=== PATIENT | male | born 1945 | race Caucasian/White ===

== ENCOUNTER → 2017-07-26 | Outpatient (CLI) | payer MEDICARE, BC ==
[2017-07-26 12:26] LABS: CH 32.4; CHCM 34.5; HDW 2.77; HGB 15.6 gm/dL (13.0-17.5); MCH 31.3 pg (25.0-35.0); MCHC 33.2 g/dL (31.0-37.0); MCV 94.3 fL (80.0-100.0); Mean Platelet Volume 7.5; RBC 4.98 m/uL (4.30-5.90); RDW 13.4 % (11.5-15.5); WBC 6.7 k/uL (3.8-10.6)
[2017-07-26 12:36] LABS: Anion Gap 15 mmol/L; Blood Urea Nitrogen 25 mg/dL (9-20); Carbon Dioxide 21 mmol/L (22-30); Chloride 104 mmol/L (98-107); Non-African American GFR(MDRD) >60 (>60 ml/min/1.73 sqM); Potassium 5.1 mmol/L (3.5-5.1); Sodium 140 mmol/L (137-145)
== END | disposition home or self-care (01) ==
LOC: LABPAT 11:37
PROVIDERS: ATTEND Internal Medicine Interventional Cardiology
DX: Z01.812 Encounter for preprocedural laboratory examination (principal); I25.10 Atherosclerotic heart disease of native coronary artery without angina pectoris
CPT/HCPCS: 80051; 82565; 84520; 85027

== ENCOUNTER → 2017-08-12 | Day surgery (SDC) | payer MEDICARE, BC ==
[2017-08-09 09:18] VITALS: BMI 26.2
[~2017-08-12] MED LIST: ALPRAZolam 0.25 MG TAB PO PRN; ALPRAZolam 0.5 MG TAB PO PRN; ASPIRIN 325 MG TAB PO STA; ATORVASTATIN 80 MG TAB PO STA; HEPARIN SODIUM 1,000 UN/ML (10ML VL) IV ONE; IODIXANOL 320 MG/ML 100 ML INTRAARTER ONE; IOHEXOL 350 MG/ML 125ML BOTTLE INJ ONE; LIDOCAINE 2% INJ 20 MG/ML SQ ONE; NITROGLYCERIN SL TABS 0.4 MG TAB SUBLINGUAL PRN; RX INFO: IV CONTRAST WAS GIVEN 1 EACH MISC MISCELLANE PRN; SODIUM CHLORIDE 0.9% 1,000 ML IV SCH; SODIUM CHLORIDE 0.9% 1,000 ML in EMPTY BAG 1 BAG IV ONE
[2017-08-12 06:56] VITALS: TEMP 97.8
[2017-08-12] MEDS: MIDAZOLAM 2 MG/2 ML VIAL IVP ONE ×2 (07:40→07:51)
[2017-08-12] MEDS: VERAPAMIL SYRINGE (5 MG/10 ML) INTRAARTER ONE ×2 (07:55→08:20)
--- NOTE | 2017-08-12 09:12 | CC ---
CARDIAC CATHETERIZATION REPORT DATE OF SERVICE: 08/12/2017 PERFORMING PHYSICIAN: Johan Machado MD, strategic partnership manager. PROCEDURE PERFORMED: Selective right and left coronary angiogram. INDICATION: This is a pleasant 72-year-old gentleman who is known to have coronary artery disease and prior stenting of the right coronary artery was experiencing chest discomfort concerning for angina. APPROACH: Right radial artery. COMPLICATION: None. LEVEL OF SEDATION: Moderate with sedation length of 15 minutes. PROCEDURE DESCRIPTION: After obtaining an informed consent, the patient was brought to the cardiac clinical laboratory manager. The right radial artery was cannulated using micropuncture needle, the micropuncture wire was passed easily. Then I placed a 6-Turkmen sheath in the right radial artery. Subsequently I did selective right and left coronary angiogram using JR4 and JL3.5 catheters. The procedure was completed without any complication. SELECTIVE CORONARY ANGIOGRAM: 1. The right coronary artery is a large caliber vessel and it is a dominant vessel. The proximal RCA has A 99% lesion. The mid RCA is stented with severe in-stent restenosis. It seems that there is more than one layer of stent there. The RCA distally appeared to be angiographically normal and bifurcates into PDA and PLV branches. Both are angiographically normal. 2. The left main has disease, appeared to be in the range of 30%. It bifurcates into left circumflex and left anterior descending artery. 3. The left circumflex is a moderate caliber vessel and it is a nondominant vessel. The proximal left circumflex appeared to have mild disease only and gives rise into a large OM branch which appeared to be angiographically normal. The mid left circumflex appeared to have mild disease only and gives rise into a second large OM branch which appears to be angiographically normal and the circumflex continued after that as small to medium caliber vessel in the AV groove. 4. The left anterior descending artery; the proximal LAD appeared to have a critical lesion seems to be in the range of 80% to 90%. The LAD in the mid and distal portion appeared to have mild disease only. POSTPROCEDURE MANAGEMENT: 1. At this point, maximize medical treatment. 2. I will discuss with the patient the option between bypass versus percutaneous coronary intervention. 3. The patient is going to be discharged home later on today. MMODL / IJN: [id number] /
--- NOTE | 2017-08-12 09:32 | AN ---
ANGIOGRAPHY REPORT DATE OF SERVICE: 08/12/2017 PERFORMING PHYSICIAN: Johan Machado MD, primer waterproofing machine operator. PROCEDURE PERFORMED: 1. An abdominal aortogram. 2. Bilateral lower extremities runoff. INDICATION: This is a pleasant 72-year-old gentleman who is known to have peripheral arterial disease and prior stenting of the right SFA and right iliac was experiencing severe left leg discomfort. He was experiencing also right leg discomfort but not as bad as the left leg. He was brought today to undergo a peripheral angiogram. APPROACH: Right radial artery. COMPLICATION: None. LEVEL OF SEDATION: Moderate with sedation length of 15 minutes. PROCEDURE DESCRIPTION: Please refer to the right radial access description in my previous heart catheterization at the same day. SELECTIVE PERIPHERAL ANGIOGRAM: 1. The abdominal aorta is calcified with mild disease only. 2. Common iliac arteries: The right and left common iliac arteries appear to have mild disease only. 3. The internal iliac arteries: The right and left internal iliac arteries are patent. 4. The external iliac arteries: The right external iliac artery is stented with in- stent restenosis appeared to be in the range of 70%. The left external iliac artery appeared to be angiographically normal. 5. The common femoral artery: The right common femoral artery is severely and diffusely diseased and the left common femoral artery appeared to have a plaque in the range of 70% to 80%. 6. SFA: The right SFA is stented on multiple segments and the stent is patent and the left SFA is diffusely diseased up to about 80% to 90% in multiple areas in the proximal mid and distal portion. 7. Popliteal: The right popliteal appeared to have mild to moderate diffuse disease and the left popliteal was not well visualized because of prosthesis behind the knee. 8. Below the knee: The arteries below the knee are poorly visualized because of selective injections. CONCLUSION: 1. Severe aortoiliac disease with severe disease involving the right external iliac artery. 2. Severe femoral-popliteal disease with severe disease involving bilateral common femoral arteries and left SFA. POSTPROCEDURE MANAGEMENT: Proceeding with a CABLE SPLICER ASSISTANT of the right external iliac artery as well as bilateral common femoral arteries as well as left SFA. Beside that, we need to take a selective picture to better visualize the left popliteal and below the knee bilaterally. MMODL / IJN: [id number] /
[2017-08-12 11:54] VITALS: RESP 18
--- NOTE | 2017-08-12 12:38 | IR ---
Fluoroscopy HISTORY: Peripheral vascular disease 8.7 minutes fluoroscopy time supplied to the referring clinician. 475 intraoperative C-arm images do cument the procedure. See dictated report from cardiology.
[2017-08-12 13:13] VITALS: BP 145/72; PULSE 69
== END ==
LOC: CATHCVL 06:29
PROVIDERS: ATTEND Internal Medicine Interventional Cardiology
DX: I25.110 Atherosclerotic heart disease of native coronary artery with unstable angina pectoris (principal); T82.855A Stenosis of coronary artery stent, initial encounter; I10 Essential (primary) hypertension; Z87.891 Personal history of nicotine dependence; I70.213 Atherosclerosis of native arteries of extremities with intermittent claudication, bilateral legs; T82.856A Stenosis of peripheral vascular stent, initial encounter; I70.0 Atherosclerosis of aorta; E78.5 Hyperlipidemia, unspecified; Z82.49 Family history of ischemic heart disease and other diseases of the circulatory system; Z79.02 Long term (current) use of antithrombotics/antiplatelets; Z79.82 Long term (current) use of aspirin; Z79.899 Other long term (current) drug therapy
CPT/HCPCS: 99152; 99153 ×2; 93454; 75625; 75716; C1769 ×2; J2001; J2250; Q9967 ×2; J1644

== ENCOUNTER 2017-08-16 06:24 | Day surgery (SDC) | payer MEDICARE, BC ==
[~2017-08-16 06:24] MED LIST changes: -ATORVASTATIN 80 MG TAB PO STA; -HEPARIN SODIUM 1,000 UN/ML (10ML VL) IV ONE; -IODIXANOL 320 MG/ML 100 ML INTRAARTER ONE; -IOHEXOL 350 MG/ML 125ML BOTTLE INJ ONE; -LIDOCAINE 2% INJ 20 MG/ML SQ ONE; -RX INFO: IV CONTRAST WAS GIVEN 1 EACH MISC MISCELLANE PRN; -SODIUM CHLORIDE 0.9% 1,000 ML IV SCH
[2017-08-16] MEDS ORDERED: SODIUM CHLORIDE 0.9% 1,000 ML IV ONE (06:45)
[2017-08-16] MEDS ORDERED: LIDOCAINE 2% INJ 20 MG/ML (20 ML MDV) ONE (07:22)
[2017-08-16] MEDS ORDERED: MIDAZOLAM 2 MG/2 ML VIAL ONE (07:28)
[2017-08-16] MEDS ORDERED: HEPARIN SODIUM 1,000 UN/ML (10ML VL) ONE (07:37)
[2017-08-16] MEDS ORDERED: VERAPAMIL 2.5 MG/ML 2 ML AMP ONE (07:37)
[2017-08-16] MEDS ORDERED: MIDAZOLAM 2 MG/2 ML VIAL IV ONE (07:50)
[2017-08-16] MEDS ORDERED: BIVALIRUDIN BOLUS 250 MG/50 ML IV ONE (08:02)
[2017-08-16] MEDS ORDERED: LIDOCAINE 2% INJ 20 MG/ML SQ ONE (08:03)
[2017-08-16] MEDS ORDERED: BIVALIRUDIN 250 MG in SODIUM CHLORIDE 0.9% 50 ML IV ONE (08:04)
[2017-08-16] MEDS ORDERED: NITROGLYCERIN 1000MCG/10ML SYRINGE INTRACORON ONE (08:15)
[2017-08-16] MEDS ORDERED: CLOPIDOGREL 75 MG TAB ONE (08:17)
[2017-08-16] MEDS ORDERED: CLOPIDOGREL 75 MG TAB PO ONE (08:19)
[2017-08-16] MEDS ORDERED: IOHEXOL 350 MG/ML 125ML BOTTLE INJ ONE (08:22)
[2017-08-16] MEDS ORDERED: RX INFO: IV CONTRAST WAS GIVEN 1 EACH MISC MISCELLANE PRN (08:25)
[2017-08-16] MEDS ORDERED: ZOLPIDEM 5 MG TAB PO PRN (08:25)
[2017-08-16] MEDS ORDERED: NITROGLYCERIN SL TABS 0.4 MG TAB SUBLINGUAL PRN (08:25)
[2017-08-16] MEDS ORDERED: ATROPINE SULFATE 0.1 MG/ML 10ML SYRINGE IV PRN (08:25)
[2017-08-16] MEDS ORDERED: ASSURED PO PRN (08:27)
[2017-08-16] MEDS ORDERED: LORazepam 1 MG TAB PO PRN (08:27)
[2017-08-16] MEDS ORDERED: ACETAMINOPHEN TAB 325 MG TAB PO PRN (08:27)
[2017-08-16] MEDS ORDERED: SODIUM CHLORIDE 0.9% 1,000 ML IV SCH (08:30)
[2017-08-16] MEDS ORDERED: HYDROmorphone 1 MG/ML 1 ML SYRINGE IVP PRN (08:40)
[2017-08-16] MEDS ORDERED: MAG HYDROX/AL HYDROX/SIMETH 30 ML CUP ONE (08:44)
[2017-08-16] MEDS: MAG HYDROX/AL HYDROX/SIMETH 30 ML CUP PO PRN ×2 (08:51→22:09)
--- NOTE | 2017-08-16 08:59 | CC ---
CARDIAC CATHETERIZATION REPORT DATE OF SERVICE: 08/16/2017. PERFORMING PHYSICIAN: Johan Machado MD, Etl Analyst. PROCEDURE PERFORMED: Successful stenting of the proximal LAD using a 3.0 x 20 mm Promus Premier drug-eluting stent with good angiographic results. INDICATION: This is a pleasant 72-year-old gentleman who was experiencing chest discomfort concerning for angina and underwent a heart catheterization a few days ago and that showed critical disease involving the LAD and chronic total occlusion of the RCA in short segment. He was brought today to undergo an intervention on the LAD. APPROACH: Left common femoral artery. COMPLICATION: None. LEVEL OF SEDATION: Moderate with sedation length of 27 minutes. PROCEDURE DESCRIPTION: After obtaining informed consent, the patient was brought to the Cardiac Hospital Plan Administrator. The left groin was prepped and draped in the usual sterile fashion. The local analgesia was achieved by injecting 2% xylocaine subcutaneously into the left groin. The left common femoral artery was cannulated using micropuncture technique, the micropuncture wire passed easily then I placed a 6-Portuguese sheath in the left common femoral artery. Subsequently, I started anticoagulation using Angiomax. After that, I took an XB3.5 LAD guide and the left main was engaged. A whisper wire was used to wire the LAD. I pre-dilated the lesion in the proximal LAD using 2.5 x 15 mm semi-compliant balloon which was inflated under 12 atmospheres for 20 seconds. Subsequently, I deployed 3.0 x 20 mm Promus Premier drug-eluting stent where the stent was positioned under fluoroscopy guidance and deployed under 12 atmospheres for 30 seconds. The following angiogram showed good angiographic results without complication and with KARRI-3 flow. The procedure was completed without any complication. POSTPROCEDURE MANAGEMENT: 1. Dual anti-platelet therapy. 2. Risk factors modifications and follow up with the patient. MMODL / IJN: [id number] /
[2017-08-16] MEDS ORDERED: NON-FORMULARY DRUG (Fish Oil/Dha/Epa [Fish Oil 1,200 Mg Fish Oil] 1,200 MG) PO SCH (09:00)
--- NOTE | 2017-08-16 09:20 | LTR ---
DATE OF SERVICE: 08/16/2017 RE: Ran Maldonado Dear Dr. Roman: Mr. Ran Maldonado was experiencing chest discomfort concerning for angina and he underwent heart catheterization a few days ago and that showed critical disease involving the proximal left anterior descending artery. He was brought today and underwent successful stenting of the proximal LAD with good angiographic results and without any complication. I want to thank you for allowing me to participate in his care and please do not hesitate to call if you have any questions or concerns. Sincerely, MD VIKRAM Mcgovern / EVELYN: [id number] /
[2017-08-16] MEDS ORDERED: MULTIVITAMINS, THERA 1 EACH TAB PO SCH (13:00)
[2017-08-16] MEDS: CILOSTAZOL 100 MG TAB PO SCH ×2 (13:51→20:06)
[2017-08-16 14:31] VITALS: BMI 26.2
[2017-08-16 16:13] VITALS: RESP 18
[2017-08-16] MEDS: CARVEDILOL 3.125 MG TAB PO SCH ×2 (16:22→17:07)
[2017-08-16] MEDS: ASPIRIN 325 MG TAB PO SCH (16:22)
[2017-08-16] MEDS ORDERED: CLOPIDOGREL 75 MG TAB PO SCH (21:00)
[2017-08-16] MEDS ORDERED: FENOFIBRATE 160 MG TAB PO SCH (21:00)
[2017-08-16] MEDS ORDERED: traZODone HCL 100 MG TAB PO SCH (21:00)
[2017-08-17] MEDS: CARVEDILOL 3.125 MG TAB PO SCH (06:25)
[2017-08-17 06:44] LABS: Basophils # (A) 0.1 k/uL (0-0.2); Basophils % (A) 1 %; CH 31.3; CHCM 33.9; Eosinophils # (A) 0.2 k/uL (0-0.7); Eosinophils % (A) 3 %; HCT 47.7 % (39.0-53.0); HDW 2.79; HGB 15.6 gm/dL (13.0-17.5); Luc # (Auto) 0.22; Luc % (Auto) 2; Lymphocytes # (A) 3.5 k/uL (1.0-4.8); Lymphocytes % (A) 38 %; MCH 30.4 pg (25.0-35.0); MCHC 32.7 g/dL (31.0-37.0); MCV 92.7 fL (80.0-100.0); Mean Platelet Volume 6.9; Monocytes # (A) 0.5 k/uL (0-1.0); Monocytes % (A) 6 %; Neutrophils # (A) 4.6 k/uL (1.3-7.7); Neutrophils % (A) 50 %; RBC 5.15 m/uL (4.30-5.90); RDW 12.3 % (11.5-15.5); WBC 9.2 k/uL (3.8-10.6); WBC (Perox) 8.83
[2017-08-17 07:12] LABS: Anion Gap 13 mmol/L; Blood Urea Nitrogen 22 mg/dL (9-20); Calcium 10.1 mg/dL (8.4-10.2); Carbon Dioxide 24 mmol/L (22-30); Chloride 103 mmol/L (98-107); Glucose 138 mg/dL (74-99); Non-African American GFR(MDRD) >60 (>60 ml/min/1.73 sqM); Potassium 4.7 mmol/L (3.5-5.1); Sodium 140 mmol/L (137-145)
[2017-08-17] MEDS ORDERED: PANTOPRAZOLE 40 MG TABLET PO SCH (07:30)
[2017-08-17] MEDS: ASPIRIN 325 MG TAB PO SCH (09:39)
[2017-08-17] MEDS: CILOSTAZOL 100 MG TAB PO SCH (09:40)
--- NOTE | 2017-08-17 09:54 | DS ---
DISCHARGE SUMMARY ADMISSION DATE: 08/16/2017 DISCHARGE DATE: 08/17/2017 BRIEF HISTORY: This is a pleasant 72-year-old gentleman who was admitted to the hospital and underwent successful stenting of the proximal LAD with good angiographic results and without any complication. The patient is going to be discharged home on dual anti-platelet therapy. I will follow up with the patient next week in the office. VIKRAM / EVELYN: [id number] /
[2017-08-17 11:28] VITALS: BP 142/73; PULSE 75; TEMP 97.7
== END 2017-08-17 11:08 | disposition home or self-care (01) ==
LOC: CATHCVL 06:24 → 6SEL 12:05 → CATHCVL 08-17 11:01
PROVIDERS: ATTEND Internal Medicine Interventional Cardiology
DX: I25.10 Atherosclerotic heart disease of native coronary artery without angina pectoris (principal); I25.82 Chronic total occlusion of coronary artery; T82.855A Stenosis of coronary artery stent, initial encounter; R94.31 Abnormal electrocardiogram [ECG] [EKG]; E78.5 Hyperlipidemia, unspecified; I10 Essential (primary) hypertension; I70.213 Atherosclerosis of native arteries of extremities with intermittent claudication, bilateral legs; Z82.49 Family history of ischemic heart disease and other diseases of the circulatory system; Z87.891 Personal history of nicotine dependence; Z79.02 Long term (current) use of antithrombotics/antiplatelets; Z79.82 Long term (current) use of aspirin; Z79.899 Other long term (current) drug therapy
CPT/HCPCS: 80048; 85025; 99152; 99153; C9600; C1769 ×3; C1725; C1887; C1894 ×2; C1874; J2001; J2250; J1170; J0583; Q9967

== ENCOUNTER 2017-09-15 13:05 | Day surgery (SDC) | payer MEDICARE, BC ==
[~2017-09-15 13:05] MED LIST changes: -ALPRAZolam 0.5 MG TAB PO PRN; -NITROGLYCERIN SL TABS 0.4 MG TAB SUBLINGUAL PRN
[2017-09-15] MEDS ORDERED: SODIUM CHLORIDE 0.9% 1,000 ML IV ONE (13:40)
[2017-09-15 14:36] VITALS: RESP 16
[2017-09-15] MEDS ORDERED: fentaNYL (PF) 50 MCG/ML 2 ML AMP IV ONE (15:27)
[2017-09-15] MEDS ORDERED: CLOPIDOGREL 75 MG TAB PO ONE (15:38)
[2017-09-15] MEDS ORDERED: MIDAZOLAM 2 MG/2 ML VIAL IV ONE (16:07)
[2017-09-15] MEDS ORDERED: LIDOCAINE 2% INJ 20 MG/ML SQ ONE (16:19)
[2017-09-15] MEDS ORDERED: HYDROmorphone 2 MG/ML 1 ML SYRINGE IV ONE (16:56)
[2017-09-15] MEDS ORDERED: diphenhydrAMINE ELIXIR 25 MG/10 ML CUP PO PRN (17:35)
[2017-09-15] MEDS ORDERED: SODIUM CHLORIDE 0.9% 1,000 ML IV SCH (17:45)
[2017-09-15 18:28] VITALS: BMI 25.8
[2017-09-15] MEDS ORDERED: ATROPINE SULFATE 0.1 MG/ML 10ML SYRINGE ONE (19:33)
--- NOTE | 2017-09-15 20:33 | AN ---
ANGIOGRAPHY REPORT DATE OF SERVICE: September 15, 2017 PERFORMING PHYSICIAN: Johan Machado MD, plasma center technician. PROCEDURE PERFORMED: 1. Selective right common femoral artery angiogram. 2. Selective right external iliac artery angiogram. 3. Intravascular ultrasound IVUS of the right common femoral artery. 4. Intravascular ultrasound IVUS of the right external iliac artery. 5. Gradient measurement across the right common femoral artery and right external iliac artery. 6. Successful balloon angioplasty of the right external iliac artery. INDICATIONS: This is a pleasant 72-year-old gentleman who was experiencing bilateral lower extremities intermittent claudication and who underwent a peripheral angiogram a few weeks ago and that revealed severe disease involving the right external iliac artery and left SFA. He was brought today to undergo an intervention on the right leg. APPROACH: Left common femoral artery. COMPLICATION: None. LEVEL OF SEDATION: Moderate with sedation length of 65 minutes. PROCEDURE DESCRIPTION: After obtaining informed consent, the patient was brought to cardiac kiln labourer. The left common femoral artery was cannulated using micropuncture technique, the micropuncture wire passed easily. Then I placed a 6-Jamaican sheath in the left common femoral artery. Subsequently I did select the right SFA using a 5-Jamaican rim catheter with 035 advantage wire and then I did exchange my 11 cm sheath into 55 cm 7-Jamaican sheath using the Advantage wire. The tip of the sheath was positioned in the right external iliac artery. After that I did selective right common femoral artery and selective right external iliac artery angiogram. After that, I did offer intravascular ultrasound of the right common femoral artery and right external iliac artery. The intravascular ultrasound IVUS revealed heavily calcified right common femoral artery with intermediate to severe disease. The gradient measurement across it came into be nonsignificant. The intravascular ultrasound of the right external iliac artery showed what it seems to be also severe disease with in-stent restenosis. I did after that balloon angioplasty of the right external iliac artery using initially 6 mm AngioSculpt balloon and an 8 mm regular balloon. After that, I did a gradient measurement across both the right common femoral and right external iliac arteries and the gradient came into be none significant. The procedure at that point was completed without any complication. Subsequently, I did exchange my 70 cm 7-Jamaican sheath into 11 cm 7-Jamaican sheath using the Advantage wire and the procedure was completed without any complication. POSTPROCEDURE MANAGEMENT.: 1. Dual anti-platelet therapy. 2. Risk factor modifications. 3. Follow up with the patient. ANSHUODL / IJN: [id number] /
[2017-09-15 20:35] LABS: Glucose,Whole Blood 186 mg/dL (75-99)
[2017-09-15] MEDS: CILOSTAZOL 100 MG TAB PO SCH (20:45)
[2017-09-15] MEDS ORDERED: CLOPIDOGREL 75 MG TAB PO SCH (21:00)
[2017-09-15] MEDS ORDERED: traZODone HCL 100 MG TAB PO SCH (21:00)
[2017-09-15] MEDS ORDERED: FENOFIBRATE 160 MG TAB PO SCH (21:00)
[2017-09-15] MEDS: ACETAMINOPHEN TAB 325 MG TAB PO PRN (23:14)
[2017-09-16] MEDS: ACETAMINOPHEN TAB 325 MG TAB PO PRN (02:42)
[2017-09-16 06:10] LABS: Basophils % (A) 1 %; CH 29.9; CHCM 33.1; Eosinophils # (A) 0.2 k/uL (0-0.7); Eosinophils % (A) 3 %; HCT 37.9 % (39.0-53.0); HDW 2.56; HGB 12.7 gm/dL (13.0-17.5); Luc % (Auto) 2; Lymphocytes # (A) 2.4 k/uL (1.0-4.8); Lymphocytes % (A) 42 %; MCH 30.3 pg (25.0-35.0); MCHC 33.4 g/dL (31.0-37.0); MCV 90.7 fL (80.0-100.0); Mean Platelet Volume 7.5; Monocytes # (A) 0.4 k/uL (0-1.0); Monocytes % (A) 7 %; Neutrophils # (A) 2.5 k/uL (1.3-7.7); Neutrophils % (A) 45 %; RBC 4.18 m/uL (4.30-5.90); RDW 13.3 % (11.5-15.5); WBC 5.7 k/uL (3.8-10.6)
[2017-09-16 06:38] LABS: Anion Gap 11 mmol/L; Blood Urea Nitrogen 24 mg/dL (9-20); Calcium 9.1 mg/dL (8.4-10.2); Carbon Dioxide 19 mmol/L (22-30); Chloride 107 mmol/L (98-107); Glucose 138 mg/dL (74-99); Non-African American GFR(MDRD) 60 (>60 ml/min/1.73 sqM); Potassium 4.1 mmol/L (3.5-5.1); Sodium 137 mmol/L (137-145)
[2017-09-16] MEDS ORDERED: PANTOPRAZOLE 40 MG TABLET PO SCH (07:30)
[2017-09-16] MEDS ORDERED: CARVEDILOL 3.125 MG TAB PO SCH (07:30)
[2017-09-16] MEDS: CILOSTAZOL 100 MG TAB PO SCH (08:46)
[2017-09-16 08:51] VITALS: BP 175/78; PULSE 81; TEMP 97.1
[2017-09-16] MEDS ORDERED: LORazepam 1 MG TAB PO SCH (09:00)
[2017-09-16] MEDS ORDERED: ASPIRIN 325 MG TAB PO SCH (09:00)
--- NOTE | 2017-09-16 09:22 | IR ---
Fluoroscopy HISTORY: Peripheral vascular occlusive disease 19 minutes fluoroscopy time supplied to the referring clinician. 91 intraoperative C-arm images docu ment the procedure. See dictated report from cardiology.
[2017-09-16] MEDS ORDERED: MULTIVITAMINS, THERA 1 EACH TAB PO SCH (12:00)
--- NOTE | 2017-09-19 22:03 | DS ---
DISCHARGE SUMMARY DATE OF ADMISSION: September 15, 2017. DISCHARGE DATE: September 16, 2017 INTERVAL HISTORY: This is a pleasant 72-year-old gentleman who was admitted to the hospital and underwent on September 15, 2017 successful balloon angioplasty of the right external iliac artery with good angiographic results and without any complication. The procedure was performed from the left groin which is soft nontender and without any bruises. The patient is going to be discharged home and will be scheduled as an outpatient to undergo balloon angioplasty of the left SFA. The patient is going to be discharged home on dual anti-platelet therapy and statin and I will follow up with the patient as an outpatient in the office. MMODL / IJN: [id number] /
== END 2017-09-16 09:18 | disposition home or self-care (01) ==
LOC: CATHCVL 13:05 → 6SEL 17:40 → CATHCVL 09-16 09:18
PROVIDERS: ATTEND Internal Medicine Interventional Cardiology
DX: I70.213 Atherosclerosis of native arteries of extremities with intermittent claudication, bilateral legs (principal); I77.9 Disorder of arteries and arterioles, unspecified; R94.31 Abnormal electrocardiogram [ECG] [EKG]; I25.10 Atherosclerotic heart disease of native coronary artery without angina pectoris; E78.5 Hyperlipidemia, unspecified; I10 Essential (primary) hypertension; Z95.5 Presence of coronary angioplasty implant and graft; Z79.02 Long term (current) use of antithrombotics/antiplatelets; Z79.82 Long term (current) use of aspirin; Z79.899 Other long term (current) drug therapy; Z87.891 Personal history of nicotine dependence
CPT/HCPCS: 37221; 85347; 37252; 80048; 85025; C1894 ×3; C1725 ×2; C1769 ×4; C1753; J2001; J2250; J1170; J3010; J1644

== ENCOUNTER → 2017-09-28 | Outpatient (CLI) | payer MEDICARE, BC ==
[2017-09-28 12:26] LABS: CH 30.5; CHCM 33.2; HCT 44.5 % (39.0-53.0); HDW 2.55; HGB 14.4 gm/dL (13.0-17.5); MCH 29.7 pg (25.0-35.0); MCHC 32.2 g/dL (31.0-37.0); MCV 92.1 fL (80.0-100.0); Mean Platelet Volume 7.5; RBC 4.83 m/uL (4.30-5.90); RDW 13.8 % (11.5-15.5); WBC 7.3 k/uL (3.8-10.6)
[2017-09-28 12:47] LABS: Anion Gap 12 mmol/L; Blood Urea Nitrogen 29 mg/dL (9-20); Carbon Dioxide 22 mmol/L (22-30); Chloride 106 mmol/L (98-107); Non-African American GFR(MDRD) 50 (>60 ml/min/1.73 sqM); Potassium 4.9 mmol/L (3.5-5.1); Sodium 140 mmol/L (137-145)
== END | disposition home or self-care (01) ==
LOC: LABPAT 11:49
PROVIDERS: ATTEND Internal Medicine Interventional Cardiology
DX: Z01.812 Encounter for preprocedural laboratory examination (principal); I73.9 Peripheral vascular disease, unspecified
CPT/HCPCS: 36415; 80051; 82565; 84520; 85027

== ENCOUNTER → 2018-04-14 | Outpatient (CLI) | payer MEDICARE, BC ==
[2018-04-14 10:29] LABS: ALT 26 U/L (21-72); AST 27 U/L (17-59); Cholesterol 203 mg/dL (<200); HDL Cholesterol 42 mg/dL (40-60); LDL Cholesterol,Calculated 98 mg/dL (0-99); Triglycerides 315 mg/dL (<150)
== END | disposition home or self-care (01) ==
LOC: LABWHC1 09:12
PROVIDERS: ATTEND Nurse Practitioner Adult Health
DX: E78.5 Hyperlipidemia, unspecified (principal)
CPT/HCPCS: 36415; 80061; 84450; 84460

== ENCOUNTER → 2018-09-26 | Outpatient (CLI) | payer MEDICARE, BC ==
[2018-09-26 10:27] LABS: Potassium 4.5 mmol/L (3.5-5.1)
[2018-09-26 10:31] LABS: HCT 45.9 % (39.0-53.0); HGB 15.6 gm/dL (13.0-17.5); MCH 30.7 pg (25.0-35.0); MCHC 33.9 g/dL (31.0-37.0); MCV 90.6 fL (80.0-100.0); Mean Platelet Volume 6.6; Platelet Count 259 k/uL (150-450); RBC 5.06 m/uL (4.30-5.90); RDW 12.6 % (11.5-15.5); WBC 7.5 k/uL (3.8-10.6)
== END | disposition home or self-care (01) ==
LOC: LABPAT 09:35
PROVIDERS: ATTEND Internal Medicine Interventional Cardiology
DX: Z01.812 Encounter for preprocedural laboratory examination (principal); I70.213 Atherosclerosis of native arteries of extremities with intermittent claudication, bilateral legs; I25.10 Atherosclerotic heart disease of native coronary artery without angina pectoris; E78.5 Hyperlipidemia, unspecified; I10 Essential (primary) hypertension
CPT/HCPCS: 80051; 82565; 84520; 85027

== ENCOUNTER 2018-10-04 06:21 | Day surgery (SDC) | payer MEDICARE, BC ==
[2018-09-29 12:49] VITALS: BMI 26.6
[2018-10-04 06:59] VITALS: TEMP 97.5
[2018-10-04] MEDS ORDERED: SODIUM CHLORIDE 0.9% 1,000 ML IV ONE (07:00)
[2018-10-04] MEDS ORDERED: MIDAZOLAM 2 MG/2 ML VIAL IV ONE ×2 (08:02)
[2018-10-04] MEDS ORDERED: LIDOCAINE 1% INJ 10MG/ML (20 ML MDV) SQ ONE (08:05)
[2018-10-04] MEDS ORDERED: IOPAMIDOL-250 100ML BTL INTRAARTER ONE ×2 (08:21)
[2018-10-04] MEDS ORDERED: IOPAMIDOL-250 50ML BTL INTRAARTER ONE ×2 (08:22)
[2018-10-04] MEDS ORDERED: SODIUM CHLORIDE 0.9% 1,000 ML IV SCH (08:45)
--- NOTE | 2018-10-04 09:03 | AN ---
ANGIOGRAPHY REPORT DATE OF SERVICE: 10/04/2018 PERFORMING PHYSICIAN: Johan Machado MD, Adjunct Instructor In Economics. PROCEDURE PERFORMED: 1. Abdominal aortogram. 2. Bilateral lower extremities runoff. 3. The procedure is a peripheral angiogram. INDICATION: This is a pleasant 73-year-old gentleman with known history of coronary artery disease and peripheral arterial disease who was experiencing bilateral lower extremities intermittent claudication, severe enough and interfering with his daily activities. Because of that, a peripheral angiogram was scheduled. APPROACH: Left common femoral artery. COMPLICATION: None. LEVEL OF SEDATION: Moderate with a sedation length of 21 minutes. PROCEDURE DESCRIPTION: After obtaining an informed consent, the patient was brought to the cardiac process laboratory specialist. The right common femoral artery was cannulated using micropuncture technique, the micropuncture wire passed easily. Then I placed a 4-Greek sheath in the left common femoral artery. After that, I did an abdominal aortogram and bilateral lower extremities runoff using 4-Greek pigtail catheter which was initially placed at the level of the renal arteries, then it was pulled back into above the bifurcation of the aorta into right and left common iliac arteries. After that., I did selective left common femoral artery angiogram with injection through the sheath to assess the left popliteal and left [id number] arteries. The procedure was completed without any complication. SELECTIVE PERIPHERAL ANGIOGRAM: 1. The aorta is mildly aneurysmal with mild occlusive disease only. 2. COMMON ILIAC ARTERIES: The right and left common iliac arteries appear to have mild disease only. 3. EXTERNAL ILIAC ARTERIES: The right external iliac artery is stented and the stent is patent and the left external iliac artery appeared to have mild disease only. 4. INTERNAL ILIAC ARTERIES: The right and left internal iliac arteries are patent. 5. COMMON FEMORAL ARTERIES: The right common femoral artery appeared to have severe eccentric lesion in the range of 80%-90%. and the lesion is heavily calcified. The left common femoral artery appeared to have mild to moderate disease only. 6. SFA: The right SFA is stented and the stent is patent. The left SFA is diffusely diseased up to about 90% in multiple areas. 7. POPLITEAL: The right popliteal appeared to have a critical lesion in the range of 90% and the left popliteal is occluded. 8. BELOW THE KNEE: There are 2 vessels runoff below the knee on the right side with AT and peroneal and 3 vessels runoff on the left side with AT, PT and peroneal. CONCLUSION: 1. Patent stent in the in the right external iliac artery. 2. Severe disease involving the right common femoral artery. 3. Severe disease involving the left SFA. 4. Critical right popliteal and occluded left popliteal. POSTPROCEDURE MANAGEMENT: 1. Maximize medical treatment at this point of time. 2. I do feel that the patient will benefit from either THREAD PULLING MACHINE ATTENDANT of the right common femoral artery or indirect atherectomy of the right common femoral artery at this point. 3. After that, he needs to have a THREAD PULLING MACHINE ATTENDANT of bilateral SFA. MMODL / IJN: [id number] /
--- NOTE | 2018-10-04 09:22 | IR ---
Fluoroscopy HISTORY: Pain in bilateral legs 2.3 minutes fluoroscopy time supplied to the referring clinician. 319 intraoperative C-arm images do cument the procedure. See dictated report from cardiology.
[2018-10-04 10:04] VITALS: RESP 16
[2018-10-04 13:14] VITALS: BP 133/77; PULSE 79
== END 2018-10-04 13:30 | disposition home or self-care (01) ==
LOC: CATHCVL 06:21
PROVIDERS: ATTEND Internal Medicine Interventional Cardiology
DX: I70.213 Atherosclerosis of native arteries of extremities with intermittent claudication, bilateral legs (principal); I71.9 Aortic aneurysm of unspecified site, without rupture; I25.10 Atherosclerotic heart disease of native coronary artery without angina pectoris; E78.5 Hyperlipidemia, unspecified; I10 Essential (primary) hypertension; Z95.820 Peripheral vascular angioplasty status with implants and grafts; Z95.5 Presence of coronary angioplasty implant and graft; Z82.49 Family history of ischemic heart disease and other diseases of the circulatory system; Z79.02 Long term (current) use of antithrombotics/antiplatelets; Z79.82 Long term (current) use of aspirin; Z79.899 Other long term (current) drug therapy; Z72.0 Tobacco use
CPT/HCPCS: 36200; 75625; 75716; C1769 ×3; C1894; J2250; J2001; Q9966 ×2

== ENCOUNTER → 2019-04-21 | Outpatient (CLI) | payer MEDICARE, BC ==
[2019-04-21 10:30] LABS: Basophils % (A) 1 %; Eosinophils # (A) 0.2 k/uL (0-0.7); Eosinophils % (A) 4 %; HCT 42.5 % (39.0-53.0); HGB 14.8 gm/dL (13.0-17.5); Lymphocytes # (A) 2.6 k/uL (1.0-4.8); Lymphocytes % (A) 43 %; MCH 31.2 pg (25.0-35.0); MCHC 34.9 g/dL (31.0-37.0); MCV 89.6 fL (80.0-100.0); Mean Platelet Volume 6.7; Monocytes # (A) 0.4 k/uL (0-1.0); Monocytes % (A) 6 %; Neutrophils # (A) 2.6 k/uL (1.3-7.7); Neutrophils % (A) 44 %; Platelet Count 273 k/uL (150-450); RBC 4.75 m/uL (4.30-5.90); RDW 12.8 % (11.5-15.5); WBC 5.9 k/uL (3.8-10.6)
[2019-04-21 10:53] LABS: African American GFR (CKD) >90 (>60 ml/min/1.73 sqM); Anion Gap 11 mmol/L; Blood Urea Nitrogen 19 mg/dL (9-20); Carbon Dioxide 21 mmol/L (22-30); Chloride 108 mmol/L (98-107); Potassium 4.7 mmol/L (3.5-5.1); Sodium 140 mmol/L (137-145)
[2019-04-21 11:01] LABS: Partial Thromboplastin Time 23.4 sec (22.0-30.0); Prothrombin Time 10.3 sec (9.0-12.0)
[2019-04-21 11:25] LABS: Appearance,Urine Clear (Clear); Bilirubin,Urine Negative (Negative); Blood,Urine Negative (Negative); Color,Urine Yellow; Glucose,Urine (UA) Negative (Negative); Ketones,Urine Negative (Negative); Leukocyte Esterase,Urine Negative (Negative); Nitrite,Urine Negative (Negative); Protein,Urine Negative (Negative); Specific Gravity,Urine 1.018 (1.001-1.035); Urobilinogen,Urine <2.0 mg/dL (<2.0)
== END | disposition home or self-care (01) ==
LOC: LABPAT 09:35
PROVIDERS: ATTEND Surgery
DX: Z01.812 Encounter for preprocedural laboratory examination (principal); I70.92 Chronic total occlusion of artery of the extremities
CPT/HCPCS: 80051; 81003; 82565; 84520; 85025; 85610; 85730

== ENCOUNTER 2019-05-03 06:58 | Inpatient (IN) | payer MEDICARE, BC ==
[~2019-05-03 06:58] MED LIST changes: -ALPRAZolam 0.25 MG TAB PO PRN; -ASPIRIN 325 MG TAB PO STA; +DEXAMETHASONE SOD PHOSPHATE 10 MG/ML 1 ML VIAL IV ONE; +HYDROmorphone 0.5 MG/0.5 ML SYRINGE IVP PRN; +LIDOCAINE 1% 20 ML VIAL (10MG/ML) FOR IV START INTRADERMA PRN; +MIDAZOLAM 2 MG/2 ML VIAL IV PRN; +ONDANSETRON 4 MG/2 ML VIAL IVP ONE; +SCOPOLAMINE 1.5MG/72HR PATCH TRANSDERM ONE; -SODIUM CHLORIDE 0.9% 1,000 ML in EMPTY BAG 1 BAG IV ONE; +ceFAZolin IN SWFI 2 GM/20 ML SYRINGE IVP ONE
[2019-05-03] MEDS: LACTATED RINGERS 1,000 ML IV SCH (07:35)
[2019-05-03] MEDS ORDERED: ePHEDrine SULFATE/0.9% NACL/PF 50 MG/5 ML SYRINGE IV ONE (08:15)
[2019-05-03] MEDS ORDERED: PROPOFOL 10 MG/ML 20 ML VIAL IV ONE (08:15)
[2019-05-03] MEDS ORDERED: PHENYLEPHRINE-0.9% NACL SYG 1 MG/10 ML SYRINGE ONE (08:15)
[2019-05-03] MEDS ORDERED: HEPARIN SODIUM,PORCINE 10,000 UNIT/ML 1 ML VIAL ONE (08:15)
[2019-05-03] MEDS ORDERED: LIDOCAINE 1% INJ 10MG/ML (20 ML MDV) ONE (08:15)
[2019-05-03] MEDS ORDERED: fentaNYL (PF) 50 MCG/ML 2 ML AMP ONE (08:15)
[2019-05-03] MEDS ORDERED: MIDAZOLAM 2 MG/2 ML VIAL ONE (08:15)
[2019-05-03 08:55] LABS: Glucose,Whole Blood 161 mg/dL (75-99)
[2019-05-03] MEDS ORDERED: LACTATED RINGERS 1,000 ML IV ONE ×2 (09:49)
[2019-05-03] MEDS ORDERED: GELATIN SPONGE,ABSORB (LARGE) 1 EACH SPONGE TOPICAL ONE (11:15)
[2019-05-03] MEDS ORDERED: THROMBIN (BOVINE) 5,000 UNIT VIAL TOPICAL ONE ×2 (11:16)
[2019-05-03] MEDS ORDERED: HYDROcodone/APAP 5-325MG 1 EACH TAB PO PRN (13:16)
[2019-05-03 14:02] VITALS: BMI 25.1
[2019-05-03] MEDS: CARVEDILOL 3.125 MG TAB PO SCH (18:30)
[2019-05-03] MEDS: MORPHINE SULFATE 2 MG/ML SYRINGE IVP PRN ×2 (18:30→21:28)
[2019-05-03] MEDS ORDERED: traZODone HCL 100 MG TAB PO SCH (21:00)
[2019-05-03] MEDS ORDERED: CLOPIDOGREL 75 MG TAB PO SCH (21:00)
[2019-05-03] MEDS: CILOSTAZOL 100 MG TAB PO SCH (21:24)
[2019-05-04] MEDS: MORPHINE SULFATE 2 MG/ML SYRINGE IVP PRN (03:23)
[2019-05-04 03:52] VITALS: RESP 18
[2019-05-04] MEDS: LACTATED RINGERS 1,000 ML IV SCH (06:44)
[2019-05-04] MEDS: CARVEDILOL 3.125 MG TAB PO SCH (06:46)
--- NOTE | 2019-05-04 07:19 | P.OP ---
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 States only can walk 50 feet without severe pain in the thighs and calfs. He presents today for femoral endarterectomy. Operative Findings: Dense, calcified plaque extending from the external iliac above the inguinal ligament to the SFA Description of Procedure: After written and informed consent was obtained from the patient and all risks, benefits, complications were discussed the patient was brought to the operative suite and laid in a supine position. The area of the groin was prepped and draped in the usual sterile fashion. Time-out was performed in normal fashion with all parties in agreement. The patient was given antibiotics prior to incision. An oblique incision was then created with a 10 blade scalpel at the right groin and dissection with electrocautery was performed to the common femoral artery. The common femoral, superficial femoral, and profundus femoris vessels were then dissected in a circumferential manner and controlled with vessel loops. Upon dissection there were several collateral vessels encountered which were also controlled with vessel loops. The patient was then given heparin and followed with serial ACT's and redosed as needed. Proximal and distal control was then obtained with vascular clamps and arteriotomy was created with an 11 blade scalpel and extended with Hill Sargent scissors. Endarterectomy was then performed with freer and the plaque was feathered at the distal SFA. All free debris was removed and backbleeding was assessed which was brisk from the profundus, and SFA. While removing plaque in the SFA the previous stent was encountered and to prevent damage to the stent a 5 marshallese marium was used to occlude the vessel instead of a clamp. An 8x1 cm bovine pericardial patch was then used and patch angioplasty with 6-0 prolene suture was performed. Prior to last sutures placed the patch was irrigated and flushed to remove any debris. Control was then released from the profunda followed by common femoral and superficial femoral artery. The flow was assessed and good distal pulse and multiphasic signal was noted in the SFA and profunda. Hemostasis was then assured with Surgicel. A 10 marshallese LOLA drain was then placed and secured with a 2-0 nylon suture. The incision was then closed in a multi- layer fashion, skin was cleansed and Prevena incisional vac was placed. The patient tolerated the procedure well and had multiphasic signal in the DP and PT. He was then sent to PACU for recovery.
[2019-05-04] MEDS ORDERED: PANTOPRAZOLE 40 MG TABLET PO SCH (07:30)
[2019-05-04] MEDS ORDERED: EZETIMIBE 10 MG TAB PO SCH (09:00)
[2019-05-04] MEDS ORDERED: NON-FORMULARY DRUG (Ubidecarenone [Co Q-10] 50 MG) PO SCH (09:00)
[2019-05-04] MEDS ORDERED: LORazepam 1 MG TAB PO SCH (09:00)
[2019-05-04] MEDS ORDERED: NON-FORMULARY DRUG (Omega-3 Fatty Acids/Fish Oil [Fish Oil 1,000 Mg Softgel] 1 EACH) PO SCH (09:00)
[2019-05-04] MEDS ORDERED: ASPIRIN 325 MG TAB PO SCH (09:00)
[2019-05-04] MEDS ORDERED: ATORVASTATIN 10 MG TAB PO SCH (09:00)
[2019-05-04] MEDS: CILOSTAZOL 100 MG TAB PO SCH (09:02)
--- NOTE | 2019-05-04 10:42 | P.DS ---
Providers Date of admission: 05/03/19 06:58 Attending physician: Iron Venegas DO Consults: 05/03/19 13:19 Consult Physician Routine Consulting Provider: Arya Roman Reason/Comments: medical management Do you want consulting provider notified?: Yes Primary care physician: Arya Roman [facility] Course: Patient was seen and examined. He is postoperative day #1 from a right femoral endarterectomy with patch angioplasty. Overall he states he is doing well. He denies any chest pains or shortness of breath. His pain is relatively well controlled. He is up in a chair Vital signs are stable. Afebrile No acute distress, sitting in chair comfortably No respiratory distress Heart regular LOLA drain with minimal serosang output, Provena dressing intact. Right lower examined warm and dry. Adequate capillary refill No new labs 1. Postoperative day #1 right ileofemoral endarterectomy with patch angioplasty 2. [place] 3 disabling claudication of the right lower extremity 3. Hypertension Patient is doing well overall. LOLA drain is removed. He is in satisfactory condition for discharge home. Instructions are given. His medication list is reviewed for discharge. He is to be on aspirin, Plavix and statin medication which is on previous to admission. He will follow up with Dr. Venegas in the office in 1-2 weeks. Procedures: Right iliofemoral endarterectomy with patch angioplasty Patient Condition at Discharge: Good Plan - Discharge Summary Discharge Rx Participant: No New Discharge Prescriptions: No Action LORazepam [Ativan] 1 mg PO DAILY Clopidogrel [Plavix] 75 mg PO HS Cilostazol [Pletal] 100 mg PO BID Aspirin EC [Ecotrin] 325 mg PO DAILY Omeprazole [PriLOSEC] 20 mg PO AC-BRKFST Carvedilol [Coreg] 3.125 mg PO BID traZODone HCL 100 mg PO HS Ubidecarenone [Co Q-10] 100 mg PO DAILY [place]-3 Fatty Acids/Fish Oil [Fish Oil 1,000 mg Softgel] 1 cap PO DAILY Rosuvastatin Calcium [Crestor] 5 mg PO DAILY Ezetimibe [Zetia] 10 mg PO DAILY Discharge Medication List Aspirin EC [Ecotrin] 325 mg PO DAILY 07/18/14 [History] Carvedilol [Coreg] 3.125 mg PO BID 07/18/14 [History] Cilostazol [Pletal] 100 mg PO BID 07/18/14 [History] Clopidogrel [Plavix] 75 mg PO HS 07/18/14 [History] LORazepam [Ativan] 1 mg PO DAILY 07/18/14 [History] Omeprazole [PriLOSEC] 20 mg PO AC-BRKFST 07/18/14 [History] traZODone HCL 100 mg PO HS 08/09/17 [History] Ezetimibe [Zetia] 10 mg PO DAILY 04/26/19 [History] [place]-3 Fatty Acids/Fish Oil [Fish Oil 1,000 mg Softgel] 1 cap PO DAILY 04/26/19 [History] Rosuvastatin Calcium [Crestor] 5 mg PO DAILY 04/26/19 [History] Ubidecarenone [Co Q-10] 100 mg PO DAILY 04/26/19 [History] Follow up Appointment(s)/Referral(s): Iron Venegas DO [STAFF PHYSICIAN] - 1 Week Activity/Diet/Wound Care/Special Instructions: Leave Provena vac in place for 1 week. May remove and discard. May shower following removal of vac. May cover as needed following. Do not soak. No activity restrictions. No heavy lifting. No driving x 4-5 days Discharge Disposition: HOME SELF-CARE
[2019-05-04] MEDS ORDERED: ACETAMINOPHEN TAB 325 MG TAB PO PRN (11:33)
[2019-05-04 12:04] VITALS: BP 153/73; TEMP 98
[2019-05-04 14:57] VITALS: PULSE 73
== END 2019-05-04 15:38 | disposition home or self-care (01) | DRG 254 ==
LOC: 2ORMAIN 06:58 → 3SCARD 12:32
PROVIDERS: ADMIT Surgery; ATTEND Surgery
PROC: 04UK0KZ Supplement Right Femoral Artery with Nonautologous Tissue Substitute, Open Approach (ICD-10-PCS; 2019-05-03)
PROC: 04CK0ZZ Extirpation of Matter from Right Femoral Artery, Open Approach (ICD-10-PCS; principal; 2019-05-03 08:30)
DX: I70.211 Atherosclerosis of native arteries of extremities with intermittent claudication, right leg (principal); Z87.891 Personal history of nicotine dependence; I10 Essential (primary) hypertension; E78.5 Hyperlipidemia, unspecified
CPT/HCPCS: 36415; 86850; 86900; 86901; 88304; 88311; 94760

== ENCOUNTER → 2019-07-10 | Outpatient (CLI) | payer MEDICARE, BC ==
[2019-07-10 11:17] LABS: HCT 47.3 % (39.0-53.0); HGB 16.2 gm/dL (13.0-17.5); MCHC 34.2 g/dL (31.0-37.0); MCV 90.6 fL (80.0-100.0); Mean Platelet Volume 6.3; Platelet Count 310 k/uL (150-450); RBC 5.22 m/uL (4.30-5.90); RDW 13.1 % (11.5-15.5); WBC 7.9 k/uL (3.8-10.6)
== END | disposition home or self-care (01) ==
LOC: LABPAT 09:30
PROVIDERS: ATTEND Internal Medicine Interventional Cardiology
DX: Z01.812 Encounter for preprocedural laboratory examination (principal); I73.9 Peripheral vascular disease, unspecified
CPT/HCPCS: 36415; 80051; 82565; 84520; 85027

== ENCOUNTER 2019-07-19 07:59 | Day surgery (SDC) | payer MEDICARE, BC ==
[~2019-07-19 07:59] MED LIST changes: +ALPRAZolam 0.5 MG TAB PO PRN; +ASPIRIN 325 MG TAB PO STA; -DEXAMETHASONE SOD PHOSPHATE 10 MG/ML 1 ML VIAL IV ONE; -HYDROmorphone 0.5 MG/0.5 ML SYRINGE IVP PRN; -LIDOCAINE 1% 20 ML VIAL (10MG/ML) FOR IV START INTRADERMA PRN; -MIDAZOLAM 2 MG/2 ML VIAL IV PRN; -ONDANSETRON 4 MG/2 ML VIAL IVP ONE; -SCOPOLAMINE 1.5MG/72HR PATCH TRANSDERM ONE; +SODIUM CHLORIDE 0.9% 1,000 ML in EMPTY BAG 1 BAG IV ONE; -ceFAZolin IN SWFI 2 GM/20 ML SYRINGE IVP ONE
[2019-07-19] MEDS ORDERED: SODIUM CHLORIDE 0.9% 1,000 ML IV ONE (08:39)
[2019-07-19] MEDS ORDERED: MIDAZOLAM (PF) 2 MG/2 ML VIAL IVP ONE (09:40)
[2019-07-19] MEDS ORDERED: LIDOCAINE 1% INJ 10MG/ML (20 ML MDV) SQ ONE (09:42)
[2019-07-19] MEDS: HEPARIN SODIUM 1,000 UN/ML (10ML VL) IV ONE ×2 (09:48→10:30)
[2019-07-19] MEDS: niCARdipine Syringe (1,000 mcg/10 mL) INTRAARTER ONE ×3 (10:36→11:36)
[2019-07-19] MEDS ORDERED: LIDOCAINE 1% INJ 10MG/ML (20 ML MDV) ONE ×2 (10:37)
[2019-07-19] MEDS ORDERED: HYDROmorphone 1 MG/ML 1 ML SYRINGE IVP ONE (11:28)
[2019-07-19] MEDS: NITROGLYCERIN 1000MCG/10ML SYRINGE INTRAARTER ONE ×2 (11:35→11:36)
[2019-07-19] MEDS ORDERED: CLOPIDOGREL 75 MG TAB PO ONE (11:35)
[2019-07-19] MEDS ORDERED: IOPAMIDOL-300 100ML BTL INJ ONE (11:59)
[2019-07-19] MEDS ORDERED: SODIUM CHLORIDE 0.9% 1,000 ML IV SCH (12:00)
--- NOTE | 2019-07-19 13:19 | AN ---
ANGIOGRAPHY REPORT PERCUTANEOUS PERIPHERAL INTERVENTION: DATE OF SERVICE: July 19, 2019 PERFORMING PHYSICIAN: Johan Machado MD, hogshead wrecker. PROCEDURE PERFORMED: 1. Selective left lower extremity angiogram. 2. 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 3. Intravascular ultrasound, IVUS, of the left common femoral artery and left SFA. 4. Successful balloon angioplasty of the left common femoral artery. 5. Successful balloon angioplasty and stenting of the left SFA. 6. Selective right common femoral artery angiogram. INDICATION: This is a 74-year-old gentleman with history of coronary artery disease as well as peripheral arterial disease, who continues to have bilateral lower extremities intermittent claudication. He underwent a peripheral angiogram several months several months ago and that revealed a critical right common femoral artery as well as occluded bilateral SFA. He underwent right common femoral artery endarterectomy about 6 months ago and that went well and he was brought today to undergo a RESIDENT CARE ASSOCIATE of the left SFA. APPROACH: Right common femoral artery. COMPLICATION: None. LEVEL OF SEDATION: Moderate with sedation length of 128 minutes. PROCEDURE DESCRIPTION: After obtaining an informed consent, the patient was brought to the cardiac roving tester laboratory. The right common femoral artery was cannulated using micropuncture technique, the micropuncture wire passed easily then I placed a 6-Qatari sheath 11 cm in the right common femoral artery. At that point, anticoagulation was initiated using heparin and the patient was given 5000 units of heparin at the beginning of the procedure with continuous ACT monitoring throughout the procedure and in the middle of the procedure, he was given additional 2000 units of heparin. After that, I did select the left SFA using 0.035 [place] Advantage wire with a 5-Qatari Rim catheter. Subsequently I did exchange my 11 cm 6-Qatari sheath into 70 cm 6-Qatari Raabe sheath using 0.035 Vaughn Advantage wire. The tip of the sheath was positioned in the left external iliac artery. After that I did selective left lower extremity angiogram which revealed chronic total occlusion of the left popliteal, chronic total occlusion of the left SFA, and subtotally occluded left common femoral artery. I did wire the left SFA and advanced the wire all the way to the left popliteal using 0.[address] wire with the backup support of CXI catheter. After that I did exchange my 0.[address] wire into 0.014 ViperWire preparing for rotational atherectomy. I did atherectomy of the left SFA as well as left common femoral artery using 2.0 mm mady. After that I did intravascular ultrasound which revealed the diameter of 6 mm of the left SFA. I did after that balloon angioplasty of the left SFA and left common femoral artery using 6 x 150 mm Chocolate balloon which was inflated under its nominal pressure. Each inflation was for 1 minute. The inflation was performed in the distal, mid, and proximal SFA as well as the left common femoral artery. 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 Because of that, I decided to cover that with a stent. In the distal and mid left SFA, I deployed 7 x 140 mm Zilver PTX drug-coated stent where the stent was positioned under fluoroscopy guidance and deployed under fluoroscopy guidance. I post-dilated the stent using 6 mm balloon with the following angiogram showing good results. In the proximal left SFA and left common femoral artery, I did drug coated balloon which was 6 x 200. It was inflated under 5 atmospheres, which was a nominal pressure for 3 minutes. The following angiogram showed good angiographic results and the procedure at that point was completed. Before I completed the procedure, I did exchange my long sheath into short sheath using 0.035 wire and then I did selective right common femoral artery angiogram. The procedure was completed without any complication. POSTPROCEDURE MANAGEMENT: 1. Dual antiplatelet therapy. 2. Risk factors modifications. 3. Follow up with the patient. MMODL / IJN: [id number] /
[2019-07-19 15:08] VITALS: BMI 25.0
[2019-07-19] MEDS: CARVEDILOL 3.125 MG TAB PO SCH (17:34)
[2019-07-19] MEDS: CILOSTAZOL 100 MG TAB PO SCH (20:59)
[2019-07-19] MEDS ORDERED: traZODone HCL 100 MG TAB PO SCH (21:00)
[2019-07-19] MEDS ORDERED: CLOPIDOGREL 75 MG TAB PO SCH (21:00)
[2019-07-20] MEDS: CARVEDILOL 3.125 MG TAB PO SCH (06:17)
[2019-07-20 06:29] LABS: Basophils # (A) 0.1 k/uL (0-0.2); Basophils % (A) 1 %; Eosinophils # (A) 0.2 k/uL (0-0.7); Eosinophils % (A) 2 %; HCT 41.3 % (39.0-53.0); HGB 14.6 gm/dL (13.0-17.5); Lymphocytes # (A) 2.5 k/uL (1.0-4.8); Lymphocytes % (A) 25 %; MCH 32.1 pg (25.0-35.0); MCHC 35.4 g/dL (31.0-37.0); MCV 90.5 fL (80.0-100.0); Mean Platelet Volume 6.6; Monocytes # (A) 0.8 k/uL (0-1.0); Monocytes % (A) 8 %; Neutrophils # (A) 6.6 k/uL (1.3-7.7); Neutrophils % (A) 64 %; Platelet Count 230 k/uL (150-450); RBC 4.56 m/uL (4.30-5.90); RDW 12.9 % (11.5-15.5); WBC 10.3 k/uL (3.8-10.6)
[2019-07-20 06:49] LABS: African American GFR (CKD) >90 (>60 ml/min/1.73 sqM); Anion Gap 12 mmol/L; Blood Urea Nitrogen 15 mg/dL (9-20); Calcium 9.3 mg/dL (8.4-10.2); Carbon Dioxide 23 mmol/L (22-30); Chloride 103 mmol/L (98-107); Glucose 161 mg/dL (74-99); Magnesium 1.6 mg/dL (1.6-2.3); Potassium 4.2 mmol/L (3.5-5.1); Sodium 138 mmol/L (137-145)
[2019-07-20] MEDS ORDERED: PANTOPRAZOLE 40 MG TABLET PO SCH (07:30)
[2019-07-20] MEDS ORDERED: EZETIMIBE 10 MG TAB PO SCH (09:00)
[2019-07-20] MEDS ORDERED: NON FORMULARY DRUG (Omega-3 Fatty Acids/Fish Oil [Fish Oil 1,000 Mg Softgel] 1 CAP) PO SCH (09:00)
[2019-07-20] MEDS ORDERED: LORazepam 1 MG TAB PO SCH (09:00)
[2019-07-20] MEDS ORDERED: ATORVASTATIN 10 MG TAB PO SCH (09:00)
[2019-07-20] MEDS ORDERED: ASPIRIN 325 MG TAB PO SCH (09:00)
[2019-07-20] MEDS: CILOSTAZOL 100 MG TAB PO SCH (09:08)
[2019-07-20 09:11] VITALS: BP 126/71; PULSE 83; RESP 16; TEMP 98.3
--- NOTE | 2019-07-20 09:23 | DS ---
DISCHARGE SUMMARY DATE OF ADMISSION: July 19, 2019 DATE OF DISCHARGE: July 20, 2019 BRIEF HISTORY: This is a very pleasant 74-year-old gentleman who was admitted to the hospital yesterday and underwent successful crossing chronic total occlusion of the left SFA and left femoral artery along with successful balloon angioplasty. The procedure was performed without any complication from right groin approach. On followup with him today, he is doing good. He is asymptomatic. Hemodynamically, he is stable. The blood work was reviewed and came in to be unremarkable. The patient is going to be discharged on dual antiplatelet therapy along with statin. He will follow up in the office with me. VIKRAM / CLEOPATRAN: [id number] /
[2019-07-20] MEDS ORDERED: ACETAMINOPHEN TAB 325 MG TAB PO STA (09:47)
--- NOTE | 2019-07-20 15:55 | IR ---
Fluoroscopy HISTORY: Peripheral vascular occlusive disease 43.2 minutes fluoroscopy time supplied to the referring clinician. 1061 intraoperative C-arm images document the procedure. See dictated report from cardiology.
== END 2019-07-20 10:02 | disposition home or self-care (01) ==
LOC: CATHCVL 07:59 → 3SCARD 13:54 → CATHCVL 07-20 10:02
PROVIDERS: ATTEND Internal Medicine Interventional Cardiology
DX: I70.211 Atherosclerosis of native arteries of extremities with intermittent claudication, right leg (principal); I70.92 Chronic total occlusion of artery of the extremities; I25.10 Atherosclerotic heart disease of native coronary artery without angina pectoris; Z95.5 Presence of coronary angioplasty implant and graft; I10 Essential (primary) hypertension; E78.5 Hyperlipidemia, unspecified; Z82.49 Family history of ischemic heart disease and other diseases of the circulatory system; Z72.0 Tobacco use; Z79.02 Long term (current) use of antithrombotics/antiplatelets; Z79.82 Long term (current) use of aspirin; Z79.899 Other long term (current) drug therapy
CPT/HCPCS: 37227; 85347; 37252; 37253; 80048; 83735; 85025; C1894 ×2; C1769 ×7; C1714; C1887; C1725 ×2; C1753; C1874; C2623; J2001; J1644; J1170; Q9967; J2250; 37220; 37226

== ENCOUNTER → 2019-08-09 | Outpatient (CLI) | payer MEDICARE, BC ==
[2019-08-09 08:52] LABS: HCT 43.4 % (39.0-53.0); HGB 14.7 gm/dL (13.0-17.5); MCH 31.1 pg (25.0-35.0); MCV 91.6 fL (80.0-100.0); Mean Platelet Volume 5.7; Platelet Count 254 k/uL (150-450); RBC 4.73 m/uL (4.30-5.90); RDW 12.8 % (11.5-15.5); WBC 7.1 k/uL (3.8-10.6)
[2019-08-09 16:43] LABS: African American GFR (CKD) 69.1 (60.0-200.0); Anion Gap 14.3 mmol/L (4.00-12.00); Carbon Dioxide 24.7 mmol/L (21.6-31.8); Potassium 4.7 mmol/L (3.5-5.5)
== END | disposition home or self-care (01) ==
LOC: LABWHC1 08:00
PROVIDERS: ATTEND Internal Medicine Interventional Cardiology
DX: Z01.812 Encounter for preprocedural laboratory examination (principal); I73.9 Peripheral vascular disease, unspecified
CPT/HCPCS: 36415; 80051; 82565; 84520; 85027

== ENCOUNTER 2019-08-16 07:31 | Day surgery (SDC) | payer MEDICARE, BC ==
[2019-08-11 15:57] VITALS: BMI 25.1
[2019-08-16] MEDS ORDERED: ASPIRIN 325 MG TAB PO STA (07:40)
[2019-08-16] MEDS ORDERED: SODIUM CHLORIDE 0.9% 1,000 ML in EMPTY BAG 1 BAG IV ONE (07:40)
[2019-08-16] MEDS ORDERED: ALPRAZolam 0.25 MG TAB PO PRN (07:40)
[2019-08-16] MEDS ORDERED: MIDAZOLAM 2 MG/2 ML VIAL IV ONE (08:44)
[2019-08-16] MEDS ORDERED: LIDOCAINE 1% INJ 10MG/ML (20 ML MDV) SQ ONE (08:55)
[2019-08-16] MEDS ORDERED: SODIUM CHLORIDE 0.9% 500 ML 500 ML with niCARdipine 6.25 MG, NITROGLYCERIN-D5W PMX 0.05... IV ONE ×4 (09:00)
[2019-08-16] MEDS ORDERED: NITROGLYCERIN 1000MCG/10ML SYRINGE INTRAARTER ONE (09:52)
[2019-08-16] MEDS ORDERED: niCARdipine Syringe (1,000 mcg/10 mL) INTRAARTER ONE (09:52)
[2019-08-16] MEDS ORDERED: IOPAMIDOL-250 100ML BTL INTRAARTER ONE (09:54)
[2019-08-16] MEDS ORDERED: CLOPIDOGREL 75 MG TAB PO ONE (10:11)
[2019-08-16] MEDS ORDERED: SODIUM CHLORIDE 0.9% 1,000 ML IV SCH (10:45)
--- NOTE | 2019-08-16 10:57 | LTR ---
August 16, 2019 Re: Ran Joel Dear Dr. Roman: Mr. Ran Maldonado underwent today successful angioplasty of the right popliteal and right femoral artery with good angiographic results. I want to thank you for allowing me to participate in his care and please do not hesitate to call if you have any questions or concerns. Sincerely, MD VIKRAM Mcgovern / EVELYN: [id number] /
[2019-08-16] MEDS ORDERED: HYDROmorphone 1 MG/ML 1 ML SYRINGE ONE (11:01)
--- NOTE | 2019-08-16 11:11 | AN ---
ANGIOGRAPHY REPORT DATE OF SERVICE: August 16, 2019 PERFORMING PHYSICIAN: Johan Machado MD. PROCEDURE PERFORMED: 1. Bilateral lower extremity angiogram. 2. Intravascular, IVUS, of the right popliteal and right SFA. 3. Successful balloon angioplasty of the right popliteal and right SFA. INDICATION: This is a 74-year-old gentleman with history of peripheral arterial disease and prior peripheral intervention who was experiencing severe bilateral lower extremities intermittent claudication and underwent a peripheral angiogram in October of 2018 showing critical right SFA and occluded right popliteal and critical left SFA and occluded left popliteal. He underwent an intervention on the left leg several weeks ago but he continues having pain in the left leg. He was brought today to undergo an intervention on the right leg and check the left leg as well. APPROACH: Left common femoral artery. COMPLICATION: None. LEVEL OF SEDATION: Moderate with sedation length of 71 minutes. PROCEDURE DESCRIPTION: After obtaining an informed consent, the patient was brought to the cardiac lab nurse. The left common femoral artery was cannulated using micropuncture technique, the micropuncture wire passed easily then I placed a 6-Togolese 11 cm in the left common femoral artery. At that point, anticoagulation was initiated using heparin and the patient was given at the beginning of the procedure 6000 units of heparin IV with continuous ACT monitoring throughout the procedure. Subsequently, I did select the right SFA using a 0.035 [place] Advantage wire with the backup support of 5-Togolese Rim catheter. After that I did exchange my 11 cm sheath into 70 cm 6-Togolese Raabe sheath using the 0.035 [place] Advantage wire. The tip of the long sheath was positioned in the right common femoral artery. After that I did right lower extremity angiogram. It did reveal 3-vessel runoff below the knee on the right side. The selective right lower extremity angiogram revealed patent stent in the right SFA in the proximal and midportion with severe disease involving the SFA in the distal portion as well as critical right popliteal and then occluded right popliteal. At that point, I did cross the lesion in the right popliteal using an 0.[address] wire. I did intravascular ultrasound which revealed an artery diameter of about 5.5 cm. I did after that balloon angioplasty of the right popliteal and right SFA using initially 5 mm balloon and 5 mm x 120 mm IN.PACT drug coated balloon where the balloon was inflated under 12 atmospheres for 3 minutes with the following angiogram showing good angiographic results. At that point, I decided to stop. After that I did exchange my long sheath into short sheath using 0.035 [place] Advantage wire. By the end, I did selective left lower extremity angiogram which revealed also occluded left popliteal with patent left SFA distally and intermediate to severe disease involving the SFA in the proximal portion. The procedure was completed without any complication. POSTPROCEDURE MANAGEMENT: 1. Dual antiplatelet therapy. 2. Risk factor modifications. 3. If the patient continues to be symptomatic, I would consider proceeding with opening the chronically occluded popliteal on the right as well as left side from a pedal approach. MMODL / IJN: [id number] /
[2019-08-16] MEDS ORDERED: HYDROmorphone 0.5 MG/0.5 ML SYRINGE IVP ONE (11:30)
[2019-08-16] MEDS ORDERED: ATROPINE SULFATE 0.1 MG/ML 10ML SYRINGE ONE (12:20)
[2019-08-16] MEDS ORDERED: ONDANSETRON 4 MG/2 ML VIAL ONE (12:21)
[2019-08-16] MEDS ORDERED: ONDANSETRON 4 MG/2 ML VIAL IVP STA (12:30)
[2019-08-16] MEDS: HYDROmorphone 0.5 MG/0.5 ML SYRINGE IVP PRN ×2 (15:19→20:17)
[2019-08-16] MEDS: CARVEDILOL 3.125 MG TAB PO SCH (17:06)
[2019-08-16] MEDS ORDERED: CLOPIDOGREL 75 MG TAB PO SCH (21:00)
[2019-08-16] MEDS ORDERED: LORazepam 1 MG TAB PO SCH (21:00)
[2019-08-16] MEDS ORDERED: traZODone HCL 100 MG TAB PO SCH (21:00)
[2019-08-16] MEDS ORDERED: CILOSTAZOL 100 MG TAB PO SCH (21:00)
[2019-08-17 04:06] VITALS: BP 141/81; PULSE 65; RESP 18; TEMP 98
[2019-08-17 06:32] LABS: Basophils # (A) 0.1 k/uL (0-0.2); Basophils % (A) 1 %; Eosinophils # (A) 0.2 k/uL (0-0.7); Eosinophils % (A) 2 %; HCT 40.4 % (39.0-53.0); HGB 13.4 gm/dL (13.0-17.5); Lymphocytes # (A) 2.5 k/uL (1.0-4.8); Lymphocytes % (A) 33 %; MCH 30.6 pg (25.0-35.0); MCHC 33.2 g/dL (31.0-37.0); MCV 92.3 fL (80.0-100.0); Mean Platelet Volume 6.6; Monocytes # (A) 0.4 k/uL (0-1.0); Monocytes % (A) 6 %; Neutrophils # (A) 4.3 k/uL (1.3-7.7); Neutrophils % (A) 57 %; Platelet Count 227 k/uL (150-450); RBC 4.38 m/uL (4.30-5.90); WBC 7.6 k/uL (3.8-10.6)
[2019-08-17] MEDS: CARVEDILOL 3.125 MG TAB PO SCH (06:35)
[2019-08-17 06:43] LABS: African American GFR (CKD) >90 (>60 ml/min/1.73 sqM); Anion Gap 9 mmol/L; Blood Urea Nitrogen 16 mg/dL (9-20); Calcium 8.9 mg/dL (8.4-10.2); Carbon Dioxide 25 mmol/L (22-30); Chloride 103 mmol/L (98-107); Glucose 219 mg/dL (74-99); Non-African American GFR(CKD) 90 (>60 ml/min/1.73 sqM); Potassium 4.1 mmol/L (3.5-5.1); Sodium 137 mmol/L (137-145)
[2019-08-17] MEDS ORDERED: PANTOPRAZOLE 40 MG TABLET PO SCH (07:30)
[2019-08-17] MEDS ORDERED: ATORVASTATIN 10 MG TAB PO SCH (09:00)
[2019-08-17] MEDS ORDERED: NON FORMULARY DRUG (Omega-3 Fatty Acids/Fish Oil [Fish Oil 1,000 Mg Softgel] 1 CAP) PO SCH (09:00)
[2019-08-17] MEDS ORDERED: ASPIRIN 325 MG TAB PO SCH (09:00)
[2019-08-17] MEDS ORDERED: EZETIMIBE 10 MG TAB PO SCH (09:00)
--- NOTE | 2019-08-17 09:19 | IR ---
EXAMINATION TYPE: IR door captain femoral popliteal DATE OF EXAM: 08/16/2019 COMPARISON: NONE HISTORY: Fluoroscopy time. Fluoroscopy was provided to the referring clinician.
--- NOTE | 2019-08-17 13:52 | DS ---
DISCHARGE SUMMARY ADMISSION DATE: 07/17/2019 DISCHARGE DATE: 07/18/2019. HISTORY OF PRESENT ILLNESS: This is a pleasant 74-year-old gentleman who was admitted to the hospital yesterday and underwent an atherectomy and balloon angioplasty of the right popliteal and right SFA with an excellent angiographic results and without any complication. The procedure was performed from the left groin which is soft and nontender and without any bruises. The patient is going to be discharged home on dual anti-platelet therapy and I will follow up with the patient in the office in about a week or so. MMKERRY / EVELYN: [id number] /
== END 2019-08-17 09:35 | disposition home or self-care (01) ==
LOC: CATHCVL 07:31 → 3SCARD 10:10 → CATHCVL 08-17 09:35
PROVIDERS: ATTEND Internal Medicine Interventional Cardiology
DX: I70.213 Atherosclerosis of native arteries of extremities with intermittent claudication, bilateral legs (principal); I25.10 Atherosclerotic heart disease of native coronary artery without angina pectoris; I10 Essential (primary) hypertension; E78.5 Hyperlipidemia, unspecified; F17.210 Nicotine dependence, cigarettes, uncomplicated; Z79.02 Long term (current) use of antithrombotics/antiplatelets; Z79.82 Long term (current) use of aspirin; Z79.899 Other long term (current) drug therapy; Z82.49 Family history of ischemic heart disease and other diseases of the circulatory system
CPT/HCPCS: 37224; 85347 ×2; 37252; 80048; 85025; C1894 ×2; C1769 ×4; C1714; C1753; C2623; C1725; J2250; J2405; J2001; J1644; J1170; Q9966

== ENCOUNTER → 2020-05-20 | Outpatient (CLI) | payer MEDICARE, BC ==
[2020-05-20 08:11] LABS: HCT 43.6 % (39.0-53.0); HGB 14.4 gm/dL (13.0-17.5); MCH 30.8 pg (25.0-35.0); MCHC 33.1 g/dL (31.0-37.0); MCV 93.3 fL (80.0-100.0); Mean Platelet Volume 6.9; Platelet Count 277 k/uL (150-450); RBC 4.67 m/uL (4.30-5.90); RDW 12.8 % (11.5-15.5); WBC 7.8 k/uL (3.8-10.6)
[2020-05-20 09:06] LABS: African American GFR (CKD) >90 (>60 ml/min/1.73 sqM); Anion Gap 8 mmol/L; Blood Urea Nitrogen 21 mg/dL (9-20); Carbon Dioxide 22 mmol/L (22-30); Chloride 111 mmol/L (98-107); Glucose 104 mg/dL (74-99); Non-African American GFR(CKD) 78 (>60 ml/min/1.73 sqM); Potassium 4.3 mmol/L (3.5-5.1); Sodium 141 mmol/L (137-145)
== END | disposition home or self-care (01) ==
LOC: LABPAT 07:53
PROVIDERS: ATTEND Internal Medicine Interventional Cardiology
DX: Z01.818 Encounter for other preprocedural examination (principal); I70.213 Atherosclerosis of native arteries of extremities with intermittent claudication, bilateral legs
CPT/HCPCS: 36415; 80051; 82565; 82947; 84520; 85027

== ENCOUNTER 2020-05-30 06:41 | Day surgery (SDC) | payer MEDICARE, BC ==
[2020-05-27 13:37] VITALS: BMI 25.2
[~2020-05-30 06:41] MED LIST changes: +ALPRAZolam 0.25 MG TAB PO PRN; -ALPRAZolam 0.5 MG TAB PO PRN
[2020-05-30 07:11] LABS: Glucose,Whole Blood 149 mg/dL (75-99)
[2020-05-30] MEDS ORDERED: SODIUM CHLORIDE 0.9% 1,000 ML IV ONE (07:23)
[2020-05-30 07:25] VITALS: RESP 16; TEMP 97.9
[2020-05-30] MEDS ORDERED: MIDAZOLAM 2 MG/2 ML VIAL IV ONE (07:46)
[2020-05-30] MEDS ORDERED: LIDOCAINE 1% INJ 10MG/ML (20 ML MDV) SQ ONE (07:47)
[2020-05-30] MEDS ORDERED: IOPAMIDOL-250 100ML BTL INTRAARTER ONE ×2 (08:01)
[2020-05-30] MEDS ORDERED: SODIUM CHLORIDE 0.9% 1,000 ML in EMPTY BAG 1 BAG IV SCH (08:15)
--- NOTE | 2020-05-30 09:01 | IR ---
Fluoroscopy HISTORY: Pain in left leg 1.4fluoroscopy time supplied to the referring clinician. 175 intraoperative C-arm images document th e procedure. See dictated report from cardiology.
[2020-05-30 10:08] VITALS: PULSE 68
--- NOTE | 2020-05-30 10:17 | AN ---
ANGIOGRAPHY REPORT DATE OF SERVICE: 05/30/2020 PERFORMING PHYSICIAN: Johan Machado MD. PROCEDURE PERFORMED: 1. An abdominal aortogram. 2. Bilateral lower extremities runoff. INDICATION: This is a very pleasant 75-year-old gentleman with peripheral arterial disease and prior angioplasty who was experiencing severe left leg intermittent claudication. Because of that, he was scheduled to go to undergo an aortogram with runoff. APPROACH: Right common femoral artery. COMPLICATION: None. LEVEL OF SEDATION: Moderate with sedation length of 18 minutes. PROCEDURE DESCRIPTION: After obtaining an informed consent, the patient was brought to the cardiac warehouse laborer. The right common femoral artery was cannulated using micropuncture technique and a micropuncture wire passed easily. Then I placed a 5-Romansh sheath at the right common femoral artery. An abdominal aortogram and bilateral lower extremities runoff were performed using 5- Romansh pigtail catheter which was initially placed at the level of the renal arteries, then it was pulled into above the bifurcation of the aorta to right and left common iliac arteries. The procedure was completed without any complication. SELECTIVE PERIPHERAL ANGIOGRAM: 1. The aorta is extremely calcified. It does have mild occlusive disease only. 2. Renal arteries: The right renal artery appeared to have intermediate disease only and the left renal artery appeared to have intermediate disease only as well. 3. Common iliac arteries: The right and left common iliac arteries appeared to have mild occlusive disease. 4. Internal iliac arteries: Both are patent. 5. External iliac arteries: The right external iliac artery appeared to be angiographically normal and the left external iliac artery appeared to have intermediate disease only. 6. Common femoral artery: The right common femoral artery has a patch angioplasty in the past and seems to be angiographically normal. The left common femoral artery appeared to be extremely calcified with what seems to be severe lesion there. 7. Profunda: Both profunda are patent. 8. SFA: The right SFA is stented and the stent is patent. Outside the stent distally and proximally, the patient has only mild occlusive disease. 9. Left SFA: The left SFA is extremely calcified and seems to be occluded right at the Chi canal. 10.Popliteal: The right popliteal appeared to be occluded just below the knee and the left popliteal also is occluded below the knee as well. 11.Below the knee: There are 3 vessels with anterior tibial, posterior tibial and peroneal. CONCLUSION: 1. Patent stent in the right external iliac artery and intermediate disease involving the left external iliac artery. 2. Patent right common femoral artery and extremely calcified and severe disease involving the left common femoral artery. 3. Occluded bilateral popliteal arteries. 4. Three vessel runoff below the knee bilaterally. Giving the above anatomy, I recommended the patient to undergo left common femoral artery and atherectomy with patch angioplasty. The patient is going to be discharged home today. I will discuss that with him as an outpatient and schedule him to see a surgeon for that. MMODL / IJN: [id number] /
[2020-05-30 12:30] VITALS: BP 138/81
== END 2020-05-30 14:44 | disposition home or self-care (01) ==
LOC: CATHCVL 06:41
PROVIDERS: ATTEND Internal Medicine Interventional Cardiology
DX: I70.0 Atherosclerosis of aorta (principal); E11.51 Type 2 diabetes mellitus with diabetic peripheral angiopathy without gangrene; I70.212 Atherosclerosis of native arteries of extremities with intermittent claudication, left leg; Z95.820 Peripheral vascular angioplasty status with implants and grafts; Z95.5 Presence of coronary angioplasty implant and graft; I10 Essential (primary) hypertension; E78.5 Hyperlipidemia, unspecified; Z82.49 Family history of ischemic heart disease and other diseases of the circulatory system; Z72.0 Tobacco use; I25.10 Atherosclerotic heart disease of native coronary artery without angina pectoris; Z79.02 Long term (current) use of antithrombotics/antiplatelets; Z79.82 Long term (current) use of aspirin; Z79.899 Other long term (current) drug therapy; Z79.84 Long term (current) use of oral hypoglycemic drugs
CPT/HCPCS: 36200; 75625; 75716; C1769 ×4; C1894; J2250; J2001; Q9966

== ENCOUNTER → 2020-07-03 | Outpatient (CLI) | payer MEDICARE, BC ==
[2020-07-03 13:03] LABS: Basophils # (A) 0.1 k/uL (0-0.2); Basophils % (A) 1 %; Eosinophils # (A) 0.2 k/uL (0-0.7); Eosinophils % (A) 3 %; HGB 14.8 gm/dL (13.0-17.5); Lymphocytes % (A) 44 %; MCHC 33.7 g/dL (31.0-37.0); MCV 91.9 fL (80.0-100.0); Mean Platelet Volume 6.7; Monocytes # (A) 0.4 k/uL (0-1.0); Monocytes % (A) 5 %; Neutrophils # (A) 3.1 k/uL (1.3-7.7); Neutrophils % (A) 45 %; Platelet Count 262 k/uL (150-450); RBC 4.78 m/uL (4.30-5.90); RDW 12.9 % (11.5-15.5); WBC 6.8 k/uL (3.8-10.6)
[2020-07-03 13:29] LABS: African American GFR (CKD) >90 (>60 ml/min/1.73 sqM); Anion Gap 9 mmol/L; Blood Urea Nitrogen 22 mg/dL (9-20); Carbon Dioxide 24 mmol/L (22-30); Chloride 107 mmol/L (98-107); Non-African American GFR(CKD) 86 (>60 ml/min/1.73 sqM); Potassium 4.2 mmol/L (3.5-5.1); Sodium 140 mmol/L (137-145)
== END | disposition home or self-care (01) ==
LOC: LABPAT 11:31
PROVIDERS: ATTEND Surgery
DX: Z01.818 Encounter for other preprocedural examination (principal)
CPT/HCPCS: 36415; 80051; 82565; 84520; 85025; 93005

== ENCOUNTER 2020-07-09 05:48 | Inpatient (IN) | payer MEDICARE, BC ==
[2020-07-03 09:38] VITALS: BMI 25.8
[2020-07-09] MEDS ORDERED: fentaNYL (PF) 50 MCG/ML 2 ML AMP IVP PRN (06:03)
[2020-07-09] MEDS ORDERED: ONDANSETRON 4 MG/2 ML VIAL IVP ONE (06:03)
[2020-07-09] MEDS ORDERED: DEXAMETHASONE SOD PHOSPHATE 10 MG/ML 1 ML VIAL IV ONE (06:03)
[2020-07-09] MEDS ORDERED: HYDROmorphone 0.5 MG/0.5 ML SYRINGE IVP PRN (06:03)
[2020-07-09] MEDS ORDERED: MIDAZOLAM 2 MG/2 ML VIAL IV PRN (06:03)
[2020-07-09] MEDS ORDERED: LIDOCAINE 1% (10MG/ML) FOR IV START INTRADERMA PRN (06:03)
[2020-07-09] MEDS: LACTATED RINGERS 1,000 ML IV SCH (06:30)
[2020-07-09 06:39] LABS: Glucose,Whole Blood 99 mg/dL (75-99)
[2020-07-09] MEDS ORDERED: LIDOCAINE 1% INJ 10MG/ML (20 ML MDV) ONE (07:25)
[2020-07-09] MEDS ORDERED: ePHEDrine SULFATE/0.9% NACL/PF 50 MG/5 ML SYRINGE IV ONE (07:25)
[2020-07-09] MEDS ORDERED: PHENYLEPHRINE-0.9% NACL SYG 1 MG/10 ML SYRINGE ONE (07:25)
[2020-07-09] MEDS ORDERED: HEPARIN SODIUM,PORCINE 10,000 UNIT/ML 1 ML VIAL ONE (07:25)
[2020-07-09] MEDS ORDERED: PROPOFOL 10 MG/ML 20 ML VIAL IV ONE (07:25)
[2020-07-09] MEDS ORDERED: HYDROmorphone (PF) 1 MG/ML ONE (07:25)
[2020-07-09] MEDS ORDERED: MIDAZOLAM 2 MG/2 ML VIAL ONE (07:25)
[2020-07-09] MEDS ORDERED: fentaNYL (PF) 50 MCG/ML 2 ML AMP ONE (07:25)
[2020-07-09] MEDS ORDERED: ROCURONIUM BROMIDE 10 MG/ML 5 ML VIAL IV ONE (07:25)
[2020-07-09] MEDS ORDERED: SODIUM CHLORIDE 0.9% 50 ML with ceFAZolin 2,000 MG IV ONE ×2 (07:40)
[2020-07-09] MEDS ORDERED: ceFAZolin 2 GM in SODIUM CHLORIDE 0.9% 500 ML 500 ML IRRIGATION ONE (08:16)
[2020-07-09] MEDS ORDERED: HEPARIN SODIUM,PORCINE 10,000 UNIT in SODIUM CHLORIDE 0.9% 1,000 ML IRRIGATION ONE (08:17)
[2020-07-09] MEDS ORDERED: IOPAMIDOL-370 50ML BTL MISCELLANE ONE ×2 (08:31→10:15)
[2020-07-09] MEDS ORDERED: LACTATED RINGERS 1,000 ML IV ONE (09:16)
[2020-07-09] MEDS ORDERED: GELATIN SPONGE,ABSORB (LARGE) 1 EACH SPONGE TOPICAL ONE (10:01)
[2020-07-09] MEDS ORDERED: THROMBIN (BOVINE) 5,000 UNIT VIAL TOPICAL ONE (10:01)
[2020-07-09] MEDS ORDERED: MORPHINE SULFATE 2 MG/ML SYRINGE IVP PRN (10:48)
--- NOTE | 2020-07-09 11:05 | P.OP ---
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 Left common femoral and external iliac artery endarterectomy and patch angioplasty 2. Left lower extremity selective angiogram 3. Incisional VAC placement Anesthesia: BRENDA Surgeon: Iron Venegas Estimated Blood Loss (ml): 50 Pathology: other (left common femoral plaque) Condition: stable Disposition: PACU Indications for Procedure: 75-year-old gentleman who presented originally to the office secondary to pain with ambulation usually only 50 feet prior to significant pain in his thigh and calf on the left. He does have a history of severe peripheral arterial disease with multiple stenting in the past. He did have an angiogram which demonstrated occlusive disease of his left common femoral artery and need for femoral artery endarterectomy and patch angioplasty. He presents today for such procedure. Operative Findings: Dense calcified plaque extending from the external iliac artery to the superficial femoral artery. Description of Procedure: After written and informed consent was obtained the patient all risks benefits and competitions were described the patient was brought to the operative suite and laid in the supine position. The area of the left groin and leg was prepped and draped in usual sterile fashion after appropriate anesthetic was performed per the anesthesiologist. A timeout was performed in normal fashion and antibiotics were administered prior to incision. An oblique incision was then created overlying the common femoral artery on the left with a 10 blade scalpel and dissection was carried down with electrocautery through the fascia to the common femoral artery. The femoral artery was then dissected free in a meticulous manner to the inguinal ligament as well as down to the superficial femoral and profundus femoris arteries. Both of these arteries were then dissected circumferentially and controlled with vessel loops. There was dense calcified plaque noted throughout the entirety of the femoral artery and extended just beneath the inguinal ligament into the external iliac artery. The external iliac artery was dissected free and controlled with vessel loops just above the area of hard plaque. Once control was obtained patient was administered heparin and followed with serial ACTs and redosed if needed. Once ACT was greater than 200 the vessels were clamped and arteriotomy was created with 11 blade scalpel and extended with Pott Sargent scissors. Approximately 8 cm endarterectomy was performed from the external iliac artery down to the superficial femoral artery. Utilizing an endarterectomy knife the plaque was freed and eversion technique for the profundus femoris artery was performed and plaque was removed. The distal plaque at the superficial femoral artery was dense and this was cut and tacked with 7-0 Prolene suture. The area was irrigated and all free debris was removed and patch angioplasty was then performed with a bovine pericardial patch 0.8 x 8 cm. Prior to last sutures being placed control was released from the profundus revealing good brisk backbleeding. There was good backbleeding noted from the SFA as well. All control was released revealing good pulsatile blood flow within the patch and into the profundus femoris as well as the superficial femoral artery. At that time a butterfly needle was utilized and the patch was accessed and left lower extremity angiogram was obtained demonstrating good blood flow through the patch, profundus femoris and superficial femoral artery down to Chi's canal where there was a sharp occlusion noted with a large collateral and multiple collateralization around the knee filling distally and one-vessel runoff to the foot which was the dorsalis pedis vessel. The needle was then removed and the access site was closed with 7-0 Prolene suture. Hemostasis was assured with Gelfoam and thrombin once hemostatic the incision was then closed in a multilayer fashion. The skin was cleansed and a Prevena incisional VAC was placed. Patient tolerated procedure well had Doppler signal at the DP at the conclusion of the procedure and was sent to PACU for recovery.
--- NOTE | 2020-07-09 11:08 | FL ---
EXAMINATION TYPE: FL guidance operating room DATE OF EXAM: 07/09/2020 CLINICAL HISTORY: Peripheral vascular disease. TECHNIQUE: Fluoroscopy. COMPARISON: None. FINDINGS: Fluoroscopic guidance was provided during procedure performed by Dr. Venegas. A total of 88 seconds of fluoroscopic time was utilized during the procedure and 3 spot images was acquired. Deborah ges show angiogram of the superficial femoral artery into the popliteal artery in the lower extremity . IMPRESSION: As Above.
[2020-07-09 11:58] LABS: Glucose,Whole Blood 171 mg/dL (75-99)
[2020-07-09] MEDS: SODIUM CHLORIDE 0.9% 1,000 ML IV SCH ×2 (13:00→20:23)
[2020-07-09] MEDS: carvediloL 3.125 MG TAB PO SCH (17:19)
[2020-07-09] MEDS: HYDROcodone/APAP 5-325MG 1 EACH TAB PO PRN ×2 (17:23→22:53)
[2020-07-09] MEDS: cilostazoL 100 MG TAB PO SCH (20:20)
[2020-07-09] MEDS: LORazepam 1 MG TAB PO SCH (20:20)
[2020-07-09] MEDS ORDERED: traZODone HCL 100 MG TAB PO SCH (21:00)
[2020-07-09] MEDS ORDERED: EZETIMIBE 10 MG TAB PO SCH (21:00)
--- NOTE | 2020-07-09 22:16 | P.CONS ---
History of Present Illness - Reason for Consult Consult date: 07/09/20 Medical management Requesting physician: Iron Venegas - Chief Complaint Post left femoral artery and external iliac and arthritis and angioplasty, - History of Present Illness 75-year-old male one of Dr. Roman patient with multiple medical problem including COPD, CAD post [place], history of active fibrillation in the past, history of severe peripheral arterial disease who had multiple stent placement of the heart and multiple surgical intervention for the left leg for severe PAD done by Dr. Morse and in [place] and out of town and done with vascular at [facility] for the third time. Patient had severe symptom of PAD with severe claudication affected the left leg and foot area was seen vascular and schedule aortic runoff testing with angioplasty and endarterectomy of the iliac and femoral artery. Surgery was done today successfully and patient brought to the ICU afterward his blood pressure and pulse rate were slightly bit low with patient was hemodynamic ally stable. Addition patient has problem with BPH symptoms become a lot worse while he is laying in bed he could not have a good urine output and has been having retention. Patient had wound VAC placement on the left groin area on the top of the surgical site. Review of Systems CONSTITUTIONAL: Well-developed no acute respiratory distress. EYES: No icterus sclerae, no conjunctivitis. EARS, NOSE, MOUTH, THROAT, and FACE: No sore throat, lymphadenopathy, carotid bruits or deformity. RESPIRATORY: Mild short of breath no cough or wheezes. CARDIOVASCULAR: Positive shortness of breath positive PND orthopnea no angina. GASTROINTESTINAL: No Abd pain, Nausea or vomiting, no Diarrhea or constipation, No GI Bleed, no distention or masses. GENITOURINARY: Negative for Hematuria or UTI, no kidney stones. INTEGUMENT/BREAST: Mild pain and discomfort in the left leg area. HEMATOLOGIC/LYMPHATIC: Negative for bleed or purpura. MUSCULOSKELTAL: Negative for Myalgia or arthralgia. Severe PAD of the left leg post angioplasty NEURLOGICAL: No LOC, Sz or syncope, blurred vision dizziness or abnormality.. BEHAVIORAL/PSYCH: Negative. ENDOCRINE: Negative. 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, "borderline diabetic", skin cancer Last Myocardial Infarction Date:: 1986 History of Any Multi-Drug Resistant Organisms: None Reported Past Surgical History: Cardiac Ablation, Heart Catheterization With Stent, Joint Replacement, Orthopedic Surgery Additional Past Surgical History / Comment(s): femoral stent, pt states he has several stents, multiple cardiac cath's., shoulder right surgery, left knee replacement, Rt knee arthroscopy, rt femoral endarterectomy, rt acataract Past Anesthesia/Blood Transfusion Reactions: No Reported Reaction Additional Past Anesthesia/Blood Transfusion Reaction / Comm: vertigo, Date of Last Stent Placement:: 08/17/17 Smoking Status: Former smoker - Past Family History Father Family Medical History: Cancer Additional Family Medical History / Comment(s): lung Sister(s) Family Medical History: Cancer Additional Family Medical History / Comment(s): lung, breast Brother(s) Family Medical History: Cancer Additional Family Medical History / Comment(s): lung Medications and Allergies Home Medications Medication Instructions Recorded Confirmed Type Aspirin EC [Ecotrin] 325 mg PO DAILY 07/18/14 07/09/20 History Clopidogrel [Plavix] 75 mg PO DAILY 07/18/14 07/09/20 History LORazepam [Ativan] 1 mg PO BID 07/18/14 07/09/20 History Omeprazole [PriLOSEC] 20 mg PO AC-BRKFST 07/18/14 07/09/20 History traZODone HCL 100 mg PO HS 08/09/17 07/09/20 History Ezetimibe [Zetia] 10 mg PO HS 04/26/19 07/09/20 History Rosuvastatin Calcium [Crestor] 5 mg PO DAILY 04/26/19 07/09/20 History Multivitamins, Thera [Multivitamin 1 tab PO DAILY 05/27/20 07/09/20 History (formulary)] cilostazoL [Pletal] 50 mg PO BID 05/27/20 07/09/20 History glipiZIDE [Glucotrol] 5 mg PO DAILY 05/27/20 07/09/20 History Carvedilol [Coreg] 3.125 mg PO BID 07/03/20 07/09/20 History Allergies Allergy/AdvReac Type Severity Reaction Status Date / Time No Known Allergies Allergy Verified 07/03/20 09:24 Physical Exam Vitals: Vital Signs Temp Pulse Pulse Resp BP BP Pulse Ox 07/09/20 18:00 81 8 L 125/76 97 07/09/20 17:00 76 12 125/76 96 07/09/20 16:00 77 15 95 07/09/20 15:00 70 14 94 L 07/09/20 14:00 66 24 95 07/09/20 13:45 70 12 97 07/09/20 13:30 65 21 92 L 07/09/20 13:15 68 19 95 07/09/20 13:00 58 L 17 96 07/09/20 12:45 58 L 21 94 L 07/09/20 12:30 67 14 93 L 07/09/20 12:15 59 L 17 141/80 96 07/09/20 12:00 64 14 07/09/20 11:59 67 6 L 07/09/20 11:38 57 L 16 140/67 94 L 07/09/20 11:23 62 16 140/42 95 07/09/20 11:07 61 16 129/69 98 07/09/20 10:52 97.4 F L 60 18 18/55 95 07/09/20 06:17 97.4 F L 62 16 151/78 96 Intake and Output 07/09/20 07/09/20 07/09/20 06:59 14:59 22:59 Intake Total 300 1722 920 Output Total 550 Balance 300 1172 920 Intake: IV 300 1202 Intake, IV Titration 160 320 Amount Sodium Chloride 0.9% 1, 160 320 000 ml @ 80 mls/hr IV . [id number] [facility] Rx#:[id number] Oral 360 600 Output: Urine 500 Estimated Blood Loss 50 Other: Voiding Method Urinal Weight 76 kg ABP, PAP, CO, CI - Last 8 Hours Arterial Blood Pressure 140/59 Arterial Blood Pressure 139/58 Arterial Blood Pressure 140/57 Arterial Blood Pressure 126/55 Arterial Blood Pressure 123/55 Arterial Blood Pressure 153/66 Arterial Blood Pressure 133/58 Arterial Blood Pressure 147/63 Arterial Blood Pressure 129/55 Arterial Blood Pressure 130/54 Arterial Blood Pressure 137/58 Arterial Blood Pressure 144/64 General Appearance: Alert, cooperative, no distress, appears stated age. Neck HEENT: Supple, no lymphadenopathy, no thyroid enlargement, no carotid bruits. Lungs: Decreased breath some bilaterally fine rhonchi no crackles or wheezes. Chest Wall: Decrease expansion with deep inspiration no tenderness and no deformity was found on exam, no costochondral pain or discomfort. Heart: Regular rate and rhythm, S1, S2 normal, no murmur, rub or gallop. Positive S3, positive systolic murmur. Back: Symmetric, no curvature, ROM normal, no CVA tenderness. Abdomen: Soft, non-tender, bowel sounds active all four quadrants, no masses, no organomegaly. Extremities: Extremities normal, atraumatic, incision in the left groin area looks fine with a wound VAC no bleeding. Decrease with positive pulse in the dorsalis pedis in the left side. Skin: Skin color, texture, tugor normal, no rashes or lesions. Neurologic: Alert oriented x3 cranial nerves II through XII intact, no motor deficit, no abnormal balance or gait. Results Labs: Abnormal Lab Results - Last 24 Hours (Table) 07/09/20 Range/Units 11:57 POC Glucose (mg/dL) 171 H (75-99) mg/dL Assessment and Plan Assessment: 1 severe symptomatic PAD of the left lower extremity post left femoral artery and external iliac endarterectomy and patch of angioplasty. Continue secondary prevention with antiplatelet agents statin and lower blood pressure we will titrate physical therapy patient to have wound VAC continue on the side for now. 2 severe atherosclerotic heart disease post multiple angioplasty and stent placement has been doing well continue medication remain on Plavix, Coreg, Crestor and Zetia. 3 type 2 diabetes: Continue glipizide continue Accu-Chek with sliding scales coverage for now. 4 hyperlipidemia: Remain on the Crestor and Zetia. 5 severe history of PAD with multiple surgery remain on Pletal 50 mg twice a day. 6 severe GERD/GI prophylaxis: Remain on omeprazole 20 mg a day. 7 severe insomnia: Remain on trazodone 100 mg daily at bedtime. 8 BPH: Will add Flomax 0.4 mg daily avoid catheter for now continue to watch urine output. 9 DVT prophylaxis: Remain on Plavix and aspirin for now beside early mobilization and knee-high LYDIA hose. CODE STATUS: Full code. Dr. Venegas thank you very much for the consult more than happy to see this gentleman along with you in the hospital psych can be any further help to please let me know.
[2020-07-09] MEDS ORDERED: TAMSULOSIN 0.4 MG CAP.ER.24H PO SCH (22:30)
[2020-07-10] MEDS: HYDROcodone/APAP 5-325MG 1 EACH TAB PO PRN (05:09)
[2020-07-10 05:14] LABS: Basophils % (A) 0 %; Eosinophils % (A) 0 %; HCT 36.6 % (39.0-53.0); HGB 12.3 gm/dL (13.0-17.5); Lymphocytes # (A) 2.8 k/uL (1.0-4.8); Lymphocytes % (A) 21 %; MCH 31.4 pg (25.0-35.0); MCHC 33.6 g/dL (31.0-37.0); MCV 93.2 fL (80.0-100.0); Mean Platelet Volume 7.5; Monocytes # (A) 0.8 k/uL (0-1.0); Monocytes % (A) 6 %; Neutrophils # (A) 9.2 k/uL (1.3-7.7); Neutrophils % (A) 71 %; Platelet Count 221 k/uL (150-450); RBC 3.93 m/uL (4.30-5.90); RDW 13.1 % (11.5-15.5); WBC 12.9 k/uL (3.8-10.6)
[2020-07-10 05:27] LABS: African American GFR (CKD) >90 (>60 ml/min/1.73 sqM); Anion Gap 7 mmol/L; Blood Urea Nitrogen 20 mg/dL (9-20); Calcium 8.2 mg/dL (8.4-10.2); Carbon Dioxide 22 mmol/L (22-30); Chloride 108 mmol/L (98-107); Glucose 126 mg/dL (74-99); Non-African American GFR(CKD) 88 (>60 ml/min/1.73 sqM); Potassium 4.2 mmol/L (3.5-5.1); Sodium 137 mmol/L (137-145)
[2020-07-10 06:09] VITALS: TEMP 97.6
[2020-07-10] MEDS: LACTATED RINGERS 1,000 ML IV SCH (06:45)
[2020-07-10] MEDS ORDERED: glipiZIDE 5 MG TAB PO SCH (07:30)
[2020-07-10] MEDS ORDERED: PANTOPRAZOLE 40 MG TABLET PO SCH (07:30)
[2020-07-10 08:12] VITALS: BP 102/55
[2020-07-10] MEDS: cilostazoL 100 MG TAB PO SCH (08:31)
[2020-07-10] MEDS: carvediloL 3.125 MG TAB PO SCH (08:32)
[2020-07-10] MEDS: LORazepam 1 MG TAB PO SCH (08:32)
[2020-07-10] MEDS ORDERED: ASPIRIN 325 MG TAB PO SCH (09:00)
[2020-07-10] MEDS ORDERED: CLOPIDOGREL 75 MG TAB PO SCH (09:00)
[2020-07-10] MEDS ORDERED: ATORVASTATIN 10 MG TAB PO SCH (09:00)
[2020-07-10] MEDS ORDERED: MULTIVITAMINS, THERA 1 EACH TAB PO SCH (09:00)
[2020-07-10 10:09] VITALS: PULSE 65; RESP 24
--- NOTE | 2020-07-10 10:55 | P.DS ---
Providers Date of admission: 07/09/20 05:48 Expected date of discharge: 07/10/20 Attending physician: Iron Venegas DO Consults: 07/09/20 10:48 Consult Physician Routine Consulting Provider: Arya Roman Reason/Comments: medical management Do you want consulting provider notified?: Yes 07/09/20 12:27 Consult Physician Routine Consulting Provider: Dimitri Costello Reason/Comments: medical management Do you want consulting provider notified?: Yes [facility]: This is [id number] male patient with multiple medical problem including COPD, CAD post [place], history of active fibrillation in the past, history of severe peripheral arterial disease who had multiple stent placement of the heart and multiple surgical intervention for the left leg for severe PAD. Patient had severe symptom of PAD with severe claudication affected the left leg and foot area who was seen by Dr. Venegas and had outpatient aortic runoff testing with angioplasty and endarterectomy of the iliac and femoral artery. He is status postop day #1 for left common femoral and external iliac artery endarterectomy and patch angioplasty with an incisional VAC placement to the left groin. He was stable through the night. His Perdomo catheter was discontinued, he has been up and ambulated, and tolerating a regular diet. Assessment: General appearance: The patient is alert, oriented, in no acute distress. HET: Head is normocephalic and atraumatic. Neck: Supple without lymphadenopathy. Trachea midline. Heart: S1 S2. Regular rate and rhythm. Lungs: No crackles or wheezes are heard. Abdomen: Soft, nontender, nondistended with bowel sounds. Extremities: Normal skin color and turgor. No cyanosis, rash, ulceration, clubbing, or edema. Left groin with Prevena surgical vac in place with good suction. Neurological: No focal deficits. Strength and sensation are grossly intact. Assessment: 1. postop day #1 left common femoral and external iliac artery endarterectomy and patch angioplasty with Provine surgical VAC placement 2. Left common femoral artery occlusive disease with claudication [place] classification 3 The above dictated assessment and findings were discussed with Leanne. The impression and plan of care have been directed as dictated. Procedures: left common femoral and external iliac artery endarterectomy and patch angioplasty with Prevena surgical VAC placement Patient Condition at Discharge: Good Plan - Discharge Summary Discharge Rx Participant: Yes New Discharge Prescriptions: New Tamsulosin [Flomax] 0.4 mg PO DAILY #30 cap Continue LORazepam [Ativan] 1 mg PO BID Clopidogrel [Plavix] 75 mg PO DAILY Aspirin EC [Ecotrin] 325 mg PO DAILY Omeprazole [PriLOSEC] 20 mg PO [facility] traZODone HCL 100 mg PO HS Rosuvastatin Calcium [Crestor] 5 mg PO DAILY Ezetimibe [Zetia] 10 mg PO HS Multivitamins, Thera [Multivitamin (formulary)] 1 tab PO DAILY glipiZIDE [Glucotrol] 5 mg PO DAILY cilostazoL [Pletal] 50 mg PO BID Carvedilol [Coreg] 3.125 mg PO BID Discharge Medication List Aspirin EC [Ecotrin] 325 mg PO DAILY 07/18/14 [History] Clopidogrel [Plavix] 75 mg PO DAILY 07/18/14 [History] LORazepam [Ativan] 1 mg PO BID 07/18/14 [History] Omeprazole [PriLOSEC] 20 mg PO AC-BRKFST 07/18/14 [History] traZODone HCL 100 mg PO HS 08/09/17 [History] Ezetimibe [Zetia] 10 mg PO HS 04/26/19 [History] Rosuvastatin Calcium [Crestor] 5 mg PO DAILY 04/26/19 [History] Multivitamins, Thera [Multivitamin (formulary)] 1 tab PO DAILY 05/27/20 [History] cilostazoL [Pletal] 50 mg PO BID 05/27/20 [History] glipiZIDE [Glucotrol] 5 mg PO DAILY 05/27/20 [History] Carvedilol [Coreg] 3.125 mg PO BID 07/03/20 [History] Tamsulosin [Flomax] 0.4 mg PO DAILY #30 cap 07/10/20 [Rx] Follow up Appointment(s)/Referral(s): Arya Roman DO [Primary Care Provider] - 1 Week Iron Venegas DO [STAFF PHYSICIAN] - 10 Days (10-14 days) Activity/Diet/Wound Care/Special Instructions: No heavy lifting greater than 5 pounds, no tub bathing. May shower, but keep left groin dry. Remove surgical vac after 7 days and dispose of. Discharge Disposition: HOME SELF-CARE
--- NOTE | 2020-07-10 12:02 | P.PN ---
Subjective Progress Note Date: 07/10/20 - History of Present Illness 75-year-old male one of Dr. Roman patient with multiple medical problem including COPD, CAD post [place], history of active fibrillation in the past, history of severe peripheral arterial disease who had multiple stent placement of the heart and multiple surgical intervention for the left leg for severe PAD done by Dr. Morse and in [place] and out of town and done with vascular at [facility] for the third time. Patient had severe symptom of PAD with severe claudication affected the left leg and foot area was seen vascular and schedule aortic runoff testing with angioplasty and endarterectomy of the iliac and femoral artery. Surgery was done today successfully and patient brought to the ICU afterward his blood pressure and pulse rate were slightly bit low with patient was hemodynamically stable. Addition patient has problem with BPH symptoms become a lot worse while he is laying in bed he could not have a good urine output and has been having retention. Patient had wound VAC placement on the left groin area on the top of the surgical site. 07/10: Patient was started on Flomax yesterday and was able to void twice during the night. We will plan to send a prescription home with the patient to continue for at least 2 weeks and up to one month. Patient denies any new complaints. Wound VAC is in place. He has been afebrile, heart rate 66, blood pressure 102/55. Blood work reveals WBC 12.9, hemoglobin 12.3. Creatinine 0.81. Blood sugar 126. Patient is off oxygen. He is resting in recliner. Anticipate discharge home today. Review of Systems CONSTITUTIONAL: Well-developed no acute respiratory distress. No fever, no chills. EYES: No icterus sclerae, no conjunctivitis. EARS, NOSE, MOUTH, THROAT, and FACE: No sore throat, lymphadenopathy, carotid bruits or deformity. RESPIRATORY: Mild short of breath no cough or wheezes. CARDIOVASCULAR: Positive shortness of breath positive PND orthopnea no angina. GASTROINTESTINAL: No Abd pain, Nausea or vomiting, no Diarrhea or constipation, No GI Bleed, no distention or masses. GENITOURINARY: Negative for Hematuria or UTI, no kidney stones. INTEGUMENT/BREAST: Mild pain and discomfort in the left leg area. HEMATOLOGIC/LYMPHATIC: Negative for bleed or purpura. MUSCULOSKELTAL: Negative for Myalgia or arthralgia. Severe PAD of the left leg post angioplasty NEURLOGICAL: No LOC, Sz or syncope, blurred vision dizziness or abnormality.. BEHAVIORAL/PSYCH: Negative. ENDOCRINE: Negative. Physical examination General Appearance: Alert, cooperative, no distress, appears stated age. Patient resting in recliner. Neck HEENT: Supple, no lymphadenopathy, no thyroid enlargement, no carotid bruits. Lungs: Decreased breath some bilaterally fine rhonchi no crackles or wheezes. Chest Wall: Decrease expansion with deep inspiration no tenderness and no deformity was found on exam, no costochondral pain or discomfort. Heart: Regular rate and rhythm, S1, S2 normal, no murmur, rub or gallop. Positive S3, positive systolic murmur. Back: Symmetric, no curvature, ROM normal, no CVA tenderness. Abdomen: Soft, non-tender, bowel sounds active all four quadrants, no masses, no organomegaly. Extremities: Extremities normal, atraumatic, incision in the left groin area looks fine with a wound VAC no bleeding. Decrease with positive pulse in the dorsalis pedis in the left side. Skin: Skin color, texture, tugor normal, no rashes or lesions. Neurologic: Alert oriented x3 cranial nerves II through XII intact, no motor deficit, no abnormal balance or gait. Assessment and plan 1 severe symptomatic PAD of the left lower extremity post left femoral artery and external iliac endarterectomy and patch of angioplasty, postop day #1. Continue secondary prevention with antiplatelet agents statin and lower blood pressure we will titrate physical therapy patient to have wound VAC continue on the side for now. 2 severe atherosclerotic heart disease post multiple angioplasty and stent placement has been doing well continue medication remain on Plavix, Coreg, Crestor and Zetia. 3 type 2 diabetes: Continue glipizide continue Accu-Chek with sliding scales coverage for now. 4 hyperlipidemia: Remain on the Crestor and Zetia. 5 severe history of PAD with multiple surgery remain on Pletal 50 mg twice a day. 6 severe GERD/GI prophylaxis: Remain on omeprazole 20 mg a day. 7 severe insomnia: Remain on trazodone 100 mg daily at bedtime. 8 BPH: Will add Flomax 0.4 mg daily avoid catheter for now continue to watch urine output. Prescription for Flomax sent to patient's pharmacy. 9 DVT prophylaxis: Remain on Plavix and aspirin for now beside early mobilization and knee-high LYDIA hose. CODE STATUS: Full code. Dr. Venegas thank you very much for the consult more than happy to see this gentleman along with you in the hospital psych can be any further help to please let me know. Discharge plan: Home Impression and plan of care have been directed as dictated by the signing physician. Reema Tai nurse practitioner acting as scribe for signing physician. Objective - Vital Signs Vital signs: Vital Signs Temp 97.6 F 07/10/20 04:00 Pulse 61 07/10/20 08:00 Resp 12 07/10/20 08:00 BP 102/55 07/10/20 08:00 Pulse Ox 96 07/10/20 07:00 Intake & Output 07/09/20 07/10/20 07/10/20 18:59 06:59 18:59 Intake Total 2642 960 520 Output Total 550 700 Balance 2092 260 520 Weight 75 kg Intake: IV 1202 Intake, IV Titration 480 960 160 Amount Sodium Chloride 0.9% 1, 480 960 160 000 ml @ 80 mls/hr IV . [id number] [facility] Rx#:[id number] Oral 960 360 Output: Urine 500 700 Estimated Blood Loss 50 Other: Voiding Method Urinal Urinal Urinal ABP, PAP, CO, CI - Last Documented Arterial Blood Pressure 109/43 - Labs CBC & Chem 7: 07/10/20 04:55 07/10/20 04:55 Labs: Abnormal Lab Results - Last 24 Hours (Table) 07/09/20 07/10/20 07/10/20 Range/Units 11:57 04:55 04:55 WBC 12.9 H (3.8-10.6) k/uL RBC 3.93 L (4.30-5.90) m/uL Hgb 12.3 L (13.0-17.5) gm/dL Hct 36.6 L (39.0-53.0) % Neutrophils # 9.2 H (1.3-7.7) k/uL Chloride 108 H (98-107) mmol/L Glucose 126 H (74-99) mg/dL POC Glucose (mg/dL) 171 H (75-99) mg/dL Calcium 8.2 L (8.4-10.2) mg/dL
[2020-07-10 18:53] LABS: Hemoglobin A1C 5.6 % (4.0-6.0)
== END 2020-07-10 12:50 | disposition home or self-care (01) | DRG 272 ==
LOC: 2ORMAIN 05:48 → 2SICU 11:10
PROVIDERS: ADMIT Surgery; ATTEND Surgery
PROC: 04UL0KZ Supplement Left Femoral Artery with Nonautologous Tissue Substitute, Open Approach (ICD-10-PCS; principal; 2020-07-09 07:30)
PROC: 04CJ0ZZ Extirpation of Matter from Left External Iliac Artery, Open Approach (ICD-10-PCS; principal; 2020-07-09 07:30)
PROC: B41G1ZZ Fluoroscopy of Left Lower Extremity Arteries using Low Osmolar Contrast (ICD-10-PCS; principal; 2020-07-09 07:30)
PROC: 04CL0ZZ Extirpation of Matter from Left Femoral Artery, Open Approach (ICD-10-PCS; principal; 2020-07-09 07:30)
DX: E11.51 Type 2 diabetes mellitus with diabetic peripheral angiopathy without gangrene (principal); J44.9 Chronic obstructive pulmonary disease, unspecified; I70.212 Atherosclerosis of native arteries of extremities with intermittent claudication, left leg; M19.90 Unspecified osteoarthritis, unspecified site; I25.10 Atherosclerotic heart disease of native coronary artery without angina pectoris; N40.1 Benign prostatic hyperplasia with lower urinary tract symptoms; R33.8 Other retention of urine; I10 Essential (primary) hypertension; E78.5 Hyperlipidemia, unspecified; K21.9 Gastro-esophageal reflux disease without esophagitis; G47.00 Insomnia, unspecified; I25.2 Old myocardial infarction; Z79.02 Long term (current) use of antithrombotics/antiplatelets; Z79.82 Long term (current) use of aspirin; Z79.899 Other long term (current) drug therapy; Z79.84 Long term (current) use of oral hypoglycemic drugs; Z97.0 Presence of artificial eye; Z95.5 Presence of coronary angioplasty implant and graft; Z86.79 Personal history of other diseases of the circulatory system; Z85.828 Personal history of other malignant neoplasm of skin; Z96.652 Presence of left artificial knee joint; Z98.890 Other specified postprocedural states; Z98.41 Cataract extraction status, right eye; Z87.891 Personal history of nicotine dependence; Z95.820 Peripheral vascular angioplasty status with implants and grafts; Z82.49 Family history of ischemic heart disease and other diseases of the circulatory system; Z80.3 Family history of malignant neoplasm of breast; Z80.1 Family history of malignant neoplasm of trachea, bronchus and lung
CPT/HCPCS: 80048; 83036; 85025; 86850; 86900; 86901; 88304; 88311

== ENCOUNTER 2020-11-03 11:22 | Inpatient (IN) | payer MEDICARE, BC ==
[2020-11-03] MEDS ORDERED: KETOROLAC 15 MG/ML 1 ML VIAL IVP STA (11:31)
[2020-11-03] MEDS ORDERED: dexAMETHasone 2 MG TAB PO STA (11:31)
[2020-11-03] MEDS ORDERED: ACETAMINOPHEN TAB 500 MG TAB PO STA (11:31)
[2020-11-03] MEDS ORDERED: SODIUM CHLORIDE 0.9% 500 ML 500 ML IV ONE (11:32)
--- NOTE | 2020-11-03 11:35 | ED ---
General Adult HPI - General Chief complaint: Shortness of Breath Stated complaint: OFE Time Seen by Provider: 11/03/20 11:22 Source: patient, RN notes reviewed, old records reviewed Mode of arrival: EMS Limitations: no limitations - History of Present Illness Initial comments: This is a 75-year-old male who presents emergency department with past medical history significant for coronary artery disease and multiple stents. Patient presents today with shortness of breath. Patient states she was diagnosed with COVID on Wednesday. Patient states he felt more short of breath particularly when he lays down. Patient states she's also been having intermittent chest pain that does not seem similar to his cardiac pain. Patient states it lasts about 2 minutes and goes away. Patient has not had any Tylenol or Motrin since 6 AM this morning. Patient states she does not believe he has a fever. Patient states he has not had much appetite but he did have diarrhea but his last bout of diarrhea was 2 days ago. Patient denies any nausea or vomiting. Patient states she's had no loss of taste or smell. - Related Data Home Medications Medication Instructions Recorded Confirmed Aspirin EC [Ecotrin] 325 mg PO DAILY 07/18/14 11/03/20 Clopidogrel [Plavix] 75 mg PO DAILY 07/18/14 11/03/20 LORazepam [Ativan] 1 mg PO BID 07/18/14 11/03/20 Omeprazole [PriLOSEC] 20 mg PO AC-BRKFST 07/18/14 11/03/20 traZODone HCL 100 mg PO HS 08/09/17 11/03/20 Ezetimibe [Zetia] 10 mg PO HS 04/26/19 11/03/20 Rosuvastatin Calcium [Crestor] 5 mg PO DAILY 04/26/19 11/03/20 Multivitamins, Thera [Multivitamin 1 tab PO DAILY 05/27/20 11/03/20 (formulary)] cilostazoL [Pletal] 50 mg PO BID 05/27/20 11/03/20 glipiZIDE [Glucotrol] 5 mg PO DAILY 05/27/20 11/03/20 Ibuprofen [Motrin] 800 mg PO Q8H PRN 11/03/20 11/03/20 carvediloL [Coreg] 6.25 mg PO BID 11/03/20 11/03/20 Allergies Allergy/AdvReac Type Severity Reaction Status Date / Time No Known Allergies Allergy Verified 11/03/20 13:38 Review of Systems ROS Statement: Those systems with pertinent positive or pertinent negative responses have been documented in the HPI. ROS Other: All systems not noted in ROS Statement are negative. 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 in eye socket, "borderline diabetic", skin cancer Last Myocardial Infarction Date:: 1986 History of Any Multi-Drug Resistant Organisms: None Reported Past Surgical History: Cardiac Ablation, Heart Catheterization With Stent, Joint Replacement, Orthopedic Surgery Additional Past Surgical History / Comment(s): femoral stent, pt states he has several stents, multiple cardiac cath's., shoulder right surgery, left knee replacement, Rt knee arthroscopy, rt femoral endarterectomy, rt acataract Past Anesthesia/Blood Transfusion Reactions: No Reported Reaction Additional Past Anesthesia/Blood Transfusion Reaction / Comment(s): vertigo, Date of Last Stent Placement:: 08/17/17 Past Psychological History: Anxiety Smoking Status: Former smoker Past Alcohol Use History: Occasional Past Drug Use History: None Reported - Past Family History Father Family Medical History: Cancer Additional Family Medical History / Comment(s): lung Sister(s) Family Medical History: Cancer Additional Family Medical History / Comment(s): lung, breast Brother(s) Family Medical History: Cancer Additional Family Medical History / Comment(s): lung General Exam - General Exam Comments Initial Comments: GENERAL: Patient is well-developed and well-nourished. Patient is nontoxic and well- hydrated and is in mild distress. ENT: Neck is soft and supple. No significant lymphadenopathy is noted. Oropharynx is clear. Moist mucous membranes. Neck has full range of motion without eliciting any pain. EYES: The sclera were anicteric and conjunctiva were pink and moist. Extraocular movements were intact and pupils were equal round and reactive to light. Eyelids were unremarkable. PULMONARY: Unlabored respirations. Good breath sounds bilaterally. Patient has some crackles in the left base. CARDIOVASCULAR: There is a regular rate and rhythm without any murmurs gallops or rubs. ABDOMEN: Soft and nontender with normal bowel sounds. SKIN: Skin is clear with no lesions or rashes and otherwise unremarkable. NEUROLOGIC: Patient is alert and oriented x3. Cranial nerves II through XII are grossly intact. Motor and sensory are also intact. Normal speech, volume and content. Symmetrical smile. MUSCULOSKELETAL: Normal extremities with adequate strength and full range of motion. LYMPHATICS: No significant lymphadenopathy is noted PSYCHIATRIC: Normal psychiatric evaluation. Limitations: no limitations Course Vital Signs 11/03/20 11/03/20 11/03/20 11:28 12:30 13:00 Temperature 98.5 F Pulse Rate 85 75 74 Respiratory 22 18 20 Rate Blood Pressure 148/86 140/81 140/81 O2 Sat by Pulse 95 95 94 L Oximetry Medical Decision Making - Medical Decision Making EKG shows normal sinus rhythm at 82 bpm ME interval 234 QRSs 104 QT interval 354 QTC is 413. Patient's EKG shows no ST segment elevation or depression. Chest x-ray is consistent with over pneumonia. I started patient on steroids. I spoke with Dr. Novak I consult pulmonary. Patient's pulse ox was 93% on 2 L while lying in bed. I admitted the patient wrote admitting orders - Lab Data Result diagrams: 11/03/20 11:35 11/03/20 11:35 Lab Results 11/03/20 11/03/20 11/03/20 Range/Units 11:35 11:35 11:35 WBC 6.2 (3.8-10.6) k/uL RBC 4.95 (4.30-5.90) m/uL Hgb 15.5 (13.0-17.5) gm/dL Hct 44.9 (39.0-53.0) % MCV 90.9 (80.0-100.0) fL MCH 31.4 (25.0-35.0) pg MCHC 34.6 (31.0-37.0) g/dL RDW 12.5 (11.5-15.5) % Plt Count 217 (150-450) k/uL MPV 7.1 Neutrophils % 62 % Lymphocytes % 30 % Monocytes % 5 % Eosinophils % 0 % Basophils % 2 % Neutrophils # 3.9 (1.3-7.7) k/uL Lymphocytes # 1.8 (1.0-4.8) k/uL Monocytes # 0.3 (0-1.0) k/uL Eosinophils # 0.0 (0-0.7) k/uL Basophils # 0.1 (0-0.2) k/uL PT 9.6 (9.0-12.0) sec INR 0.9 (<1.2) APTT 26.8 (22.0-30.0) sec D-Dimer 1.08 H (<0.60) mg/L FEU Sodium 135 L (137-145) mmol/L Potassium 3.8 (3.5-5.1) mmol/L Chloride 105 (98-107) mmol/L Carbon Dioxide 20 L (22-30) mmol/L Anion Gap 10 mmol/L BUN 33 H (9-20) mg/dL Creatinine 1.07 (0.66-1.25) mg/dL Est GFR (CKD-EPI)AfAm 79 (>60 ml/min/1.73 sqM) Est GFR (CKD-EPI)NonAf 69 (>60 ml/min/1.73 sqM) Glucose 171 H (74-99) mg/dL Plasma Lactic Acid Jerome (0.7-2.0) mmol/L Calcium 9.5 (8.4-10.2) mg/dL Magnesium 1.6 (1.6-2.3) mg/dL Total Bilirubin 0.4 (0.2-1.3) mg/dL AST 34 (17-59) U/L ALT 26 (4-49) U/L Alkaline Phosphatase 111 (38-126) U/L Lactate Dehydrogenase 482 (313-618) U/L C-Reactive Protein 52.5 H (<10.0) mg/L Total Protein 7.1 (6.3-8.2) g/dL Albumin 3.9 (3.5-5.0) g/dL Influenza Type A (PCR) (Not Detectd) Influenza Type B (PCR) (Not Detectd) RSV (PCR) (Not Detectd) SARS-CoV-2 (PCR) (Not Detectd) 11/03/20 11/03/20 Range/Units 11:35 11:59 WBC (3.8-10.6) k/uL RBC (4.30-5.90) m/uL Hgb (13.0-17.5) gm/dL Hct (39.0-53.0) % MCV (80.0-100.0) fL MCH (25.0-35.0) pg MCHC (31.0-37.0) g/dL RDW (11.5-15.5) % Plt Count (150-450) k/uL MPV Neutrophils % % Lymphocytes % % Monocytes % % Eosinophils % % Basophils % % Neutrophils # (1.3-7.7) k/uL Lymphocytes # (1.0-4.8) k/uL Monocytes # (0-1.0) k/uL Eosinophils # (0-0.7) k/uL Basophils # (0-0.2) k/uL PT (9.0-12.0) sec INR (<1.2) APTT (22.0-30.0) sec D-Dimer (<0.60) mg/L FEU Sodium (137-145) mmol/L Potassium (3.5-5.1) mmol/L Chloride (98-107) mmol/L Carbon Dioxide (22-30) mmol/L Anion Gap mmol/L BUN (9-20) mg/dL Creatinine (0.66-1.25) mg/dL Est GFR (CKD-EPI)AfAm (>60 ml/min/1.73 sqM) Est GFR (CKD-EPI)NonAf (>60 ml/min/1.73 sqM) Glucose (74-99) mg/dL Plasma Lactic Acid Jerome 1.4 (0.7-2.0) mmol/L Calcium (8.4-10.2) mg/dL Magnesium (1.6-2.3) mg/dL Total Bilirubin (0.2-1.3) mg/dL AST (17-59) U/L ALT (4-49) U/L Alkaline Phosphatase (38-126) U/L Lactate Dehydrogenase (313-618) U/L C-Reactive Protein (<10.0) mg/L Total Protein (6.3-8.2) g/dL Albumin (3.5-5.0) g/dL Influenza Type A (PCR) Not Detected (Not Detectd) Influenza Type B (PCR) Not Detected (Not Detectd) RSV (PCR) Not Detected (Not Detectd) SARS-CoV-2 (PCR) Detected A (Not Detectd) Critical Care Time Critical Care Time: Yes Total Critical Care Time: 35 Disposition Clinical Impression: Pneumonia due to COVID-19 virus Disposition: ADMITTED IP TO THIS HOSP Referrals: Arya Roman DO [Primary Care Provider] - 1-2 days Time of Disposition: 14:01
[2020-11-03] MEDS ORDERED: METOPROLOL TARTRATE 50 MG TAB PO STA (11:46)
[2020-11-03 11:55] LABS: Basophils # (A) 0.1 k/uL (0-0.2); Basophils % (A) 2 %; Eosinophils % (A) 0 %; HCT 44.9 % (39.0-53.0); HGB 15.5 gm/dL (13.0-17.5); Lymphocytes # (A) 1.8 k/uL (1.0-4.8); Lymphocytes % (A) 30 %; MCH 31.4 pg (25.0-35.0); MCHC 34.6 g/dL (31.0-37.0); MCV 90.9 fL (80.0-100.0); Mean Platelet Volume 7.1; Monocytes # (A) 0.3 k/uL (0-1.0); Monocytes % (A) 5 %; Neutrophils # (A) 3.9 k/uL (1.3-7.7); Neutrophils % (A) 62 %; Platelet Count 217 k/uL (150-450); RBC 4.95 m/uL (4.30-5.90); RDW 12.5 % (11.5-15.5); WBC 6.2 k/uL (3.8-10.6)
[2020-11-03] MEDS ORDERED: ONDANSETRON 4 MG/2 ML VIAL IVP STA (12:02)
[2020-11-03 12:08] LABS: Albumin 3.9 g/dL (3.5-5.0); C Reactive Protein 52.5 mg/L (<10.0); Calcium 9.5 mg/dL (8.4-10.2); INR 0.9 (<1.2); Magnesium 1.6 mg/dL (1.6-2.3); Partial Thromboplastin Time 26.8 sec (22.0-30.0); Potassium 3.8 mmol/L (3.5-5.1); Prothrombin Time 9.6 sec (9.0-12.0); Total Bilirubin 0.4 mg/dL (0.2-1.3); Total Protein 7.1 g/dL (6.3-8.2)
[2020-11-03 12:23] LABS: D-Dimer 1.08 mg/L FEU (<0.60)
--- NOTE | 2020-11-03 12:36 | XR ---
EXAMINATION TYPE: XR chest 1V portable DATE OF EXAM: 11/03/2020 COMPARISON: NONE HISTORY: Shortness of breath, suspected cold 19 pneumonia. TECHNIQUE: Single AP portable frontal upright view of the chest is obtained. FINDINGS: There are bibasilar increased opacities. No pleural effusion or pneumothorax seen bilater ally. The cardiac silhouette size is within normal limits. The osseous structures are intact. IMPRESSION: Bibasilar acute infiltrates.
[2020-11-03] MEDS: carvediloL 6.25 MG TAB PO SCH (19:51)
[2020-11-03] MEDS ORDERED: ONDANSETRON 4 MG/2 ML VIAL IVP PRN (20:43)
[2020-11-03] MEDS: EZETIMIBE 10 MG TAB PO SCH (21:04)
[2020-11-03] MEDS: traZODone HCL 100 MG TAB PO SCH (21:04)
[2020-11-03] MEDS: LORazepam 1 MG TAB PO SCH (21:05)
[2020-11-03] MEDS: cilostazoL 100 MG TAB PO SCH (21:05)
[2020-11-03] MEDS: IBUPROFEN 800 MG TAB PO PRN (21:06)
[2020-11-03 23:09] LABS: Ferritin 284.9 ng/mL (22.0-322.0)
[2020-11-04 06:38] LABS: Basophils % (A) 1 %; Eosinophils % (A) 0 %; HCT 41.8 % (39.0-53.0); HGB 14.5 gm/dL (13.0-17.5); Lymphocytes # (A) 1.3 k/uL (1.0-4.8); Lymphocytes % (A) 31 %; MCH 31.9 pg (25.0-35.0); MCHC 34.7 g/dL (31.0-37.0); MCV 91.8 fL (80.0-100.0); Mean Platelet Volume 7.5; Monocytes # (A) 0.4 k/uL (0-1.0); Monocytes % (A) 9 %; Neutrophils # (A) 2.5 k/uL (1.3-7.7); Neutrophils % (A) 60 %; Platelet Count 212 k/uL (150-450); RBC 4.56 m/uL (4.30-5.90); RDW 12.5 % (11.5-15.5); WBC 4.1 k/uL (3.8-10.6)
[2020-11-04 07:14] LABS: Glucose,Whole Blood 132 mg/dL (75-99)
[2020-11-04] MEDS: cilostazoL 100 MG TAB PO SCH ×2 (07:59→20:41)
[2020-11-04] MEDS: CLOPIDOGREL 75 MG TAB PO SCH (08:00)
[2020-11-04] MEDS: dexAMETHasone 2 MG TAB PO SCH (08:00)
[2020-11-04] MEDS: MULTIVITAMINS, THERA 1 EACH TAB PO SCH (08:00)
[2020-11-04] MEDS: glipiZIDE 5 MG TAB PO SCH (08:00)
[2020-11-04] MEDS: LORazepam 1 MG TAB PO SCH ×2 (08:00→20:41)
[2020-11-04] MEDS: carvediloL 6.25 MG TAB PO SCH ×2 (08:00→17:45)
[2020-11-04] MEDS: ASPIRIN 325 MG TAB PO SCH (08:00)
[2020-11-04] MEDS: PANTOPRAZOLE 40 MG TABLET PO SCH (08:00)
[2020-11-04] MEDS: ATORVASTATIN 10 MG TAB PO SCH (08:00)
[2020-11-04 09:42] LABS: Albumin 4.2 g/dL (3.80-4.90); Albumin/Globulin Ratio 1.91 (1.60-3.17); Anion Gap 10.8 mmol/L (4.00-12.00); Calcium 8.8 mg/dL (8.7-10.3); Carbon Dioxide 20.2 mmol/L (21.6-31.8); Globulin 2.2 g/dL (1.6-3.3); Potassium 4.5 mmol/L (3.5-5.5); Total Bilirubin 0.3 mg/dL (0.3-1.2); Total Protein 6.4 g/dL (6.2-8.2)
[2020-11-04] MEDS: ZINC SULFATE 220 MG CAP PO SCH (10:52)
[2020-11-04] MEDS: AZITHROMYCIN 500 MG TAB PO SCH (10:52)
[2020-11-04] MEDS: ASCORBIC ACID 500 MG TAB PO SCH (10:52)
[2020-11-04] MEDS: CHOLECALCIFEROL 1,000 UNIT TAB PO SCH (10:52)
[2020-11-04] MEDS: ENOXAPARIN 40 MG/0.4 ML SYRINGE SQ SCH (10:52)
[2020-11-04 11:13] LABS: Glucose,Whole Blood 209 mg/dL (75-99)
--- NOTE | 2020-11-04 12:27 | P.HPIM ---
History of Present Illness H&P Date: 11/04/20 Chief Complaint: Shortness of breath, chest pain HISTORY OF PRESENT ILLNESS This is a 75-year-old male patient of Dr. Roman with past medical history of coronary artery disease status post stent, hypertension, hyperlipidemia, diabetes mellitus type 2, skin cancer, peripheral vascular disease with right femoral endarterectomy and multiple stenting in the past, remote history of tobacco use and dependence. Patient states that he and his had [place] with their daughter who works at a [employer] in [place]. When she returned to work she had to undergo required Covid 19 testing which came back positive. Patient's tested positive on Wednesday at a local pharmacy and patient tested positive on Wednesday at a local pharmacy. He states he has had increased shortness of breath, mild fever, decreased appetite, mild cough. Cough is nonproductive. He does not have home oxygen. No nausea, vomiting, diarrhea, abdominal pain. He did have diarrhea 2 days ago which resolved. Patient came into [facility] emergency center for evaluation. He was afebrile, heart rate 85, blood pressure 148/86, pulse ox 95% on room air. CBC was unremarkable. D-dimer 1.08. Sodium 135, CO2 20, BUN 33 and creatinine 1.07. Blood sugar 171. Lactic acid 1.4. Covid 19 detected. Influenza testing negative, RSV negative. LDH 482, C-reactive protein 52.5. Liver function tests normal. EKG normal sinus rhythm. Patient admitted to the [facility] floor and consult with pulmonary medicine. REVIEW OF SYSTEMS Constitutional: Reports mild fever, . No weight change. Reports mild generalized weakness and fatigue. EENT: No headache. No blurred vision or double vision, no loss of vision. No loss of Hearing, no ringing in the ears, no dizziness. No nasal drainage or congestion. No epistaxis. No sore throat. Lungs: Reports mild shortness of breath, reports cough, no sputum production. No wheezing. Cardiovascular: No chest pain, no lower extremity edema. No palpitations. No paroxysmal nocturnal dyspnea. No orthopnea. No lightheadedness or dizziness. No syncopal episodes. Abdominal: No abdominal pain. No nausea, vomiting. No diarrhea. No constipation. No bloody or tarry stools.. No loss of appetite. Genitourinary: No dysuria, increased frequency, urgency. No urinary retention. Musculoskeletal: No myalgias. No muscle weakness, no gait dysfunction, no frequent falls. No back pain. No neck pain. Integumentary: No wounds, no lesions. No rash or pruritus. Neurologic: No aphasia. No facial droop. No change in mentation. No head injury. No headache. No paralysis. No paresthesia. Psychiatric: No depression. No anxiety. Endocrine: No abnormal blood sugars. SOCIAL HISTORY Patient was a smoker of 3 packs per day for 15 years and quit approximately 30 years ago. He drinks alcohol occasionally. No marijuana or illicit drug use. He lives at home with his . He does not have home oxygen, nebulizer, CPAP. FAMILY HISTORY Mother at age 83 from old age. Father in his 50s from lung cancer. Tre martínez has total of 7 siblings 4 have from lung cancer, breast cancer, one from end-stage renal disease, one from COPD. One sister is alive with no major medical problems. Patient is for children with no major medical problems.. PHYSICAL EXAMINATION Gen: This is a 75-year-old male. He is resting in bed and appears to be comfortable and in no acute distress. HEENT: Head is atraumatic, normocephalic. Pupils equal, round. Sclerae is anicteric. NECK: Supple. No JVD. No lymphadenopathy. No thyromegaly. LUNGS: Diminished bilaterally. No wheezing.. No intercostal retractions. HEART: Regular rate and rhythm. No murmur. ABDOMEN: Soft. Bowel sounds are present. No masses. No tenderness. EXTREMITIES: No pedal edema. No calf tenderness. NEUROLOGICAL: Patient is awake, alert and oriented x3. Cranial nerves 2 through 12 are grossly intact. ASSESSMENT AND PLAN 1. Covid 19 pneumonia. Start supplementation with zinc, vitamin D, vitamin C. Start azithromycin and ceftriaxone. Start dexamethasone 6 mg daily, Lovenox 40 mg subcu daily. Consult with pulmonary medicine. 2. Hypertension. Continue Coreg 6.25 mg twice daily. 3. Hyperlipidemia. Continue Lipitor 10 mg daily, Zetia 10 mg at bedtime. 4. Diabetes mellitus type 2. Continue glipizide 5 mg before breakfast, NovoLog scale before meals and at bedtime. 5. Peripheral vascular disease with right femoral endarterectomy and multiple stenting in the past, stable. Continue Pletal, Plavix 75 mg daily, Lipitor, aspirin. 6. Remote history of tobacco use and dependence. 7. Generalized anxiety disorder. Continue Ativan 1 mg twice daily and trazodone 100 mg at bedtime. 8. DVT prophylaxis. Lovenox. 9. GI prophylaxis. Protonix. CODE STATUS: Full code Patient will be admitted to the hospital for a minimum of 2 night stay. DISCHARGE PLAN Most likely return home. Impression and plan of care have been directed as dictated by the signing physician. Reema Tai nurse practitioner acting as scribe for signing physician. 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, "borderline diabetic", skin cancer Last Myocardial Infarction Date:: 1986 History of Any Multi-Drug Resistant Organisms: None Reported Past Surgical History: Cardiac Ablation, Heart Catheterization With Stent, Joint Replacement, Orthopedic Surgery Additional Past Surgical History / Comment(s): femoral stent, pt states he has several stents, multiple cardiac cath's., shoulder right surgery, left knee replacement, Rt knee arthroscopy, rt femoral endarterectomy, rt acataract Past Anesthesia/Blood Transfusion Reactions: No Reported Reaction Additional Past Anesthesia/Blood Transfusion Reaction / Comment(s): vertigo, Date of Last Stent Placement:: 08/17/17 Past Psychological History: Anxiety Smoking Status: Former smoker Past Alcohol Use History: Occasional Additional Past Alcohol Use History / Comment(s): quit smoking 30 yrs. ago, up to 3ppd for years Past Drug Use History: None Reported - Past Family History Father Family Medical History: Cancer Additional Family Medical History / Comment(s): lung Sister(s) Family Medical History: Cancer Additional Family Medical History / Comment(s): lung, breast Brother(s) Family Medical History: Cancer Additional Family Medical History / Comment(s): lung Medications and Allergies Home Medications Medication Instructions Recorded Confirmed Type Aspirin EC [Ecotrin] 325 mg PO DAILY 07/18/14 11/03/20 History Clopidogrel [Plavix] 75 mg PO DAILY 07/18/14 11/03/20 History LORazepam [Ativan] 1 mg PO BID 07/18/14 11/03/20 History Omeprazole [PriLOSEC] 20 mg PO AC-BRKFST 07/18/14 11/03/20 History traZODone HCL 100 mg PO HS 08/09/17 11/03/20 History Ezetimibe [Zetia] 10 mg PO HS 04/26/19 11/03/20 History Rosuvastatin Calcium [Crestor] 5 mg PO DAILY 04/26/19 11/03/20 History Multivitamins, Thera [Multivitamin 1 tab PO DAILY 05/27/20 11/03/20 History (formulary)] cilostazoL [Pletal] 50 mg PO BID 05/27/20 11/03/20 History glipiZIDE [Glucotrol] 5 mg PO DAILY 05/27/20 11/03/20 History Ibuprofen [Motrin] 800 mg PO Q8H PRN 11/03/20 11/03/20 History carvediloL [Coreg] 6.25 mg PO BID 11/03/20 11/03/20 History Allergies Allergy/AdvReac Type Severity Reaction Status Date / Time No Known Allergies Allergy Verified 11/03/20 13:38 Physical Exam Vitals: Vital Signs Temp Pulse Pulse Resp BP BP Pulse Ox 11/04/20 06:14 97.3 F L 63 16 118/72 93 L 11/04/20 02:19 97.7 F 66 20 147/64 97 11/03/20 22:18 98.8 F 69 18 129/83 94 L 11/03/20 17:56 98.4 F 71 18 120/68 94 L 11/03/20 15:09 97.9 F 97 18 123/74 95 11/03/20 14:00 97.8 F 70 13 112/67 95 11/03/20 13:00 74 20 140/81 94 L 11/03/20 12:30 75 18 140/81 95 11/03/20 11:28 98.5 F 85 22 148/86 95 Intake and Output 11/03/20 11/04/20 11/04/20 22:59 06:59 14:59 Other: Voiding Method Toilet # Voids 2 2 Results CBC & Chem 7: 11/04/20 05:21 11/04/20 05:21 Labs: Abnormal Lab Results - Last 24 Hours (Table) 11/03/20 11/03/20 11/03/20 Range/Units 11:35 11:35 11:35 D-Dimer 1.08 H (<0.60) mg/L FEU Sodium 135 L (137-145) mmol/L Carbon Dioxide 20 L (22-30) mmol/L BUN 33 H (9-20) mg/dL Glucose 171 H (74-99) mg/dL POC Glucose (mg/dL) (75-99) mg/dL C-Reactive Protein 52.5 H (<10.0) mg/L Procalcitonin 0.21 H (0.02-0.09) ng/mL SARS-CoV-2 (PCR) (Not Detectd) 11/03/20 11/04/20 Range/Units 11:59 07:10 D-Dimer (<0.60) mg/L FEU Sodium (137-145) mmol/L Carbon Dioxide (22-30) mmol/L BUN (9-20) mg/dL Glucose (74-99) mg/dL POC Glucose (mg/dL) 132 H (75-99) mg/dL C-Reactive Protein (<10.0) mg/L Procalcitonin (0.02-0.09) ng/mL SARS-CoV-2 (PCR) Detected A (Not Detectd) Thrombosis Risk Factor Assmnt - Choose All That Apply Any of the Below Risk Factors Present?: Yes Each Factor Represents 1 point: Obesity (BMI >25) Other Risk Factors: Yes Each Risk Factor Represents 2 Points: Age 61-74 years Thrombosis Risk Factor Assessment Total Risk Factor Score: 3 Thrombosis Risk Factor Assessment Level: Moderate Risk
[2020-11-04] MEDS: INSULIN ASPART (NovoLOG) 100 UNIT/ML VIAL SQ SCH ×3 (12:40→20:41)
--- NOTE | 2020-11-04 15:07 | P.CNPUL ---
History of Present Illness Consult date: 11/04/20 Reason for consult: cough, abnormal CXR/CT Chief complaint: COVID 19 pneumonia History of present illness: 75-year-old white male patient with history of CAD with stenting, hypertension, hyperlipidemia, diabetes mellitus type 2, peripheral vascular disease with previous intervention, previous history of tobacco use which had the recent exposure to his COVID 19 positive daughter who works at a [employer] in [place]. Patient's also tested positive last Wednesday on 10/28/2020. Patient reports symptoms of increased shortness of breath, mild fever, decreased appetite and mild cough. He denied any nausea vomiting diarrhea, no abdominal pain he did have diarrhea 2 days ago which had since improved. He came into the emergency department for evaluation of his symptoms. His chest x-ray showed bibasilar acute infiltrates. His PCR test for COVID 19 was positive, influenza screen was negative, RSV was negative. Laboratory data showed white blood cell count 6.2, hemoglobin of 15.5, d-dimer was 1.08, sodium was 135, CO2 was 20, electrodes were unremarkable, B1 is 33 creatinine is 1.07, pro willie citonin is 0.21, his LDH was not significantly elevated and still within normal range at 482, and CRP is 52.5. She is currently on room air with a pulse ox of 95%, he's been afebrile, he's been started on azithromycin and Rocephin by the attending service, and oral Decadron in addition to prophylactic dose of Lovenox Review of Systems All systems: negative Constitutional: Denies chills, Denies fever Eyes: denies blurred vision, denies pain Ears, nose, mouth and throat: Denies headache, Denies sore throat Cardiovascular: Denies chest pain, Denies shortness of breath Respiratory: Reports cough, Reports dyspnea Gastrointestinal: Denies abdominal pain, Denies diarrhea, Denies nausea, Denies vomiting Musculoskeletal: Denies myalgias Integumentary: Denies pruritus, Denies rash Neurological: Denies numbness, Denies weakness Psychiatric: Denies anxiety, Denies depression Endocrine: Denies fatigue, Denies weight change Past Medical History Past Medical History: Coronary Artery Disease (CAD), Cancer, GERD/Reflux, Hyperlipidemia, Hypertension, Myocardial Infarction (OH), Osteoarthritis (OA), Vascular Disorder Additional Past Medical History / Comment(s): 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/t steel ball in eye socket, "borderline diabetic", skin cancer Last Myocardial Infarction Date:: 1986 History of Any Multi-Drug Resistant Organisms: None Reported Past Surgical History: Cardiac Ablation, Heart Catheterization With Stent, Joint Replacement, Orthopedic Surgery Additional Past Surgical History / Comment(s): femoral stent, pt states he has several stents, multiple cardiac cath's., shoulder right surgery, left knee replacement, Rt knee arthroscopy, rt femoral endarterectomy, rt acataract Past Anesthesia/Blood Transfusion Reactions: No Reported Reaction Additional Past Anesthesia/Blood Transfusion Reaction / Comment(s): vertigo, Date of Last Stent Placement:: 08/17/17 Past Psychological History: Anxiety Smoking Status: Former smoker Past Alcohol Use History: Occasional Additional Past Alcohol Use History / Comment(s): quit smoking 30 yrs. ago, up to 3ppd for years Past Drug Use History: None Reported - Past Family History Father Family Medical History: Cancer Additional Family Medical History / Comment(s): lung Sister(s) Family Medical History: Cancer Additional Family Medical History / Comment(s): lung, breast Brother(s) Family Medical History: Cancer Additional Family Medical History / Comment(s): lung Medications and Allergies Home Medications Medication Instructions Recorded Confirmed Type Aspirin EC [Ecotrin] 325 mg PO DAILY 07/18/14 11/03/20 History Clopidogrel [Plavix] 75 mg PO DAILY 07/18/14 11/03/20 History LORazepam [Ativan] 1 mg PO BID 07/18/14 11/03/20 History Omeprazole [PriLOSEC] 20 mg PO AC-BRKFST 07/18/14 11/03/20 History traZODone HCL 100 mg PO HS 08/09/17 11/03/20 History Ezetimibe [Zetia] 10 mg PO HS 04/26/19 11/03/20 History Rosuvastatin Calcium [Crestor] 5 mg PO DAILY 04/26/19 11/03/20 History Multivitamins, Thera [Multivitamin 1 tab PO DAILY 05/27/20 11/03/20 History (formulary)] cilostazoL [Pletal] 50 mg PO BID 05/27/20 11/03/20 History glipiZIDE [Glucotrol] 5 mg PO DAILY 05/27/20 11/03/20 History Ibuprofen [Motrin] 800 mg PO Q8H PRN 11/03/20 11/03/20 History carvediloL [Coreg] 6.25 mg PO BID 11/03/20 11/03/20 History Allergies Allergy/AdvReac Type Severity Reaction Status Date / Time No Known Allergies Allergy Verified 11/03/20 13:38 Physical Exam Vitals: Vital Signs Temp Pulse Resp BP Pulse Ox 11/04/20 13:43 97.4 F L 69 20 128/65 95 11/04/20 10:00 97.3 F L 67 20 139/79 95 11/04/20 06:14 97.3 F L 63 16 118/72 93 L 11/04/20 02:19 97.7 F 66 20 147/64 97 11/03/20 22:18 98.8 F 69 18 129/83 94 L 11/03/20 17:56 98.4 F 71 18 120/68 94 L 11/03/20 15:09 97.9 F 97 18 123/74 95 Intake and Output 11/03/20 11/04/20 11/04/20 22:59 06:59 14:59 Other: Voiding Method Toilet Toilet # Voids 2 2 GENERAL EXAM: Alert, very pleasant, 75-year-old white male, on room air with a pulse ox of 95% comfortable in no apparent distress. HEAD: Normocephalic/atraumatic. EYES: Normal reaction of pupils, equal size. Conjunctiva pink, sclera white. NOSE: Clear with pink turbinates. THROAT: No erythema or exudates. NECK: No masses, no JVD, no thyroid enlargement, no adenopathy. CHEST: No chest wall deformity. Symmetrical expansion. LUNGS: Equal air entry with no crackles, wheeze, rhonchi or dullness. CVS: Regular rate and rhythm, normal S1 and S2, no gallops, no murmurs, no rubs ABDOMEN: Soft, nontender. No hepatosplenomegaly, normal bowel sounds, no guarding or rigidity. EXTREMITIES: No clubbing, no edema, no cyanosis, 2+ pulses and upper and lower extremities. MUSCULOSKELETAL: Muscle strength and tone normal. SPINE: No scoliosis or deformity SKIN: No rashes CENTRAL NERVOUS SYSTEM: Alert and oriented -3. No focal deficits, tone is normal in all 4 extremities. PSYCHIATRIC: Alert and oriented -3. Appropriate affect. Intact judgment and insight. Results - Laboratory Findings CBC and BMP: 11/04/20 05:21 11/04/20 05:21 PT/INR, D-dimer PT 9.6 sec (9.0-12.0) 11/03/20 11:35 INR 0.9 (<1.2) 11/03/20 11:35 D-Dimer 1.08 mg/L FEU (<0.60) H 11/03/20 11:35 Abnormal lab findings: Abnormal Labs 11/03/20 11/03/20 11/03/20 11:35 11:35 11:35 D-Dimer 1.08 H Sodium 135 L Carbon Dioxide 20 L BUN 33 H BUN/Creatinine Ratio Glucose 171 H POC Glucose (mg/dL) Alkaline Phosphatase C-Reactive Protein 52.5 H Procalcitonin 0.21 H SARS-CoV-2 (PCR) 11/03/20 11/04/20 11/04/20 11:59 05:21 07:10 D-Dimer Sodium Carbon Dioxide 20.2 L BUN 28.0 H BUN/Creatinine Ratio 35.00 H Glucose 132 H POC Glucose (mg/dL) 132 H Alkaline Phosphatase 127 H C-Reactive Protein Procalcitonin SARS-CoV-2 (PCR) Detected A 11/04/20 11:11 D-Dimer Sodium Carbon Dioxide BUN BUN/Creatinine Ratio Glucose POC Glucose (mg/dL) 209 H Alkaline Phosphatase C-Reactive Protein Procalcitonin SARS-CoV-2 (PCR) - Diagnostic Findings Chest x-ray: report reviewed, image reviewed Additional studies: EKG reviewed Assessment and Plan Plan: Assessment: #1. Acute COVID 19 related pneumonitis, with the mild hypoxic respiratory failure initially requiring just 2 L of oxygen, currently on room air, improving. Onset of symptoms was 10/28/2020. Being treated conservatively with oral Decadron, prophylactic anticoagulation, and supplements #2. Cough and dyspnea, improved #3. Diarrhea related to quit 19 infection, improved #4. CAD with previous stenting #5. Hypertension #6. Hyperlipidemia #7. Diabetes mellitus type 2 #8. History of peripheral vascular disease with previous intervention #9. Former smoker, currently in remission Plan: We'll continue treating patient conservatively, continue oral steroids, continue vitamin C, zinc, vitamin D, and prophylactic dose of Lovenox. Vital signs are stable, no worsening dyspnea, diarrhea has improved, patient is afebrile, his p ro-calcitonin level was low, the patient continues on empiric antibiotics for now. We'll continue to follow I performed a history & physical examination of the patient and discussed their management with my nurse practitioner, Tammy Stephen. I reviewed the nurse practitioner's note and agree with the documented findings and plan of care. Lung sounds are positive for diminished breath sounds at the bases. The findings and the impression was discussed with the patient. I attest to the documentation by the nurse practitioner. Time with Patient: Greater than 30
[2020-11-04 16:45] LABS: Glucose,Whole Blood 151 mg/dL (75-99)
[2020-11-04 20:24] LABS: Glucose,Whole Blood 168 mg/dL (75-99)
[2020-11-04] MEDS: traZODone HCL 100 MG TAB PO SCH (20:41)
[2020-11-04] MEDS: EZETIMIBE 10 MG TAB PO SCH (20:41)
[2020-11-05] MEDS: IBUPROFEN 800 MG TAB PO PRN (05:23)
[2020-11-05 05:29] VITALS: BP 160/76; PULSE 73; RESP 16; TEMP 98.6
[2020-11-05 07:04] LABS: Glucose,Whole Blood 96 mg/dL (75-99)
[2020-11-05] MEDS: INSULIN ASPART (NovoLOG) 100 UNIT/ML VIAL SQ SCH ×2 (07:29→12:30)
[2020-11-05] MEDS: ENOXAPARIN 40 MG/0.4 ML SYRINGE SQ SCH (08:27)
[2020-11-05] MEDS: dexAMETHasone 2 MG TAB PO SCH (08:28)
[2020-11-05] MEDS: ATORVASTATIN 10 MG TAB PO SCH (08:28)
[2020-11-05] MEDS: ASCORBIC ACID 500 MG TAB PO SCH (08:28)
[2020-11-05] MEDS: CHOLECALCIFEROL 1,000 UNIT TAB PO SCH (08:28)
[2020-11-05] MEDS: CLOPIDOGREL 75 MG TAB PO SCH (08:28)
[2020-11-05] MEDS: ZINC SULFATE 220 MG CAP PO SCH (08:28)
[2020-11-05] MEDS: LORazepam 1 MG TAB PO SCH (08:28)
[2020-11-05] MEDS: PANTOPRAZOLE 40 MG TABLET PO SCH (08:28)
[2020-11-05] MEDS: MULTIVITAMINS, THERA 1 EACH TAB PO SCH (08:28)
[2020-11-05] MEDS: carvediloL 6.25 MG TAB PO SCH (08:28)
[2020-11-05] MEDS: ASPIRIN 325 MG TAB PO SCH (08:28)
[2020-11-05] MEDS: AZITHROMYCIN 500 MG TAB PO SCH (08:28)
[2020-11-05] MEDS: glipiZIDE 5 MG TAB PO SCH (08:28)
[2020-11-05] MEDS: cilostazoL 100 MG TAB PO SCH (08:29)
[2020-11-05] MEDS ORDERED: ACETAMINOPHEN TAB 325 MG TAB PO PRN (08:36)
--- NOTE | 2020-11-05 10:07 | P.PN ---
Subjective Progress Note Date: 11/05/20 HISTORY OF PRESENT ILLNESS This is a 75-year-old male patient of Dr. Roman with past medical history of coronary artery disease status post stent, hypertension, hyper lipidemia, diabetes mellitus type 2, skin cancer, peripheral vascular disease with right femoral endarterectomy and multiple stenting in the past, remote history of tobacco use and dependence. Patient states that he and his had [place] with their daughter who works at a [employer] in [place]. When she returned to work she had to undergo required Covid 19 testing which came back positive. Patient's tested positive on Wednesday at a local pharmacy and patient tested positive on Wednesday at a local pharmacy. He states he has had increased shortness of breath, mild fever, decreased appetite, mild cough. Cough is nonproductive. He does not have home oxygen. No nausea, vomiting, diarrhea, abdominal pain. He did have diarrhea 2 days ago which resolved. Patient came into [facility] emergency center for evaluation. He was afebrile, heart rate 85, blood pressure 148/86, pulse ox 95% on room air. CBC was unremarkable. D-dimer 1.08. Sodium 135, CO2 20, BUN 33 and creatinine 1.07. Blood sugar 171. Lactic acid 1.4. Covid 19 detected. Influenza testing negative, RSV negative. LDH 482, C-reactive protein 52.5. Liver function tests normal. EKG normal sinus rhythm. Patient admitted to the MedSur floor and consult with pulmonary medicine. 11/05: Patient has been seen by pulmonary medicine with plan to continue current medications. Patient has been afebrile, heart rate 73, blood pressure 160/76, pulse ox 93% on 2 L nasal cannula. Blood sugar running between 96 and 168. Blood culture no growth after 24 hours 2. Patient states he is feeling well and would like to go home today. Is asking for Tylenol for back pain which will be ordered. He states he cannot sleep well in the hospital. We will wait for evaluation by pulmonary medicine, if patient is cleared for discharge from pulmonary medicine, we will discharge home today. REVIEW OF SYSTEMS Constitutional: Denies fever. No weight change. Reports mild generalized weakness and fatigue. EENT: No headache. No blurred vision or double vision, no loss of vision. No loss of Hearing, no ringing in the ears, no dizziness. No nasal drainage or congestion. No epistaxis. No sore throat. Lungs: Reports mild shortness of breath, reports cough, no sputum production. No wheezing. Cardiovascular: No chest pain, no lower extremity edema. No palpitations. No paroxysmal nocturnal dyspnea. No orthopnea. No lightheadedness or dizziness. No syncopal episodes. Abdominal: No abdominal pain. No nausea, vomiting. No diarrhea. No constipation. No bloody or tarry stools.. No loss of appetite. Genitourinary: No dysuria, increased frequency, urgency. No urinary retention. Musculoskeletal: No myalgias. No muscle weakness, no gait dysfunction, no freq uent falls. No back pain. No neck pain. Integumentary: No wounds, no lesions. No rash or pruritus. Neurologic: No aphasia. No facial droop. No change in mentation. No head injury. No headache. No paralysis. No paresthesia. Psychiatric: No depression. No anxiety. Endocrine: No abnormal blood sugars. PHYSICAL EXAMINATION Gen: This is a 75-year-old male. He is resting in bed and appears to be comfortable. HEENT: Head is atraumatic, normocephalic. Pupils equal, round. Sclerae is anicteric. NECK: Supple. No JVD. No lymphadenopathy. No thyromegaly. LUNGS: Diminished bilaterally. No wheezing.. No intercostal retractions. HEART: Regular rate and rhythm. No murmur. ABDOMEN: Soft. Bowel sounds are present. No masses. No tenderness. EXTREMITIES: No pedal edema. No calf tenderness. NEUROLOGICAL: Patient is awake, alert and oriented x3. Cranial nerves 2 through 12 are grossly intact. ASSESSMENT AND PLAN 1. Acute Covid 19 pneumonia. Continue supplementation with zinc, vitamin D, vitamin C. continue azithromycin and ceftriaxone, dexamethasone 6 mg daily, Lovenox 40 mg subcu daily. Consult with pulmonary medicine appreciated. 2. Hypertension. Continue Coreg 6.25 mg twice daily. 3. Hyperlipidemia. Continue Lipitor 10 mg daily, Zetia 10 mg at bedtime. 4. Diabetes mellitus type 2. Continue glipizide 5 mg before breakfast, NovoLog scale before meals and at bedtime. 5. Peripheral vascular disease with right femoral endarterectomy and multiple stenting in the past, stable. Continue Pletal, Plavix 75 mg daily, Lipitor, aspirin. 6. Remote history of tobacco use and dependence. 7. Generalized anxiety disorder. Continue Ativan 1 mg twice daily and trazodone 100 mg at bedtime. 8. DVT prophylaxis. Lovenox. 9. GI prophylaxis. Protonix. CODE STATUS: Full code DISCHARGE PLAN Most likely return home. Impression and plan of care have been directed as dictated by the signing physician. Reema Tai nurse practitioner acting as scribe for signing physician. Objective - Vital Signs Vital signs: Vital Signs Temp 98.6 F 11/05/20 05:18 Pulse 73 11/05/20 05:18 Resp 16 11/05/20 05:18 BP 160/76 11/05/20 05:18 Pulse Ox 93 L 11/05/20 05:18 Intake & Output 11/04/20 11/05/20 11/05/20 18:59 06:59 18:59 Intake Total 50 340 Balance 50 340 Intake: Intake, IV Titration 50 Amount cefTRIAXone 1 gm In 50 Sodium Chloride 0.9% 50 ml @ 100 mls/hr IVPB Q24HR [facility] Rx#:[id number] Oral 340 Other: Voiding Method Toilet # Voids 2 - Labs CBC & Chem 7: 11/04/20 05:21 11/04/20 05:21 Labs: Abnormal Lab Results - Last 24 Hours (Table) 11/04/20 11/04/20 11/04/20 Range/Units 05:21 11:11 16:42 Carbon Dioxide 20.2 L (21.6-31.8) mmol/L BUN 28.0 H (9.0-27.0) mg/dL BUN/Creatinine Ratio 35.00 H (12.00-20.00) Ratio Glucose 132 H (70-110) mg/dL POC Glucose (mg/dL) 209 H 151 H (75-99) mg/dL Alkaline Phosphatase 127 H (41-126) U/L 11/04/20 Range/Units 20:18 Carbon Dioxide (21.6-31.8) mmol/L BUN (9.0-27.0) mg/dL BUN/Creatinine Ratio (12.00-20.00) Ratio Glucose (70-110) mg/dL POC Glucose (mg/dL) 168 H (75-99) mg/dL Alkaline Phosphatase (41-126) U/L Microbiology - Last 24 Hours (Table) 11/03/20 12:33 Blood Culture - Preliminary Blood No Growth after 24 hours 11/03/20 11:28 Blood Culture - Preliminary Blood No Growth after 24 hours
--- NOTE | 2020-11-05 11:16 | P.DS ---
Providers Date of admission: 11/03/20 14:03 Expected date of discharge: 11/05/20 Attending physician: Donte Novak MD Consults: 11/03/20 14:02 Consult Physician Urgent Consulting Provider: Ronnie Orozco Consult Reason/Comments: COVID pneumonia Do you want consulting provider notified?: Yes [facility]: HISTORY OF PRESENT ILLNESS This is a 75-year-old male patient of Dr. Roman with past medical history of coronary artery disease status post stent, hypertension, hyperlipidemia, diabetes mellitus type 2, skin cancer, peripheral vascular disease with right femoral endarterectomy and multiple stenting in the past, remote history of tobacco use and dependence. Patient states that he and his had [place] with their daughter who works at a [employer] in [place]. When she returned to work she had to undergo required Covid 19 testing which came back positive. Patient's tested positive on Wednesday at a local pharmacy and patient tested positive on Wednesday at a local pharmacy. He states he has had increased shortness of breath, mild fever, decreased appetite, mild cough. Cough is nonproductive. He does not have home oxygen. No nausea, vomiting, diarrhea, abdominal pain. He did have diarrhea 2 days ago which resolved. Patient came into [facility] emergency center for evaluation. He was afebrile, heart rate 85, blood pressure 148/86, pulse ox 95% on room air. CBC was unremarkable. D-dimer 1.08. Sodium 135, CO2 20, BUN 33 and creatinine 1.07. Blood sugar 171. Lactic acid 1.4. Covid 19 detected. Influenza testing negative, RSV negative. LDH 482, C-reactive protein 52.5. Liver function tests normal. EKG normal sinus rhythm. Patient admitted to the MedSurg floor and consult with pulmonary medicine. 11/05: Patient has been seen by pulmonary medicine with plan to continue current medications. Patient has been afebrile, heart rate 73, blood pressure 160/76, pulse ox 93% on 2 L nasal cannula. Blood sugar running between 96 and 168. Blood culture no growth after 24 hours 2. Patient states he is feeling well and would like to go home today. Is asking for Tylenol for back pain which will be ordered. He states he cannot sleep well in the hospital. We will wait for evaluation by pulmonary medicine, if patient is cleared for discharge from pulmonary medicine, we will discharge home today. Pulmonary medicine cleared patient for discharge. Patient will be discharged home today in stable condition. ASSESSMENT AND PLAN 1. Acute Covid 19 pneumonia. 2. Hypertension. 3. Hyperlipidemia. 4. Diabetes mellitus type 2. 5. Peripheral vascular disease with right femoral endarterectomy and multiple stenting in the past, stable. 6. Remote history of tobacco use and dependence. 7. Generalized anxiety disorder. DISCHARGE PLAN Most likely return home. Impression and plan of care have been directed as dictated by the signing physician. Reema Tai nurse practitioner acting as scribe for signing physician. Patient Condition at Discharge: Good Plan - Discharge Summary New Discharge Prescriptions: New dexAMETHasone [Hexadrol] 6 mg PO DAILY #8 tablet Zinc Sulfate [Orazinc] 220 mg PO DAILY cap Ascorbic Acid [Vitamin C] 1,000 mg PO DAILY tab Cholecalciferol [Vitamin D3 (25 Mcg = 1000 Iu)] 2,000 unit PO DAILY tab Azithromycin [Zithromax] 500 mg PO DAILY #5 tab Continue LORazepam [Ativan] 1 mg PO BID Clopidogrel [Plavix] 75 mg PO DAILY Aspirin EC [Ecotrin] 325 mg PO DAILY Omeprazole [PriLOSEC] 20 mg PO AC-BRKFST traZODone HCL 100 mg PO HS Rosuvastatin Calcium [Crestor] 5 mg PO DAILY Ezetimibe [Zetia] 10 mg PO HS Multivitamins, Thera [Multivitamin (formulary)] 1 tab PO DAILY glipiZIDE [Glucotrol] 5 mg PO DAILY cilostazoL [Pletal] 50 mg PO BID carvediloL [Coreg] 6.25 mg PO BID Ibuprofen [Motrin] 800 mg PO Q8H PRN PRN Reason: Pain Discharge Medication List Aspirin EC [Ecotrin] 325 mg PO DAILY 07/18/14 [History] Clopidogrel [Plavix] 75 mg PO DAILY 07/18/14 [History] LORazepam [Ativan] 1 mg PO BID 07/18/14 [History] Omeprazole [PriLOSEC] 20 mg PO AC-BRKFST 07/18/14 [History] traZODone HCL 100 mg PO HS 08/09/17 [History] Ezetimibe [Zetia] 10 mg PO HS 04/26/19 [History] Rosuvastatin Calcium [Crestor] 5 mg PO DAILY 04/26/19 [History] Multivitamins, Thera [Multivitamin (formulary)] 1 tab PO DAILY 05/27/20 [History] cilostazoL [Pletal] 50 mg PO BID 05/27/20 [History] glipiZIDE [Glucotrol] 5 mg PO DAILY 05/27/20 [History] Ibuprofen [Motrin] 800 mg PO Q8H PRN 11/03/20 [History] carvediloL [Coreg] 6.25 mg PO BID 11/03/20 [History] Ascorbic Acid [Vitamin C] 1,000 mg PO DAILY tab 11/05/20 [Rx] Azithromycin [Zithromax] 500 mg PO DAILY #5 tab 11/05/20 [Rx] Cholecalciferol [Vitamin D3 (25 Mcg = 1000 Iu)] 2,000 unit PO DAILY tab 11/05/20 [Rx] Zinc Sulfate [Orazinc] 220 mg PO DAILY cap 11/05/20 [Rx] dexAMETHasone [Hexadrol] 6 mg PO DAILY #8 tablet 11/05/20 [Rx] Follow up Appointment(s)/Referral(s): Melissa Woodward MD [STAFF PHYSICIAN] - 3 Weeks Arya Roman DO [Primary Care Provider] - 1 Week
[2020-11-05 11:52] LABS: Glucose,Whole Blood 218 mg/dL (75-99)
--- NOTE | 2020-11-05 14:48 | P.PN ---
Subjective Progress Note Date: 11/05/20 Principal diagnosis: COVID 19 pneumonitis 75-year-old white male patient with history of CAD with stenting, hypertension, hyperlipidemia, diabetes mellitus type 2, peripheral vascular disease with previous intervention, previous history of tobacco use which had the recent exposure to his COVID 19 positive daughter who works at a [employer] in [place]. Patient's also tested positive last Wednesday on 10/28/2020. Patient reports symptoms of increased shortness of breath, mild fever, decreased appetite and mild cough. He denied any nausea vomiting diarrhea, no abdominal pain he did have diarrhea 2 days ago which had since improved. He came into the emergency department for evaluation of his symptoms. His chest x-ray showed bibasilar acute infiltrates. His PCR test for COVID 19 was positive, influenza screen was negative, RSV was negative. Laboratory data showed white blood cell count 6.2, hemoglobin of 15.5, d-dimer was 1.08, sodium was 135, CO2 was 20, electrodes were unremarkable, B1 is 33 creatinine is 1.07, pro calcitonin is 0.21, his LDH was not significantly elevated and still within normal range at 482, and CRP is 52.5. She is currently on room air with a pulse ox of 95%, he's been afebrile, he's been started on azithromycin and Rocephin by the attending service, and oral Decadron in addition to prophylactic dose of Lovenox On 11/05/2020 patient seen in follow-up on medical floor, he is calm and comfortable, he reports feeling much better, didn't notice any shortness of breath, no cough, no fever or chills, still has a mild back pain, but overall seems to be quite comfortable, room air pulse ox is 92%. No new chest x-ray today. His had no acute events overnight. No new labs, no worsening symptoms, his been treated with the empiric antibiotics, and oral steroids, and prophylactic anticoagulation the form of Lovenox, no worsening of symptoms since admission, patient is clinically improving, being considered for discharge home today. Objective - Vital Signs Vital signs: Vital Signs Temp 98.6 F 11/05/20 05:18 Pulse 73 11/05/20 05:18 Resp 16 11/05/20 05:18 BP 160/76 11/05/20 05:18 Pulse Ox 94 L 11/05/20 07:39 Intake & Output 11/04/20 11/05/20 11/05/20 18:59 06:59 18:59 Intake Total 50 340 Balance 50 340 Intake: Intake, IV Titration 50 Amount cefTRIAXone 1 gm In 50 Sodium Chloride 0.9% 50 ml @ 100 mls/hr IVPB Q24HR [facility] Rx#:[id number] Oral 340 Other: Voiding Method Toilet # Voids 2 - Exam GENERAL EXAM: Alert, very pleasant, 75-year-old white male, on room air with a pulse ox of 95% comfortable in no apparent distress. HEAD: Normocephalic/atraumatic. EYES: Normal reaction of pupils, equal size. Conjunctiva pink, sclera white. NOSE: Clear with pink turbinates. THROAT: No erythema or exudates. NECK: No masses, no JVD, no thyroid enlargement, no adenopathy. CHEST: No chest wall deformity. Symmetrical expansion. LUNGS: Equal air entry with no crackles, wheeze, rhonchi or dullness. CVS: Regular rate and rhythm, normal S1 and S2, no gallops, no murmurs, no rubs ABDOMEN: Soft, nontender. No hepatosplenomegaly, normal bowel sounds, no guarding or rigidity. EXTREMITIES: No clubbing, no edema, no cyanosis, 2+ pulses and upper and lower extremities. MUSCULOSKELETAL: Muscle strength and tone normal. SPINE: No scoliosis or deformity SKIN: No rashes CENTRAL NERVOUS SYSTEM: Alert and oriented -3. No focal deficits, tone is normal in all 4 extremities. PSYCHIATRIC: Alert and oriented -3. Appropriate affect. Intact judgment and insight. - Labs CBC & Chem 7: 11/04/20 05:21 11/04/20 05:21 Labs: Abnormal Lab Results - Last 24 Hours (Table) 11/04/20 11/04/20 11/05/20 Range/Units 16:42 20:18 11:47 POC Glucose (mg/dL) 151 H 168 H 218 H (75-99) mg/dL Microbiology - Last 24 Hours (Table) 11/03/20 11:28 Blood Culture - Preliminary Blood No Growth after 48 hours 11/03/20 12:33 Blood Culture - Preliminary Blood No Growth after 24 hours Assessment and Plan Plan: Assessment: #1. Acute COVID 19 related pneumonitis, with the mild hypoxic respiratory failure initially requiring just 2 L of oxygen, currently on room air, improving. Onset of symptoms was 10/28/2020. Being treated conservatively with oral Decadron, prophylactic anticoagulation, and supplements #2. Cough and dyspnea, improved #3. Diarrhea related to quit 19 infection, improved #4. CAD with previous stenting #5. Hypertension #6. Hyperlipidemia #7. Diabetes mellitus type 2 #8. History of peripheral vascular disease with previous intervention #9. Former smoker, currently in remission Plan: Patient has been stable, no worsening symptoms, no worsening dyspnea, he is on room air, from pulmonary perspective he can be considered for discharge home, he was instructed to come back for worsening symptoms worsening dyspnea, he can finish outpatient course of oral steroids, no need for antibiotics, follow-up with Dr. Woodward any office in 3-4 weeks. I performed a history & physical examination of the patient and discussed their management with my nurse practitioner, Tammy Stephen. I reviewed the nurse practitioner's note and agree with the documented findings and plan of care. Lung sounds are positive for diminished breath sounds at the bases. The findings and the impression was discussed with the patient. I attest to the documentation by the nurse practitioner. Time with Patient: Less than 30
== END 2020-11-05 12:53 | disposition home or self-care (01) | DRG 177 ==
LOC: EC 11:22 → 4SSUR 14:03
PROVIDERS: ADMIT Internal Medicine; ATTEND Internal Medicine
DX: U07.1 COVID-19 (principal); J96.91 Respiratory failure, unspecified with hypoxia; J12.82 Pneumonia due to coronavirus disease 2019; Z96.652 Presence of left artificial knee joint; I10 Essential (primary) hypertension; E78.5 Hyperlipidemia, unspecified; K21.9 Gastro-esophageal reflux disease without esophagitis; M19.90 Unspecified osteoarthritis, unspecified site; I25.10 Atherosclerotic heart disease of native coronary artery without angina pectoris; F41.1 Generalized anxiety disorder; E11.51 Type 2 diabetes mellitus with diabetic peripheral angiopathy without gangrene; Z95.5 Presence of coronary angioplasty implant and graft; Z87.891 Personal history of nicotine dependence; Z85.828 Personal history of other malignant neoplasm of skin; Z82.5 Family history of asthma and other chronic lower respiratory diseases; Z80.3 Family history of malignant neoplasm of breast; Z80.1 Family history of malignant neoplasm of trachea, bronchus and lung; Z79.899 Other long term (current) drug therapy; Z79.84 Long term (current) use of oral hypoglycemic drugs; Z79.82 Long term (current) use of aspirin; Z79.02 Long term (current) use of antithrombotics/antiplatelets; I25.2 Old myocardial infarction; Z98.41 Cataract extraction status, right eye
CPT/HCPCS: 36415; 71045; 80053; 82728; 83605; 83615; 83735; 84145; 85025; 85379; 85610; 85730; 86140; 87040; 87636; 93005; 94760; 96361; 96374; 96375; 99291

== ENCOUNTER 2020-11-08 20:08 | Inpatient (IN) | payer MEDICARE, BC ==
[2020-11-08] MEDS ORDERED: methylPREDNISolone SOD SUCCI 125 MG/2 ML VIAL IV STA (20:34)
[2020-11-08] MEDS ORDERED: IPRATROPIUM-ALBUTEROL 3 ML NEB INHALATION STA (20:34)
--- NOTE | 2020-11-08 20:45 | ED ---
SOB HPI - General Chief Complaint: Shortness of Breath Stated Complaint: Oxygen level is low Time Seen by Provider: 11/08/20 20:24 Source: patient Mode of arrival: wheelchair Limitations: no limitations - History of Present Illness Initial Comments: 75-year-old male with history of CAD , hypertension, hyperlipidemia presenting to the emergency department with chief complaint of shortness of breath. Patient states she was diagnosed with Covid on October 30 and was admitted to the hospital for pneumonia. Patient states he was discharged on November 05 with oral prednisone. Patient reports he has been taking the medication as prescribed and did improve for one day but afterwards his symptoms drastically decreased. He reports increased shortness of breath with a nonproductive cough. Does report chills but no fevers at home. Family members reveal the patient had pulse oximetry of 77% at home. Patient is a former smoker. Does report some diarrhea but no nausea or vomiting. - Related Data Home Medications Medication Instructions Recorded Confirmed Aspirin EC [Ecotrin] 325 mg PO DAILY 07/18/14 11/08/20 Clopidogrel [Plavix] 75 mg PO DAILY 07/18/14 11/08/20 LORazepam [Ativan] 1 mg PO BID 07/18/14 11/08/20 Omeprazole [PriLOSEC] 20 mg PO AC-BRKFST 07/18/14 11/08/20 traZODone HCL 100 mg PO HS 08/09/17 11/08/20 Ezetimibe [Zetia] 10 mg PO HS 04/26/19 11/08/20 Rosuvastatin Calcium [Crestor] 5 mg PO DAILY 04/26/19 11/08/20 Multivitamins, Thera [Multivitamin 1 tab PO DAILY 05/27/20 11/08/20 (formulary)] cilostazoL [Pletal] 50 mg PO BID 05/27/20 11/08/20 glipiZIDE [Glucotrol] 5 mg PO DAILY 05/27/20 11/08/20 Ibuprofen [Motrin] 800 mg PO Q8H PRN 11/03/20 11/08/20 carvediloL [Coreg] 6.25 mg PO BID 11/03/20 11/08/20 Dexamethasone 6 mg PO DAILY 11/08/20 11/08/20 Previous Rx's Medication Instructions Recorded Ascorbic Acid [Vitamin C] 1,000 mg PO DAILY tab 11/05/20 Azithromycin [Zithromax] 500 mg PO DAILY #5 tab 11/05/20 Cholecalciferol [Vitamin D3 (25 2,000 unit PO DAILY tab 11/05/20 Mcg = 1000 Iu)] Zinc Sulfate [Orazinc] 220 mg PO DAILY cap 11/05/20 Allergies Allergy/AdvReac Type Severity Reaction Status Date / Time No Known Allergies Allergy Verified 11/08/20 21:01 Review of Systems ROS Statement: Those systems with pertinent positive or pertinent negative responses have been documented in the HPI. ROS Other: All systems not noted in ROS Statement are negative. 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, "borderline diabetic", skin cancer Last Myocardial Infarction Date:: 1986 History of Any Multi-Drug Resistant Organisms: None Reported Past Surgical History: Cardiac Ablation, Heart Catheterization With Stent, Joint Replacement, Orthopedic Surgery Additional Past Surgical History / Comment(s): femoral stent, pt states he has several stents, multiple cardiac cath's., shoulder right surgery, left knee replacement, Rt knee arthroscopy, rt femoral endarterectomy, rt acataract Past Anesthesia/Blood Transfusion Reactions: No Reported Reaction Additional Past Anesthesia/Blood Transfusion Reaction / Comment(s): vertigo, Date of Last Stent Placement:: 08/17/17 Past Psychological History: Anxiety Smoking Status: Former smoker Past Alcohol Use History: Occasional Past Drug Use History: None Reported - Past Family History Father Family Medical History: Cancer Additional Family Medical History / Comment(s): lung Sister(s) Family Medical History: Cancer Additional Family Medical History / Comment(s): lung, breast Brother(s) Family Medical History: Cancer Additional Family Medical History / Comment(s): lung General Exam Limitations: no limitations General appearance: alert, in no apparent distress Head exam: Present: atraumatic, normocephalic, normal inspection Eye exam: Present: normal appearance, PERRL, EOMI Pupils: Present: normal accommodation ENT exam: Present: normal exam, normal oropharynx, mucous membranes moist, TM's normal bilaterally, normal external ear exam Neck exam: Present: normal inspection, full ROM Respiratory exam: Present: respiratory distress, rhonchi (Bilateral ) Cardiovascular Exam: Present: regular rate, normal rhythm, normal heart sounds. Absent: systolic murmur, diastolic murmur GI/Abdominal exam: Present: soft. Absent: distended, tenderness, guarding, rebound Extremities exam: Present: normal inspection, full ROM, normal capillary refill. Absent: tenderness, pedal edema, joint swelling Back exam: Present: normal inspection, full ROM. Absent: tenderness, CVA tenderness (R), CVA tenderness (L), muscle spasm, paraspinal tenderness, verteb ral tenderness Neurological exam: Present: alert, oriented X3 Psychiatric exam: Present: normal affect, normal mood Skin exam: Present: warm, dry, intact, normal color Course Vital Signs 11/08/20 11/08/20 11/08/20 20:10 20:20 21:15 Temperature 98.0 F Pulse Rate 83 95 Respiratory 22 25 H 20 Rate Blood Pressure 135/74 O2 Sat by Pulse 89 L 97 Oximetry 11/08/20 21:52 Temperature Pulse Rate 75 Respiratory 23 Rate Blood Pressure 143/88 O2 Sat by Pulse 94 L Oximetry - Reevaluation(s) Reevaluation #1: 11/08/20 21:20 Medical records reviewed Medical Decision Making - Medical Decision Making 75-year-old male presenting to emergency Department with chief complaint of low oxygen levels. On physical examination, patient does have bilateral rhonchi. Patient was in the mid to low 80s on 15 L of nasal cannula.. No significant improvement with a nonrebreather. Patient was started on BiPAP. Patient given 125 mg of Solu-Medrol. He was also given a DuoNeb breathing treatment. Patient did have an elevated d-dimer of 3.12. CT angiogram reveals no signs of pulmonary embolism but there is increased infiltrates bilaterally. Elevated LDH and CRP. Lactic acid 2.3. Patient will be started on cefepime, vancomycin and azithromycin. 6 mg of Decadron daily. Case was discussed with Admitting is Dr Brennan Consult Dr Woodward Consult Dr Aguirre - Lab Data Result diagrams: 11/08/20 20:39 11/08/20 20:39 Lab Results 11/08/20 11/08/20 11/08/20 Range/Units 20:39 20:39 20:39 WBC 10.0 (3.8-10.6) k/uL RBC 5.06 (4.30-5.90) m/uL Hgb 15.0 (13.0-17.5) gm/dL Hct 46.3 (39.0-53.0) % MCV 91.6 (80.0-100.0) fL MCH 29.7 (25.0-35.0) pg MCHC 32.4 (31.0-37.0) g/dL RDW 12.9 (11.5-15.5) % Plt Count 360 (150-450) k/uL MPV 7.7 Lymphocytes % 12 % Monocytes % 6 % Eosinophils % 0 % Basophils % 1 % Neutrophils # 7.9 H (1.3-7.7) k/uL Lymphocytes # 1.2 (1.0-4.8) k/uL Monocytes # 0.6 (0-1.0) k/uL Eosinophils # 0.0 (0-0.7) k/uL Basophils # 0.1 (0-0.2) k/uL PT 9.6 (9.0-12.0) sec INR 0.9 (<1.2) APTT 18.7 L (22.0-30.0) sec D-Dimer 3.19 H (<0.60) mg/L FEU Sodium 141 (137-145) mmol/L Potassium 4.6 (3.5-5.1) mmol/L Chloride 110 H (98-107) mmol/L Carbon Dioxide 19 L (22-30) mmol/L Anion Gap 12 mmol/L BUN 32 H (9-20) mg/dL Creatinine 0.76 (0.66-1.25) mg/dL Est GFR (CKD-EPI)AfAm >90 (>60 ml/min/1.73 sqM) Est GFR (CKD-EPI)NonAf >90 (>60 ml/min/1.73 sqM) Glucose 180 H (74-99) mg/dL Plasma Lactic Acid Jerome (0.7-2.0) mmol/L Calcium 9.5 (8.4-10.2) mg/dL Magnesium 1.7 (1.6-2.3) mg/dL Total Bilirubin 0.7 (0.2-1.3) mg/dL AST 48 (17-59) U/L ALT 29 (4-49) U/L Alkaline Phosphatase 118 (38-126) U/L Lactate Dehydrogenase 1523 H (313-618) U/L C-Reactive Protein 87.0 H (<10.0) mg/L Total Protein 7.4 (6.3-8.2) g/dL Albumin 3.7 (3.5-5.0) g/dL 11/08/20 Range/Units 20:39 WBC (3.8-10.6) k/uL RBC (4.30-5.90) m/uL Hgb (13.0-17.5) gm/dL Hct (39.0-53.0) % MCV (80.0-100.0) fL MCH (25.0-35.0) pg MCHC (31.0-37.0) g/dL RDW (11.5-15.5) % Plt Count (150-450) k/uL MPV Lymphocytes % % Monocytes % % Eosinophils % % Basophils % % Neutrophils # (1.3-7.7) k/uL Lymphocytes # (1.0-4.8) k/uL Monocytes # (0-1.0) k/uL Eosinophils # (0-0.7) k/uL Basophils # (0-0.2) k/uL PT (9.0-12.0) sec INR (<1.2) APTT (22.0-30.0) sec D-Dimer (<0.60) mg/L FEU Sodium (137-145) mmol/L Potassium (3.5-5.1) mmol/L Chloride (98-107) mmol/L Carbon Dioxide (22-30) mmol/L Anion Gap mmol/L BUN (9-20) mg/dL Creatinine (0.66-1.25) mg/dL Est GFR (CKD-EPI)AfAm (>60 ml/min/1.73 sqM) Est GFR (CKD-EPI)NonAf (>60 ml/min/1.73 sqM) Glucose (74-99) mg/dL Plasma Lactic Acid Jerome 2.3 H* (0.7-2.0) mmol/L Calcium (8.4-10.2) mg/dL Magnesium (1.6-2.3) mg/dL Total Bilirubin (0.2-1.3) mg/dL AST (17-59) U/L ALT (4-49) U/L Alkaline Phosphatase (38-126) U/L Lactate Dehydrogenase (313-618) U/L C-Reactive Protein (<10.0) mg/L Total Protein (6.3-8.2) g/dL Albumin (3.5-5.0) g/dL Disposition Clinical Impression: Pneumonia due to COVID-19 virus Disposition: HOME SELF-CARE Condition: Stable Is patient prescribed a controlled substance at d/c from ED?: No Referrals: Arya Roman DO [Primary Care Provider] - 1-2 days Time of Disposition: 23:29
[2020-11-08] MEDS ORDERED: ALBUTEROL HFA INHALER INHALATION STA (20:53)
[2020-11-08 21:08] LABS: ALT 29 U/L (4-49); AST 48 U/L (17-59); African American GFR (CKD) >90 (>60 ml/min/1.73 sqM); Albumin 3.7 g/dL (3.5-5.0); Alkaline Phosphatase 118 U/L (38-126); Anion Gap 12 mmol/L; Blood Urea Nitrogen 32 mg/dL (9-20); Calcium 9.5 mg/dL (8.4-10.2); Carbon Dioxide 19 mmol/L (22-30); Chloride 110 mmol/L (98-107); Glucose 180 mg/dL (74-99); LDH 1523 U/L (313-618); Magnesium 1.7 mg/dL (1.6-2.3); Non-African American GFR(CKD) >90 (>60 ml/min/1.73 sqM); Potassium 4.6 mmol/L (3.5-5.1); Sodium 141 mmol/L (137-145); Total Bilirubin 0.7 mg/dL (0.2-1.3); Total Protein 7.4 g/dL (6.3-8.2)
--- NOTE | 2020-11-08 21:29 | XR ---
EXAMINATION TYPE: XR chest 1V portable DATE OF EXAM: 11/08/2020 COMPARISON: 11/03/2020 HISTORY: Pneumonia. Chest pain TECHNIQUE: FINDINGS: There is coarse pulmonary interstitial density increased compared to recent exam. Heart siz e is normal. There is no heart failure. There is no pleural effusion. IMPRESSION: Increased pulmonary interstitial density compared to recent exam.
[2020-11-08 21:31] LABS: INR 0.9 (<1.2)
[2020-11-08 21:32] LABS: Prothrombin Time 9.6 sec (9.0-12.0)
[2020-11-08 21:45] LABS: Partial Thromboplastin Time 18.7 sec (22.0-30.0)
[2020-11-08 21:47] LABS: Basophils # (A) 0.1 k/uL (0-0.2); Basophils % (A) 1 %; D-Dimer 3.19 mg/L FEU (<0.60); Eosinophils % (A) 0 %; HCT 46.3 % (39.0-53.0); Lymphocytes # (A) 1.2 k/uL (1.0-4.8); Lymphocytes % (A) 12 %; MCH 29.7 pg (25.0-35.0); MCHC 32.4 g/dL (31.0-37.0); MCV 91.6 fL (80.0-100.0); Mean Platelet Volume 7.7; Monocytes # (A) 0.6 k/uL (0-1.0); Monocytes % (A) 6 %; Neutrophils # (A) 7.9 k/uL (1.3-7.7); Platelet Count 360 k/uL (150-450); RBC 5.06 m/uL (4.30-5.90); RDW 12.9 % (11.5-15.5)
--- NOTE | 2020-11-08 23:15 | CT ---
EXAMINATION TYPE: CT chest angio for PE DATE OF EXAM: 11/08/2020 COMPARISON: None HISTORY: SOB, covid +, elevated d-dimer CT DLP: 385.9 mGycm Automated exposure control for dose reduction was used. CONTRAST: Performed with IV Contrast, patient injected with 80 mL of Isovue 370. There are 3-D post processed images. There is extensive interstitial groundglass infiltrate throughout the lungs. There is groundglass int erstitial density that is worse in the lower lobes. There is no suspicious pulmonary mass. Heart size is normal. There is no pericardial effusion. There are no hilar masses. There is no mediastinal maddie opathy. Thoracic aorta is intact. There is no aneurysm or dissection. Ascending aorta measures 3.4 cm . There is normal contrast opacification of the pulmonary arteries. There are no filling defects. Thoracic vertebra have normal alignment. There is spurring in the lower thoracic spine. There is no c ompression fracture. Sternum is intact. Upper abdominal soft tissues are intact. IMPRESSION: No evidence of pulmonary embolism. Extensive pulmonary interstitial infiltrates. No suspicious pulmonary mass.
[2020-11-08] MEDS ORDERED: ONDANSETRON 4 MG/2 ML VIAL IVP PRN (23:23)
[2020-11-08] MEDS ORDERED: NALOXONE 0.4 MG/ML 1 ML VIAL IV PRN (23:23)
[2020-11-08] MEDS ORDERED: VANCOMYCIN IV PER PHARMACY 1 EACH MISC MISCELLANE PRN (23:30)
[2020-11-08] MEDS ORDERED: AZITHROMYCIN 500 MG in SODIUM CHLORIDE 0.9% 250 ML IVPB STA (23:30)
[2020-11-08] MEDS: SODIUM CHLORIDE 0.9% 1,000 ML IV SCH (23:34)
[2020-11-09] MEDS ORDERED: CEFEPIME 2 GM in SODIUM CHLORIDE 0.9% 100 ML IVPB ONE ×2
[2020-11-09] MEDS: SODIUM CHLORIDE 0.9% 1,000 ML IV SCH (00:51)
[2020-11-09] MEDS ORDERED: VANCOMYCIN 1,500 MG in SODIUM CHLORIDE 0.9% 250 ML IVPB ONE (01:00)
[2020-11-09] MEDS: HYDROmorphone 0.5 MG/0.5 ML SYRINGE IVP PRN (01:25)
[2020-11-09 02:59] LABS: Ferritin 820.1 ng/mL (22.0-322.0)
[2020-11-09 07:42] LABS: Glucose,Whole Blood 181 mg/dL (75-99)
[2020-11-09] MEDS ORDERED: DEXAMETHASONE SOD PHOSPHATE 10 MG/ML 1 ML VIAL IV SCH (09:00)
[2020-11-09] MEDS ORDERED: CEFEPIME 2 GM in SODIUM CHLORIDE 0.9% 100 ML IVPB SCH (09:30)
[2020-11-09] MEDS: ASCORBIC ACID 500 MG TAB PO SCH (10:12)
[2020-11-09] MEDS: glipiZIDE 5 MG TAB PO SCH (10:13)
[2020-11-09] MEDS: carvediloL 6.25 MG TAB PO SCH ×2 (10:13→16:51)
[2020-11-09] MEDS: LORazepam 1 MG TAB PO SCH ×2 (10:13→20:39)
[2020-11-09] MEDS: CLOPIDOGREL 75 MG TAB PO SCH (10:13)
[2020-11-09 11:19] LABS: Glucose,Whole Blood 255 mg/dL (75-99)
[2020-11-09] MEDS: FUROSEMIDE 10 MG/ML 4 ML VIAL IV SCH (12:28)
--- NOTE | 2020-11-09 12:33 | P.HPIM ---
History of Present Illness H&P Date: 11/09/20 HISTORY OF PRESENT ILLNESS This is a 75-year-old male patient of Dr. Roman with past medical history of coronary artery disease status post stent, hypertension, hyperlipidemia, diabetes mellitus type 2, skin cancer, peripheral vascular disease with right femoral endarterectomy and multiple stenting in the past, remote history of tobacco use and dependence. Patient states that he and his had [place] with their daughter who works at a [employer] in [place]. When she returned to work she had to undergo required Covid 19 testing which came back positive. Patient was recently hospitalized 11/03-11/05 for COVID- 19 pneumonia. His breathing status and pulseox were stable and patient was discharged home in stable condition. Patient complains of fever, cough and sputum production. No diarrhea, abdominal pain. No choking episodes. Patient came into [facility] emergency center for evaluation. He was afebrile, heart rate 83, blood pressure 135/74, pulse ox 89% on room air. Patient was placed on Bipap. Patient did not tolerate nasal cannula and dropped down to 74% on 6 L. CBC was unremarkable. D-dimer 3.19. Sodium 141, potassium 4.6, chloride 110, CO2 19, BUN 32 and creatinine 0.76. Blood sugar 180. Lactic acid 2.3 and repeat 1.5. Ferritin 820. Lactic acid 1523. C- reactive protein 87. Pro-calcitonin 0.1. CT angiogram of the chest showed no evidence of pulmonary embolism. Extensive pulmonary interstitial infiltrates. No suspicious pulmonary mass. Chest x-ray reveals increased pulmonary interstitial density. Patient admitted to the [facility] floor and consult with pulmonary medicine and infectious disease. REVIEW OF SYSTEMS Constitutional: Reports reports chills fever, . No weight change. Reports generalized weakness and fatigue. EENT: No headache. No blurred vision or double vision, no loss of vision. No loss of Hearing, no ringing in the ears, no dizziness. No nasal drainage or congestion. No epistaxis. No sore throat. Lungs: Reports shortness of breath, reports cough, reports sputum production. No wheezing. Cardiovascular: No chest pain, no lower extremity edema. No palpitations. No paroxysmal nocturnal dyspnea. No orthopnea. No lightheadedness or dizziness. No syncopal episodes. Abdominal: No abdominal pain. No nausea, vomiting. No diarrhea. No constipation. No bloody or tarry stools. Reports loss of appetite. Genitourinary: No dysuria, increased frequency, urgency. No urinary retention. Musculoskeletal: No myalgias. No muscle weakness, no gait dysfunction, no frequent falls. No back pain. No neck pain. Integumentary: No wounds, no lesions. No rash or pruritus. Neurologic: No aphasia. No facial droop. No change in mentation. No head injury. No headache. No paralysis. No paresthesia. Psychiatric: No depression. No anxiety. Endocrine: No abnormal blood sugars. SOCIAL HISTORY Patient was a smoker of 3 packs per day for 15 years and quit approximately 30 years ago. He drinks alcohol occasionally. No marijuana or illicit drug use. He lives at home with his . He does not have home oxygen, nebulizer, CPAP. FAMILY HISTORY Mother at age 83 from old age. Father in his 50s from lung cancer. Patient has total of 7 siblings 4 have from lung cancer, breast cancer, one from end-stage renal disease, one from COPD. One sister is alive with no major medical problems. Patient is for children with no major medical problems.. PHYSICAL EXAMINATION Gen: This is a 75-year-old male. He is resting in bed and appears to be without acute respiratory distress. HEENT: Head is atraumatic, normocephalic. Pupils equal, round. Sclerae is anicteric. NECK: Supple. No JVD. No lymphadenopathy. No thyromegaly. LUNGS: Diminished bilaterally. No wheezing. No intercostal retractions. HEART: Regular rate and rhythm. No murmur. ABDOMEN: Soft. Bowel sounds are present. No masses. No tenderness. EXTREMITIES: No pedal edema. No calf tenderness. NEUROLOGICAL: Patient is awake, alert and oriented x3. Cranial nerves 2 through 12 are grossly intact. ASSESSMENT AND PLAN 1. Acute hypoxic respiratory failure secondary to Covid 19 pneumonia. Continue oxygen therapy. Continue supplementation with zinc, vitamin D, vitamin C, cefepime 2 g IV piggyback every 8 hours, dexamethasone 6 mg IV twice daily, Lovenox 40 mg subcu twice daily, vancomycin pharmacy dosing. Consult with pulmonary medicine and infectious disease. 2. Hypertension. Continue Coreg 6.25 mg twice daily. 3. Hyperlipidemia. Continue Lipitor 10 mg daily, Zetia 10 mg at bedtime. 4. Diabetes mellitus type 2. Continue glipizide 5 mg before breakfast, NovoLog scale before meals and at bedtime. 5. Peripheral vascular disease with right femoral endarterectomy and multiple stenting in the past, stable. Continue Pletal, Plavix 75 mg daily, Lipitor, aspirin. 6. Remote history of tobacco use and dependence. 7. Generalized anxiety disorder. Continue Ativan 1 mg twice daily and trazodone 100 mg at bedtime. 8. DVT prophylaxis. Lovenox. 9. GI prophylaxis. Protonix. CODE STATUS: Full code Patient will be admitted to the hospital for a minimum of 2 night stay. DISCHARGE PLAN Most likely return home. Impression and plan of care have been directed as dictated by the signing physic ian. Reema Tai nurse practitioner acting as scribe for signing physician. 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, "borderline diabetic", skin cancer Last Myocardial Infarction Date:: 1986 History of Any Multi-Drug Resistant Organisms: None Reported Past Surgical History: Cardiac Ablation, Heart Catheterization With Stent, Joint Replacement, Orthopedic Surgery Additional Past Surgical History / Comment(s): femoral stent, pt states he has several stents, multiple cardiac cath's., shoulder right surgery, left knee replacement, Rt knee arthroscopy, rt femoral endarterectomy, rt acataract Past Anesthesia/Blood Transfusion Reactions: No Reported Reaction Additional Past Anesthesia/Blood Transfusion Reaction / Comment(s): vertigo, Date of Last Stent Placement:: 08/17/17 Past Psychological History: Anxiety Smoking Status: Former smoker Past Alcohol Use History: Occasional Additional Past Alcohol Use History / Comment(s): quit smoking 30 yrs. ago, up to 3ppd for years Past Drug Use History: None Reported - Past Family History Father Family Medical History: Cancer Additional Family Medical History / Comment(s): lung Sister(s) Family Medical History: Cancer Additional Family Medical History / Comment(s): lung, breast Brother(s) Family Medical History: Cancer Additional Family Medical History / Comment(s): lung Medications and Allergies Home Medications Medication Instructions Recorded Confirmed Type Aspirin EC [Ecotrin] 325 mg PO DAILY 07/18/14 11/08/20 History Clopidogrel [Plavix] 75 mg PO DAILY 07/18/14 11/08/20 History LORazepam [Ativan] 1 mg PO BID 07/18/14 11/08/20 History Omeprazole [PriLOSEC] 20 mg PO AC-BRKFST 07/18/14 11/08/20 History traZODone HCL 100 mg PO HS 08/09/17 11/08/20 History Ezetimibe [Zetia] 10 mg PO HS 04/26/19 11/08/20 History Rosuvastatin Calcium [Crestor] 5 mg PO DAILY 04/26/19 11/08/20 History Multivitamins, Thera [Multivitamin 1 tab PO DAILY 05/27/20 11/08/20 History (formulary)] cilostazoL [Pletal] 50 mg PO BID 05/27/20 11/08/20 History glipiZIDE [Glucotrol] 5 mg PO DAILY 05/27/20 11/08/20 History Ibuprofen [Motrin] 800 mg PO Q8H PRN 11/03/20 11/08/20 History carvediloL [Coreg] 6.25 mg PO BID 11/03/20 11/08/20 History Ascorbic Acid [Vitamin C] 1,000 mg PO DAILY tab 11/05/20 11/08/20 Rx Azithromycin [Zithromax] 500 mg PO DAILY #5 tab 11/05/20 11/08/20 Rx Cholecalciferol [Vitamin D3 (25 2,000 unit PO DAILY tab 11/05/20 11/08/20 Rx Mcg = 1000 Iu)] Zinc Sulfate [Orazinc] 220 mg PO DAILY cap 11/05/20 11/08/20 Rx Dexamethasone 6 mg PO DAILY 11/08/20 11/08/20 History Allergies Allergy/AdvReac Type Severity Reaction Status Date / Time No Known Allergies Allergy Verified 11/08/20 21:01 Physical Exam Vitals: Vital Signs Temp Pulse Pulse Resp BP BP Pulse Ox 11/09/20 05:26 97.6 F 70 29 H 158/81 90 L 11/09/20 03:00 70 22 11/09/20 00:54 97.8 F 79 18 160/80 94 L 11/09/20 00:00 72 26 H 155/93 92 L 11/08/20 21:52 75 23 143/88 94 L 11/08/20 21:15 95 20 97 11/08/20 20:20 25 H 11/08/20 20:10 98.0 F 83 22 135/74 89 L Intake and Output 11/08/20 11/09/20 11/09/20 22:59 06:59 14:59 Output Total 300 Balance -300 Output: Urine 300 Other: Weight 74.843 kg 74.843 kg Results CBC & Chem 7: 11/08/20 20:39 11/08/20 20:39 Labs: Abnormal Lab Results - Last 24 Hours (Table) 11/08/20 11/08/20 11/08/20 Range/Units 20:39 20:39 20:39 Neutrophils # 7.9 H (1.3-7.7) k/uL APTT 18.7 L (22.0-30.0) sec D-Dimer 3.19 H (<0.60) mg/L FEU Chloride 110 H (98-107) mmol/L Carbon Dioxide 19 L (22-30) mmol/L BUN 32 H (9-20) mg/dL Glucose 180 H (74-99) mg/dL POC Glucose (mg/dL) (75-99) mg/dL Plasma Lactic Acid Jerome (0.7-2.0) mmol/L Ferritin 820.1 H (22.0-322.0) ng/mL Lactate Dehydrogenase 1523 H (313-618) U/L C-Reactive Protein 87.0 H (<10.0) mg/L Procalcitonin (0.02-0.09) ng/mL 11/08/20 11/08/20 11/09/20 Range/Units 20:39 20:39 07:41 Neutrophils # (1.3-7.7) k/uL APTT (22.0-30.0) sec D-Dimer (<0.60) mg/L FEU Chloride (98-107) mmol/L Carbon Dioxide (22-30) mmol/L BUN (9-20) mg/dL Glucose (74-99) mg/dL POC Glucose (mg/dL) 181 H (75-99) mg/dL Plasma Lactic Acid Jerome 2.3 H* (0.7-2.0) mmol/L Ferritin (22.0-322.0) ng/mL Lactate Dehydrogenase (313-618) U/L C-Reactive Protein (<10.0) mg/L Procalcitonin 0.10 H (0.02-0.09) ng/mL
--- NOTE | 2020-11-09 12:54 | P.CNPUL ---
History of Present Illness Consult date: 11/09/20 Requesting physician: Emily Brennan Reason for consult: dyspnea, abnormal CXR/CT (CoVID 19 pneumonia) Chief complaint: Shortness of breath, cough or congestion History of present illness: This is a very pleasant 75-year-old gentleman with a history of coronary artery disease with previous stent placement, hypertension, hyperlipidemia, diabetes mellitus type 2, peripheral vascular disease with previous intervention, prior history of tobacco use. In the end of October 2020 the patient was exposed to CoVID 19 by a daughter who works at a [employer] system in [place]. His had also tested positive. The patient was admitted here on November 03 and did quite well and discharged home on November 05. He had been outside the window for Remdesivir based on his symptoms that admission. He was still on dexamethasone to complete 10 days and vitamin supplements. He represented here to the emergency room yesterday 11/08/2020 with increasing shortness of breath cough congestion. His pulse ox reading at home was 77% according to family members. He is seen today in consultation on the regular medical floor. He is currently on BiPAP 12/5 and 60% FiO2 with O2 saturation at 89%. He was trialed on 6 L high flow nasal cannula with O2 saturation of 74%. He is awake and alert. He is dyspneic with minimal exertion. He has remained afebrile. Hemodynamically stable. CT angiogram ruled out pulmonary embolism. There is extensive pulmonary interstitial infiltrates noted. White count 10.0. Hemoglobin 15.0. Lymphocytes 1.2. D-dimer 3.19. Sodium 141. Potassium 4.6. Creatinine 0.76. Initial lactic 2.3 currently 1.5. Ferritin level DCCCXX. LDH 1523. C-reactive protein 87.0. Pro calcitonin 0.10. He is currently on vancomycin and cefepime. He's been initiated on Lovenox, dexamethasone, vitamin supplements. Review of Systems REVIEW OF SYSTEMS: CONSTITUTIONAL: Denies any recent significant weight loss or weight gain. EYES: Denies change in vision. EARS, NOSE, MOUTH, THROAT: Denies headaches, denies sore throat. CARDIOVASCULAR: Denies chest pain, palpitations or syncopal episodes. RESPIRATORY: Positive for shortness of breath, cough, congestion no hemoptysis. GASTROINTESTINAL: Denies change in appetite, denies abdominal pain GENITOURINARY: Denies hematuria, denies infections. MUSKULOSKELETAL: Denies pain, denies swelling. INTEGUMENTARY: Denies rash, denies eczema. NEUROLOGICAL: Denies recent memory loss, no recent seizure activity. PSYCHIATRIC: Denies anxiety, denies depression. HEMATOLOGIC/LYMPHATIC: Denies anemia, denies enlarged lymph nodes. 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, "borderline diabetic", skin cancer Last Myocardial Infarction Date:: 1986 History of Any Multi-Drug Resistant Organisms: None Reported Past Surgical History: Cardiac Ablation, Heart Catheterization With Stent, Joint Replacement, Orthopedic Surgery Additional Past Surgical History / Comment(s): femoral stent, pt states he has several stents, multiple cardiac cath's., shoulder right surgery, left knee re placement, Rt knee arthroscopy, rt femoral endarterectomy, rt acataract Past Anesthesia/Blood Transfusion Reactions: No Reported Reaction Additional Past Anesthesia/Blood Transfusion Reaction / Comment(s): vertigo, Date of Last Stent Placement:: 08/17/17 Past Psychological History: Anxiety Smoking Status: Former smoker Past Alcohol Use History: Occasional Additional Past Alcohol Use History / Comment(s): quit smoking 30 yrs. ago, up to 3ppd for years Past Drug Use History: None Reported - Past Family History Father Family Medical History: Cancer Additional Family Medical History / Comment(s): lung Sister(s) Family Medical History: Cancer Additional Family Medical History / Comment(s): lung, breast Brother(s) Family Medical History: Cancer Additional Family Medical History / Comment(s): lung Medications and Allergies Home Medications Medication Instructions Recorded Confirmed Type Aspirin EC [Ecotrin] 325 mg PO DAILY 07/18/14 11/08/20 History Clopidogrel [Plavix] 75 mg PO DAILY 07/18/14 11/08/20 History LORazepam [Ativan] 1 mg PO BID 07/18/14 11/08/20 History Omeprazole [PriLOSEC] 20 mg PO AC-BRKFST 07/18/14 11/08/20 History traZODone HCL 100 mg PO HS 08/09/17 11/08/20 History Ezetimibe [Zetia] 10 mg PO HS 04/26/19 11/08/20 History Rosuvastatin Calcium [Crestor] 5 mg PO DAILY 04/26/19 11/08/20 History Multivitamins, Thera [Multivitamin 1 tab PO DAILY 05/27/20 11/08/20 History (formulary)] cilostazoL [Pletal] 50 mg PO BID 05/27/20 11/08/20 History glipiZIDE [Glucotrol] 5 mg PO DAILY 05/27/20 11/08/20 History Ibuprofen [Motrin] 800 mg PO Q8H PRN 11/03/20 11/08/20 History carvediloL [Coreg] 6.25 mg PO BID 11/03/20 11/08/20 History Ascorbic Acid [Vitamin C] 1,000 mg PO DAILY tab 11/05/20 11/08/20 Rx Azithromycin [Zithromax] 500 mg PO DAILY #5 tab 11/05/20 11/08/20 Rx Cholecalciferol [Vitamin D3 (25 2,000 unit PO DAILY tab 11/05/20 11/08/20 Rx Mcg = 1000 Iu)] Zinc Sulfate [Orazinc] 220 mg PO DAILY cap 11/05/20 11/08/20 Rx Dexamethasone 6 mg PO DAILY 11/08/20 11/08/20 History Allergies Allergy/AdvReac Type Severity Reaction Status Date / Time No Known Allergies Allergy Verified 11/08/20 21:01 Physical Exam Vitals: Vital Signs Temp Pulse Pulse Resp BP BP Pulse Ox 11/09/20 12:35 94 L 11/09/20 11:19 98.5 F 74 20 152/83 89 L 11/09/20 09:20 87 L 11/09/20 09:15 74 L 11/09/20 05:26 97.6 F 70 29 H 158/81 90 L 11/09/20 03:00 70 22 11/09/20 00:54 97.8 F 79 18 160/80 94 L 11/09/20 00:00 72 26 H 155/93 92 L 11/08/20 21:52 75 23 143/88 94 L 11/08/20 21:15 95 20 97 11/08/20 20:20 25 H 11/08/20 20:10 98.0 F 83 22 135/74 89 L Intake and Output 11/08/20 11/09/20 11/09/20 22:59 06:59 14:59 Output Total 300 Balance -300 Output: Urine 300 Other: Weight 74.843 kg 74.843 kg GENERAL EXAM: Alert, pleasant 75-year-old gentleman, on BiPAP 12/5 and 60% FiO2, and moderate respiratory distress. HEAD: Normocephalic. EYES: Normal reaction of pupils, equal size. NOSE: Clear with pink turbinates. THROAT: No erythema or exudates. NECK: No masses, no JVD. CHEST: No chest wall deformity. LUNGS: Equal air entry with coarse crackles in the bilateral posterior bases. CVS: S1 and S2 normal with no audible murmur, regular rhythm. ABDOMEN: No hepatosplenomegaly, normal bowel sounds, no guarding or rigidity. SPINE: No scoliosis or deformity SKIN: No rashes CENTRAL NERVOUS SYSTEM: No focal deficits, tone is normal in all 4 extremities. EXTREMITIES: There is no peripheral edema. No clubbing, no cyanosis. Peripheral pulses are intact. Results - Laboratory Findings CBC and BMP: 11/08/20 20:39 11/08/20 20:39 PT/INR, D-dimer PT 9.6 sec (9.0-12.0) 11/08/20 20:39 INR 0.9 (<1.2) 11/08/20 20:39 D-Dimer 3.19 mg/L FEU (<0.60) H 11/08/20 20:39 Abnormal lab findings: Abnormal Labs 11/08/20 11/08/20 11/08/20 20:39 20:39 20:39 Neutrophils # 7.9 H APTT 18.7 L D-Dimer 3.19 H Chloride 110 H Carbon Dioxide 19 L BUN 32 H Glucose 180 H POC Glucose (mg/dL) Plasma Lactic Acid Jerome Ferritin 820.1 H Lactate Dehydrogenase 1523 H C-Reactive Protein 87.0 H Procalcitonin 11/08/20 11/08/20 11/09/20 20:39 20:39 07:41 Neutrophils # APTT D-Dimer Chloride Carbon Dioxide BUN Glucose POC Glucose (mg/dL) 181 H Plasma Lactic Acid Jerome 2.3 H* Ferritin Lactate Dehydrogenase C-Reactive Protein Procalcitonin 0.10 H 11/09/20 11:18 Neutrophils # APTT D-Dimer Chloride Carbon Dioxide BUN Glucose POC Glucose (mg/dL) 255 H Plasma Lactic Acid Jerome Ferritin Lactate Dehydrogenase C-Reactive Protein Procalcitonin - Diagnostic Findings Chest x-ray: image reviewed CT scan - chest: image reviewed Assessment and Plan Assessment: 1 Acute hypoxemic respiratory failure secondary to CoVID 19 infection, outside the window for Remdesivir, currently requiring BiPAP. 2 Recent admission for COVID 19 infection, November 03 to 11/05/2020, outside the window for Remdesivir, on room air. Discharged in stable condition 3 Coronary artery disease with previous stent placement 4 Hypertension 5 Hyperlipidemia 6 Diabetes mellitus, type II 7 Peripheral vascular disease with previous intervention 8 Former smoker Plan: The patient was seen and evaluated by Dr. Woodward Chest x-ray, CAT scan of labs reviewed Add Lasix 40 mg IVP now and daily Continue BiPAP 12/5, increased FiO2 to 70% Transfer to the intensive care unit for closer monitoring Continue dexamethasone, Lovenox, vitamin supplements Repeat inflammatory markers, d-dimer in a.m. Repeat chest x-ray in a.m. Discontinue cefepime and vancomycin Start Rocephin tomorrow We will continue to follow and make further recommendations based on his cli nical status I, the cosigning physician, performed a history & physical examination of the patient. Lungs sounds with bibasilar coarse crackles. Maintaining good O2 saturations in the 90s on 70% FiO2 via the BiPAP 12/5. I discussed the assessment and plan of care with my nurse practitioner, Malathi Erazo. I attest to the above consultation as dictated by her. Time with Patient: Greater than 30
[2020-11-09] MEDS ORDERED: VANCOMYCIN 1,500 MG in SODIUM CHLORIDE 0.9% 250 ML IVPB SCH (14:00)
[2020-11-09 16:57] LABS: Glucose,Whole Blood 117 mg/dL (75-99)
[2020-11-09] MEDS: INSULIN ASPART (NovoLOG) 100 UNIT/ML VIAL SQ SCH ×2 (17:34→20:30)
[2020-11-09 19:06] LABS: Appearance,Urine Clear (Clear); Bilirubin,Urine Negative (Negative); Blood,Urine Moderate (Negative); Color,Urine Yellow; Glucose,Urine (UA) Negative (Negative); Ketones,Urine Negative (Negative); Leukocyte Esterase,Urine Negative (Negative); Mucus,Urine Rare /hpf; Nitrite,Urine Negative (Negative); Protein,Urine 1+ (Negative); RBC,Urine 100 /hpf (0-5); Squamous Epithelial Cell,Urine <1 /hpf (0-4); Urobilinogen,Urine <2.0 mg/dL (<2.0); WBC,Urine 5 /hpf (0-5)
[2020-11-09 19:54] LABS: Glucose,Whole Blood 171 mg/dL (75-99)
[2020-11-09] MEDS: traZODone HCL 100 MG TAB PO SCH (20:36)
[2020-11-09] MEDS: EZETIMIBE 10 MG TAB PO SCH (20:36)
[2020-11-09] MEDS: cilostazoL 100 MG TAB PO SCH (20:36)
[2020-11-09] MEDS: ENOXAPARIN 40 MG/0.4 ML SYRINGE SQ SCH (20:38)
[2020-11-09] MEDS: DEXAMETHASONE SOD PHOSPHATE 10 MG/ML 1 ML VIAL IV SCH (20:38)
[2020-11-09] MEDS: ACETAMINOPHEN TAB 325 MG TAB PO PRN (20:39)
--- NOTE | 2020-11-09 20:43 | CONS ---
CONSULTATION DATE OF SERVICE: 11/09/2020 REASON FOR CONSULTATION: COVID-19 pneumonia. HISTORY OF PRESENT ILLNESS: The patient is a 75-year-old male with multiple comorbidities, including diabetes, hypertension, hyperlipidemia. Patient apparently has been exposed to his daughter, who works in the [place] [employer] system, with COVID-19, and apparently was having symptoms starting around [place]. The patient's symptoms have been increasing shortness of breath and minimal cough. No chest pain, though. The patient was admitted at this facility from November 03 until November 05 with COVID-19 pneumonia. Patient was considered to be out of the therapeutic window for remdesivir with his symptoms started around [place], and the patient was treated with dexamethasone and subsequently discharged home. The patient is now presenting back to the hospital with increasing shortness of breath on minimal exertion and even at rest. The patient also has a cough which is moderate in intensity, not bringing up any sputum. Denies any nausea, vomiting, abdominal pain or diarrhea. On presentation to the hospital the patient has been afebrile. Patient was hypoxic with oxygen saturations of 89% and he is currently on a BiPAP at 70%. The patient did have a normal white count. No lymphopenia. D-dimer was 3.19. Procalcitonin 0.10. LDH has been elevated. Lactic acid was elevated. The patient did have a chest x-ray showing increased pulmonary interstitial density compared to recent exam. He also had a CT angiogram of the chest that was negative for PE, but did show extensive pulmonary interstitial infiltrate. No pulmonary mass. The patient has been admitted to the ICU and is currently being treated with dexamethasone, Lovenox, zinc. Infectious Disease was consulted for further management and need for antibiotic therapy. REVIEW OF SYSTEMS: Positive points have been mentioned in HPI. Rest of the systems are negative. PAST MEDICAL HISTORY: Coronary artery disease, gastroesophageal reflux disease, hypertension, hyperlipidemia, SC, osteoarthritis. PAST SURGICAL HISTORY: PTCA with stent, cardiac ablation, joint replacement. SOCIAL HISTORY: Remote history of smoking. Rarely drinks. No drug use. FAMILY HISTORY: Father with history of lung cancer. Sister with history of lung and breast cancer. ALLERGIES: NO KNOWN DRUG ALLERGIES. MEDICATIONS: The patient is currently on [place], aspirin, Lipitor, Coreg, Rocephin 1 gram daily. He is on Plavix, dexamethasone, Lovenox, Lasix, Glucotrol, Dilaudid, Ativan, Narcan, Zofran, Protonix, Restoril and zinc. PHYSICAL EXAMINATION: Blood pressure 152/87, pulse of 57, temperature 98. He is 92% on 70% FiO2. General description is an elderly male lying in bed in no distress. HEENT: Examination shows slight pallor. No scleral icterus. Oral mucosal membrane is dry. NECK: Trachea is central. No thyromegaly. LUNGS: Unlabored breathing. Decreased intensity of breath sounds. No wheeze. HEART: S1, S2. Regular rate and rhythm. ABDOMEN: Soft. No tenderness. No guarding or rigidity. EXTREMITIES: No edema of the feet. SKIN EXAMINATION: No rash or mass palpable. Neurologically patient is awake, alert, oriented x3. Mood and affect normal. LABS: Hemoglobin is 15, white count 10.0. D-dimer was 3.19. BUN of 32, creatinine 0.72. Electrolytes have been normal. Lactic acid 2.3. DIAGNOSTIC IMPRESSION AND PLAN: Patient admitted to hospital with increasing shortness of breath in this patient with a recent diagnosis of COVID-19 infection with progressive worsening in clinical condition as well as CT angiogram; more likely patient is going toward acute respiratory distress syndrome/cytokine storm and other as symptoms have been more than 2 weeks now. PLAN: 1. Patient to continue with steroids, Lovenox, zinc. Will discuss with the pharmacy. The patient may qualify for Actemra. 2. respiratory support. 3. Will follow his clinical condition and further adjust medication if needed. Thank you for this consultation. Will follow this patient along with you. MMODL / IJN: [id number] /
[2020-11-10 04:33] LABS: Basophils # (A) 0.1 k/uL (0-0.2); Basophils % (A) 1 %; Eosinophils % (A) 0 %; HCT 36.4 % (39.0-53.0); HGB 12.6 gm/dL (13.0-17.5); Lymphocytes # (A) 0.9 k/uL (1.0-4.8); Lymphocytes % (A) 12 %; MCH 31.6 pg (25.0-35.0); MCHC 34.8 g/dL (31.0-37.0); MCV 90.9 fL (80.0-100.0); Mean Platelet Volume 7.6; Monocytes # (A) 0.5 k/uL (0-1.0); Monocytes % (A) 7 %; Neutrophils % (A) 79 %; Platelet Count 334 k/uL (150-450); RDW 12.4 % (11.5-15.5); WBC 7.5 k/uL (3.8-10.6)
[2020-11-10 04:48] LABS: African American GFR (CKD) >90 (>60 ml/min/1.73 sqM); Anion Gap 7 mmol/L; Blood Urea Nitrogen 37 mg/dL (9-20); C Reactive Protein 50.3 mg/L (<10.0); Calcium 8.7 mg/dL (8.4-10.2); Carbon Dioxide 23 mmol/L (22-30); Chloride 108 mmol/L (98-107); Glucose 229 mg/dL (74-99); LDH 961 U/L (313-618); Magnesium 1.6 mg/dL (1.6-2.3); Non-African American GFR(CKD) >90 (>60 ml/min/1.73 sqM); Potassium 4.3 mmol/L (3.5-5.1); Sodium 138 mmol/L (137-145)
[2020-11-10] MEDS: SODIUM CHLORIDE 0.9% 1,000 ML IV SCH ×2 (04:55→16:31)
[2020-11-10] MEDS: MAGNESIUM SULFATE-D5W PMX 1 GM in DEXTROSE/WATER 1 100ML.BAG IVPB SCH ×2 (06:18→08:57)
[2020-11-10 06:27] LABS: Glucose,Whole Blood 182 mg/dL (75-99)
[2020-11-10] MEDS: INSULIN ASPART (NovoLOG) 100 UNIT/ML VIAL SQ SCH ×4 (06:51→20:18)
[2020-11-10] MEDS: PANTOPRAZOLE 40 MG TABLET PO SCH (06:51)
[2020-11-10] MEDS: carvediloL 6.25 MG TAB PO SCH ×2 (06:51→16:32)
--- NOTE | 2020-11-10 07:21 | XR ---
EXAMINATION TYPE: XR chest 1V portable DATE OF EXAM: 11/10/2020 COMPARISON: 11/08/2020 HISTORY: Shortness of breath TECHNIQUE: Single frontal view of the chest is obtained. FINDINGS: Bilateral interstitial patchy areas of infiltrate are stable. Hypertrophic and degenerativ e changes spine with no pneumothorax or sizable pleural effusion. Heart size normal. IMPRESSION: Bilateral interstitial infiltrates suggestive of interstitial pneumonia is stable.
[2020-11-10] MEDS ORDERED: NON FORMULARY DRUG (Omeprazole [Prilosec] 20 MG Capsule.Dr) PO SCH (07:30)
[2020-11-10] MEDS: ASPIRIN 325 MG TAB PO SCH (08:55)
[2020-11-10] MEDS: glipiZIDE 5 MG TAB PO SCH (08:55)
[2020-11-10] MEDS: ATORVASTATIN 10 MG TAB PO SCH (08:55)
[2020-11-10] MEDS: MULTIVITAMINS, THERA 1 EACH TAB PO SCH (08:55)
[2020-11-10] MEDS: ASCORBIC ACID 500 MG TAB PO SCH (08:56)
[2020-11-10] MEDS: FUROSEMIDE 10 MG/ML 4 ML VIAL IV SCH (08:56)
[2020-11-10] MEDS: DEXAMETHASONE SOD PHOSPHATE 10 MG/ML 1 ML VIAL IV SCH ×2 (08:56→20:39)
[2020-11-10] MEDS: ENOXAPARIN 40 MG/0.4 ML SYRINGE SQ SCH (08:56)
[2020-11-10] MEDS: CLOPIDOGREL 75 MG TAB PO SCH (08:56)
[2020-11-10] MEDS: CHOLECALCIFEROL 1,000 UNIT TAB PO SCH (08:56)
[2020-11-10] MEDS: ZINC SULFATE 220 MG CAP PO SCH (08:56)
[2020-11-10] MEDS: LORazepam 1 MG TAB PO SCH ×2 (08:56→20:18)
[2020-11-10] MEDS: cilostazoL 100 MG TAB PO SCH ×2 (08:58→20:18)
[2020-11-10] MEDS ORDERED: ENOXAPARIN 40 MG/0.4 ML SYRINGE SQ SCH (09:00)
--- NOTE | 2020-11-10 11:49 | P.PN ---
Subjective Progress Note Date: 11/10/20 HISTORY OF PRESENT ILLNESS This is a 75-year-old male patient of Dr. Roman with past medical history of coronary artery disease status post stent, hypertension, hyper lipidemia, diabetes mellitus type 2, skin cancer, peripheral vascular disease with right femoral endarterectomy and multiple stenting in the past, remote history of tobacco use and dependence. Patient states that he and his had Zofia with their daughter who works at a [employer] in [place]. When she returned to work she had to undergo required Covid 19 testing which came back positive. Patient was recently hospitalized 11/03-11/05 for COVID-19 pneumonia. His breathing status and pulseox were stable and patient was discharged home in stable condition. Patient complains of fever, cough and sputum production. No diarrhea, abdominal pain. No choking episodes. Patient came into [facility] emergency center for evaluation. He was afebrile, heart rate 83, blood pressure 135/74, pulse ox 89% on room air. Patient was placed on Bipap. Patient did not tolerate nasal cannula and dropped down to 74% on 6 L. CBC was unremarkable. D-dimer 3.19. Sodium 141, potassium 4.6, chloride 110, CO2 19, BUN 32 and creatinine 0.76. Blood sugar 180. Lactic acid 2.3 and repeat 1.5. Ferritin 820. Lactic acid 1523. C- reactive protein 87. Pro-calcitonin 0.1. CT angiogram of the chest showed no evidence of pulmonary embolism. Extensive pulmonary interstitial infiltrates. No suspicious pulmonary mass. Chest x-ray reveals increased pulmonary interstitial density. Patient admitted to the [facility] floor and consult with pulmonary medicine and infectious disease. 11/10: Patient became hypoxic while on nasal cannula at 74% on 6 L was placed on BiPAP and pulse ox increased only to 87, patient was transferred into the intensive care unit yesterday early afternoon. Pulse ox is running between 89 and 93% on AirVo FiO2 of 80%. He has been afebrile, heart rate 58, respiratory rate 27, blood pressure 135/78. W BC is 7.5, hemoglobin 12.6, lymphocytes 0.9. D-dimer 12.5, BUN 37 creatinine 0.61. LDH 961, C-reactive protein 50.3. Urinalysis showed moderate blood, RBCs 100. Cultures no growth. Repeat chest x-ray reveals bilateral interstitial infiltrates suggestive of interstitial pneumonia stable. Patient has been seen by infectious disease and plan for [facility]. Patient has been seen and followed by pulmonary medicine and added Lasix 40 mg IV push, Rocephin started. REVIEW OF SYSTEMS Constitutional: Reports reports chills fever, . No weight change. Reports generalized weakness and fatigue. EENT: No headache. No blurred vision or double vision, no loss of vision. No loss of Hearing, no ringing in the ears, no dizziness. No nasal drainage or congestion. No epistaxis. No sore throat. Lungs: Reports shortness of breath, reports cough, reports sputum production. Reports wheezing. Cardiovascular: No chest pain, no lower extremity edema. No palpitations. No paroxysmal nocturnal dyspnea. No orthopnea. No lightheadedness or dizziness. No syncopal episodes. Abdominal: No abdominal pain. No nausea, vomiting. No diarrhea. No constipation. No bloody or tarry stools. Reports loss of appetite. Genitourinary: No dysuria, increased frequency, urgency. No urinary retention. Musculoskeletal: No myalgias. No muscle weakness, no gait dysfunction, no frequent falls. No back pain. No neck pain. Integumentary: No wounds, no lesions. No rash or pruritus. Neurologic: No aphasia. No facial droop. No change in mentation. No head injury. No headache. No paralysis. No paresthesia. Psychiatric: No depression. No anxiety. Endocrine: No abnormal blood sugars. PHYSICAL EXAMINATION Gen: This is a 75-year-old male. He is resting in bed and appears to be with minimal acute respiratory distress. HEENT: Head is atraumatic, normocephalic. Pupils equal, round. Sclerae is anicteric. NECK: Supple. No JVD. No lymphadenopathy. No thyromegaly. LUNGS: Diminished bilaterally. No wheezing. + intercostal retractions. HEART: Regular rate and rhythm. No murmur. ABDOMEN: Soft. Bowel sounds are present. No masses. No tenderness. EXTREMITIES: No pedal edema. No calf tenderness. NEUROLOGICAL: Patient is awake, alert and oriented x3. Cranial nerves 2 through 12 are grossly intact. ASSESSMENT AND PLAN 1. Acute hypoxic respiratory failure secondary to Covid 19 pneumonia. Continue oxygen therapy. Continue supplementation with zinc, vitamin D, vitamin C, ceftriaxone, dexamethasone 6 mg IV twice daily, Lovenox 40 mg subcu twice daily. Consult with pulmonary medicine and infectious disease appreciated. 2. Hypertension. Continue Coreg 6.25 mg twice daily. 3. Hyperlipidemia. Continue Lipitor 10 mg daily, Zetia 10 mg at bedtime. 4. Diabetes mellitus type 2. Continue glipizide 5 mg before breakfast, NovoLog scale before meals and at bedtime. 5. Peripheral vascular disease with right femoral endarterectomy and multiple stenting in the past, stable. Continue Pletal, Plavix 75 mg daily, Lipitor, aspirin. 6. Remote history of tobacco use and dependence. 7. Generalized anxiety disorder. Continue Ativan 1 mg twice daily and trazodone 100 mg at bedtime. 8. DVT prophylaxis. Lovenox. 9. GI prophylaxis. Protonix. CODE STATUS: Full code DISCHARGE PLAN Most likely return home. Impression and plan of care have been directed as dictated by the signing physician. Reema Tai nurse practitioner acting as scribe for signing physician. Objective - Vital Signs Vital signs: Vital Signs Temp 73.4 F L 11/10/20 04:00 Pulse 58 L 11/10/20 09:00 Resp 26 H 11/10/20 09:00 BP 140/84 11/10/20 09:00 Pulse Ox 91 L 11/10/20 09:00 Intake & Output 11/09/20 11/10/20 11/10/20 18:59 06:59 18:59 Intake Total 550 825 150 Output Total 1710 565 150 Balance -1160 260 0 Weight 73.4 kg Intake: IV 450 825 150 Sodium Chloride 0.9% 1, 450 825 150 000 ml @ 75 mls/hr IV . [id number] KLEBER Rx#:[id number] Intake, IV Titration 100 Amount Cefepime 2 gm In Sodium 100 Chloride 0.9% 100 ml @ 25 mls/hr IVPB Q8HR KLEBER Rx# :[id number] Output: Urine 1710 565 150 Other: Voiding Method Indwelling Catheter Indwelling Catheter - Labs CBC & Chem 7: 11/10/20 03:30 11/10/20 03:30 Labs: Abnormal Lab Results - Last 24 Hours (Table) 11/09/20 11/09/20 11/09/20 Range/Units 11:18 16:55 18:10 RBC (4.30-5.90) m/uL Hgb (13.0-17.5) gm/dL Hct (39.0-53.0) % Lymphocytes # (1.0-4.8) k/uL D-Dimer (<0.60) mg/L FEU Chloride (98-107) mmol/L BUN (9-20) mg/dL Creatinine (0.66-1.25) mg/dL Glucose (74-99) mg/dL POC Glucose (mg/dL) 255 H 117 H (75-99) mg/dL Lactate Dehydrogenase (313-618) U/L C-Reactive Protein (<10.0) mg/L Urine Protein 1+ H (Negative) Urine Blood Moderate H (Negative) Urine RBC 100 H (0-5) /hpf Urine Mucus Rare H (None) /hpf 11/09/20 11/10/20 11/10/20 Range/Units 19:53 03:30 03:30 RBC (4.30-5.90) m/uL Hgb (13.0-17.5) gm/dL Hct (39.0-53.0) % Lymphocytes # (1.0-4.8) k/uL D-Dimer 12.53 H (<0.60) mg/L FEU Chloride 108 H (98-107) mmol/L BUN 37 H (9-20) mg/dL Creatinine 0.61 L (0.66-1.25) mg/dL Glucose 229 H (74-99) mg/dL POC Glucose (mg/dL) 171 H (75-99) mg/dL Lactate Dehydrogenase 961 H (313-618) U/L C-Reactive Protein 50.3 H (<10.0) mg/L Urine Protein (Negative) Urine Blood (Negative) Urine RBC (0-5) /hpf Urine Mucus (None) /hpf 11/10/20 11/10/20 Range/Units 03:30 06:25 RBC 4.00 L (4.30-5.90) m/uL Hgb 12.6 L (13.0-17.5) gm/dL Hct 36.4 L (39.0-53.0) % Lymphocytes # 0.9 L (1.0-4.8) k/uL D-Dimer (<0.60) mg/L FEU Chloride (98-107) mmol/L BUN (9-20) mg/dL Creatinine (0.66-1.25) mg/dL Glucose (74-99) mg/dL POC Glucose (mg/dL) 182 H (75-99) mg/dL Lactate Dehydrogenase (313-618) U/L C-Reactive Protein (<10.0) mg/L Urine Protein (Negative) Urine Blood (Negative) Urine RBC (0-5) /hpf Urine Mucus (None) /hpf Microbiology - Last 24 Hours (Table) 11/08/20 21:09 Blood Culture - Preliminary Blood No Growth after 24 hours 11/08/20 20:39 Blood Culture - Preliminary Blood No Growth after 24 hours
[2020-11-10 11:53] LABS: Glucose,Whole Blood 191 mg/dL (75-99)
--- NOTE | 2020-11-10 13:43 | P.PN ---
Subjective Progress Note Date: 11/10/20 Principal diagnosis: Acute hypoxic respiratory failure secondary to Covid 19 pneumonia This is a very pleasant 75-year-old gentleman with a history of coronary artery disease with previous stent placement, hypertension, hyperlipidemia, diabetes mellitus type 2, peripheral vascular disease with previous intervention, prior history of tobacco use. In the end of October 2020 the patient was exposed to CoVID 19 by a daughter who works at a [employer] system in [place]. His had also tested positive. The patient was admitted here on November 03 and did quite well and discharged home on November 05. He had been outside the window for Remdesivir based on his symptoms that admission. He was still on dexamethasone to complete 10 days and vitamin supplements. He represented here to the emergency room yesterday 11/08/2020 with increasing shortness of breath cough congestion. His pulse ox reading at home was 77% according to family members. He is seen today in consultation on the regular medical floor. He is currently on BiPAP 12/5 and 60% FiO2 with O2 saturation at 89%. He was trialed on 6 L high flow nasal cannula with O2 saturation of 74%. He is awake and alert. He is dyspneic with minimal exertion. He has remained afebrile. Hemodynamically stable. CT angiogram ruled out pulmonary embolism. There is extensive pulmonary interstitial infiltrates noted. White count 10.0. Hemoglobin 15.0. Lymphocytes 1.2. D-dimer 3.19. Sodium 141. Potassium 4.6. Creatinine 0.76. Initial lactic 2.3 currently 1.5. Ferritin level DCCCXX. LDH 1523. C-reactive protein 87.0. Pro calcitonin 0.10. He is currently on vancomycin and cefepime. He's been initiated on Lovenox, dexamethasone, vitamin supplements. Patient was reevaluated today on 11/10/2020, patient was transferred to the ICU yesterday, remains quite ill, patient is on high flow airvo FiO2 85% and 60 L flow. O2 saturation is marginal, patient is only 91%. He is on IV fluid at 75 mL per hour. He is empirically on Rocephin. He is also on Lasix, Lovenox 40 mg subcu twice a day, and on Plavix. WBC count is 7.5 hemoglobin is 12.6, electrolytes are normal renal profile is normal d-dimer is up to 12.53, will increase the dose of Lovenox. And would make at 60 mg subcu twice a day. Blood cultures remain negative so far. His LDH is 961, C-reactive protein is 50. Chest x-ray continues to show bilateral interstitial infiltrates consistent with Covid 19 pneumonia. Lasix was also added, ration received Lasix 40 mg IV push. Interleukin-6 level is pending. Objective - Vital Signs Vital signs: Vital Signs Temp 73.4 F L 11/10/20 04:00 Pulse 69 11/10/20 13:00 Resp 19 11/10/20 13:00 BP 143/76 11/10/20 13:00 Pulse Ox 90 L 11/10/20 13:00 Intake & Output 11/09/20 11/10/20 11/10/20 18:59 06:59 18:59 Intake Total 091 611 7958 Output Total 7310 427 8345 Balance -1160 260 -525 Weight 73.4 kg Intake: IV 450 825 375 Sodium Chloride 0.9% 1, 450 825 375 000 ml @ 75 mls/hr IV . [id number] KLEBER Rx#:[id number] Intake, IV Titration 100 150 Amount Cefepime 2 gm In Sodium 100 Chloride 0.9% 100 ml @ 25 mls/hr IVPB Q8HR KLEBER Rx# :[id number] Magnesium Sulfate-D5w Pmx 100 1 gm In Dextrose/Water 1 100ml.bag @ 100 mls/hr IVPB Q1H KLEBER Rx#: [id number] cefTRIAXone 1 gm In 50 Sodium Chloride 0.9% 50 ml @ 100 mls/hr IVPB Q12HR KLEBER Rx#:[id number] Oral 500 Output: Urine 0420 903 4643 Other: Voiding Method Indwelling Catheter Indwelling Catheter Indwelling Catheter - Exam GENERAL EXAM: 75-year-old white male in mild distress, on high flow FiO2 and 60 L flow via airvo, O2 saturation is 90-93% at best HEAD: Normocephalic. Atraumatic ENT: PERRLA, EOMI, anicteric sclerae. Dry mucous membranes. CHEST: No chest wall deformity. LUNGS: Equal air entry with coarse crackles in the bilateral posterior bases. CVS: S1 and S2 normal with no audible murmur, regular rhythm. ABDOMEN: No hepatosplenomegaly, normal bowel sounds, no guarding or rigidity. SKIN: No rashes CENTRAL NERVOUS SYSTEM: Alert and oriented 3 mg focal deficits. EXTREMITIES: There is no peripheral edema. No clubbing, no cyanosis. Peripheral pulses are intact. Psychiatric: Normal mood, affect and normal mental status examination. - Labs CBC & Chem 7: 11/10/20 03:30 11/10/20 03:30 Labs: Abnormal Lab Results - Last 24 Hours (Table) 11/09/20 11/09/20 11/09/20 Range/Units 16:55 18:10 19:53 RBC (4.30-5.90) m/uL Hgb (13.0-17.5) gm/dL Hct (39.0-53.0) % Lymphocytes # (1.0-4.8) k/uL D-Dimer (<0.60) mg/L FEU Chloride (98-107) mmol/L BUN (9-20) mg/dL Creatinine (0.66-1.25) mg/dL Glucose (74-99) mg/dL POC Glucose (mg/dL) 117 H 171 H (75-99) mg/dL Lactate Dehydrogenase (313-618) U/L C-Reactive Protein (<10.0) mg/L Urine Protein 1+ H (Negative) Urine Blood Moderate H (Negative) Urine RBC 100 H (0-5) /hpf Urine Mucus Rare H (None) /hpf 11/10/20 11/10/20 11/10/20 Range/Units 03:30 03:30 03:30 RBC 4.00 L (4.30-5.90) m/uL Hgb 12.6 L (13.0-17.5) gm/dL Hct 36.4 L (39.0-53.0) % Lymphocytes # 0.9 L (1.0-4.8) k/uL D-Dimer 12.53 H (<0.60) mg/L FEU Chloride 108 H (98-107) mmol/L BUN 37 H (9-20) mg/dL Creatinine 0.61 L (0.66-1.25) mg/dL Glucose 229 H (74-99) mg/dL POC Glucose (mg/dL) (75-99) mg/dL Lactate Dehydrogenase 961 H (313-618) U/L C-Reactive Protein 50.3 H (<10.0) mg/L Urine Protein (Negative) Urine Blood (Negative) Urine RBC (0-5) /hpf Urine Mucus (None) /hpf 11/10/20 11/10/20 Range/Units 06:25 11:51 RBC (4.30-5.90) m/uL Hgb (13.0-17.5) gm/dL Hct (39.0-53.0) % Lymphocytes # (1.0-4.8) k/uL D-Dimer (<0.60) mg/L FEU Chloride (98-107) mmol/L BUN (9-20) mg/dL Creatinine (0.66-1.25) mg/dL Glucose (74-99) mg/dL POC Glucose (mg/dL) 182 H 191 H (75-99) mg/dL Lactate Dehydrogenase (313-618) U/L C-Reactive Protein (<10.0) mg/L Urine Protein (Negative) Urine Blood (Negative) Urine RBC (0-5) /hpf Urine Mucus (None) /hpf Microbiology - Last 24 Hours (Table) 11/08/20 21:09 Blood Culture - Preliminary Blood No Growth after 24 hours 11/08/20 20:39 Blood Culture - Preliminary Blood No Growth after 24 hours Assessment and Plan Assessment: Impression: Acute hypoxic respiratory failure secondary to covid 19 pneumonia. Patient was outside the window for remdesivir Recent admission for Covid 19 infection, November 03 until November 05, discharged on room air. History of coronary artery disease and previous stent placement. Type 2 diabetes. Benign essential hypertension. Former smoker. Dyslipidemia. Recommendation: Continue to monitor the patient in the ICU. Continue to titrate FiO2 and oxygen flow accordingly. Maintain O2 saturation above 90% if possible. Continue the Covid 19 cocktail. Continue Lovenox, dose will be increased based on his elevated d-dimer. Continue Rocephin empirically. Monitor inflammatory markers. Repeat chest x-ray in a.m. Considering interleukin-6 level and see if the patient qualifies for actemra Prognosis remains extremely poor and guarded, Critical care time is over 30 minutes Time with Patient: Greater than 30
[2020-11-10 16:33] LABS: Glucose,Whole Blood 158 mg/dL (75-99)
[2020-11-10 19:57] LABS: Glucose,Whole Blood 160 mg/dL (75-99)
[2020-11-10] MEDS: EZETIMIBE 10 MG TAB PO SCH (20:15)
[2020-11-10] MEDS: ACETAMINOPHEN TAB 325 MG TAB PO PRN (20:15)
[2020-11-10] MEDS: ENOXAPARIN 60 MG/0.6 ML SYRINGE SQ SCH (20:15)
[2020-11-10] MEDS: traZODone HCL 100 MG TAB PO SCH (20:18)
--- NOTE | 2020-11-10 20:22 | PN ---
PROGRESS NOTE DATE OF SERVICE: 11/10/2020 REASON FOR FOLLOWUP: COVID-19 pneumonia. INTERVAL HISTORY: The patient is currently afebrile. The patient is hemodynamically stable, not on any pressor support; however, he is requiring high-flow nasal cannula oxygen and BiPAP. The patient denies having any chest pain; cough but not bringing up any sputum. No vomiting. No abdominal pain or diarrhea. PHYSICAL EXAMINATION: Blood pressure 132/70 with a pulse of 72, temperature 97.3. He is 96% on 80% FiO2. General description is an elderly male lying in bed in no distress. RESPIRATORY SYSTEM: Unlabored breathing. Clear to auscultation anteriorly. HEART: S1, S2. Regular rate and rhythm. ABDOMEN: Soft. No tenderness. LABS: Hemoglobin is 12, white count 7.5. D-dimer is up to 12.5. BUN of 37, creatinine 0.61. LDH and CRP have come down. DIAGNOSTIC IMPRESSION AND PLAN: Patient with acute respiratory failure, multifactorial, in this patient who did have a component of COVID-19 pneumonia. The patient is currently covered with dexamethasone, Lovenox, zinc; to continue and monitor clinical course closely. Continue supportive care. MMODL / IJN: [id number] /
[2020-11-10] MEDS: SYMBICORT 160-4.5 MCG INHALER INHALATION SCH (20:32)
[2020-11-10] MEDS: HYDROmorphone 0.5 MG/0.5 ML SYRINGE IVP PRN (22:04)
[2020-11-11] MEDS: SODIUM CHLORIDE 0.9% 1,000 ML IV SCH ×2 (03:21→20:44)
[2020-11-11 04:40] LABS: Basophils % (A) 0 %; Eosinophils % (A) 0 %; Lymphocytes # (A) 0.9 k/uL (1.0-4.8); Lymphocytes % (A) 13 %; MCH 30.3 pg (25.0-35.0); MCHC 33.3 g/dL (31.0-37.0); MCV 90.9 fL (80.0-100.0); Mean Platelet Volume 7.8; Monocytes # (A) 0.3 k/uL (0-1.0); Monocytes % (A) 5 %; Neutrophils # (A) 5.7 k/uL (1.3-7.7); Neutrophils % (A) 80 %; Platelet Count 352 k/uL (150-450); RBC 3.96 m/uL (4.30-5.90); RDW 12.5 % (11.5-15.5); WBC 7.1 k/uL (3.8-10.6)
[2020-11-11 05:27] LABS: ALT 67 U/L (4-49); AST 62 U/L (17-59); African American GFR (CKD) >90 (>60 ml/min/1.73 sqM); Albumin 2.6 g/dL (3.5-5.0); Alkaline Phosphatase 100 U/L (38-126); Anion Gap 6 mmol/L; Blood Urea Nitrogen 35 mg/dL (9-20); Calcium 8.3 mg/dL (8.4-10.2); Carbon Dioxide 22 mmol/L (22-30); Chloride 108 mmol/L (98-107); Glucose 188 mg/dL (74-99); Magnesium 1.8 mg/dL (1.6-2.3); Non-African American GFR(CKD) >90 (>60 ml/min/1.73 sqM); Potassium 4.5 mmol/L (3.5-5.1); Sodium 136 mmol/L (137-145); Total Bilirubin 0.4 mg/dL (0.2-1.3); Total Protein 5.4 g/dL (6.3-8.2)
[2020-11-11] MEDS: MAGNESIUM SULFATE-D5W PMX 1 GM in DEXTROSE/WATER 1 100ML.BAG IVPB SCH ×2 (05:41→07:53)
[2020-11-11 06:31] LABS: Glucose,Whole Blood 181 mg/dL (75-99)
[2020-11-11] MEDS: PANTOPRAZOLE 40 MG TABLET PO SCH (06:34)
[2020-11-11] MEDS: carvediloL 6.25 MG TAB PO SCH ×2 (06:34→17:33)
[2020-11-11] MEDS: INSULIN ASPART (NovoLOG) 100 UNIT/ML VIAL SQ SCH ×4 (06:34→20:44)
--- NOTE | 2020-11-11 07:26 | XR ---
EXAMINATION TYPE: XR chest 1V DATE OF EXAM: 11/11/2020 COMPARISON: 11/10/2020 HISTORY: 75-year-old male COVID TECHNIQUE: Single frontal view of the chest is obtained. FINDINGS: Heart normal size. Aorta and pulmonary vasculature within normal limits. Diffuse interstitial opaciti es and patchy airspace opacity in the periphery of the lungs, left greater than right. No pleural eff usion. IMPRESSION: Diffuse interstitial and patchy peripheral infiltrates, left greater than right, not significantly ch anged.
[2020-11-11] MEDS: SYMBICORT 160-4.5 MCG INHALER INHALATION SCH ×2 (08:07→21:11)
[2020-11-11] MEDS: ASCORBIC ACID 500 MG TAB PO SCH (08:53)
[2020-11-11] MEDS: ASPIRIN 325 MG TAB PO SCH (08:53)
[2020-11-11] MEDS: MULTIVITAMINS, THERA 1 EACH TAB PO SCH (08:55)
[2020-11-11] MEDS: LORazepam 1 MG TAB PO SCH (08:55)
[2020-11-11] MEDS: CLOPIDOGREL 75 MG TAB PO SCH (08:55)
[2020-11-11] MEDS: ZINC SULFATE 220 MG CAP PO SCH (08:55)
[2020-11-11] MEDS: ATORVASTATIN 10 MG TAB PO SCH (08:55)
[2020-11-11] MEDS: FUROSEMIDE 10 MG/ML 4 ML VIAL IV SCH (08:56)
[2020-11-11] MEDS: DEXAMETHASONE SOD PHOSPHATE 10 MG/ML 1 ML VIAL IV SCH ×2 (08:56→20:21)
[2020-11-11] MEDS: CHOLECALCIFEROL 1,000 UNIT TAB PO SCH (09:02)
[2020-11-11] MEDS: ENOXAPARIN 60 MG/0.6 ML SYRINGE SQ SCH ×2 (09:17→20:21)
[2020-11-11] MEDS: glipiZIDE 5 MG TAB PO SCH (09:18)
[2020-11-11] MEDS: cilostazoL 100 MG TAB PO SCH ×2 (09:18→20:22)
--- NOTE | 2020-11-11 11:17 | PN ---
PROGRESS NOTE PULMONARY/CRITICAL CARE PROGRESS NOTE: DATE OF SERVICE: November 11, 2020 Critical care time greater than 30 minutes. This is a patient who was admitted back on November 08. He came in with COVID pneumonitis/pneumonia with hypoxemic respiratory failure. He was previously admitted to [facility] between November 03 and . The patient is currently on AIRVO at 50 L/minute and 70%. He is getting saline at 75 mL an hour. He did not receive either remdesivir or convalescent plasma. Currently, the patient seems to be holding his own. Still very short of breath. Complaining of chest congestion and cough. The patient was outside the window for remdesivir. In addition, he has a history of coronary artery disease with previous stents, type 2 diabetes, benign essential hypertension, previous tobacco user and hyperlipidemia. PHYSICAL EXAMINATION: VITAL SIGNS: Current vital signs are reviewed. Temperature 97.6, heart rate 63, respiratory rate 26, blood pressure 147/46, mean 79, saturations are right around 90% on the AIRVO at 50 L/minute and FiO2 of 70%. GENERAL: He appears mildly tachypneic and dyspneic. HEENT: Examination is grossly unremarkable. AIRVO cannula in place. NECK: Supple. Full range of motion. No adenopathy. Neck veins are flat. CARDIOVASCULAR: Examination reveals a regular rhythm and rate. S1, S2 normal. Heart rate 65 beats per minute. No murmur. Heart sounds are distant. LUNGS: Reveal diffuse coarse rhonchi. A few scattered crackles. Breath sounds equal. ABDOMEN: Soft. Bowel sounds are heard. EXTREMITIES: Are intact. There is no cyanosis, clubbing, or edema. SKIN: Without rash. NEUROLOGIC: Examination is nonfocal. LABS: Labs are reviewed. White count 7.1, hemoglobin 12, hematocrit 36.0, platelet count 352,000. Sodium 136, potassium 4.5, chloride 108, CO2 of 22. Anion gap is 6. BUN and creatinine were 35 and 0.57. Albumin 2.6. Microbiology is currently negative. Chest x-ray from today is evaluated and it shows diffuse bilateral upper lobe and lower lobe patchy infiltrates. CURRENT MEDICATIONS: Current medications are reviewed. He is currently on Tylenol, vitamin C, aspirin, Lipitor, Symbicort, Coreg, ceftriaxone, vitamin D3, Pletal, Plavix, Decadron, Lovenox, Zetia, Lasix, glipizide, [place], Dilaudid p.r.n., insulin, multivitamins, Narcan, Zofran, Protonix, trazodone and zinc. ASSESSMENT: 1. Acute hypoxemic respiratory failure secondary to COVID-19 pneumonitis. 2. Recent admission for COVID-19 infection between November 03 and November 05. 3. History of coronary artery disease with prior stent placement. 4. Type 2 diabetes mellitus. 5. Benign essential hypertension. 6. History of previous tobacco use, rule out chronic obstructive pulmonary disease. 7. Hyperlipidemia. PLAN: Currently, the patient remains on AIRVO at 50 L/minute and 70%. He is getting saline at 75 mL an hour. The patient will continue on corticosteroid, vitamin C, vitamin D3, and zinc. Prognosis is guarded. We will continue to follow. We will continue to monitor inflammatory markers. His procalcitonin level is 0.10. We will consider discontinuing the antibiotic for now. MMODL / IJN: [id number] /
[2020-11-11 12:09] LABS: Glucose,Whole Blood 243 mg/dL (75-99)
--- NOTE | 2020-11-11 16:29 | P.PN ---
Subjective Progress Note Date: 11/11/20 HISTORY OF PRESENT ILLNESS This is a 75-year-old male patient of Dr. Roman with past medical history of coronary artery disease status post stent, hypertension, hyper lipidemia, diabetes mellitus type 2, skin cancer, peripheral vascular disease with right femoral endarterectomy and multiple stenting in the past, remote history of tobacco use and dependence. Patient states that he and his had Zofia with their daughter who works at a [employer] in [place]. When she returned to work she had to undergo required Covid 19 testing which came back positive. Patient was recently hospitalized 11/03-11/05 for COVID-19 pneumonia. His breathing status and pulseox were stable and patient was discharged home in stable condition. Patient complains of fever, cough and sputum production. No diarrhea, abdominal pain. No choking episodes. Patient came into [facility] emergency center for evaluation. He was afebrile, heart rate 83, blood pressure 135/74, pulse ox 89% on room air. Patient was placed on Bipap. Patient did not tolerate nasal cannula and dropped down to 74% on 6 L. CBC was unremarkable. D-dimer 3.19. Sodium 141, potassium 4.6, chloride 110, CO2 19, BUN 32 and creatinine 0.76. Blood sugar 180. Lactic acid 2.3 and repeat 1.5. Ferritin 820. Lactic acid 1523. C- reactive protein 87. Pro-calcitonin 0.1. CT angiogram of the chest showed no evidence of pulmonary embolism. Extensive pulmonary interstitial infiltrates. No suspicious pulmonary mass. Chest x-ray reveals increased pulmonary interstitial density. Patient admitted to the [facility] floor and consult with pulmonary medicine and infectious disease. 11/10: Patient became hypoxic while on nasal cannula at 74% on 6 L was placed on BiPAP and pulse ox increased only to 87, patient was transferred into the intensive care unit yesterday early afternoon. Pulse ox is running between 89 and 93% on AirVo FiO2 of 80%. He has been afebrile, heart rate 58, respiratory rate 27, blood pressure 135/78. W BC is 7.5, hemoglobin 12.6, lymphocytes 0.9. D-dimer 12.5, BUN 37 creatinine 0.61. LDH 961, C-reactive protein 50.3. Urinalysis showed moderate blood, RBCs 100. Cultures no growth. Repeat chest x-ray reveals bilateral interstitial infiltrates suggestive of interstitial pneumonia stable. Patient has been seen by infectious disease and plan [facility] Patient has been seen and followed by pulmonary medicine and added Lasix 40 mg IV push, Rocephin started. 11/11: Patient remains in the intensive care unit. He is currently on AirVo at FiO2 of 70% with pulse ox of 90%. Patient appears to be stable. He does continue to have shortness of breath. Breath sounds are improving. He has been afebrile, pulse ox 91-95%, heart rate 66, respiratory rate 24, blood pressure 124/75. WBC 7.1, hemoglobin 12, lymphocytes 0.9. Sodium 136, potassium 4.5, chloride 108, CO2 22, BUN 35 and creatinine 0.57. Blood sugar running between 160- 188. AST 62, ALT 67, alkaline phosphatase 100. Antibiotics discontinued by pulmonary medicine. Repeat x-ray reveals diffuse interstitial and patchy peripheral infiltrates, left greater than right, not significantly changed. REVIEW OF SYSTEMS Constitutional: Reports reports chills fever, . No weight change. Reports generalized weakness and reports fatigue. EENT: No headache. No blurred vision or double vision, no loss of vision. No loss of Hearing, no ringing in the ears, no dizziness. No nasal drainage or congestion. No epistaxis. No sore throat. Lungs: Reports shortness of breath, reports cough, reports sputum production. Reports wheezing. Cardiovascular: No chest pain, no lower extremity edema. No palpitations. No paroxysmal nocturnal dyspnea. No orthopnea. No lightheadedness or dizziness. No syncopal episodes. Abdominal: No abdominal pain. No nausea, vomiting. No diarrhea. No constipation. No bloody or tarry stools. Reports loss of appetite. Genitourinary: No dysuria, increased frequency, urgency. No urinary retention. Musculoskeletal: No myalgias. No muscle weakness, no gait dysfunction, no frequent falls. No back pain. No neck pain. Integumentary: No wounds, no lesions. No rash or pruritus. Neurologic: No aphasia. No facial droop. No change in mentation. No head injury. No headache. No paralysis. No paresthesia. Psychiatric: No depression. No anxiety. Endocrine: No abnormal blood sugars. PHYSICAL EXAMINATION Gen: This is a 75-year-old male. He is resting in ICU bed and appears to be with minimal acute respiratory distress. HEENT: Head is atraumatic, normocephalic. Pupils equal, round. Sclerae is anicteric. NECK: Supple. No JVD. No lymphadenopathy. No thyromegaly. LUNGS: Diminished bilaterally. No wheezing. No respiratory distress noted at rest. Mild tachypneic HEART: Regular rate and rhythm. No murmur. ABDOMEN: Soft. Bowel sounds are present. No masses. No tenderness. EXTREMITIES: No pedal edema. No calf tenderness. NEUROLOGICAL: Patient is awake, alert and oriented x3. Cranial nerves 2 through 12 are grossly intact. ASSESSMENT AND PLAN 1. Acute hypoxic respiratory failure secondary to Covid 19 pneumonia. Continue oxygen therapy. Continue supplementation with zinc, vitamin D, vitamin C, ceftriaxone, dexamethasone 6 mg IV twice daily, Lovenox 40 mg subcu twice daily. Consult with pulmonary medicine and infectious disease appreciated. Antibiotics discontinued. 2. Hypertension. Continue Coreg 6.25 mg twice daily. 3. Hyperlipidemia. Continue Lipitor 10 mg daily, Zetia 10 mg at bedtime. 4. Diabetes mellitus type 2. Continue glipizide 5 mg before breakfast, NovoLog scale before meals and at bedtime. 5. Peripheral vascular disease with right femoral endarterectomy and multiple stenting in the past, stable. Continue Pletal, Plavix 75 mg daily, Lipitor, aspirin. 6. Remote history of tobacco use and dependence. 7. Generalized anxiety disorder. Continue Ativan 1 mg twice daily and trazodone 100 mg at bedtime. 8. DVT prophylaxis. Lovenox. 9. GI prophylaxis. Protonix. CODE STATUS: Full code DISCHARGE PLAN Most likely return home. Impression and plan of care have been directed as dictated by the signing physician. Reema Tai nurse practitioner acting as scribe for signing physician. Objective - Vital Signs Vital signs: Vital Signs Temp 97.6 F 11/11/20 08:00 Pulse 58 L 11/11/20 09:00 Resp 26 H 11/11/20 09:00 BP 147/46 11/11/20 09:00 Pulse Ox 90 L 11/11/20 09:00 Intake & Output 11/10/20 11/11/20 11/11/20 18:59 06:59 18:59 Intake Total 1400 1150 200 Output Total 1815 720 100 Balance -415 430 100 Weight 72.7 kg Intake: IV 750 900 0 Sodium Chloride 0.9% 1, 750 900 0 000 ml @ 75 mls/hr IV . [id number] [facility] Rx#:[id number] Intake, IV Titration 150 200 Amount Magnesium Sulfate-D5w Pmx 100 1 gm In Dextrose/Water 1 100ml.bag @ 100 mls/hr IVPB Q1H [facility] Rx#: [id number] Magnesium Sulfate-D5w Pmx 200 1 gm In Dextrose/Water 1 100ml.bag @ 100 mls/hr IVPB Q1H [facility] Rx#: [id number] cefTRIAXone 1 gm In 50 Sodium Chloride 0.9% 50 ml @ 100 mls/hr IVPB Q12HR [facility] Rx#:[id number] Oral 500 250 Output: Urine 1815 720 100 Other: Voiding Method Indwelling Catheter Indwelling Catheter - Labs CBC & Chem 7: 11/11/20 03:18 11/11/20 03:18 Labs: Abnormal Lab Results - Last 24 Hours (Table) 11/10/20 11/10/20 11/10/20 Range/Units 11:51 16:31 19:55 RBC (4.30-5.90) m/uL Hgb (13.0-17.5) gm/dL Hct (39.0-53.0) % Lymphocytes # (1.0-4.8) k/uL Sodium (137-145) mmol/L Chloride (98-107) mmol/L BUN (9-20) mg/dL Creatinine (0.66-1.25) mg/dL Glucose (74-99) mg/dL POC Glucose (mg/dL) 191 H 158 H 160 H (75-99) mg/dL Calcium (8.4-10.2) mg/dL AST (17-59) U/L ALT (4-49) U/L Total Protein (6.3-8.2) g/dL Albumin (3.5-5.0) g/dL 11/11/20 11/11/20 11/11/20 Range/Units 03:18 03:18 06:28 RBC 3.96 L (4.30-5.90) m/uL Hgb 12.0 L (13.0-17.5) gm/dL Hct 36.0 L (39.0-53.0) % Lymphocytes # 0.9 L (1.0-4.8) k/uL Sodium 136 L (137-145) mmol/L Chloride 108 H (98-107) mmol/L BUN 35 H (9-20) mg/dL Creatinine 0.57 L (0.66-1.25) mg/dL Glucose 188 H (74-99) mg/dL POC Glucose (mg/dL) 181 H (75-99) mg/dL Calcium 8.3 L (8.4-10.2) mg/dL AST 62 H (17-59) U/L ALT 67 H (4-49) U/L Total Protein 5.4 L (6.3-8.2) g/dL Albumin 2.6 L (3.5-5.0) g/dL Microbiology - Last 24 Hours (Table) 11/08/20 21:09 Blood Culture - Preliminary Blood No Growth after 48 hours 11/08/20 20:39 Blood Culture - Preliminary Blood No Growth after 48 hours
[2020-11-11 17:32] LABS: Glucose,Whole Blood 164 mg/dL (75-99)
[2020-11-11] MEDS: ACETAMINOPHEN TAB 325 MG TAB PO PRN (17:45)
[2020-11-11] MEDS: EZETIMIBE 10 MG TAB PO SCH (20:21)
[2020-11-11] MEDS: traZODone HCL 100 MG TAB PO SCH (20:22)
[2020-11-11 20:39] LABS: Glucose,Whole Blood 139 mg/dL (75-99)
[2020-11-11] MEDS: HYDROmorphone 0.5 MG/0.5 ML SYRINGE IVP PRN (20:44)
--- NOTE | 2020-11-11 22:37 | PN ---
PROGRESS NOTE DATE OF SERVICE: 11/11/2020 REASON FOR FOLLOWUP: COVID-19 pneumonia. INTERVAL HISTORY: The patient is currently afebrile. The patient is breathing comfortably, hemodynamically stable. Denies having any chest pain. Minimal cough. No abdominal pain or diarrhea. PHYSICAL EXAMINATION: Blood pressure 140/78 with a pulse of 65, temperature 98. He is 93% on 50% FiO2. General description is an elderly male up in the chair in no distress. RESPIRATORY SYSTEM: Unlabored breathing with decreased intensity of breath sounds. No wheeze. HEART: S1, S2. Regular rate and rhythm. ABDOMEN: Soft. No tenderness. LABS: Hemoglobin is 12, white count 7.1. BUN of 35, creatinine 0.57. Blood culture has been negative. DIAGNOSTIC IMPRESSION AND PLAN: Patient with acute COVID-19 pneumonia with diffuse interstitial and patchy infiltrates on chest x-ray; no significant change. He is breathing slightly comfortably. To continue with the dexamethasone, Lovenox, zinc and respiratory support. Monitor his clinical course closely. MMODL / IJN: [id number] /
[2020-11-12] MEDS: HYDROmorphone 0.5 MG/0.5 ML SYRINGE IVP PRN ×3 (03:10→20:14)
[2020-11-12] MEDS ORDERED: SODIUM CHLORIDE 0.65% NASAL SPRAY 44 ML BTL NASAL PRN (03:13)
[2020-11-12 04:34] LABS: Basophils % (A) 0 %; Eosinophils % (A) 0 %; HCT 37.7 % (39.0-53.0); HGB 12.5 gm/dL (13.0-17.5); Lymphocytes % (A) 10 %; MCH 30.1 pg (25.0-35.0); MCHC 33.3 g/dL (31.0-37.0); MCV 90.5 fL (80.0-100.0); Mean Platelet Volume 7.4; Monocytes # (A) 0.5 k/uL (0-1.0); Monocytes % (A) 5 %; Neutrophils # (A) 7.8 k/uL (1.3-7.7); Neutrophils % (A) 83 %; Platelet Count 393 k/uL (150-450); RBC 4.17 m/uL (4.30-5.90); RDW 12.3 % (11.5-15.5); WBC 9.4 k/uL (3.8-10.6)
[2020-11-12 05:02] LABS: ALT 65 U/L (4-49); AST 44 U/L (17-59); African American GFR (CKD) >90 (>60 ml/min/1.73 sqM); Albumin 2.7 g/dL (3.5-5.0); Alkaline Phosphatase 98 U/L (38-126); Anion Gap 4 mmol/L; Blood Urea Nitrogen 29 mg/dL (9-20); C Reactive Protein 16.6 mg/L (<10.0); Calcium 8.3 mg/dL (8.4-10.2); Carbon Dioxide 24 mmol/L (22-30); Chloride 108 mmol/L (98-107); Creatine Kinase 33 U/L (55-170); Glucose 140 mg/dL (74-99); LDH 872 U/L (313-618); Magnesium 1.7 mg/dL (1.6-2.3); Non-African American GFR(CKD) >90 (>60 ml/min/1.73 sqM); Potassium 3.9 mmol/L (3.5-5.1); Sodium 136 mmol/L (137-145); Total Bilirubin 0.6 mg/dL (0.2-1.3); Total Protein 5.6 g/dL (6.3-8.2)
[2020-11-12] MEDS ORDERED: Magnesium Replacement Protocol 1 EACH MISC MISCELLANE PRN (05:09)
[2020-11-12] MEDS ORDERED: Potassium Replacement Protocol 1 EACH MISC MISCELLANE PRN (05:09)
[2020-11-12] MEDS: POTASSIUM CHLORIDE 10 MEQ in WATER FOR INJECTION 1 100ML.BAG IVPB SCH ×2 (05:24→08:25)
[2020-11-12] MEDS: MAGNESIUM SULFATE-D5W PMX 1 GM in DEXTROSE/WATER 1 100ML.BAG IVPB SCH ×2 (05:25→08:26)
[2020-11-12] MEDS: PANTOPRAZOLE 40 MG TABLET PO SCH (07:01)
[2020-11-12] MEDS: carvediloL 6.25 MG TAB PO SCH ×2 (07:01→16:52)
[2020-11-12 07:09] LABS: Glucose,Whole Blood 126 mg/dL (75-99)
[2020-11-12] MEDS: INSULIN ASPART (NovoLOG) 100 UNIT/ML VIAL SQ SCH ×4 (07:12→20:12)
[2020-11-12] MEDS: SYMBICORT 160-4.5 MCG INHALER INHALATION SCH ×2 (07:27→21:01)
[2020-11-12] MEDS: ATORVASTATIN 10 MG TAB PO SCH (08:26)
[2020-11-12] MEDS: ENOXAPARIN 60 MG/0.6 ML SYRINGE SQ SCH ×2 (08:26→20:12)
[2020-11-12] MEDS: CLOPIDOGREL 75 MG TAB PO SCH (08:26)
[2020-11-12] MEDS: FUROSEMIDE 10 MG/ML 4 ML VIAL IV SCH (08:26)
[2020-11-12] MEDS: ZINC SULFATE 220 MG CAP PO SCH (08:27)
[2020-11-12] MEDS: ASPIRIN 325 MG TAB PO SCH (08:28)
[2020-11-12] MEDS: ASCORBIC ACID 500 MG TAB PO SCH (08:28)
[2020-11-12] MEDS: cilostazoL 100 MG TAB PO SCH ×2 (08:29→20:12)
[2020-11-12] MEDS: DEXAMETHASONE SOD PHOSPHATE 10 MG/ML 1 ML VIAL IV SCH ×2 (08:30→20:11)
[2020-11-12] MEDS: MULTIVITAMINS, THERA 1 EACH TAB PO SCH (08:31)
[2020-11-12] MEDS: glipiZIDE 5 MG TAB PO SCH (08:31)
--- NOTE | 2020-11-12 09:29 | XR ---
EXAMINATION TYPE: XR chest 1V portable DATE OF EXAM: 11/12/2020 Comparison: 11/11/2020 Clinical History: 75-year-old male assess lungs Findings: Heart borderline in size. Interstitial opacities are increasing on the right. Mild interstitial densi ty on the left is similar. Impression: Bilateral interstitial infiltrates, right greater than left. Increased now on the right.
[2020-11-12] MEDS: CHOLECALCIFEROL 1,000 UNIT TAB PO SCH (09:30)
[2020-11-12 10:24] LABS: Ferritin 669.3 ng/mL (22.0-322.0)
[2020-11-12] MEDS: SODIUM CHLORIDE 0.9% 1,000 ML IV SCH ×2 (10:46→20:14)
--- NOTE | 2020-11-12 10:49 | P.PN ---
Subjective Progress Note Date: 11/12/20 Principal diagnosis: Hypoxemic respiratory failure secondary to COVID 19 This is a 75-year-old male who was admitted to the hospital on 11/08/2020. The patient was admitted with a diagnosis of COVID 19 pneumonia. He was previously admitted to this hospital between November 03 and November 05. Today, he is on AIRVO at 50 L/m and an FiO2 of 70%. He is also getting saline at 75 mL an hour. Currently, his major issue is shortness of breath. When is perfectly still, he feels reasonably well. Any movement causes worsening shortness of breath. In addition, he complains of chest congestion and cough. He was not a candidate for the antiviral drug. His chest x-ray today is stable. In addition to the above, he has a history of CAD, with previous stents, type 2 diabetes, benign essential hypertension, previous tobacco use, and hyperlipidemia. Objective - Vital Signs Vital signs: Vital Signs Temp 97.1 F L 11/12/20 08:00 Pulse 61 11/12/20 10:00 Resp 14 11/12/20 10:00 BP 148/82 11/12/20 10:00 Pulse Ox 94 L 11/12/20 10:00 Intake & Output 11/11/20 11/12/20 11/12/20 18:59 06:59 18:59 Intake Total 1000 1025 400 Output Total 5 605 650 Balance -1055 420 -250 Weight 73.3 kg Intake: IV 750 1025 300 Magnesium Sulfate-D5w Pmx 100 1 gm In Dextrose/Water 1 100ml.bag @ 100 mls/hr IVPB Q1H [facility] Rx#: [id number] Potassium Chloride 10 meq 100 In Water For Injection 1 100ml.bag @ 100 mls/hr IVPB Q1H [facility] Rx#: [id number] Sodium Chloride 0.9% 1, 750 825 300 000 ml @ 75 mls/hr IV . [id number] [facility] Rx#:[id number] Intake, IV Titration 250 Amount Magnesium Sulfate-D5w Pmx 200 1 gm In Dextrose/Water 1 100ml.bag @ 100 mls/hr IVPB Q1H [facility] Rx#: [id number] cefTRIAXone 1 gm In 50 Sodium Chloride 0.9% 50 ml @ 100 mls/hr IVPB Q12HR [facility] Rx#:[id number] Oral 100 Output: Urine 9004 605 650 Other: Voiding Method Indwelling Catheter Indwelling Catheter - Exam Moderate shortness of breath, oriented 3. AIRVO cannula in place. HEENT examination is grossly unremarkable. Mucous membranes are moist. No oral lesions. Neck supple. Full range of motion. No adenopathy thyromegaly or neck vein distention. Cardiovascular examination reveals regular rhythm rate. S1-S2 normal. No S3 or S4. No discernible murmur noted. Heart rate is 75 bpm. Heart sounds are distant. Lungs reveal coarse bilateral expiratory rhonchi and bibasilar crackles. Breath sounds are equal but diminished throughout. No wheezes are appreciated. Abdomen soft bowel sounds are heard. No masses or tenderness. Extremities are intact. No cyanosis clubbing or edema. Skin is without rash or lesion. Neurologic examination is brief but nonfocal. - Labs CBC & Chem 7: 11/12/20 04:08 11/12/20 04:08 Labs: Abnormal Lab Results - Last 24 Hours (Table) 11/11/20 11/11/20 11/11/20 Range/Units 12:07 17:20 20:38 RBC (4.30-5.90) m/uL Hgb (13.0-17.5) gm/dL Hct (39.0-53.0) % Neutrophils # (1.3-7.7) k/uL D-Dimer (<0.60) mg/L FEU Sodium (137-145) mmol/L Chloride (98-107) mmol/L BUN (9-20) mg/dL Creatinine (0.66-1.25) mg/dL Glucose (74-99) mg/dL POC Glucose (mg/dL) 243 H 164 H 139 H (75-99) mg/dL Calcium (8.4-10.2) mg/dL Ferritin (22.0-322.0) ng/mL ALT (4-49) U/L Lactate Dehydrogenase (313-618) U/L Creatine Kinase (55-170) U/L C-Reactive Protein (<10.0) mg/L Total Protein (6.3-8.2) g/dL Albumin (3.5-5.0) g/dL 11/12/20 11/12/20 11/12/20 Range/Units 04:08 04:08 04:08 RBC 4.17 L (4.30-5.90) m/uL Hgb 12.5 L (13.0-17.5) gm/dL Hct 37.7 L (39.0-53.0) % Neutrophils # 7.8 H (1.3-7.7) k/uL D-Dimer 4.48 H (<0.60) mg/L FEU Sodium 136 L (137-145) mmol/L Chloride 108 H (98-107) mmol/L BUN 29 H (9-20) mg/dL Creatinine 0.55 L (0.66-1.25) mg/dL Glucose 140 H (74-99) mg/dL POC Glucose (mg/dL) (75-99) mg/dL Calcium 8.3 L (8.4-10.2) mg/dL Ferritin 669.3 H (22.0-322.0) ng/mL ALT 65 H (4-49) U/L Lactate Dehydrogenase 872 H (313-618) U/L Creatine Kinase 33 L (55-170) U/L C-Reactive Protein 16.6 H (<10.0) mg/L Total Protein 5.6 L (6.3-8.2) g/dL Albumin 2.7 L (3.5-5.0) g/dL 11/12/20 Range/Units 07:07 RBC (4.30-5.90) m/uL Hgb (13.0-17.5) gm/dL Hct (39.0-53.0) % Neutrophils # (1.3-7.7) k/uL D-Dimer (<0.60) mg/L FEU Sodium (137-145) mmol/L Chloride (98-107) mmol/L BUN (9-20) mg/dL Creatinine (0.66-1.25) mg/dL Glucose (74-99) mg/dL POC Glucose (mg/dL) 126 H (75-99) mg/dL Calcium (8.4-10.2) mg/dL Ferritin (22.0-322.0) ng/mL ALT (4-49) U/L Lactate Dehydrogenase (313-618) U/L Creatine Kinase (55-170) U/L C-Reactive Protein (<10.0) mg/L Total Protein (6.3-8.2) g/dL Albumin (3.5-5.0) g/dL Microbiology - Last 24 Hours (Table) 11/08/20 21:09 Blood Culture - Preliminary Blood No Growth after 72 hours 11/08/20 20:39 Blood Culture - Preliminary Blood No Growth after 72 hours Assessment and Plan Assessment: Acute hypoxemic respiratory failure, secondary to COVID 19 pneumonia. Recent prior admission for COVID 19 infection between November 03 in November 05. History of coronary artery disease with prior stent placement. Type 2 diabetes mellitus. Benign essential hypertension. History of previous tobacco use, with possible underlying COPD. Hyperlipidemia. Plan dated 11/12/2020. Currently, the patient remains on high flow cannula. He is at 70% FiO2. He's getting saline at 75 mL an hour. He continues on corticosteroids, vitamin C, vitamin D3, and zinc. His overall prognosis is guarded. We will continue to monitor his pro-inflammatory markers. His pro-calcitonin level was only 0.1. Critical care time greater than 30 minutes Time with Patient: Greater than 30
[2020-11-12 11:47] LABS: Glucose,Whole Blood 160 mg/dL (75-99)
--- NOTE | 2020-11-12 13:46 | P.PN ---
Subjective Progress Note Date: 11/12/20 HISTORY OF PRESENT ILLNESS This is a 75-year-old male patient of Dr. Roman with past medical history of coronary artery disease status post stent, hypertension, hyper lipidemia, diabetes mellitus type 2, skin cancer, peripheral vascular disease with right femoral endarterectomy and multiple stenting in the past, remote history of tobacco use and dependence. Patient states that he and his had Zofia with their daughter who works at a [employer] in [place]. When she returned to work she had to undergo required Covid 19 testing which came back positive. Patient was recently hospitalized 11/03-11/05 for COVID-19 pneumonia. His breathing status and pulseox were stable and patient was discharged home in stable condition. Patient complains of fever, cough and sputum production. No diarrhea, abdominal pain. No choking episodes. Patient came into [facility] emergency center for evaluation. He was afebrile, heart rate 83, blood pressure 135/74, pulse ox 89% on room air. Patient was placed on Bipap. Patient did not tolerate nasal cannula and dropped down to 74% on 6 L. CBC was unremarkable. D-dimer 3.19. Sodium 141, potassium 4.6, chloride 110, CO2 19, BUN 32 and creatinine 0.76. Blood sugar 180. Lactic acid 2.3 and repeat 1.5. Ferritin 820. Lactic acid 1523. C- reactive protein 87. Pro-calcitonin 0.1. CT angiogram of the chest showed no evidence of pulmonary embolism. Extensive pulmonary interstitial infiltrates. No suspicious pulmonary mass. Chest x-ray reveals increased pulmonary interstitial density. Patient admitted to the [facility] floor and consult with pulmonary medicine and infectious disease. 11/10: Patient became hypoxic while on nasal cannula at 74% on 6 L was placed on BiPAP and pulse ox increased only to 87, patient was transferred into the intensive care unit yesterday early afternoon. Pulse ox is running between 89 and 93% on AirVo FiO2 of 80%. He has been afebrile, heart rate 58, respiratory rate 27, blood pressure 135/78. W BC is 7.5, hemoglobin 12.6, lymphocytes 0.9. D-dimer 12.5, BUN 37 creatinine 0.61. LDH 961, C-reactive protein 50.3. Urinalysis showed moderate blood, RBCs 100. Cultures no growth. Repeat chest x-ray reveals bilateral interstitial infiltrates suggestive of interstitial pneumonia stable. Patient has been seen by infectious disease and plan for [facility]. Patient has been seen and followed by pulmonary medicine and added Lasix 40 mg IV push, Rocephin started. 11/11: Patient remains in the intensive care unit. He is currently on AirVo at FiO2 of 70% with pulse ox of 90%. Patient appears to be stable. He does continue to have shortness of breath. Breath sounds are improving. He has been afebrile, pulse ox 91-95%, heart rate 66, respiratory rate 24, blood pressure 124/75. WBC 7.1, hemoglobin 12, lymphocytes 0.9. Sodium 136, potassium 4.5, chloride 108, CO2 22, BUN 35 and creatinine 0.57. Blood sugar running between 160- 188. AST 62, ALT 67, alkaline phosphatase 100. Antibiotics discontinued by pulmonary medicine. Repeat x-ray reveals diffuse interstitial and patchy peripheral infiltrates, left greater than right, not significantly changed. 11/12: Patient remains in intensive care unit. His breathing status is stable and not worsening. He is able to eat only a little bit. Potassium and magnesium have been replaced this morning. WBC 9.4, hemoglobin 12.5. D-dimer 4.48. Creatinine 0.55. Blood sugars running between 139 and 160. Ferritin 669.3. LDH 872. C-reactive protein 16.6. Pulse ox is 91-94% on high flow nasal cannula FiO2 70, flow rate 50. Afebrile, heart rate 60, blood pressure 131/78. REVIEW OF SYSTEMS Constitutional: Reports reports chills fever, . No weight change. Reports generalized weakness and reports fatigue. EENT: No headache. No blurred vision or double vision, no loss of vision. No loss of Hearing, no ringing in the ears, no dizziness. No nasal drainage or congestion. No epistaxis. No sore throat. Lungs: Reports shortness of breath, reports cough, reports sputum production. Reports wheezing. Cardiovascular: No chest pain, no lower extremity edema. No palpitations. No paroxysmal nocturnal dyspnea. No orthopnea. No lightheadedness or dizziness. No syncopal episodes. Abdominal: No abdominal pain. No nausea, vomiting. No diarrhea. No constipation. No bloody or tarry stools. Reports loss of appetite. Genitourinary: No dysuria, increased frequency, urgency. No urinary retention. Musculoskeletal: No myalgias. No muscle weakness, no gait dysfunction, no frequent falls. No back pain. No neck pain. Integumentary: No wounds, no lesions. No rash or pruritus. Neurologic: No aphasia. No facial droop. No change in mentation. No head injury. No headache. No paralysis. No paresthesia. Psychiatric: No depression. No anxiety. Endocrine: No abnormal blood sugars. PHYSICAL EXAMINATION Gen: This is a 75-year-old male. He is resting in ICU bed and appears to be with minimal acute respiratory distress. HEENT: Head is atraumatic, normocephalic. Pupils equal, round. Sclerae is anicteric. NECK: Supple. No JVD. No lymphadenopathy. No thyromegaly. LUNGS: Diminished bilaterally. No wheezing. No respiratory distress noted at rest. HEART: Regular rate and rhythm. No murmur. ABDOMEN: Soft. Bowel sounds are present. No masses. No tenderness. EXTREMITIES: No pedal edema. No calf tenderness. NEUROLOGICAL: Patient is awake, alert and oriented x3. Cranial nerves 2 through 12 are grossly intact. ASSESSMENT AND PLAN 1. Acute hypoxic respiratory failure secondary to Covid 19 pneumonia. Continue oxygen therapy. Continue supplementation with zinc, vitamin D, vitamin C, ceftriaxone, dexamethasone 6 mg IV twice daily, Lovenox 40 mg subcu twice daily. Consult with pulmonary medicine and infectious disease appreciated. Antibiotics discontinued. 2. Hypertension. Continue Coreg 6.25 mg twice daily. 3. Hyperlipidemia. Continue Lipitor 10 mg daily, Zetia 10 mg at bedtime. 4. Diabetes mellitus type 2. Continue glipizide 5 mg before breakfast, NovoLog scale before meals and at bedtime. 5. Peripheral vascular disease with right femoral endarterectomy and multiple stenting in the past, stable. Continue Pletal, Plavix 75 mg daily, Lipitor, a spirin. 6. Remote history of tobacco use and dependence. 7. Generalized anxiety disorder. Continue Ativan 1 mg twice daily as needed and trazodone 100 mg at bedtime. 8. DVT prophylaxis. Lovenox. 9. GI prophylaxis. Protonix. CODE STATUS: Full code DISCHARGE PLAN Most likely return home. Impression and plan of care have been directed as dictated by the signing physician. Reema Tai nurse practitioner acting as scribe for signing physician. Objective - Vital Signs Vital signs: Vital Signs Temp 97.9 F 11/12/20 04:00 Pulse 61 11/12/20 07:00 Resp 17 11/12/20 07:00 BP 157/87 11/12/20 07:00 Pulse Ox 90 L 11/12/20 07:29 Intake & Output 11/11/20 11/12/20 11/12/20 18:59 06:59 18:59 Intake Total 1000 1025 75 Output Total 2055 605 100 Balance -1055 420 -25 Weight 73.3 kg Intake: IV 750 1025 75 Magnesium Sulfate-D5w Pmx 100 1 gm In Dextrose/Water 1 100ml.bag @ 100 mls/hr IVPB Q1H [facility] Rx#: [id number] Potassium Chloride 10 meq 100 In Water For Injection 1 100ml.bag @ 100 mls/hr IVPB Q1H [facility] Rx#: [id number] Sodium Chloride 0.9% 1, 750 825 75 000 ml @ 75 mls/hr IV . [id number] [facility] Rx#:[id number] Intake, IV Titration 250 Amount Magnesium Sulfate-D5w Pmx 200 1 gm In Dextrose/Water 1 100ml.bag @ 100 mls/hr IVPB Q1H [facility] Rx#: [id number] cefTRIAXone 1 gm In 50 Sodium Chloride 0.9% 50 ml @ 100 mls/hr IVPB Q12HR [facility] Rx#:[id number] Output: Urine 2055 605 100 Other: Voiding Method Indwelling Catheter Indwelling Catheter - Labs CBC & Chem 7: 11/12/20 04:08 11/12/20 04:08 Labs: Abnormal Lab Results - Last 24 Hours (Table) 11/11/20 11/11/20 11/11/20 Range/Units 12:07 17:20 20:38 RBC (4.30-5.90) m/uL Hgb (13.0-17.5) gm/dL Hct (39.0-53.0) % Neutrophils # (1.3-7.7) k/uL D-Dimer (<0.60) mg/L FEU Sodium (137-145) mmol/L Chloride (98-107) mmol/L BUN (9-20) mg/dL Creatinine (0.66-1.25) mg/dL Glucose (74-99) mg/dL POC Glucose (mg/dL) 243 H 164 H 139 H (75-99) mg/dL Calcium (8.4-10.2) mg/dL ALT (4-49) U/L Lactate Dehydrogenase (313-618) U/L Creatine Kinase (55-170) U/L C-Reactive Protein (<10.0) mg/L Total Protein (6.3-8.2) g/dL Albumin (3.5-5.0) g/dL 11/12/20 11/12/20 11/12/20 Range/Units 04:08 04:08 04:08 RBC 4.17 L (4.30-5.90) m/uL Hgb 12.5 L (13.0-17.5) gm/dL Hct 37.7 L (39.0-53.0) % Neutrophils # 7.8 H (1.3-7.7) k/uL D-Dimer 4.48 H (<0.60) mg/L FEU Sodium 136 L (137-145) mmol/L Chloride 108 H (98-107) mmol/L BUN 29 H (9-20) mg/dL Creatinine 0.55 L (0.66-1.25) mg/dL Glucose 140 H (74-99) mg/dL POC Glucose (mg/dL) (75-99) mg/dL Calcium 8.3 L (8.4-10.2) mg/dL ALT 65 H (4-49) U/L Lactate Dehydrogenase 872 H (313-618) U/L Creatine Kinase 33 L (55-170) U/L C-Reactive Protein 16.6 H (<10.0) mg/L Total Protein 5.6 L (6.3-8.2) g/dL Albumin 2.7 L (3.5-5.0) g/dL 11/12/20 Range/Units 07:07 RBC (4.30-5.90) m/uL Hgb (13.0-17.5) gm/dL Hct (39.0-53.0) % Neutrophils # (1.3-7.7) k/uL D-Dimer (<0.60) mg/L FEU Sodium (137-145) mmol/L Chloride (98-107) mmol/L BUN (9-20) mg/dL Creatinine (0.66-1.25) mg/dL Glucose (74-99) mg/dL POC Glucose (mg/dL) 126 H (75-99) mg/dL Calcium (8.4-10.2) mg/dL ALT (4-49) U/L Lactate Dehydrogenase (313-618) U/L Creatine Kinase (55-170) U/L C-Reactive Protein (<10.0) mg/L Total Protein (6.3-8.2) g/dL Albumin (3.5-5.0) g/dL Microbiology - Last 24 Hours (Table) 11/08/20 21:09 Blood Culture - Preliminary Blood No Growth after 72 hours 11/08/20 20:39 Blood Culture - Preliminary Blood No Growth after 72 hours
[2020-11-12] MEDS: LORazepam 1 MG TAB PO PRN (15:04)
[2020-11-12 17:06] LABS: Glucose,Whole Blood 205 mg/dL (75-99)
[2020-11-12 20:03] LABS: Glucose,Whole Blood 127 mg/dL (75-99)
[2020-11-12] MEDS: EZETIMIBE 10 MG TAB PO SCH (20:12)
[2020-11-12] MEDS: traZODone HCL 100 MG TAB PO SCH (20:12)
--- NOTE | 2020-11-12 22:00 | PN ---
PROGRESS NOTE DATE OF SERVICE: 11/21/2020 REASON FOR FOLLOWUP: COVID-19 pneumonia. INTERVAL HISTORY: The patient is currently afebrile. The patient is breathing slightly comfortably. The patient denies having any chest pain. Occasional cough. No sputum. No nausea, no vomiting, no abdominal pain or diarrhea. PHYSICAL EXAMINATION: Blood pressure 153/91 with a pulse of 64, temperature 97.7. He is 91% on 50% FiO2. General description is an elderly male up in the chair in no distress. RESPIRATORY SYSTEM: Unlabored breathing with decreased intensity of breath sounds. No wheeze. HEART: S1, S2. Regular rate and rhythm. ABDOMEN: Soft. No tenderness. LABS: Hemoglobin is 12.5, white count 9.4. BUN of 29, creatinine 0.55. DIAGNOSTIC IMPRESSION AND PLAN: Patient with acute respiratory failure secondary to acute COVID-19 pneumonia in this patient currently being treated with dexamethasone, Lovenox, zinc; to continue along with respiratory support. Will monitor his clinical course closely. Continue with supportive care. MMEDWINAL / IJN: [id number] /
[2020-11-13] MEDS: LORazepam 1 MG TAB PO PRN ×3 (02:28→20:12)
[2020-11-13 04:38] LABS: Basophils # (A) 0.1 k/uL (0-0.2); Basophils % (A) 1 %; Eosinophils % (A) 0 %; HCT 36.3 % (39.0-53.0); HGB 12.8 gm/dL (13.0-17.5); Lymphocytes % (A) 13 %; MCH 31.7 pg (25.0-35.0); MCHC 35.2 g/dL (31.0-37.0); MCV 90.1 fL (80.0-100.0); Mean Platelet Volume 7.3; Monocytes # (A) 0.4 k/uL (0-1.0); Monocytes % (A) 6 %; Neutrophils # (A) 5.9 k/uL (1.3-7.7); Neutrophils % (A) 80 %; Platelet Count 380 k/uL (150-450); RBC 4.03 m/uL (4.30-5.90); WBC 7.4 k/uL (3.8-10.6)
[2020-11-13 04:49] LABS: ALT 55 U/L (4-49); AST 34 U/L (17-59); African American GFR (CKD) >90 (>60 ml/min/1.73 sqM); Albumin 2.6 g/dL (3.5-5.0); Alkaline Phosphatase 92 U/L (38-126); Anion Gap 6 mmol/L; Blood Urea Nitrogen 33 mg/dL (9-20); C Reactive Protein 44.6 mg/L (<10.0); Calcium 8.2 mg/dL (8.4-10.2); Carbon Dioxide 22 mmol/L (22-30); Chloride 106 mmol/L (98-107); Creatine Kinase 31 U/L (55-170); Glucose 208 mg/dL (74-99); LDH 833 U/L (313-618); Non-African American GFR(CKD) >90 (>60 ml/min/1.73 sqM); Potassium 4.3 mmol/L (3.5-5.1); Sodium 134 mmol/L (137-145); Total Bilirubin 0.6 mg/dL (0.2-1.3); Total Protein 5.4 g/dL (6.3-8.2)
[2020-11-13] MEDS: INSULIN ASPART (NovoLOG) 100 UNIT/ML VIAL SQ SCH ×4 (06:59→20:12)
[2020-11-13] MEDS: PANTOPRAZOLE 40 MG TABLET PO SCH (06:59)
[2020-11-13] MEDS: carvediloL 6.25 MG TAB PO SCH ×2 (06:59→17:15)
[2020-11-13 07:01] LABS: Glucose,Whole Blood 148 mg/dL (75-99)
--- NOTE | 2020-11-13 08:00 | XR ---
EXAMINATION TYPE: XR chest 1V portable DATE OF EXAM: 11/13/2020 Comparison: 11/12/2020 Clinical History: 75-year-old male ICU follow-up, assess lungs Findings: Heart normal size. Aorta within normal limits. Diffuse interstitial opacity, right greater than left, is improving on the right. Similar on the left. Impression: Fine interstitial infiltrates, right greater than left. This is improving now on the right.
[2020-11-13] MEDS: ASCORBIC ACID 500 MG TAB PO SCH (08:50)
[2020-11-13] MEDS: FUROSEMIDE 10 MG/ML 4 ML VIAL IV SCH (08:50)
[2020-11-13] MEDS: CHOLECALCIFEROL 1,000 UNIT TAB PO SCH (08:50)
[2020-11-13] MEDS: ATORVASTATIN 10 MG TAB PO SCH (08:50)
[2020-11-13] MEDS: DEXAMETHASONE SOD PHOSPHATE 10 MG/ML 1 ML VIAL IV SCH ×2 (08:50→20:10)
[2020-11-13] MEDS: cilostazoL 100 MG TAB PO SCH ×2 (08:51→20:17)
[2020-11-13] MEDS: glipiZIDE 5 MG TAB PO SCH (08:51)
[2020-11-13] MEDS: MULTIVITAMINS, THERA 1 EACH TAB PO SCH (08:54)
[2020-11-13] MEDS: ZINC SULFATE 220 MG CAP PO SCH (08:54)
[2020-11-13] MEDS: ASPIRIN 325 MG TAB PO SCH (09:05)
[2020-11-13] MEDS: CLOPIDOGREL 75 MG TAB PO SCH (09:05)
[2020-11-13] MEDS: SYMBICORT 160-4.5 MCG INHALER INHALATION SCH ×2 (09:21→20:41)
--- NOTE | 2020-11-13 09:50 | P.PN ---
Subjective Progress Note Date: 11/13/20 Principal diagnosis: Acute hypoxic respiratory failure secondary to cope 19 pneumonia This is a very pleasant 75-year-old gentleman with a history of coronary artery disease with previous stent placement, hypertension, hyperlipidemia, diabetes mellitus type 2, peripheral vascular disease with previous intervention, prior history of tobacco use. In the end of October 2020 the patient was exposed to CoVID 19 by a daughter who works at a [employer] system in [place]. His had also tested positive. The patient was admitted here on November 03 and did quite well and discharged home on November 05. He had been outside the window for Remdesivir based on his symptoms that admission. He was still on dexamethasone to complete 10 days and vitamin supplements. He represented here to the emergency room yesterday 11/08/2020 with increasing shortness of breath cough congestion. His pulse ox reading at home was 77% according to family members. He is seen today in consultation on the regular medical floor. He is currently on BiPAP 12/5 and 60% FiO2 with O2 saturation at 89%. He was trialed on 6 L high flow nasal cannula with O2 saturation of 74%. He is awake and alert. He is dyspneic with minimal exertion. He has remained afebrile. Hemodynamically stable. CT angiogram ruled out pulmonary embolism. There is extensive pulmonary interstitial infiltrates noted. White count 10.0. Hemoglobin 15.0. Lymphocytes 1.2. D-dimer 3.19. Sodium 141. Potassium 4.6. Creatinine 0.76. Initial lactic 2.3 currently 1.5. Ferritin level DCCCXX. LDH 1523. C-reactive protein 87.0. Pro calcitonin 0.10. He is currently on vancomycin and cefepime. He's been initiated on Lovenox, dexamethasone, vitamin supplements. The patient is seen today 11/13/2020 in follow-up in the intensive care unit. He is still requiring AirVo high flow oxygen at 50 L/m and 70% FiO2. He is 0.9 normal saline at 75 ML's per hour. He remains awake and alert. Chest x-ray continues to feel fine interstitial infiltrates right greater than left. Slight improvement on the right now. White count 7.4. Hemoglobin 13.8. D-dimer down to 2.80. Sodium 134. Potassium 4.3. Creatinine 0.61. LDH 833. C-reactive protein 44.6. Was noted to have some continued sediment some blood-tinged urine. Lovenox is decreased to 40 mg subcu daily. Remains on Plavix and aspirin. Continue dexamethasone, vitamin supplements. Continued on IV diuretics 40 mg daily. Objective - Vital Signs Vital signs: Vital Signs Temp 96.1 F L 11/13/20 08:00 Pulse 74 11/13/20 09:00 Resp 18 11/13/20 09:00 BP 153/78 11/13/20 09:00 Pulse Ox 89 L 11/13/20 09:00 Intake & Output 11/12/20 11/13/20 11/13/20 18:59 06:59 18:59 Intake Total 1200 1000 350 Output Total 1645 725 200 Balance -445 275 150 Weight 73 kg Intake: IV 900 900 225 Sodium Chloride 0.9% 1, 900 900 225 000 ml @ 75 mls/hr IV . [id number] [facility] Rx#:[id number] Oral 300 100 125 Output: Urine 1645 725 200 Other: Voiding Method Indwelling Catheter Indwelling Catheter Indwelling Catheter - Exam GENERAL EXAM: Alert, pleasant 75-year-old gentleman, on AirVo 15 L/m at 70% FiO2, and mild respiratory distress. HEAD: Normocephalic. EYES: Normal reaction of pupils, equal size. NOSE: Clear with pink turbinates. THROAT: No erythema or exudates. NECK: No masses, no JVD. CHEST: No chest wall deformity. LUNGS: Equal air entry with coarse crackles in the bilateral posterior bases. CVS: S1 and S2 normal with no audible murmur, regular rhythm. ABDOMEN: No hepatosplenomegaly, normal bowel sounds, no guarding or rigidity. SPINE: No scoliosis or deformity SKIN: No rashes CENTRAL NERVOUS SYSTEM: No focal deficits, tone is normal in all 4 extremities. EXTREMITIES: There is no peripheral edema. No clubbing, no cyanosis. Peripheral pulses are intact. - Labs CBC & Chem 7: 11/13/20 04:23 11/13/20 04:23 Labs: Abnormal Lab Results - Last 24 Hours (Table) 11/12/20 11/12/20 11/12/20 Range/Units 04:08 11:46 17:04 RBC (4.30-5.90) m/uL Hgb (13.0-17.5) gm/dL Hct (39.0-53.0) % D-Dimer (<0.60) mg/L FEU Sodium (137-145) mmol/L BUN (9-20) mg/dL Creatinine (0.66-1.25) mg/dL Glucose (74-99) mg/dL POC Glucose (mg/dL) 160 H 205 H (75-99) mg/dL Calcium (8.4-10.2) mg/dL Ferritin 669.3 H (22.0-322.0) ng/mL ALT (4-49) U/L Lactate Dehydrogenase (313-618) U/L Creatine Kinase (55-170) U/L C-Reactive Protein (<10.0) mg/L Total Protein (6.3-8.2) g/dL Albumin (3.5-5.0) g/dL 11/12/20 11/13/20 11/13/20 Range/Units 20:02 04:23 04:23 RBC (4.30-5.90) m/uL Hgb (13.0-17.5) gm/dL Hct (39.0-53.0) % D-Dimer 2.80 H (<0.60) mg/L FEU Sodium 134 L (137-145) mmol/L BUN 33 H (9-20) mg/dL Creatinine 0.61 L (0.66-1.25) mg/dL Glucose 208 H (74-99) mg/dL POC Glucose (mg/dL) 127 H (75-99) mg/dL Calcium 8.2 L (8.4-10.2) mg/dL Ferritin (22.0-322.0) ng/mL ALT 55 H (4-49) U/L Lactate Dehydrogenase 833 H (313-618) U/L Creatine Kinase 31 L (55-170) U/L C-Reactive Protein 44.6 H (<10.0) mg/L Total Protein 5.4 L (6.3-8.2) g/dL Albumin 2.6 L (3.5-5.0) g/dL 11/13/20 11/13/20 Range/Units 04:23 06:59 RBC 4.03 L (4.30-5.90) m/uL Hgb 12.8 L (13.0-17.5) gm/dL Hct 36.3 L (39.0-53.0) % D-Dimer (<0.60) mg/L FEU Sodium (137-145) mmol/L BUN (9-20) mg/dL Creatinine (0.66-1.25) mg/dL Glucose (74-99) mg/dL POC Glucose (mg/dL) 148 H (75-99) mg/dL Calcium (8.4-10.2) mg/dL Ferritin (22.0-322.0) ng/mL ALT (4-49) U/L Lactate Dehydrogenase (313-618) U/L Creatine Kinase (55-170) U/L C-Reactive Protein (<10.0) mg/L Total Protein (6.3-8.2) g/dL Albumin (3.5-5.0) g/dL Microbiology - Last 24 Hours (Table) 11/08/20 21:09 Blood Culture - Preliminary Blood No Growth after 96 hours 11/08/20 20:39 Blood Culture - Preliminary Blood No Growth after 96 hours Assessment and Plan Assessment: 1 Acute hypoxemic respiratory failure secondary to CoVID 19 infection, outside the window for Remdesivir, currently requiring AirVo high flow oxygen at 15 L/m 70% FiO2 2 Recent admission for COVID 19 infection, November 03 to 11/05/2020, outside the window for Remdesivir, on room air. Discharged in stable condition 3 Coronary artery disease with previous stent placement 4 Hypertension 5 Hyperlipidemia 6 Diabetes mellitus, type II 7 Peripheral vascular disease with previous intervention 8 Former smoker Plan: The patient was seen and evaluated by Dr. Orozco Chest x-ray, labs reviewed Titrate down the FiO2 as tolerated Continue dexamethasone, vitamin supplements Decrease Lovenox to 40 mg daily, remains on aspirin and Plavix We will continue to follow and make further recommendations based on his clinical status I, the cosigning physician, performed a history & physical examination of the patient. Lungs sounds with bibasilar coarse crackles. Maintaining good O2 saturations in the 90s on 70% FiO2 via the AirVo high flow oxygen device. I discussed the assessment and plan of care with my nurse practitioner, Malathi Erazo. I attest to the above note as dictated by her.
[2020-11-13 10:08] LABS: Ferritin 747.1 ng/mL (22.0-322.0)
--- NOTE | 2020-11-13 11:42 | P.PN ---
Subjective Progress Note Date: 11/13/20 HISTORY OF PRESENT ILLNESS This is a 75-year-old male patient of Dr. Roman with past medical history of coronary artery disease status post stent, hypertension, hyper lipidemia, diabetes mellitus type 2, skin cancer, peripheral vascular disease with right femoral endarterectomy and multiple stenting in the past, remote history of tobacco use and dependence. Patient states that he and his had Zofia with their daughter who works at a [employer] in [place]. When she returned to work she had to undergo required Covid 19 testing which came back positive. Patient was recently hospitalized 11/03-11/05 for COVID-19 pneumonia. His breathing status and pulseox were stable and patient was discharged home in stable condition. Patient complains of fever, cough and sputum production. No diarrhea, abdominal pain. No choking episodes. Patient came into [facility] emergency center for evaluation. He was afebrile, heart rate 83, blood pressure 135/74, pulse ox 89% on room air. Patient was placed on Bipap. Patient did not tolerate nasal cannula and dropped down to 74% on 6 L. CBC was unremarkable. D-dimer 3.19. Sodium 141, potassium 4.6, chloride 110, CO2 19, BUN 32 and creatinine 0.76. Blood sugar 180. Lactic acid 2.3 and repeat 1.5. Ferritin 820. Lactic acid 1523. C- reactive protein 87. Pro-calcitonin 0.1. CT angiogram of the chest showed no evidence of pulmonary embolism. Extensive pulmonary interstitial infiltrates. No suspicious pulmonary mass. Chest x-ray reveals increased pulmonary interstitial density. Patient admitted to the [facility] floor and consult with pulmonary medicine and infectious disease. 11/10: Patient became hypoxic while on nasal cannula at 74% on 6 L was placed on BiPAP and pulse ox increased only to 87, patient was transferred into the intensive care unit yesterday early afternoon. Pulse ox is running between 89 and 93% on AirVo FiO2 of 80%. He has been afebrile, heart rate 58, respiratory rate 27, blood pressure 135/78. W BC is 7.5, hemoglobin 12.6, lymphocytes 0.9. D-dimer 12.5, BUN 37 creatinine 0.61. LDH 961, C-reactive protein 50.3. Urinalysis showed moderate blood, RBCs 100. Cultures no growth. Repeat chest x-ray reveals bilateral interstitial infiltrates suggestive of interstitial pneumonia stable. Patient has been seen by infectious disease and plan for [facility]. Patient has been seen and followed by pulmonary medicine and added Lasix 40 mg IV push, Rocephin started. 11/11: Patient remains in the intensive care unit. He is currently on AirVo at FiO2 of 70% with pulse ox of 90%. Patient appears to be stable. He does continue to have shortness of breath. Breath sounds are improving. He has been afebrile, pulse ox 91-95%, heart rate 66, respiratory rate 24, blood pressure 124/75. WBC 7.1, hemoglobin 12, lymphocytes 0.9. Sodium 136, potassium 4.5, chloride 108, CO2 22, BUN 35 and creatinine 0.57. Blood sugar running between 160- 188. AST 62, ALT 67, alkaline phosphatase 100. Antibiotics discontinued by pulmonary medicine. Repeat x-ray reveals diffuse interstitial and patchy peripheral infiltrates, left greater than right, not significantly changed. 11/12: Patient remains in intensive care unit. His breathing status is stable and not worsening. He is able to eat only a little bit. Potassium and magnesium have been replaced this morning. WBC 9.4, hemoglobin 12.5. D-dimer 4.48. Creatinine 0.55. Blood sugars running between 139 and 160. Ferritin 669.3. LDH 872. C-reactive protein 16.6. Pulse ox is 91-94% on high flow nasal cannula FiO2 70, flow rate 50. Afebrile, heart rate 60, blood pressure 131/78. 11/13: Patient remains in the intensive care unit. Repeat chest x-ray reveals fine interstitial infiltrates, right greater than left. There is no improving on the right. Patient is currently on Arava at 50 MLS per minute and 70% FiO2 pulse ox seen Repeat blood work reveals WBC 7.4, hemoglobin 13.8, d-dimer 2.8. Sodium 134, potassium 4.3, creatinine 0.61. LDH 833. C-reactive protein 44.6. Patient n oted to have some small amount of bloody sediment in his Perdomo and Lovenox was decreased. Patient is aware that his has also been admitted to the hospital and is stable. REVIEW OF SYSTEMS Constitutional: Reports reports chills fever. No weight change. Reports genera lized weakness and reports fatigue. EENT: No headache. No blurred vision or double vision, no loss of vision. No loss of Hearing, no ringing in the ears, no dizziness. No nasal drainage or congestion. No epistaxis. No sore throat. Lungs: Reports shortness of breath, reports cough, reports sputum production. Reports wheezing. Cardiovascular: No chest pain, no lower extremity edema. No palpitations. No paroxysmal nocturnal dyspnea. No orthopnea. No lightheadedness or dizziness. No syncopal episodes. Abdominal: No abdominal pain. No nausea, vomiting. No diarrhea. No constipation. No bloody or tarry stools. Reports loss of appetite. Genitourinary: No dysuria, increased frequency, urgency. No urinary retention. Mild hematuria. Musculoskeletal: No myalgias. No muscle weakness, no gait dysfunction, no frequent falls. No back pain. No neck pain. Integumentary: No wounds, no lesions. No rash or pruritus. Neurologic: No aphasia. No facial droop. No change in mentation. No head injury. No headache. No paralysis. No paresthesia. Psychiatric: No depression. No anxiety. Endocrine: No abnormal blood sugars. PHYSICAL EXAMINATION Gen: This is a 75-year-old male. He is resting in ICU bed and appears to be with minimal acute respiratory distress. HEENT: Head is atraumatic, normocephalic. Pupils equal, round. Sclerae is anicteric. NECK: Supple. No JVD. No lymphadenopathy. No thyromegaly. LUNGS: Diminished bilaterally. No wheezing. No respiratory distress noted at rest. HEART: Regular rate and rhythm. No murmur. ABDOMEN: Soft. Bowel sounds are present. No masses. No tenderness. EXTREMITIES: No pedal edema. No calf tenderness. NEUROLOGICAL: Patient is awake, alert and oriented x3. Cranial nerves 2 through 12 are grossly intact. ASSESSMENT AND PLAN 1. Acute hypoxic respiratory failure secondary to Covid 19 pneumonia. Continue oxygen therapy. Continue supplementation with zinc, vitamin D, vitamin C, ceftriaxone, dexamethasone 6 mg IV twice daily, Lovenox 40 mg subcu daily. Consult with pulmonary medicine and infectious disease appreciated. Antibiotics discontinued. 2. Hypertension. Continue Coreg 6.25 mg twice daily. 3. Hyperlipidemia. Continue Lipitor 10 mg daily, Zetia 10 mg at bedtime. 4. Diabetes mellitus type 2. Continue glipizide 5 mg before breakfast, NovoLog scale before meals and at bedtime. 5. Peripheral vascular disease with right femoral endarterectomy and multiple stenting in the past, stable. Continue Pletal, Plavix 75 mg daily, Lipitor, aspirin. 6. Remote history of tobacco use and dependence. 7. Generalized anxiety disorder. Continue Ativan 1 mg twice daily as needed and trazodone 100 mg at bedtime. 8. DVT prophylaxis. Lovenox. 9. GI prophylaxis. Protonix. 10. Mild hematuria. Lovenox decreased to 40 mg subcu daily. CODE STATUS: Full code DISCHARGE PLAN Most likely return home. Impression and plan of care have been directed as dictated by the signing physician. Reema Tai nurse practitioner acting as scribe for signing physician. Objective - Vital Signs Vital signs: Vital Signs Temp 96.1 F L 11/13/20 08:00 Pulse 76 11/13/20 08:00 Resp 18 11/13/20 08:00 BP 138/84 11/13/20 08:00 Pulse Ox 91 L 11/13/20 08:00 Intake & Output 11/12/20 11/13/20 11/13/20 18:59 06:59 18:59 Intake Total 1200 1000 275 Output Total 1645 725 80 Balance -445 275 195 Weight 73 kg Intake: IV 900 900 150 Sodium Chloride 0.9% 1, 900 900 150 000 ml @ 75 mls/hr IV . [id number] [facility] Rx#:[id number] Oral 300 100 125 Output: Urine 1645 725 80 Other: Voiding Method Indwelling Catheter Indwelling Catheter Indwelling Catheter - Labs CBC & Chem 7: 11/13/20 04:23 11/13/20 04:23 Labs: Abnormal Lab Results - Last 24 Hours (Table) 11/12/20 11/12/20 11/12/20 Range/Units 04:08 11:46 17:04 RBC (4.30-5.90) m/uL Hgb (13.0-17.5) gm/dL Hct (39.0-53.0) % D-Dimer (<0.60) mg/L FEU Sodium (137-145) mmol/L BUN (9-20) mg/dL Creatinine (0.66-1.25) mg/dL Glucose (74-99) mg/dL POC Glucose (mg/dL) 160 H 205 H (75-99) mg/dL Calcium (8.4-10.2) mg/dL Ferritin 669.3 H (22.0-322.0) ng/mL ALT (4-49) U/L Lactate Dehydrogenase (313-618) U/L Creatine Kinase (55-170) U/L C-Reactive Protein (<10.0) mg/L Total Protein (6.3-8.2) g/dL Albumin (3.5-5.0) g/dL 11/12/20 11/13/20 11/13/20 Range/Units 20:02 04:23 04:23 RBC (4.30-5.90) m/uL Hgb (13.0-17.5) gm/dL Hct (39.0-53.0) % D-Dimer 2.80 H (<0.60) mg/L FEU Sodium 134 L (137-145) mmol/L BUN 33 H (9-20) mg/dL Creatinine 0.61 L (0.66-1.25) mg/dL Glucose 208 H (74-99) mg/dL POC Glucose (mg/dL) 127 H (75-99) mg/dL Calcium 8.2 L (8.4-10.2) mg/dL Ferritin (22.0-322.0) ng/mL ALT 55 H (4-49) U/L Lactate Dehydrogenase 833 H (313-618) U/L Creatine Kinase 31 L (55-170) U/L C-Reactive Protein 44.6 H (<10.0) mg/L Total Protein 5.4 L (6.3-8.2) g/dL Albumin 2.6 L (3.5-5.0) g/dL 11/13/20 11/13/20 Range/Units 04:23 06:59 RBC 4.03 L (4.30-5.90) m/uL Hgb 12.8 L (13.0-17.5) gm/dL Hct 36.3 L (39.0-53.0) % D-Dimer (<0.60) mg/L FEU Sodium (137-145) mmol/L BUN (9-20) mg/dL Creatinine (0.66-1.25) mg/dL Glucose (74-99) mg/dL POC Glucose (mg/dL) 148 H (75-99) mg/dL Calcium (8.4-10.2) mg/dL Ferritin (22.0-322.0) ng/mL ALT (4-49) U/L Lactate Dehydrogenase (313-618) U/L Creatine Kinase (55-170) U/L C-Reactive Protein (<10.0) mg/L Total Protein (6.3-8.2) g/dL Albumin (3.5-5.0) g/dL Microbiology - Last 24 Hours (Table) 11/08/20 21:09 Blood Culture - Preliminary Blood No Growth after 96 hours 11/08/20 20:39 Blood Culture - Preliminary Blood No Growth after 96 hours
[2020-11-13 11:53] LABS: Glucose,Whole Blood 281 mg/dL (75-99)
[2020-11-13] MEDS ORDERED: INSULIN ASPART (NovoLOG) 100 UNIT/ML VIAL SQ ONE (11:56)
[2020-11-13] MEDS: SODIUM CHLORIDE 0.9% 1,000 ML IV SCH ×2 (12:09→23:35)
[2020-11-13] MEDS: HYDROmorphone 0.5 MG/0.5 ML SYRINGE IVP PRN ×2 (14:12→20:24)
[2020-11-13 16:47] LABS: Glucose,Whole Blood 147 mg/dL (75-99)
[2020-11-13 20:01] LABS: Glucose,Whole Blood 217 mg/dL (75-99)
[2020-11-13] MEDS: ACETAMINOPHEN TAB 325 MG TAB PO PRN (20:11)
[2020-11-13] MEDS: traZODone HCL 100 MG TAB PO SCH (20:12)
[2020-11-13] MEDS: EZETIMIBE 10 MG TAB PO SCH (20:12)
--- NOTE | 2020-11-13 23:08 | PN ---
PROGRESS NOTE DATE OF SERVICE: 11/13/2020 REASON FOR FOLLOWUP: COVID-19 pneumonia. INTERVAL HISTORY: The patient is currently afebrile. The patient is breathing comfortably. He is feeling slightly better. Denies having any chest pain. Occasional cough. No nausea. No vomiting. No abdominal pain or diarrhea. PHYSICAL EXAMINATION: Blood pressure 154/75 with a pulse of 62, temperature 97.2. He is 89% on high-flow nasal cannula oxygen. General description is an elderly male up in the chair in no distress. RESPIRATORY SYSTEM: Unlabored breathing with decreased intensity of breath sounds. No wheeze. HEART: S1, S2. Regular rate and rhythm. ABDOMEN: Soft. No tenderness. LABS: Hemoglobin is 12.3, white count 7.4, BUN of 33, creatinine 0.61. Blood culture negative. DIAGNOSTIC IMPRESSION AND PLAN: Patient with acute COVID-19 pneumonia in this patient currently out of the therapeutic window for remdesivir. He has been treated with vitamin C, Decadron, Lovenox and zinc; to continue along with respiratory support. Monitor clinical course closely. MMODL / IJN: [id number] /
[2020-11-14 04:36] LABS: Basophils % (A) 0 %; Eosinophils % (A) 0 %; HCT 36.7 % (39.0-53.0); Lymphocytes # (A) 0.9 k/uL (1.0-4.8); Lymphocytes % (A) 12 %; MCH 31.8 pg (25.0-35.0); MCHC 35.4 g/dL (31.0-37.0); Mean Platelet Volume 7.2; Monocytes # (A) 0.4 k/uL (0-1.0); Monocytes % (A) 5 %; Neutrophils # (A) 6.3 k/uL (1.3-7.7); Neutrophils % (A) 81 %; Platelet Count 376 k/uL (150-450); RBC 4.07 m/uL (4.30-5.90); WBC 7.8 k/uL (3.8-10.6)
[2020-11-14 04:44] LABS: ALT 53 U/L (4-49); AST 33 U/L (17-59); African American GFR (CKD) >90 (>60 ml/min/1.73 sqM); Albumin 2.6 g/dL (3.5-5.0); Alkaline Phosphatase 86 U/L (38-126); Anion Gap 4 mmol/L; Blood Urea Nitrogen 29 mg/dL (9-20); C Reactive Protein 30.2 mg/L (<10.0); Calcium 8.4 mg/dL (8.4-10.2); Carbon Dioxide 24 mmol/L (22-30); Chloride 107 mmol/L (98-107); Creatine Kinase 26 U/L (55-170); Glucose 129 mg/dL (74-99); LDH 847 U/L (313-618); Non-African American GFR(CKD) >90 (>60 ml/min/1.73 sqM); Potassium 4.2 mmol/L (3.5-5.1); Sodium 135 mmol/L (137-145); Total Bilirubin 0.5 mg/dL (0.2-1.3); Total Protein 5.5 g/dL (6.3-8.2)
[2020-11-14] MEDS: INSULIN ASPART (NovoLOG) 100 UNIT/ML VIAL SQ SCH ×4 (06:42→20:32)
[2020-11-14] MEDS: carvediloL 6.25 MG TAB PO SCH ×2 (06:46→17:18)
[2020-11-14] MEDS: PANTOPRAZOLE 40 MG TABLET PO SCH (06:46)
[2020-11-14 06:52] LABS: Glucose,Whole Blood 109 mg/dL (75-99)
--- NOTE | 2020-11-14 07:04 | XR ---
EXAMINATION TYPE: XR chest 1V portable DATE OF EXAM: 11/14/2020 CLINICAL HISTORY: Difficulty breathing progress study. TECHNIQUE: Single AP portable upright view of the chest is obtained. COMPARISON: Chest x-ray from one day earlier and older studies. FINDINGS: Cardiac silhouette size stable and within normal limits. Osseous structures remain intact. Diffuse reticulonodular interstitial opacities bilaterally remain present on background basilar building surveyor delfino change. IMPRESSION: Bilateral reticulonodular acute interstitial edema and/or infiltrates. No significant mala nge from one day earlier.
[2020-11-14] MEDS: SYMBICORT 160-4.5 MCG INHALER INHALATION SCH ×2 (08:02→19:56)
[2020-11-14] MEDS: cilostazoL 100 MG TAB PO SCH ×2 (08:40→20:13)
[2020-11-14] MEDS: ATORVASTATIN 10 MG TAB PO SCH (08:40)
[2020-11-14] MEDS: ASCORBIC ACID 500 MG TAB PO SCH (08:40)
[2020-11-14] MEDS: ASPIRIN 325 MG TAB PO SCH (08:40)
[2020-11-14] MEDS: LORazepam 1 MG TAB PO PRN ×2 (08:40→21:58)
[2020-11-14] MEDS: CHOLECALCIFEROL 1,000 UNIT TAB PO SCH (08:41)
[2020-11-14] MEDS: ZINC SULFATE 220 MG CAP PO SCH (08:41)
[2020-11-14] MEDS: CLOPIDOGREL 75 MG TAB PO SCH (08:41)
[2020-11-14] MEDS: glipiZIDE 5 MG TAB PO SCH (08:41)
[2020-11-14] MEDS: MULTIVITAMINS, THERA 1 EACH TAB PO SCH (08:41)
[2020-11-14] MEDS: DEXAMETHASONE SOD PHOSPHATE 10 MG/ML 1 ML VIAL IV SCH ×2 (08:42→20:11)
[2020-11-14] MEDS: FUROSEMIDE 10 MG/ML 4 ML VIAL IV SCH (08:45)
[2020-11-14] MEDS: ACETAMINOPHEN TAB 325 MG TAB PO PRN ×2 (08:47→14:48)
[2020-11-14] MEDS ORDERED: ENOXAPARIN 40 MG/0.4 ML SYRINGE SQ SCH (09:00)
--- NOTE | 2020-11-14 09:48 | P.PN ---
Subjective Progress Note Date: 11/14/20 Principal diagnosis: Acute hypoxic respiratory failure secondary to cope 19 pneumonia This is a very pleasant 75-year-old gentleman with a history of coronary artery disease with previous stent placement, hypertension, hyperlipidemia, diabetes mellitus type 2, peripheral vascular disease with previous intervention, prior history of tobacco use. In the end of October 2020 the patient was exposed to CoVID 19 by a daughter who works at a [employer] in [place]. His had also tested positive. The patient was admitted here on November 03 and did quite well and discharged home on November 05. He had been outside the window for Remdesivir based on his symptoms that admission. He was still on dexamethasone to complete 10 days and vitamin supplements. He represented here to the emergency room yesterday 11/08/2020 with increasing shortness of breath cough congestion. His pulse ox reading at home was 77% according to family members. He is seen today in consultation on the regular medical floor. He is currently on BiPAP 12/5 and 60% FiO2 with O2 saturation at 89%. He was trialed on 6 L high flow nasal cannula with O2 saturation of 74%. He is awake and alert. He is dyspneic with minimal exertion. He has remained afebrile. Hemodynamically stable. CT angiogram ruled out pulmonary embolism. There is extensive pulmonary interstitial infiltrates noted. White count 10.0. Hemoglobin 15.0. Lymphocytes 1.2. D-dimer 3.19. Sodium 141. Potassium 4.6. Creatinine 0.76. Initial lactic 2.3 currently 1.5. Ferritin level DCCCXX. LDH 1523. C-reactive protein 87.0. Pro calcitonin 0.10. He is currently on vancomycin and cefepime. He's been initiated on Lovenox, dexamethasone, vitamin supplements. The patient is seen today 11/13/2020 in follow-up in the intensive care unit. He is still requiring AirVo high flow oxygen at 50 L/m and 70% FiO2. He is 0.9 normal saline at 75 ML's per hour. He remains awake and alert. Chest x-ray continues to feel fine interstitial infiltrates right greater than left. Slight improvement on the right now. White count 7.4. Hemoglobin 13.8. D-dimer down to 2.80. Sodium 134. Potassium 4.3. Creatinine 0.61. LDH 833. C-reactive protein 44.6. Was noted to have some continued sediment some blood-tinged urine. Lovenox is decreased to 40 mg subcu daily. Remains on Plavix and aspirin. Continue dexamethasone, vitamin supplements. Continued on IV diuretics 40 mg daily. The patient seen today 11/14/2020 follow-up in the intensive care unit. He is currently on AirVo high flow oxygen at 50 L/m 73% FiO2. Chest x-ray continues to show bilateral reticulonodular acute interstitial edema and/or infiltrates. No significant change. White count 7.8. Hemoglobin 13.0. D-dimer 9.03. Sodium 135. Potassium 4.2. Creatinine 0.56. AST 33, ALT 53. LDH 847. C- reactive protein 30.2. He remains on Lovenox, dexamethasone, Protonix, vitamin supplement. Remains on IV diuretics. #Is 75 ML's per hour. He is tolerating a diet. Objective - Vital Signs Vital signs: Vital Signs Temp 97.9 F 11/14/20 08:00 Pulse 61 11/14/20 09:00 Resp 16 11/14/20 09:00 BP 138/91 11/14/20 09:00 Pulse Ox 92 L 11/14/20 09:00 Intake & Output 11/13/20 11/14/20 11/14/20 18:59 06:59 18:59 Intake Total 1325 900 425 Output Total 2085 660 240 Balance -760 240 185 Weight 72.1 kg Intake: IV 900 900 225 Sodium Chloride 0.9% 1, 900 900 225 000 ml @ 75 mls/hr IV . [id number] [facility] Rx#:[id number] Oral 425 200 Output: Urine 2085 660 240 Other: Voiding Method Indwelling Catheter Indwelling Catheter - Exam GENERAL EXAM: Alert, pleasant 75-year-old gentleman, on AirVo 50 L/m at 73% FiO2, and mild respiratory distress. HEAD: Normocephalic. EYES: Normal reaction of pupils, equal size. NOSE: Clear with pink turbinates. THROAT: No erythema or exudates. NECK: No masses, no JVD. CHEST: No chest wall deformity. LUNGS: Equal air entry with coarse crackles in the bilateral posterior bases. CVS: S1 and S2 normal with no audible murmur, regular rhythm. ABDOMEN: No hepatosplenomegaly, normal bowel sounds, no guarding or rigidity. SPINE: No scoliosis or deformity SKIN: No rashes CENTRAL NERVOUS SYSTEM: No focal deficits, tone is normal in all 4 extremities. EXTREMITIES: There is no peripheral edema. No clubbing, no cyanosis. Peripher al pulses are intact. - Labs CBC & Chem 7: 11/14/20 03:46 11/14/20 00:30 Labs: Abnormal Lab Results - Last 24 Hours (Table) 11/13/20 11/13/20 11/13/20 Range/Units 04:23 11:52 16:45 RBC (4.30-5.90) m/uL Hct (39.0-53.0) % Lymphocytes # (1.0-4.8) k/uL D-Dimer (<0.60) mg/L FEU Sodium (137-145) mmol/L BUN (9-20) mg/dL Creatinine (0.66-1.25) mg/dL Glucose (74-99) mg/dL POC Glucose (mg/dL) 281 H 147 H (75-99) mg/dL Ferritin 747.1 H (22.0-322.0) ng/mL ALT (4-49) U/L Lactate Dehydrogenase (313-618) U/L Creatine Kinase (55-170) U/L C-Reactive Protein (<10.0) mg/L Total Protein (6.3-8.2) g/dL Albumin (3.5-5.0) g/dL 11/13/20 11/14/20 11/14/20 Range/Units 19:59 00:30 03:46 RBC (4.30-5.90) m/uL Hct (39.0-53.0) % Lymphocytes # (1.0-4.8) k/uL D-Dimer 9.03 H (<0.60) mg/L FEU Sodium 135 L (137-145) mmol/L BUN 29 H (9-20) mg/dL Creatinine 0.56 L (0.66-1.25) mg/dL Glucose 129 H (74-99) mg/dL POC Glucose (mg/dL) 217 H (75-99) mg/dL Ferritin (22.0-322.0) ng/mL ALT 53 H (4-49) U/L Lactate Dehydrogenase 847 H (313-618) U/L Creatine Kinase 26 L (55-170) U/L C-Reactive Protein 30.2 H (<10.0) mg/L Total Protein 5.5 L (6.3-8.2) g/dL Albumin 2.6 L (3.5-5.0) g/dL 11/14/20 11/14/20 Range/Units 03:46 06:41 RBC 4.07 L (4.30-5.90) m/uL Hct 36.7 L (39.0-53.0) % Lymphocytes # 0.9 L (1.0-4.8) k/uL D-Dimer (<0.60) mg/L FEU Sodium (137-145) mmol/L BUN (9-20) mg/dL Creatinine (0.66-1.25) mg/dL Glucose (74-99) mg/dL POC Glucose (mg/dL) 109 H (75-99) mg/dL Ferritin (22.0-322.0) ng/mL ALT (4-49) U/L Lactate Dehydrogenase (313-618) U/L Creatine Kinase (55-170) U/L C-Reactive Protein (<10.0) mg/L Total Protein (6.3-8.2) g/dL Albumin (3.5-5.0) g/dL Microbiology - Last 24 Hours (Table) 11/08/20 21:09 Blood Culture - Preliminary Blood No Growth after 120 hours 11/08/20 20:39 Blood Culture - Preliminary Blood No Growth after 120 hours Assessment and Plan Assessment: 1 Acute hypoxemic respiratory failure secondary to CoVID 19 infection, outside the window for Remdesivir, currently requiring AirVo high flow oxygen at 50 L/m and 73% FiO2 2 Recent admission for COVID 19 infection, November 03 to 11/05/2020, outside the window for Remdesivir, on room air. Discharged in stable condition 3 Coronary artery disease with previous stent placement 4 Hypertension 5 Hyperlipidemia 6 Diabetes mellitus, type II 7 Peripheral vascular disease with previous intervention 8 Former smoker Plan: The patient was seen and evaluated by Dr. Orozco Chest x-ray, labs reviewed Titrate down the FiO2 as tolerated Continue dexamethasone, vitamin supplements Continue Lovenox, aspirin and Plavix We will continue to follow and make further recommendations based on his clinical status I, the cosigning physician, performed a history & physical examination of the patient. Lungs sounds with bibasilar coarse crackles. Maintaining good O2 saturations in the 90s on 50 L and 73% FiO2 via the AirVo high flow oxygen device. I discussed the assessment and plan of care with my nurse practitioner, Malathi Erazo. I attest to the above note as dictated by her.
[2020-11-14 10:46] LABS: Ferritin 691.9 ng/mL (22.0-322.0)
[2020-11-14 11:42] LABS: Glucose,Whole Blood 128 mg/dL (75-99)
--- NOTE | 2020-11-14 12:21 | P.PN ---
Subjective Progress Note Date: 11/14/20 HISTORY OF PRESENT ILLNESS This is a 75-year-old male patient of Dr. Roman with past medical history of coronary artery disease status post stent, hypertension, hyper lipidemia, diabetes mellitus type 2, skin cancer, peripheral vascular disease with right femoral endarterectomy and multiple stenting in the past, remote history of tobacco use and dependence. Patient states that he and his had Zofia with their daughter who works at a [employer] in [place]. When she returned to work she had to undergo required Covid 19 testing which came back positive. Patient was recently hospitalized 11/03-11/05 for COVID-19 pneumonia. His breathing status and pulseox were stable and patient was discharged home in stable condition. Patient complains of fever, cough and sputum production. No diarrhea, abdominal pain. No choking episodes. Patient came into [facility] emergency center for evaluation. He was afebrile, heart rate 83, blood pressure 135/74, pulse ox 89% on room air. Patient was placed on Bipap. Patient did not tolerate nasal cannula and dropped down to 74% on 6 L. CBC was unremarkable. D-dimer 3.19. Sodium 141, potassium 4.6, chloride 110, CO2 19, BUN 32 and creatinine 0.76. Blood sugar 180. Lactic acid 2.3 and repeat 1.5. Ferritin 820. Lactic acid 1523. C- reactive protein 87. Pro-calcitonin 0.1. CT angiogram of the chest showed no evidence of pulmonary embolism. Extensive pulmonary interstitial infiltrates. No suspicious pulmonary mass. Chest x-ray reveals increased pulmonary interstitial density. Patient admitted to the [facility] floor and consult with pulmonary medicine and infectious disease. 11/10: Patient became hypoxic while on nasal cannula at 74% on 6 L was placed on BiPAP and pulse ox increased only to 87, patient was transferred into the intensive care unit yesterday early afternoon. Pulse ox is running between 89 and 93% on AirVo FiO2 of 80%. He has been afebrile, heart rate 58, respiratory rate 27, blood pressure 135/78. W BC is 7.5, hemoglobin 12.6, lymphocytes 0.9. D-dimer 12.5, BUN 37 creatinine 0.61. LDH 961, C-reactive protein 50.3. Urinalysis showed moderate blood, RBCs 100. Cultures no growth. Repeat chest x-ray reveals bilateral interstitial infiltrates suggestive of interstitial pneumonia stable. [facility] Patient has been seen and followed by pulmonary medicine and added Lasix 40 mg IV push, Rocephin started. 11/11: Patient remains in the intensive care unit. He is currently on AirVo at FiO2 of 70% with pulse ox of 90%. Patient appears to be stable. He does continue to have shortness of breath. Breath sounds are improving. He has been afebrile, pulse ox 91-95%, heart rate 66, respiratory rate 24, blood pressure 124/75. WBC 7.1, hemoglobin 12, lymphocytes 0.9. Sodium 136, potassium 4.5, chloride 108, CO2 22, BUN 35 and creatinine 0.57. Blood sugar running between 160- 188. AST 62, ALT 67, alkaline phosphatase 100. Antibiotics discontinued by pulmonary medicine. Repeat x-ray reveals diffuse interstitial and patchy peripheral infiltrates, left greater than right, not significantly changed. 11/12: Patient remains in intensive care unit. His breathing status is stable and not worsening. He is able to eat only a little bit. Potassium and magnesium have been replaced this morning. WBC 9.4, hemoglobin 12.5. D-dimer 4.48. Creatinine 0.55. Blood sugars running between 139 and 160. Ferritin 669.3. LDH 872. C-reactive protein 16.6. Pulse ox is 91-94% on high flow nasal cannula FiO2 70, flow rate 50. Afebrile, heart rate 60, blood pressure 131/78. 11/13: Patient remains in the intensive care unit. Repeat chest x-ray reveals fine interstitial infiltrates, right greater than left. There is no improving on the right. Patient is currently on Arava at 50 MLS per minute and 70% FiO2 pulse ox seen Repeat blood work reveals WBC 7.4, hemoglobin 13.8, d-dimer 2.8. Sodium 134, potassium 4.3, creatinine 0.61. LDH 833. C-reactive protein 44.6. Patient n oted to have some small amount of bloody sediment in his Perdomo and Lovenox was decreased. Patient is aware that his has also been admitted to the hospital and is stable. 11/14: Patient remains in the intensive care unit and pulse ox is 94% on high flow nasal cannula flow rate of 50, FiO2 72. Patient appears to be comfortable at rest. Also patient appears to be in good spirits today. He notes his is going to be discharged home today. WBC 7.8, hemoglobin 13. D-dimer 9.03. BUN 29 and creatinine 0.56. Ferritin 691.9. ALT 53, LDH 847. CK 26, C- reactive protein 30.2. Repeat chest x-ray reveals bilateral reticular nodular acute interstitial edema and/or infiltrates. No significant change. REVIEW OF SYSTEMS Constitutional: Reports reports chills fever. No weight change. Reports generalized weakness and reports fatigue. EENT: No headache. No blurred vision or double vision, no loss of vision. No nasal drainage or congestion. No epistaxis. No sore throat. Lungs: Reports shortness of breath improving, reports cough, reports sputum production. Reports wheezing. Cardiovascular: No chest pain, no lower extremity edema. No palpitations. No paroxysmal nocturnal dyspnea. No orthopnea. No lightheadedness or dizziness. No syncopal episodes. Abdominal: No abdominal pain. No nausea, vomiting. No diarrhea. No constipation. No bloody or tarry stools. Reports loss of appetite. Genitourinary: No dysuria, increased frequency, urgency. No urinary retention. Mild hematuria. Musculoskeletal: No myalgias. No muscle weakness, no gait dysfunction, no frequent falls. No back pain. No neck pain. Integumentary: No wounds, no lesions. No rash or pruritus. Neurologic: No aphasia. No facial droop. No change in mentation. No head injury. No headache. No paralysis. No paresthesia. Psychiatric: No depression. No anxiety. Endocrine: No abnormal blood sugars. PHYSICAL EXAMINATION Gen: This is a 75-year-old male. He is resting in ICU bed and appears to be comfortable at rest. HEENT: Head is atraumatic, normocephalic. Pupils equal, round. Sclerae is anicteric. NECK: Supple. No JVD. No lymphadenopathy. No thyromegaly. LUNGS: Diminished bilaterally. No wheezing. No respiratory distress noted at rest. HEART: Regular rate and rhythm. No murmur. ABDOMEN: Soft. Bowel sounds are present. No masses. No tenderness. EXTREMITIES: No pedal edema. No calf tenderness. NEUROLOGICAL: Patient is awake, alert and oriented x3. Cranial nerves 2 through 12 are grossly intact. ASSESSMENT AND PLAN 1. Acute hypoxic respiratory failure secondary to Covid 19 pneumonia. Continue oxygen therapy. Continue supplementation with zinc, vitamin D, vitamin C, ceftriaxone, dexamethasone 6 mg IV twice daily, Lovenox 40 mg subcu daily. Consult with pulmonary medicine and infectious disease appreciated. Antibiotics discontinued. Patient is currently on high flow nasal cannula. 2. Hypertension. Continue Coreg 6.25 mg twice daily. 3. Hyperlipidemia. Continue Lipitor 10 mg daily, Zetia 10 mg at bedtime. 4. Diabetes mellitus type 2. Continue glipizide 5 mg before breakfast, NovoLog scale before meals and at bedtime. 5. Peripheral vascular disease with right femoral endarterectomy and multiple stenting in the past, stable. Continue Pletal, Plavix 75 mg daily, Lipitor, aspirin. 6. Remote history of tobacco use and dependence. 7. Generalized anxiety disorder. Continue Ativan 1 mg twice daily as needed and trazodone 100 mg at bedtime. 8. DVT prophylaxis. Lovenox. 9. GI prophylaxis. Protonix. 10. Mild hematuria. Lovenox decreased to 40 mg subcu daily. CODE STATUS: Full code DISCHARGE PLAN Most likely return home. Impression and plan of care have been directed as dictated by the signing physician. Reema Tai nurse practitioner acting as scribe for signing physician. Objective - Vital Signs Vital signs: Vital Signs Temp 97.9 F 11/14/20 08:00 Pulse 61 11/14/20 09:00 Resp 16 11/14/20 09:00 BP 138/91 11/14/20 09:00 Pulse Ox 92 L 11/14/20 09:00 Intake & Output 11/13/20 11/14/20 11/14/20 18:59 06:59 18:59 Intake Total 1325 900 425 Output Total 2085 660 240 Balance -760 240 185 Weight 72.1 kg Intake: IV 900 900 225 Sodium Chloride 0.9% 1, 900 900 225 000 ml @ 75 mls/hr IV . [id number] Rx#:[id number] Oral 425 200 Output: Urine 2085 660 240 Other: Voiding Method Indwelling Catheter Indwelling Catheter - Labs CBC & Chem 7: 11/14/20 03:46 11/14/20 00:30 Labs: Abnormal Lab Results - Last 24 Hours (Table) 11/13/20 11/13/20 11/13/20 Range/Units 04:23 11:52 16:45 RBC (4.30-5.90) m/uL Hct (39.0-53.0) % Lymphocytes # (1.0-4.8) k/uL D-Dimer (<0.60) mg/L FEU Sodium (137-145) mmol/L BUN (9-20) mg/dL Creatinine (0.66-1.25) mg/dL Glucose (74-99) mg/dL POC Glucose (mg/dL) 281 H 147 H (75-99) mg/dL Ferritin 747.1 H (22.0-322.0) ng/mL ALT (4-49) U/L Lactate Dehydrogenase (313-618) U/L Creatine Kinase (55-170) U/L C-Reactive Protein (<10.0) mg/L Total Protein (6.3-8.2) g/dL Albumin (3.5-5.0) g/dL 11/13/20 11/14/20 11/14/20 Range/Units 19:59 00:30 03:46 RBC (4.30-5.90) m/uL Hct (39.0-53.0) % Lymphocytes # (1.0-4.8) k/uL D-Dimer 9.03 H (<0.60) mg/L FEU Sodium 135 L (137-145) mmol/L BUN 29 H (9-20) mg/dL Creatinine 0.56 L (0.66-1.25) mg/dL Glucose 129 H (74-99) mg/dL POC Glucose (mg/dL) 217 H (75-99) mg/dL Ferritin (22.0-322.0) ng/mL ALT 53 H (4-49) U/L Lactate Dehydrogenase 847 H (313-618) U/L Creatine Kinase 26 L (55-170) U/L C-Reactive Protein 30.2 H (<10.0) mg/L Total Protein 5.5 L (6.3-8.2) g/dL Albumin 2.6 L (3.5-5.0) g/dL 11/14/20 11/14/20 Range/Units 03:46 06:41 RBC 4.07 L (4.30-5.90) m/uL Hct 36.7 L (39.0-53.0) % Lymphocytes # 0.9 L (1.0-4.8) k/uL D-Dimer (<0.60) mg/L FEU Sodium (137-145) mmol/L BUN (9-20) mg/dL Creatinine (0.66-1.25) mg/dL Glucose (74-99) mg/dL POC Glucose (mg/dL) 109 H (75-99) mg/dL Ferritin (22.0-322.0) ng/mL ALT (4-49) U/L Lactate Dehydrogenase (313-618) U/L Creatine Kinase (55-170) U/L C-Reactive Protein (<10.0) mg/L Total Protein (6.3-8.2) g/dL Albumin (3.5-5.0) g/dL Microbiology - Last 24 Hours (Table) 11/08/20 21:09 Blood Culture - Preliminary Blood No Growth after 120 hours 11/08/20 20:39 Blood Culture - Preliminary Blood No Growth after 120 hours
[2020-11-14 13:20] VITALS: BMI 24.1
[2020-11-14 17:43] LABS: Glucose,Whole Blood 131 mg/dL (75-99)
[2020-11-14] MEDS: SODIUM CHLORIDE 0.9% 500 ML 500 ML IV SCH (17:43)
--- NOTE | 2020-11-14 19:47 | PN ---
PROGRESS NOTE DATE OF SERVICE: 11/14/2020 REASON FOR FOLLOWUP: COVID-19 pneumonia. INTERVAL HISTORY: The patient is currently afebrile, has been breathing more comfortably. The patient is currently on high-flow nasal cannula oxygen. Denies having any chest pain. Occasional cough. No abdominal pain. No diarrhea. PHYSICAL EXAMINATION: Blood pressure 133/78 with a pulse of 64, temperature 97.8. He is 95% on 50% high-flow nasal cannula oxygen. General description is an elderly male up in the chair in no distress. RESPIRATORY SYSTEM: Unlabored breathing with decreased intensity of breath sounds. No wheeze. HEART: S1, S2. Regular rate and rhythm. ABDOMEN: Soft. No tenderness. LABS: Hemoglobin 13, white count 7.8. D-dimer is up to 9.03. Creatinine 0.56. CRP 30.02. Blood culture has been negative. DIAGNOSTIC IMPRESSION AND PLAN: Patient with acute COVID-19 infection in this patient with acute respiratory failure. Chest x-ray with no significant change. The patient may have slight clinical improvement. The patient is currently covered with dexamethasone, Lovenox, higher dose because of his elevated D-dimer in addition to the vitamin C and zinc; to continue along with respiratory support. Continue supportive care. MMODL / IJN: [id number] /
[2020-11-14] MEDS: ENOXAPARIN 40 MG/0.4 ML SYRINGE SQ SCH (20:11)
[2020-11-14] MEDS: EZETIMIBE 10 MG TAB PO SCH (20:11)
[2020-11-14] MEDS: traZODone HCL 100 MG TAB PO SCH (20:11)
[2020-11-14] MEDS: HYDROmorphone 0.5 MG/0.5 ML SYRINGE IVP PRN (20:15)
[2020-11-14 20:31] LABS: Glucose,Whole Blood 125 mg/dL (75-99)
[2020-11-15 04:37] LABS: Basophils % (A) 0 %; Eosinophils % (A) 0 %; HCT 38.9 % (39.0-53.0); HGB 13.3 gm/dL (13.0-17.5); Lymphocytes # (A) 1.1 k/uL (1.0-4.8); Lymphocytes % (A) 12 %; MCH 31.3 pg (25.0-35.0); MCHC 34.3 g/dL (31.0-37.0); MCV 91.2 fL (80.0-100.0); Mean Platelet Volume 7.1; Monocytes # (A) 0.3 k/uL (0-1.0); Monocytes % (A) 4 %; Neutrophils # (A) 7.2 k/uL (1.3-7.7); Neutrophils % (A) 83 %; Platelet Count 397 k/uL (150-450); RBC 4.26 m/uL (4.30-5.90); WBC 8.7 k/uL (3.8-10.6)
[2020-11-15 04:50] LABS: ALT 60 U/L (4-49); AST 37 U/L (17-59); African American GFR (CKD) >90 (>60 ml/min/1.73 sqM); Albumin 2.8 g/dL (3.5-5.0); Alkaline Phosphatase 87 U/L (38-126); Anion Gap 5 mmol/L; Blood Urea Nitrogen 30 mg/dL (9-20); C Reactive Protein 19.1 mg/L (<10.0); Calcium 8.6 mg/dL (8.4-10.2); Carbon Dioxide 23 mmol/L (22-30); Chloride 106 mmol/L (98-107); Glucose 184 mg/dL (74-99); LDH 883 U/L (313-618); Non-African American GFR(CKD) >90 (>60 ml/min/1.73 sqM); Potassium 4.3 mmol/L (3.5-5.1); Sodium 134 mmol/L (137-145); Total Bilirubin 0.7 mg/dL (0.2-1.3); Total Protein 5.8 g/dL (6.3-8.2)
[2020-11-15] MEDS: INSULIN ASPART (NovoLOG) 100 UNIT/ML VIAL SQ SCH ×4 (06:42→20:43)
[2020-11-15] MEDS: PANTOPRAZOLE 40 MG TABLET PO SCH (06:42)
[2020-11-15] MEDS: carvediloL 6.25 MG TAB PO SCH ×2 (06:42→17:07)
[2020-11-15 06:43] LABS: Glucose,Whole Blood 138 mg/dL (75-99)
--- NOTE | 2020-11-15 08:03 | XR ---
EXAMINATION TYPE: XR chest 1V portable DATE OF EXAM: 11/15/2020 Comparison: 11/14/2020 Clinical History: 75-year-old male, COVID Findings: Heart upper limits of normal in size. Bilateral interstitial opacities and more patchy peripheral lef t greater than right basilar opacities persist without significant change. No pleural effusion. Impression: Interstitial infiltrates and patchy peripheral basilar opacities persist without significant change.
[2020-11-15] MEDS: CHOLECALCIFEROL 1,000 UNIT TAB PO SCH (08:19)
[2020-11-15] MEDS: HYDROcodone/APAP 5-325MG 1 EACH TAB PO PRN ×2 (08:19→17:11)
[2020-11-15] MEDS: cilostazoL 100 MG TAB PO SCH ×2 (08:19→20:47)
[2020-11-15] MEDS: ENOXAPARIN 40 MG/0.4 ML SYRINGE SQ SCH ×2 (08:19→20:44)
[2020-11-15] MEDS: glipiZIDE 5 MG TAB PO SCH (08:20)
[2020-11-15] MEDS: ASCORBIC ACID 500 MG TAB PO SCH (08:20)
[2020-11-15] MEDS: FUROSEMIDE 10 MG/ML 4 ML VIAL IV SCH (08:20)
[2020-11-15] MEDS: ZINC SULFATE 220 MG CAP PO SCH (08:20)
[2020-11-15] MEDS: ASPIRIN 325 MG TAB PO SCH (08:20)
[2020-11-15] MEDS: DEXAMETHASONE SOD PHOSPHATE 10 MG/ML 1 ML VIAL IV SCH ×2 (08:20→20:45)
[2020-11-15] MEDS: MULTIVITAMINS, THERA 1 EACH TAB PO SCH (08:20)
[2020-11-15] MEDS: CLOPIDOGREL 75 MG TAB PO SCH (08:20)
[2020-11-15] MEDS: ATORVASTATIN 10 MG TAB PO SCH (08:21)
[2020-11-15] MEDS: SYMBICORT 160-4.5 MCG INHALER INHALATION SCH ×2 (08:29→19:32)
[2020-11-15 09:52] LABS: Ferritin 649.4 ng/mL (22.0-322.0)
--- NOTE | 2020-11-15 10:13 | P.PN ---
Subjective Progress Note Date: 11/15/20 Principal diagnosis: Acute hypoxic respiratory failure secondary to cope 19 pneumonia This is a very pleasant 75-year-old gentleman with a history of coronary artery disease with previous stent placement, hypertension, hyperlipidemia, diabetes mellitus type 2, peripheral vascular disease with previous intervention, prior history of tobacco use. In the end of October 2020 the patient was exposed to CoVID 19 by a daughter who works at a [employer] in [place]. His had also tested positive. The patient was admitted here on November 03 and did quite well and discharged home on November 05. He had been outside the window for Remdesivir based on his symptoms that admission. He was still on dexamethasone to complete 10 days and vitamin supplements. He represented here to the emergency room yesterday 11/08/2020 with increasing shortness of breath cough congestion. His pulse ox reading at home was 77% according to family members. He is seen today in consultation on the regular medical floor. He is currently on BiPAP 12/5 and 60% FiO2 with O2 saturation at 89%. He was trialed on 6 L high flow nasal cannula with O2 saturation of 74%. He is awake and alert. He is dyspneic with minimal exertion. He has remained afebrile. Hemodynamically stable. CT angiogram ruled out pulmonary embolism. There is extensive pulmonary interstitial infiltrates noted. White count 10.0. Hemoglobin 15.0. Lymphocytes 1.2. D-dimer 3.19. Sodium 141. Potassium 4.6. Creatinine 0.76. Initial lactic 2.3 currently 1.5. Ferritin level DCCCXX. LDH 1523. C-reactive protein 87.0. Pro calcitonin 0.10. He is currently on vancomycin and cefepime. He's been initiated on Lovenox, dexamethasone, vitamin supplements. The patient is seen today 11/13/2020 in follow-up in the intensive care unit. He is still requiring AirVo high flow oxygen at 50 L/m and 70% FiO2. He is 0.9 normal saline at 75 ML's per hour. He remains awake and alert. Chest x-ray continues to feel fine interstitial infiltrates right greater than left. Slight improvement on the right now. White count 7.4. Hemoglobin 13.8. D-dimer down to 2.80. Sodium 134. Potassium 4.3. Creatinine 0.61. LDH 833. C-reactive protein 44.6. Was noted to have some continued sediment some blood-tinged urine. Lovenox is decreased to 40 mg subcu daily. Remains on Plavix and aspirin. Continue dexamethasone, vitamin supplements. Continued on IV diuretics 40 mg daily. The patient seen today 11/14/2020 follow-up in the intensive care unit. He is currently on AirVo high flow oxygen at 50 L/m 73% FiO2. Chest x-ray continues to show bilateral reticulonodular acute interstitial edema and/or infiltrates. No significant change. White count 7.8. Hemoglobin 13.0. D-dimer 9.03. Sodium 135. Potassium 4.2. Creatinine 0.56. AST 33, ALT 53. LDH 847. C- reactive protein 30.2. He remains on Lovenox, dexamethasone, Protonix, vitamin supplement. Remains on IV diuretics. #Is 75 ML's per hour. He is tolerating a diet. The patient is seen today 11/15/2020 follow-up in the intensive care unit. He is currently sitting up in a chair at the bedside. Awake and alert in no acute distress. Tolerating his diet. His AirVo is down to 50 L/m at 50% FiO2. Chest x-ray continues to revealed interstitial infiltrates and patchy peripheral basilar opacities. No significant change. No current IV fluids. White count 8.7. Hemoglobin 13.3. Sodium 134. Potassium 4.3. Creatinine 0.52. Ferritin 649. LDH 83. C-reactive protein 19.1. He remains on Lovenox, dexamethasone, Protonix, vitamin supplement. Remains on IV diuretics. Objective - Vital Signs Vital signs: Vital Signs Temp 97.6 F 11/15/20 04:00 Pulse 68 11/15/20 07:00 Resp 17 11/15/20 07:00 BP 138/83 11/15/20 07:00 Pulse Ox 92 L 11/15/20 09:26 Intake & Output 11/14/20 11/15/20 11/15/20 18:59 06:59 18:59 Intake Total 625 250 120 Output Total 1865 655 100 Balance -1180 405 20 Weight 72.1 kg 72 kg Intake: IV 425 Sodium Chloride 0.9% 1, 425 000 ml @ 75 mls/hr IV . [id number] [facility] Rx#:[id number] Oral 200 250 120 Output: Urine 1865 655 100 Other: Voiding Method Indwelling Catheter Indwelling Catheter - Exam GENERAL EXAM: Alert, pleasant 75-year-old gentleman, on AirVo 50 L/m at 50% FiO2, and mild respiratory distress. HEAD: Normocephalic. EYES: Normal reaction of pupils, equal size. NOSE: Clear with pink turbinates. THROAT: No erythema or exudates. NECK: No masses, no JVD. CHEST: No chest wall deformity. LUNGS: Equal air entry with coarse crackles in the bilateral posterior bases. CVS: S1 and S2 normal with no audible murmur, regular rhythm. ABDOMEN: No hepatosplenomegaly, normal bowel sounds, no guarding or rigidity. SPINE: No scoliosis or deformity SKIN: No rashes CENTRAL NERVOUS SYSTEM: No focal deficits, tone is normal in all 4 extremities. EXTREMITIES: There is no peripheral edema. No clubbing, no cyanosis. Dania pheral pulses are intact. - Labs CBC & Chem 7: 11/15/20 03:50 11/15/20 03:50 Labs: Abnormal Lab Results - Last 24 Hours (Table) 11/14/20 11/14/20 11/14/20 Range/Units 00:30 11:40 17:25 RBC (4.30-5.90) m/uL Hct (39.0-53.0) % Sodium (137-145) mmol/L BUN (9-20) mg/dL Creatinine (0.66-1.25) mg/dL Glucose (74-99) mg/dL POC Glucose (mg/dL) 128 H 131 H (75-99) mg/dL Ferritin 691.9 H (22.0-322.0) ng/mL ALT (4-49) U/L Lactate Dehydrogenase (313-618) U/L C-Reactive Protein (<10.0) mg/L Total Protein (6.3-8.2) g/dL Albumin (3.5-5.0) g/dL 11/14/20 11/15/20 11/15/20 Range/Units 20:30 03:50 03:50 RBC 4.26 L (4.30-5.90) m/uL Hct 38.9 L (39.0-53.0) % Sodium 134 L (137-145) mmol/L BUN 30 H (9-20) mg/dL Creatinine 0.52 L (0.66-1.25) mg/dL Glucose 184 H (74-99) mg/dL POC Glucose (mg/dL) 125 H (75-99) mg/dL Ferritin 649.4 H (22.0-322.0) ng/mL ALT 60 H (4-49) U/L Lactate Dehydrogenase 883 H (313-618) U/L C-Reactive Protein 19.1 H (<10.0) mg/L Total Protein 5.8 L (6.3-8.2) g/dL Albumin 2.8 L (3.5-5.0) g/dL 11/15/20 Range/Units 06:36 RBC (4.30-5.90) m/uL Hct (39.0-53.0) % Sodium (137-145) mmol/L BUN (9-20) mg/dL Creatinine (0.66-1.25) mg/dL Glucose (74-99) mg/dL POC Glucose (mg/dL) 138 H (75-99) mg/dL Ferritin (22.0-322.0) ng/mL ALT (4-49) U/L Lactate Dehydrogenase (313-618) U/L C-Reactive Protein (<10.0) mg/L Total Protein (6.3-8.2) g/dL Albumin (3.5-5.0) g/dL Microbiology - Last 24 Hours (Table) 11/08/20 21:09 Blood Culture - Final Blood No Growth after 144 hours 11/08/20 20:39 Blood Culture - Final Blood No Growth after 144 hours Assessment and Plan Assessment: 1 Acute hypoxemic respiratory failure secondary to CoVID 19 infection, outside the window for Remdesivir, currently requiring AirVo high flow oxygen at 50 L/m and 50% FiO2 2 Recent admission for COVID 19 infection, November 03 to 11/05/2020, outside the window for Remdesivir, on room air. Discharged in stable condition 3 Coronary artery disease with previous stent placement 4 Hypertension 5 Hyperlipidemia 6 Diabetes mellitus, type II 7 Peripheral vascular disease with previous intervention 8 Former smoker Plan: The patient was seen and evaluated by Dr. Orozco Chest x-ray, labs reviewed We will discontinue the AirVo and switch to high flow nasal cannula Titrate down the FiO2 as tolerated Continue dexamethasone, vitamin supplements Continue Lovenox, aspirin and Plavix We will continue to follow and make further recommendations based on his clinical status I, the cosigning physician, performed a history & physical examination of the patient. Lungs sounds with bibasilar coarse crackles. Maintaining good O2 saturations in the 90s on 50 L and 50% FiO2 via the AirVo high flow oxygen device. I discussed the assessment and plan of care with my nurse practitioner, Malathi Erazo. I attest to the above note as dictated by her. Time with Patient: Greater than 30
--- NOTE | 2020-11-15 10:29 | P.PN ---
Subjective Progress Note Date: 11/15/20 HISTORY OF PRESENT ILLNESS This is a 75-year-old male patient of Dr. Roman with past medical history of coronary artery disease status post stent, hypertension, hyper lipidemia, diabetes mellitus type 2, skin cancer, peripheral vascular disease with right femoral endarterectomy and multiple stenting in the past, remote history of tobacco use and dependence. Patient states that he and his had Zofia with their daughter who works at a [employer] in [place]. When she returned to work she had to undergo required Covid 19 testing which came back positive. Patient was recently hospitalized 11/03-11/05 for COVID-19 pneumonia. His breathing status and pulseox were stable and patient was discharged home in stable condition. Patient complains of fever, cough and sputum production. No diarrhea, abdominal pain. No choking episodes. Patient came into [facility] emergency center for evaluation. He was afebrile, heart rate 83, blood pressure 135/74, pulse ox 89% on room air. Patient was placed on Bipap. Patient did not tolerate nasal cannula and dropped down to 74% on 6 L. CBC was unremarkable. D-dimer 3.19. Sodium 141, potassium 4.6, chloride 110, CO2 19, BUN 32 and creatinine 0.76. Blood sugar 180. Lactic acid 2.3 and repeat 1.5. Ferritin 820. Lactic acid 1523. C- reactive protein 87. Pro-calcitonin 0.1. CT angiogram of the chest showed no evidence of pulmonary embolism. Extensive pulmonary interstitial infiltrates. No suspicious pulmonary mass. Chest x-ray reveals increased pulmonary interstitial density. Patient admitted to the [facility] floor and consult with pulmonary medicine and infectious disease. 11/10: Patient became hypoxic while on nasal cannula at 74% on 6 L was placed on BiPAP and pulse ox increased only to 87, patient was transferred into the intensive care unit yesterday early afternoon. Pulse ox is running between 89 and 93% on AirVo FiO2 of 80%. He has been afebrile, heart rate 58, respiratory rate 27, blood pressure 135/78. W BC is 7.5, hemoglobin 12.6, lymphocytes 0.9. D-dimer 12.5, BUN 37 creatinine 0.61. LDH 961, C-reactive protein 50.3. Urinalysis showed moderate blood, RBCs 100. Cultures no growth. Repeat chest x-ray reveals bilateral interstitial infiltrates suggestive of interstitial pneumonia stable. Patient has been seen by infectious disease and [facility] Patient has been seen and followed by pulmonary medicine and added Lasix 40 mg IV push, Rocephin started. 11/11: Patient remains in the intensive care unit. He is currently on AirVo at FiO2 of 70% with pulse ox of 90%. Patient appears to be stable. He does continue to have shortness of breath. Breath sounds are improving. He has been afebrile, pulse ox 91-95%, heart rate 66, respiratory rate 24, blood pressure 124/75. WBC 7.1, hemoglobin 12, lymphocytes 0.9. Sodium 136, potassium 4.5, chloride 108, CO2 22, BUN 35 and creatinine 0.57. Blood sugar running between 160- 188. AST 62, ALT 67, alkaline phosphatase 100. Antibiotics discontinued by pulmonary medicine. Repeat x-ray reveals diffuse interstitial and patchy peripheral infiltrates, left greater than right, not significantly changed. 11/12: Patient remains in intensive care unit. His breathing status is stable and not worsening. He is able to eat only a little bit. Potassium and magnesium have been replaced this morning. WBC 9.4, hemoglobin 12.5. D-dimer 4.48. Creatinine 0.55. Blood sugars running between 139 and 160. Ferritin 669.3. LDH 872. C-reactive protein 16.6. Pulse ox is 91-94% on high flow nasal cannula FiO2 70, flow rate 50. Afebrile, heart rate 60, blood pressure 131/78. 11/13: Patient remains in the intensive care unit. Repeat chest x-ray reveals fine interstitial infiltrates, right greater than left. There is no improving on the right. Patient is currently on Arava at 50 MLS per minute and 70% FiO2 pulse ox seen Repeat blood work reveals WBC 7.4, hemoglobin 13.8, d-dimer 2.8. Sodium 134, potassium 4.3, creatinine 0.61. LDH 833. C-reactive protein 44.6. Patient n oted to have some small amount of bloody sediment in his Perdomo and Lovenox was decreased. Patient is aware that his has also been admitted to the hospital and is stable. 11/14: Patient remains in the intensive care unit and pulse ox is 94% on high flow nasal cannula flow rate of 50, FiO2 72. Patient appears to be comfortable at rest. Also patient appears to be in good spirits today. He notes his is going to be discharged home today. WBC 7.8, hemoglobin 13. D-dimer 9.03. BUN 29 and creatinine 0.56. Ferritin 691.9. ALT 53, LDH 847. CK 26, C- reactive protein 30.2. Repeat chest x-ray reveals bilateral reticular nodular acute interstitial edema and/or infiltrates. No significant change. 11/15: Patient remains in the intensive care unit and seen today sitting in a chair. He is on AirVO at FiO2 of 50% and 50 L/m. WBC 8.7, hemoglobin 13.3. Sodium 134, potassium 4.3, creatinine 0.52. Ferritin 649. LDH 83. C-reactive protein 19.1. Lung sounds are improving. Repeat chest x-ray reveals interstitial infiltrates and patchy peripheral basilar opacities persist without significant change. Anticipate probable transfer out of the ICU over the weekend. REVIEW OF SYSTEMS Constitutional: Reports reports chills fever. No weight change. Reports generalized weakness and reports fatigue. EENT: No headache. No blurred vision or double vision, no loss of vision. No nasal drainage or congestion. No epistaxis. No sore throat. Lungs: Reports shortness of breath improving, reports cough, reports sputum production. Reports wheezing. Cardiovascular: No chest pain, no lower extremity edema. No palpitations. No paroxysmal nocturnal dyspnea. No orthopnea. No lightheadedness or dizziness. No syncopal episodes. Abdominal: No abdominal pain. No nausea, vomiting. No diarrhea. No constipation. No bloody or tarry stools. Reports loss of appetite. Genitourinary: No dysuria, increased frequency, urgency. No urinary retention. Mild hematuria. Musculoskeletal: No myalgias. No muscle weakness, no gait dysfunction, no frequent falls. No back pain. No neck pain. Integumentary: No wounds, no lesions. No rash or pruritus. Neurologic: No aphasia. No facial droop. No change in mentation. No head injury. No headache. No paralysis. No paresthesia. Psychiatric: No depression. No anxiety. Endocrine: Reports abnormal blood sugars. PHYSICAL EXAMINATION Gen: This is a 75-year-old male. He is resting in chair at the bedside and appears to be comfortable at rest. HEENT: Head is atraumatic, normocephalic. Pupils equal, round. Sclerae is anicteric. NECK: Supple. No JVD. No lymphadenopathy. No thyromegaly. LUNGS: Diminished bilaterally. No wheezing. No respiratory distress noted at rest. HEART: Regular rate and rhythm. No murmur. ABDOMEN: Soft. Bowel sounds are present. No masses. No tenderness. EXTREMITIES: No pedal edema. No calf tenderness. NEUROLOGICAL: Patient is awake, alert and oriented x3. Cranial nerves 2 through 12 are grossly intact. ASSESSMENT AND PLAN 1. Acute hypoxic respiratory failure secondary to Covid 19 pneumonia. Continue oxygen therapy. Continue supplementation with zinc, vitamin D, vitamin C, ceftriaxone, dexamethasone 6 mg IV twice daily, Lovenox 40 mg subcu daily. Consult with pulmonary medicine and infectious disease appreciated. Antibiotics discontinued. Patient is currently on AirVo. 2. Hypertension. Continue Coreg 6.25 mg twice daily. 3. Hyperlipidemia. Continue Lipitor 10 mg daily, Zetia 10 mg at bedtime. 4. Diabetes mellitus type 2. Continue glipizide 5 mg before breakfast, NovoLog scale before meals and at bedtime. 5. Peripheral vascular disease with right femoral endarterectomy and multiple stenting in the past, stable. Continue Pletal, Plavix 75 mg daily, Lipitor, aspirin. 6. Remote history of tobacco use and dependence. 7. Generalized anxiety disorder. Continue Ativan 1 mg twice daily as needed and trazodone 100 mg at bedtime. 8. DVT prophylaxis. Lovenox. 9. GI prophylaxis. Protonix. 10. Mild hematuria. Lovenox decreased to 40 mg subcu daily. CODE STATUS: Full code DISCHARGE PLAN Most likely return home. Impression and plan of care have been directed as dictated by the signing physician. Reema Tai nurse practitioner acting as scribe for signing physician. Objective - Vital Signs Vital signs: Vital Signs Temp 97.6 F 11/15/20 04:00 Pulse 68 11/15/20 07:00 Resp 17 11/15/20 07:00 BP 138/83 11/15/20 07:00 Pulse Ox 89 L 11/15/20 08:29 Intake & Output 11/14/20 11/15/20 11/15/20 18:59 06:59 18:59 Intake Total 625 250 120 Output Total 1865 655 100 Balance -1240 -405 20 Weight 72.1 kg 72 kg Intake: IV 425 Sodium Chloride 0.9% 1, 425 000 ml @ 75 mls/hr IV . [id number] [facility] Rx#:[id number] Oral 200 250 120 Output: Urine 1865 655 100 Other: Voiding Method Indwelling Catheter Indwelling Catheter - Labs CBC & Chem 7: 11/15/20 03:50 11/15/20 03:50 Labs: Abnormal Lab Results - Last 24 Hours (Table) 11/14/20 11/14/20 11/14/20 Range/Units 00:30 11:40 17:25 RBC (4.30-5.90) m/uL Hct (39.0-53.0) % Sodium (137-145) mmol/L BUN (9-20) mg/dL Creatinine (0.66-1.25) mg/dL Glucose (74-99) mg/dL POC Glucose (mg/dL) 128 H 131 H (75-99) mg/dL Ferritin 691.9 H (22.0-322.0) ng/mL ALT (4-49) U/L Lactate Dehydrogenase (313-618) U/L C-Reactive Protein (<10.0) mg/L Total Protein (6.3-8.2) g/dL Albumin (3.5-5.0) g/dL 11/14/20 11/15/20 11/15/20 Range/Units 20:30 03:50 03:50 RBC 4.26 L (4.30-5.90) m/uL Hct 38.9 L (39.0-53.0) % Sodium 134 L (137-145) mmol/L BUN 30 H (9-20) mg/dL Creatinine 0.52 L (0.66-1.25) mg/dL Glucose 184 H (74-99) mg/dL POC Glucose (mg/dL) 125 H (75-99) mg/dL Ferritin (22.0-322.0) ng/mL ALT 60 H (4-49) U/L Lactate Dehydrogenase 883 H (313-618) U/L C-Reactive Protein 19.1 H (<10.0) mg/L Total Protein 5.8 L (6.3-8.2) g/dL Albumin 2.8 L (3.5-5.0) g/dL 11/15/20 Range/Units 06:36 RBC (4.30-5.90) m/uL Hct (39.0-53.0) % Sodium (137-145) mmol/L BUN (9-20) mg/dL Creatinine (0.66-1.25) mg/dL Glucose (74-99) mg/dL POC Glucose (mg/dL) 138 H (75-99) mg/dL Ferritin (22.0-322.0) ng/mL ALT (4-49) U/L Lactate Dehydrogenase (313-618) U/L C-Reactive Protein (<10.0) mg/L Total Protein (6.3-8.2) g/dL Albumin (3.5-5.0) g/dL Microbiology - Last 24 Hours (Table) 11/08/20 21:09 Blood Culture - Final Blood No Growth after 144 hours 11/08/20 20:39 Blood Culture - Final Blood No Growth after 144 hours
[2020-11-15 11:50] LABS: Glucose,Whole Blood 195 mg/dL (75-99)
[2020-11-15] MEDS: SODIUM CHLORIDE 0.9% 500 ML 500 ML IV SCH (11:55)
[2020-11-15 17:00] LABS: Glucose,Whole Blood 233 mg/dL (75-99)
[2020-11-15 20:38] LABS: Glucose,Whole Blood 215 mg/dL (75-99)
[2020-11-15] MEDS: LORazepam 1 MG TAB PO PRN (20:46)
[2020-11-15] MEDS: EZETIMIBE 10 MG TAB PO SCH (20:47)
[2020-11-15] MEDS: traZODone HCL 100 MG TAB PO SCH (20:47)
[2020-11-15] MEDS: HYDROmorphone 0.5 MG/0.5 ML SYRINGE IVP PRN (21:33)
--- NOTE | 2020-11-15 22:13 | PN ---
PROGRESS NOTE DATE OF SERVICE: 11/15/2020 REASON FOR FOLLOWUP: COVID-19 pneumonia. INTERVAL HISTORY: The patient is currently afebrile. He is breathing more comfortably, currently on nasal cannula oxygen. Denies having any chest pain. Just occasional cough. No abdominal pain or diarrhea. PHYSICAL EXAMINATION: Blood pressure is 119/66, pulse of 63, temperature 97.6. He is 92% on high-flow oxygen. General description is an elderly male up in the bed in no distress. RESPIRATORY SYSTEM: Unlabored breathing with decreased intensity of breath sounds. No wheeze. HEART: S1, S2. Regular rate and rhythm. ABDOMEN: Soft. No tenderness. LABS: Hemoglobin is 13.3, white count 8.7. BUN of 30, creatinine 0.52. DIAGNOSTIC IMPRESSION AND PLAN: Patient with acute respiratory failure which is multifactorial in this patient who did have a component of COVID-19 pneumonia. Patient is currently on steroids, anticoagulation ; to continue. No evidence of secondary bacterial pneumonia. Monitor his clinical course closely. MMODL / IJN: [id number] /
[2020-11-16 04:11] LABS: ALT 64 U/L (4-49); AST 31 U/L (17-59); African American GFR (CKD) >90 (>60 ml/min/1.73 sqM); Albumin 2.8 g/dL (3.5-5.0); Alkaline Phosphatase 82 U/L (38-126); Anion Gap 4 mmol/L; Blood Urea Nitrogen 38 mg/dL (9-20); C Reactive Protein 9.2 mg/L (<10.0); Calcium 8.8 mg/dL (8.4-10.2); Carbon Dioxide 28 mmol/L (22-30); Chloride 103 mmol/L (98-107); Glucose 197 mg/dL (74-99); LDH 675 U/L (313-618); Non-African American GFR(CKD) >90 (>60 ml/min/1.73 sqM); Potassium 4.5 mmol/L (3.5-5.1); Sodium 135 mmol/L (137-145); Total Bilirubin 0.6 mg/dL (0.2-1.3); Total Protein 5.7 g/dL (6.3-8.2)
[2020-11-16 05:52] LABS: Basophils # (A) 0.1 k/uL (0-0.2); Basophils % (A) 1 %; Eosinophils % (A) 0 %; HCT 38.2 % (39.0-53.0); HGB 13.3 gm/dL (13.0-17.5); Lymphocytes # (A) 1.2 k/uL (1.0-4.8); Lymphocytes % (A) 14 %; MCH 31.5 pg (25.0-35.0); MCHC 34.8 g/dL (31.0-37.0); MCV 90.5 fL (80.0-100.0); Mean Platelet Volume 7.4; Monocytes # (A) 0.4 k/uL (0-1.0); Monocytes % (A) 4 %; Neutrophils # (A) 6.7 k/uL (1.3-7.7); Neutrophils % (A) 80 %; Platelet Count 380 k/uL (150-450); RBC 4.22 m/uL (4.30-5.90); WBC 8.4 k/uL (3.8-10.6)
[2020-11-16 06:25] LABS: Glucose,Whole Blood 166 mg/dL (75-99)
[2020-11-16] MEDS: INSULIN ASPART (NovoLOG) 100 UNIT/ML VIAL SQ SCH ×4 (06:30→21:18)
[2020-11-16] MEDS: PANTOPRAZOLE 40 MG TABLET PO SCH (06:30)
[2020-11-16] MEDS: carvediloL 6.25 MG TAB PO SCH ×2 (06:30→17:07)
--- NOTE | 2020-11-16 07:41 | XR ---
EXAMINATION TYPE: XR chest 1V portable DATE OF EXAM: 11/16/2020 COMPARISON: Prior chest x-ray 11/15/2020 HISTORY: Covid pneumonia, abnormal chest x-ray TECHNIQUE: Single frontal view of the chest is obtained. FINDINGS: There is no evident pneumothorax. Bilateral airspace disease is present. There is some pro minence of the interstitium. There are overlying cardiac leads. Cardiac mediastinal silhouette is sta ble. IMPRESSION: Findings consistent with patient's history of pneumonia.
[2020-11-16] MEDS: SYMBICORT 160-4.5 MCG INHALER INHALATION SCH ×2 (07:58→21:30)
[2020-11-16] MEDS: cilostazoL 100 MG TAB PO SCH ×2 (08:02→21:17)
[2020-11-16] MEDS: CHOLECALCIFEROL 1,000 UNIT TAB PO SCH (08:02)
[2020-11-16] MEDS: ENOXAPARIN 40 MG/0.4 ML SYRINGE SQ SCH ×2 (08:02→21:18)
[2020-11-16] MEDS: ASPIRIN 325 MG TAB PO SCH (08:02)
[2020-11-16] MEDS: glipiZIDE 5 MG TAB PO SCH (08:03)
[2020-11-16] MEDS: ATORVASTATIN 10 MG TAB PO SCH (08:03)
[2020-11-16] MEDS: MULTIVITAMINS, THERA 1 EACH TAB PO SCH (08:03)
[2020-11-16] MEDS: CLOPIDOGREL 75 MG TAB PO SCH (08:03)
[2020-11-16] MEDS: ZINC SULFATE 220 MG CAP PO SCH (08:03)
[2020-11-16] MEDS: LORazepam 1 MG TAB PO PRN (08:03)
[2020-11-16] MEDS: FUROSEMIDE 10 MG/ML 4 ML VIAL IV SCH (08:04)
[2020-11-16] MEDS: DEXAMETHASONE SOD PHOSPHATE 10 MG/ML 1 ML VIAL IV SCH ×2 (08:04→21:18)
[2020-11-16] MEDS: ASCORBIC ACID 500 MG TAB PO SCH (08:04)
--- NOTE | 2020-11-16 10:16 | P.PN ---
Subjective HISTORY OF PRESENT ILLNESS This is a 75-year-old male patient of Dr. Roman with past medical history of coronary artery disease status post stent, hypertension, hyperlipidemia, diabetes mellitus type 2, skin cancer, peripheral vascular disease with right femoral endarterectomy and multiple stenting in the past, remote history of tobacco use and dependence. Patient states that he and his had Zofia with their daughter who works at a [employer] in [place]. When she returned to work she had to undergo required Covid 19 testing which came back positive. Patient was recently hospitalized 11/03-11/05 for COVID- 19 pneumonia. His breathing status and pulseox were stable and patient was discharged home in stable condition. Patient complains of fever, cough and sputum production. No diarrhea, abdominal pain. No choking episodes. Patient came into [facility] emergency center for evaluation. He was afebrile, heart rate 83, blood pressure 135/74, pulse ox 89% on room air. Patient was placed on Bipap. Patient did not tolerate nasal cannula and dropped down to 74% on 6 L. CBC was unremarkable. D-dimer 3.19. Sodium 141, potassium 4.6, chloride 110, CO2 19, BUN 32 and creatinine 0.76. Blood sugar 180. Lactic acid 2.3 and repeat 1.5. Ferritin 820. Lactic acid 1523. C-reactive protein 87. Pro-calcitonin 0.1. CT angiogram of the chest showed no evidence of pulmonary embolism. Extensive pulmonary interstitial infiltrates. No suspicious pulmonary mass. Chest x-ray reveals increased pulmonary interstitial density. [facility] with [facility] medicine and infectious disease. 11/10: Patient became hypoxic while on nasal cannula at 74% on 6 L was placed on BiPAP and pulse ox increased only to 87, patient was transferred into the in tensive care unit yesterday early afternoon. Pulse ox is running between 89 and 93% on AirVo FiO2 of 80%. He has been afebrile, heart rate 58, respiratory rate 27, blood pressure 135/78. W BC is 7.5, hemoglobin 12.6, lymphocytes 0.9. D- dimer 12.5, BUN 37 creatinine 0.61. LDH 961, C-reactive protein 50.3. Urinalysis showed moderate blood, RBCs 100. Cultures no growth. Repeat chest x-ray reveals bilateral interstitial infiltrates suggestive of interstitial pneumonia stable. Patient has been seen by infectious disease and plan for possible Actemra. Patient has been seen and followed by pulmonary medicine and added Lasix 40 mg IV push, Rocephin started. 11/11: Patient remains in the intensive care unit. He is currently on AirVo at FiO2 of 70% with pulse ox of 90%. Patient appears to be stable. He does continue to have shortness of breath. Breath sounds are improving. He has been afebrile, pulse ox 91-95%, heart rate 66, respiratory rate 24, blood pressure 124/75. WBC 7.1, hemoglobin 12, lymphocytes 0.9. Sodium 136, potassium 4.5, chloride 108, CO2 22, BUN 35 and creatinine 0.57. Blood sugar running between 160- 188. AST 62, ALT 67, alkaline phosphatase 100. Antibiotics discontinued by pulmonary medicine. Repeat x-ray reveals diffuse interstitial and patchy peripheral infiltrates, left greater than right, not significantly changed. 11/12: Patient remains in intensive care unit. His breathing status is stable and not worsening. He is able to eat only a little bit. Potassium and magnesium have been replaced this morning. WBC 9.4, hemoglobin 12.5. D-dimer 4 .48. Creatinine 0.55. Blood sugars running between 139 and 160. Ferritin 669.3. LDH 872. C-reactive protein 16.6. Pulse ox is 91-94% on high flow nasal cannula FiO2 70, flow rate 50. Afebrile, heart rate 60, blood pressure 131/78. 11/13: Patient remains in the intensive care unit. Repeat chest x-ray reveals fine interstitial infiltrates, right greater than left. There is no improving on the right. Patient is currently on Arava at 50 MLS per minute and 70% FiO2 pulse ox seen Repeat blood work reveals WBC 7.4, hemoglobin 13.8, d-dimer 2.8. Sodium 134, potassium 4.3, creatinine 0.61. LDH 833. C-reactive protein 44.6. Patient noted to have some small amount of bloody sediment in his Perdomo and Lovenox was decreased. Patient is aware that his has also been admitted to the [facility] and is stable. 11/14: Patient remains in the intensive care unit and pulse ox is 94% on high f low nasal cannula flow rate of 50, FiO2 72. Patient appears to be comfortable at rest. Also patient appears to be in good spirits today. He notes his is going to be discharged home today. WBC 7.8, hemoglobin 13. D-dimer 9.03. BUN 29 and creatinine 0.56. Ferritin 691.9. ALT 53, LDH 847. CK 26, C- reactive protein 30.2. Repeat chest x-ray reveals bilateral reticular nodular acute interstitial edema and/or infiltrates. No significant change. 11/15: Patient remains in the intensive care unit and seen today sitting in a chair. He is on AirVO at FiO2 of 50% and 50 L/m. WBC 8.7, hemoglobin 13.3. Sodium 134, potassium 4.3, creatinine 0.52. Ferritin 649. LDH 83. C-reactive protein 19.1. Lung sounds are improving. Repeat chest x-ray reveals interstitial infiltrates and patchy peripheral basilar opacities persist without significant change. Anticipate probable transfer out of the ICU over the weekend. 11/16: Patient remains in intensive care unit found sitting up in a chair. He is currently on high flow nasal cannula. Patient has no completes or concerns at this time. He'll be transferred to the [facility] unit. He currently has indwelling catheter in place that is draining clear yellow urine. Catheter may be removed prior to transfer. REVIEW OF SYSTEMS Constitutional: Reports reports chills fever. No weight change. Reports generalized weakness and reports fatigue. EENT: No headache. No blurred vision or double vision, no loss of vision. No nasal drainage or congestion. No epistaxis. No sore throat. Lungs: Reports shortness of breath improving, reports cough, reports sputum production. Reports wheezing. Cardiovascular: No chest pain, no lower extremity edema. No palpitations. No paroxysmal nocturnal dyspnea. No orthopnea. No lightheadedness or dizziness. No syncopal episodes. Abdominal: No abdominal pain. No nausea, vomiting. No diarrhea. No constipation. No bloody or tarry stools. Reports loss of appetite. Genitourinary: No dysuria, increased frequency, urgency. No urinary retention. Mild hematuria. Musculoskeletal: No myalgias. No muscle weakness, no gait dysfunction, no frequent falls. No back pain. No neck pain. Integumentary: No wounds, no lesions. No rash or pruritus. Neurologic: No aphasia. No facial droop. No change in mentation. No head injury. No headache. No paralysis. No paresthesia. Psychiatric: No depression. No anxiety. Endocrine: Reports abnormal blood sugars. PHYSICAL EXAMINATION Gen: This is a 75-year-old male. He is resting in chair at the bedside and appears to be comfortable at rest. HEENT: Head is atraumatic, normocephalic. Pupils equal, round. Sclerae is anicteric. NECK: Supple. No JVD. No lymphadenopathy. No thyromegaly. LUNGS: Improving Diminished bilaterally. No wheezing. No respiratory distress noted at rest. HEART: Regular rate and rhythm. No murmur. ABDOMEN: Soft. Bowel sounds are present. No masses. No tenderness. EXTREMITIES: No pedal edema. No calf tenderness. NEUROLOGICAL: Patient is awake, alert and oriented x3. Cranial nerves 2 through 12 are grossly intact. ASSESSMENT AND PLAN 1. Acute hypoxic respiratory failure secondary to Covid 19 pneumonia. Continue oxygen therapy. Continue supplementation with zinc, vitamin D, vitamin C, ceftriaxone, dexamethasone 6 mg IV twice daily, Lovenox 40 mg subcu daily. Consult with pulmonary medicine and infectious disease appreciated. Antibiotics discontinued. Patient is currently on AirVo. May remove indwelling catheter prior to transfer to [facility]. 2. Hypertension. Continue Coreg 6.25 mg twice daily. 3. Hyperlipidemia. Continue Lipitor 10 mg daily, Zetia 10 mg at bedtime. 4. Diabetes mellitus type 2. Continue glipizide 5 mg before breakfast, NovoLog scale before meals and at bedtime. 5. Peripheral vascular disease with right femoral endarterectomy and multiple stenting in the past, stable. Continue Pletal, Plavix 75 mg daily, Lipitor, aspirin. 6. Remote history of tobacco use and dependence. 7. Generalized anxiety disorder. Continue Ativan 1 mg twice daily as needed and trazodone 100 mg at bedtime. 8. DVT prophylaxis. Lovenox. 9. GI prophylaxis. Protonix. 10. Mild hematuria. Lovenox decreased to 40 mg subcu daily. CODE STATUS: Full code DISCHARGE PLAN Most likely return home. Impression and plan of care have been directed as dictated by the signing physician. Amena Chand nurse practitioner acting as scribe for signing physician. Objective - Vital Signs Vital signs: Vital Signs Temp 97.8 F 11/16/20 08:00 Pulse 58 L 11/16/20 09:00 Resp 16 11/16/20 09:00 BP 123/75 11/16/20 09:00 Pulse Ox 94 L 11/16/20 09:00 Intake & Output 11/15/20 11/16/20 11/16/20 18:59 06:59 18:59 Intake Total 1090 250 250 Output Total 1500 540 450 Balance -410 -290 -200 Weight 71.7 kg Intake: Oral 1090 250 250 Output: Urine 1500 540 450 Other: Voiding Method Indwelling Catheter Indwelling Catheter - Labs CBC & Chem 7: 11/16/20 05:41 11/16/20 03:43 Labs: Abnormal Lab Results - Last 24 Hours (Table) 11/15/20 11/15/20 11/15/20 Range/Units 11:48 16:58 20:36 RBC (4.30-5.90) m/uL Hct (39.0-53.0) % D-Dimer (<0.60) mg/L FEU Sodium (137-145) mmol/L BUN (9-20) mg/dL Creatinine (0.66-1.25) mg/dL Glucose (74-99) mg/dL POC Glucose (mg/dL) 195 H 233 H 215 H (75-99) mg/dL ALT (4-49) U/L Lactate Dehydrogenase (313-618) U/L Total Protein (6.3-8.2) g/dL Albumin (3.5-5.0) g/dL 11/16/20 11/16/20 11/16/20 Range/Units 03:43 03:43 05:41 RBC 4.22 L (4.30-5.90) m/uL Hct 38.2 L (39.0-53.0) % D-Dimer 3.69 H (<0.60) mg/L FEU Sodium 135 L (137-145) mmol/L BUN 38 H (9-20) mg/dL Creatinine 0.61 L (0.66-1.25) mg/dL Glucose 197 H (74-99) mg/dL POC Glucose (mg/dL) (75-99) mg/dL ALT 64 H (4-49) U/L Lactate Dehydrogenase 675 H (313-618) U/L Total Protein 5.7 L (6.3-8.2) g/dL Albumin 2.8 L (3.5-5.0) g/dL 11/16/20 Range/Units 06:23 RBC (4.30-5.90) m/uL Hct (39.0-53.0) % D-Dimer (<0.60) mg/L FEU Sodium (137-145) mmol/L BUN (9-20) mg/dL Creatinine (0.66-1.25) mg/dL Glucose (74-99) mg/dL POC Glucose (mg/dL) 166 H (75-99) mg/dL ALT (4-49) U/L Lactate Dehydrogenase (313-618) U/L Total Protein (6.3-8.2) g/dL Albumin (3.5-5.0) g/dL
[2020-11-16 10:50] LABS: Ferritin 632.8 ng/mL (22.0-322.0)
[2020-11-16] MEDS: HYDROcodone/APAP 5-325MG 1 EACH TAB PO PRN ×2 (11:16→21:17)
--- NOTE | 2020-11-16 11:34 | P.PN ---
Subjective Progress Note Date: 11/16/20 Principal diagnosis: Hypoxemic respiratory failure secondary to COVID 19 This is a 75-year-old male who was admitted to the hospital on 11/08/2020. The patient was admitted with a diagnosis of COVID 19 pneumonia. He was previously admitted to this hospital between November 03 and November 05. Today, he is on AIRVO at 50 L/m and an FiO2 of 70%. He is also getting saline at 75 mL an hour. Currently, his major issue is shortness of breath. When is perfectly still, he feels reasonably well. Any movement causes worsening shortness of breath. In addition, he complains of chest congestion and cough. He was not a candidate for the antiviral drug. His chest x-ray today is stable. In addition to the above, he has a history of CAD, with previous stents, type 2 diabetes, benign essential hypertension, previous tobacco use, and hyperlipidemia. Progress note dated 11/16/2020 75-year-old male with history of acute hypoxemic respiratory failure secondary to COVID 19 pneumonia. The patient is currently getting 8 L high flow oxygen, and not receiving any IV fluids. Certainly an improvement from the hypoxemic standpoint. The patient was admitted to the hospital on November 08. He was previously in the hospital and was not a candidate for the antiviral drug remdesivir. The patient remains in the intensive care unit. He is tolerating his diet. His respiratory status has improved. Hemodynamically, he is stable. His vital signs are stable and include temperature 97.8, heart rate 70, respiratory rate 17, and a blood pressure 120/76. His saturation on 8 L oxygen, is 95%. In addition, his white count is 8.4, hemoglobin 13.3, hematocrit 38.2, and platelet count is 380,000. His d-dimer is 3.69, sodium 135, potassium 4.5, chlorides 103, and CO2 28. BUN and creatinine were 38 and 0.61. Objective - Vital Signs Vital signs: Vital Signs Temp 97.8 F 11/16/20 08:00 Pulse 70 11/16/20 11:00 Resp 17 11/16/20 11:00 BP 120/76 11/16/20 11:00 Pulse Ox 95 11/16/20 11:00 Intake & Output 01/15/21 01/16/21 01/16/21 18:59 06:59 18:59 Intake Total 1090 250 250 Output Total 2181 679 8199 Balance -410 290 -850 Weight 71.7 kg Intake: Oral 1090 250 250 Output: Urine 9645 836 0611 Other: Voiding Method Indwelling Catheter Indwelling Catheter Indwelling Catheter - Exam No obvious shortness of breath, oriented 3. High flow nasal cannula at 8 L/m. HEENT examination is grossly unremarkable. Mucous membranes are moist. No oral lesions. Neck supple. Full range of motion. No adenopathy thyromegaly or neck vein distention. Cardiovascular examination reveals regular rhythm rate. S1-S2 normal. No S3 or S4. No discernible murmur noted. Heart rate is 70 bpm. Heart sounds are distant. Lungs reveal coarse bilateral expiratory rhonchi and bibasilar crackles. Breath sounds are equal but diminished throughout. No wheezes are appreciated. Abdomen soft bowel sounds are heard. No masses or tenderness. Extremities are intact. No cyanosis clubbing or edema. Skin is without rash or lesion. Neurologic examination is brief but nonfocal. - Labs CBC & Chem 7: 11/16/20 05:41 11/16/20 03:43 Labs: Abnormal Lab Results - Last 24 Hours (Table) 11/15/20 11/15/20 11/15/20 Range/Units 11:48 16:58 20:36 RBC (4.30-5.90) m/uL Hct (39.0-53.0) % D-Dimer (<0.60) mg/L FEU Sodium (137-145) mmol/L BUN (9-20) mg/dL Creatinine (0.66-1.25) mg/dL Glucose (74-99) mg/dL POC Glucose (mg/dL) 195 H 233 H 215 H (75-99) mg/dL Ferritin (22.0-322.0) ng/mL ALT (4-49) U/L Lactate Dehydrogenase (313-618) U/L Total Protein (6.3-8.2) g/dL Albumin (3.5-5.0) g/dL 11/16/20 11/16/20 11/16/20 Range/Units 03:43 03:43 05:41 RBC 4.22 L (4.30-5.90) m/uL Hct 38.2 L (39.0-53.0) % D-Dimer 3.69 H (<0.60) mg/L FEU Sodium 135 L (137-145) mmol/L BUN 38 H (9-20) mg/dL Creatinine 0.61 L (0.66-1.25) mg/dL Glucose 197 H (74-99) mg/dL POC Glucose (mg/dL) (75-99) mg/dL Ferritin 632.8 H (22.0-322.0) ng/mL ALT 64 H (4-49) U/L Lactate Dehydrogenase 675 H (313-618) U/L Total Protein 5.7 L (6.3-8.2) g/dL Albumin 2.8 L (3.5-5.0) g/dL 11/16/20 Range/Units 06:23 RBC (4.30-5.90) m/uL Hct (39.0-53.0) % D-Dimer (<0.60) mg/L FEU Sodium (137-145) mmol/L BUN (9-20) mg/dL Creatinine (0.66-1.25) mg/dL Glucose (74-99) mg/dL POC Glucose (mg/dL) 166 H (75-99) mg/dL Ferritin (22.0-322.0) ng/mL ALT (4-49) U/L Lactate Dehydrogenase (313-618) U/L Total Protein (6.3-8.2) g/dL Albumin (3.5-5.0) g/dL Assessment and Plan Assessment: Acute hypoxemic respiratory failure, secondary to COVID 19 pneumonia. Recent prior admission for COVID 19 infection between November 03 in November 05. History of coronary artery disease with prior stent placement. Type 2 diabetes mellitus. Benign essential hypertension. History of previous tobacco use, with possible underlying COPD. Hyperlipidemia. History of peripheral vascular occlusive disease with intervention. Plan: Plan dated 11/16/2020. The patient seemed to be doing a bit better. He was on AIRVO but now is on high flow nasal cannula at 8 L/m. His x-ray and labs are reviewed. Clinically he is feeling better. He is much less short of breath. He continues on vitamin supplements, and Decadron. He also remains on aspirin, Plavix, and Lovenox. He was not a candidate for remdesivir. He could be considered for discharge from the intensive care unit. Overall prognosis remains guarded. We will continue to follow the patient. Time with Patient: Greater than 30
[2020-11-16 11:48] LABS: Glucose,Whole Blood 305 mg/dL (75-99)
[2020-11-16 11:50] LABS: Glucose,Whole Blood 297 mg/dL (75-99)
--- NOTE | 2020-11-16 15:49 | PN ---
PROGRESS NOTE DATE OF SERVICE: 11/16/2020 REASON FOR FOLLOWUP: Covid 19 pneumonia. INTERVAL HISTORY: The patient is currently afebrile. The patient is feeling better. Breathing comfortably. The patient is currently on 6 L nasal cannula. Denies any chest pain. Minimal cough. No abdominal pain. No diarrhea. PHYSICAL EXAMINATION: Blood pressure is 119/86, pulse of 90, temperature 99. He is 94% on 5 L nasal cannula. General description is an elderly male up in the chair in no distress. Respiratory system: Unlabored breathing, decreased intensity of breath sounds. No wheeze. HEART: S1, S2. Regular rate and rhythm. ABDOMEN: Soft, no tenderness. LABS: Hemoglobin 13.8, white count 8.4. BUN of 28, creatinine 0.61. Blood culture has been negative so far. Chest x-ray, no significant change. DIAGNOSTIC IMPRESSION AND PLAN: Patient admitted to the hospital with acute COVID-19 infection in this patient out of the therapeutic window for the Remdesivir has been treated with steroids, Lovenox and zinc and seems to have shown some clinical improvement. To continue current treatment protocol and monitor clinical course closely. MMODL / IJN: [id number] /
[2020-11-16] MEDS: SODIUM CHLORIDE 0.9% 500 ML 500 ML IV SCH (16:46)
[2020-11-16] MEDS: ENOXAPARIN 60 MG/0.6 ML SYRINGE SQ SCH (16:48)
[2020-11-16 16:57] LABS: Glucose,Whole Blood 184 mg/dL (75-99)
[2020-11-16 20:03] LABS: Glucose,Whole Blood 146 mg/dL (75-99)
[2020-11-16] MEDS: EZETIMIBE 10 MG TAB PO SCH (21:17)
[2020-11-16] MEDS: traZODone HCL 100 MG TAB PO SCH (21:18)
[2020-11-16] MEDS: HYDROmorphone 0.5 MG/0.5 ML SYRINGE IVP PRN (22:44)
[2020-11-17 06:35] LABS: Basophils % (A) 0 %; Eosinophils % (A) 0 %; HCT 46.7 % (39.0-53.0); HGB 15.2 gm/dL (13.0-17.5); Lymphocytes # (A) 1.8 k/uL (1.0-4.8); Lymphocytes % (A) 18 %; MCH 30.3 pg (25.0-35.0); MCHC 32.5 g/dL (31.0-37.0); MCV 93.3 fL (80.0-100.0); Mean Platelet Volume 7.2; Monocytes # (A) 0.4 k/uL (0-1.0); Monocytes % (A) 4 %; Neutrophils % (A) 78 %; Platelet Count 438 k/uL (150-450); RBC 5.01 m/uL (4.30-5.90); RDW 12.6 % (11.5-15.5); WBC 10.3 k/uL (3.8-10.6)
[2020-11-17 07:18] LABS: Glucose,Whole Blood 188 mg/dL (75-99)
[2020-11-17] MEDS: SYMBICORT 160-4.5 MCG INHALER INHALATION SCH ×2 (07:31→21:05)
--- NOTE | 2020-11-17 08:15 | XR ---
EXAMINATION TYPE: XR chest 1V portable DATE OF EXAM: 11/17/2020 COMPARISON: Chest x-ray 11/16/2020 HISTORY: Covid pneumonia, shortness of breath TECHNIQUE: Single frontal view of the chest is obtained. FINDINGS: Findings are similar to prior exam. No pneumothorax or pleural effusion. IMPRESSION: Essentially stable findings, correlate for pneumonia
[2020-11-17] MEDS: ASPIRIN 325 MG TAB PO SCH (09:04)
[2020-11-17] MEDS: ASCORBIC ACID 500 MG TAB PO SCH (09:04)
[2020-11-17] MEDS: CLOPIDOGREL 75 MG TAB PO SCH (09:04)
[2020-11-17] MEDS: CHOLECALCIFEROL 1,000 UNIT TAB PO SCH (09:04)
[2020-11-17] MEDS: MULTIVITAMINS, THERA 1 EACH TAB PO SCH (09:04)
[2020-11-17] MEDS: PANTOPRAZOLE 40 MG TABLET PO SCH (09:04)
[2020-11-17] MEDS: ATORVASTATIN 10 MG TAB PO SCH (09:04)
[2020-11-17] MEDS: DEXAMETHASONE SOD PHOSPHATE 10 MG/ML 1 ML VIAL IV SCH ×2 (09:04→20:41)
[2020-11-17] MEDS: ENOXAPARIN 40 MG/0.4 ML SYRINGE SQ SCH ×2 (09:05→20:41)
[2020-11-17] MEDS: ZINC SULFATE 220 MG CAP PO SCH (09:05)
[2020-11-17] MEDS: carvediloL 6.25 MG TAB PO SCH ×2 (09:05→18:18)
[2020-11-17] MEDS: FUROSEMIDE 10 MG/ML 4 ML VIAL IV SCH (09:05)
[2020-11-17] MEDS: INSULIN ASPART (NovoLOG) 100 UNIT/ML VIAL SQ SCH ×4 (09:07→20:42)
[2020-11-17 09:39] LABS: African American GFR (CKD) 97.2 (60.0-200.0); Albumin 3.9 g/dL (3.80-4.90); Albumin/Globulin Ratio 1.56 (1.60-3.17); Anion Gap 8.9 mmol/L (4.00-12.00); BUN/Creat Ratio 46.67 Ratio (12.00-20.00); C Reactive Protein 0.4 mg/dL (0.0-0.8); Calcium 9.5 mg/dL (8.7-10.3); Carbon Dioxide 28.1 mmol/L (21.6-31.8); Globulin 2.5 g/dL (1.6-3.3); Non-African American GFR(CKD) 83.8 (60.0-200.0); Potassium 4.9 mmol/L (3.5-5.5); Total Bilirubin 0.6 mg/dL (0.3-1.2); Total Protein 6.4 g/dL (6.2-8.2)
[2020-11-17 09:46] LABS: Ferritin 679.5 ng/mL (22.0-322.0)
[2020-11-17] MEDS: glipiZIDE 5 MG TAB PO SCH (10:35)
[2020-11-17] MEDS: cilostazoL 100 MG TAB PO SCH ×2 (10:35→20:42)
--- NOTE | 2020-11-17 11:17 | P.PN ---
Subjective Progress Note Date: 11/17/20 HISTORY OF PRESENT ILLNESS This is a 75-year-old male patient of Dr. Roman with past medical history of coronary artery disease status post stent, hypertension, hyperl ipidemia, diabetes mellitus type 2, skin cancer, peripheral vascular disease with right femoral endarterectomy and multiple stenting in the past, remote history of tobacco use and dependence. Patient states that he and his had Zofia with their daughter who works at a [employer] in [place]. When she returned to work she had to undergo required Covid 19 testing which came back positive. Patient was recently hospitalized 11/03-11/05 for COVID-19 pneumonia. His breathing status and pulseox were stable and patient was discharged home in stable condition. Patient complains of fever, cough and sputum production. No diarrhea, abdominal pain. No choking episodes. Patient came into [facility] emergency center for evaluation. He was afebrile, heart rate 83, blood pressure 135/74, pulse ox 89% on room air. Patient was placed on Bipap. Patient did not tolerate nasal cannula and dropped down to 74% on 6 L. CBC was unremarkable. D-dimer 3.19. Sodium 141, potassium 4.6, chloride 110, CO2 19, BUN 32 and creatinine 0.76. Blood sugar 180. Lactic acid 2.3 and repeat 1.5. Ferritin 820. Lactic acid 1523. C- reactive protein 87. Pro-calcitonin 0.1. CT angiogram of the chest showed no evidence of pulmonary embolism. Extensive pulmonary interstitial infiltrates. No suspicious pulmonary mass. Chest x-ray reveals increased pulmonary interstitial density. [facility] and consult with pulmonary medicine and infectious disease. 11/10: Patient became hypoxic while on nasal cannula at 74% on 6 L was placed on BiPAP and pulse ox increased only to 87, patient was transferred into the intensive care unit yesterday early afternoon. Pulse ox is running between 89 and 93% on AirVo FiO2 of 80%. He has been afebrile, heart rate 58, respiratory rate 27, blood pressure 135/78. W BC is 7.5, hemoglobin 12.6, lymphocytes 0.9. D-dimer 12.5, BUN 37 creatinine 0.61. LDH 961, C-reactive protein 50.3. Urinalysis showed moderate blood, RBCs 100. Cultures no growth. Repeat chest x-ray reveals bilateral interstitial infiltrates suggestive of interstitial pneumonia stable. Patient has been seen by infectious disease and plan for pos nadege Pacheco. Patient has been seen and followed by pulmonary medicine and added Lasix 40 mg IV push, Rocephin started. 11/11: Patient remains in the intensive care unit. He is currently on AirVo at FiO2 of 70% with pulse ox of 90%. Patient appears to be stable. He does continue to have shortness of breath. Breath sounds are improving. He has been afebrile, pulse ox 91-95%, heart rate 66, respiratory rate 24, blood pressure 124/75. WBC 7.1, hemoglobin 12, lymphocytes 0.9. Sodium 136, potassium 4.5, chloride 108, CO2 22, BUN 35 and creatinine 0.57. Blood sugar running between 160- 188. AST 62, ALT 67, alkaline phosphatase 100. Antibiotics discontinued by pulmonary medicine. Repeat x-ray reveals diffuse interstitial and patchy peripheral infiltrates, left greater than right, not significantly changed. 11/12: Patient remains in intensive care unit. His breathing status is stable and not worsening. He is able to eat only a little bit. Potassium and magnesium have been replaced this morning. WBC 9.4, hemoglobin 12.5. D-dimer 4.48. Creatinine 0.55. Blood sugars running between 139 and 160. Ferritin 669.3. LDH 872. C-reactive protein 16.6. Pulse ox is 91-94% on high flow nasal cannula FiO2 70, flow rate 50. Afebrile, heart rate 60, blood pressure 131/78. 11/13: Patient remains in the intensive care unit. Repeat chest x-ray reveals fine interstitial infiltrates, right greater than left. There is no improving on the right. Patient is currently on Arava at 50 MLS per minute and 70% FiO2 pulse ox seen Repeat blood work reveals WBC 7.4, hemoglobin 13.8, d-dimer 2.8. Sodium 134, potassium 4.3, creatinine 0.61. LDH 833. C-reactive protein 44.6. Patient no danelle to have some small amount of bloody sediment in his Perdomo and Lovenox was decreased. Patient is aware that his has also been admitted to the hospital and is stable. 11/14: Patient remains in the intensive care unit and pulse ox is 94% on high flow nasal cannula flow rate of 50, FiO2 72. Patient appears to be comfortable at rest. Also patient appears to be in good spirits today. He notes his is going to be discharged home today. WBC 7.8, hemoglobin 13. D-dimer 9.03. BUN 29 and creatinine 0.56. Ferritin 691.9. ALT 53, LDH 847. CK 26, C- reactive protein 30.2. Repeat chest x-ray reveals bilateral reticular nodular acute interstitial edema and/or infiltrates. No significant change. 11/15: Patient remains in the intensive care unit and seen today sitting in a chair. He is on AirVO at FiO2 of 50% and 50 L/m. WBC 8.7, hemoglobin 13.3. Sodium 134, potassium 4.3, creatinine 0.52. Ferritin 649. LDH 83. C-reactive protein 19.1. Lung sounds are improving. Repeat chest x-ray reveals interstitial infiltrates and patchy peripheral basilar opacities persist without significant change. Anticipate probable transfer out of the ICU over the weekend. 11/16: Patient remains in intensive care unit found sitting up in a chair. He is currently on high flow nasal cannula. Patient has no complaints or concerns at this time. He'll be transferred to the [facility] unit. He currently has indwelling catheter in place that is draining clear yellow urine. Catheter may be removed prior to transfer. 11/17: Patient is then transferred to [facility]. He is on resting comfortably in bed with no acute distress continues to be on high flow nasal cannula. Patient has no complaints or concerns at this time. Patient remains afebrile, heart rate 58, respirations 16 nonlabored with a positive cough, blood pressure 119/73, 95% on 6 L high flow nasal cannula. REVIEW OF SYSTEMS Constitutional: Reports reports chills fever. No weight change. Reports genera lized weakness and reports fatigue. EENT: No headache. No blurred vision or double vision, no loss of vision. No nasal drainage or congestion. No epistaxis. No sore throat. Lungs: Reports shortness of breath improving, reports cough, reports sputum production. Reports wheezing. Cardiovascular: No chest pain, no lower extremity edema. No palpitations. No paroxysmal nocturnal dyspnea. No orthopnea. No lightheadedness or dizziness. No syncopal episodes. Abdominal: No abdominal pain. No nausea, vomiting. No diarrhea. No constipation. No bloody or tarry stools. Reports loss of appetite. Genitourinary: No dysuria, increased frequency, urgency. No urinary retention. Mild hematuria. Musculoskeletal: No myalgias. No muscle weakness, no gait dysfunction, no frequent falls. No back pain. No neck pain. Integumentary: No wounds, no lesions. No rash or pruritus. Neurologic: No aphasia. No facial droop. No change in mentation. No head injury. No headache. No paralysis. No paresthesia. Psychiatric: No depression. No anxiety. Endocrine: Reports abnormal blood sugars. PHYSICAL EXAMINATION Gen: This is a 75-year-old male. He is resting in chair at the bedside and appears to be comfortable at rest. HEENT: Head is atraumatic, normocephalic. Pupils equal, round. Sclerae is anicteric. NECK: Supple. No JVD. No lymphadenopathy. No thyromegaly. LUNGS: Improving Diminished bilaterally. No wheezing. No respiratory distress noted at rest. HEART: Regular rate and rhythm. No murmur. ABDOMEN: Soft. Bowel sounds are present. No masses. No tenderness. EXTREMITIES: No pedal edema. No calf tenderness. NEUROLOGICAL: Patient is awake, alert and oriented x3. Cranial nerves 2 through 12 are grossly intact. ASSESSMENT AND PLAN 1. Acute hypoxic respiratory failure secondary to Covid 19 pneumonia. Continue oxygen therapy. Continue supplementation with zinc, vitamin D, vitamin C, ceftriaxone, dexamethasone 6 mg IV twice daily, Lovenox 40 mg subcu daily. Consult with pulmonary medicine and infectious disease appreciated. Antibiotics discontinued. Patient is currently on AirVo. 2. Hypertension. Continue Coreg 6.25 mg twice daily. 3. Hyperlipidemia. Continue Lipitor 10 mg daily, Zetia 10 mg at bedtime. 4. Diabetes mellitus type 2. Continue glipizide 5 mg before breakfast, NovoLog scale before meals and at bedtime. 5. Peripheral vascular disease with right femoral endarterectomy and multiple stenting in the past, stable. Continue Pletal, Plavix 75 mg daily, Lipitor, aspirin. 6. Remote history of tobacco use and dependence. 7. Generalized anxiety disorder. Continue Ativan 1 mg twice daily as needed and trazodone 100 mg at bedtime. 8. DVT prophylaxis. Lovenox. 9. GI prophylaxis. Protonix. 10. Mild hematuria. Lovenox decreased to 40 mg subcu daily. CODE STATUS: Full code DISCHARGE PLAN Most likely return home possibly Wednesday/Wednesday Impression and plan of care have been directed as dictated by the signing physician. Amena Chand nurse practitioner acting as scribe for signing physician. Objective - Vital Signs Vital signs: Vital Signs Temp 97.6 F 11/17/20 04:28 Pulse 58 L 11/17/20 04:28 Resp 18 11/17/20 07:32 BP 119/73 11/17/20 04:28 Pulse Ox 95 11/17/20 04:28 Intake & Output 11/16/20 11/17/20 11/17/20 18:59 06:59 18:59 Intake Total 250 Output Total 1600 194 Balance -1350 -194 Intake: Oral 250 Output: Urine 1600 Post Void Residual 194 Other: Voiding Method Indwelling Catheter - Labs CBC & Chem 7: 11/17/20 06:05 11/17/20 06:05 Labs: Abnormal Lab Results - Last 24 Hours (Table) 11/16/20 11/16/20 11/16/20 Range/Units 11:47 11:49 16:55 Neutrophils # (1.3-7.7) k/uL BUN (9.0-27.0) mg/dL BUN/Creatinine Ratio (12.00-20.00) Ratio Glucose (70-110) mg/dL POC Glucose (mg/dL) 305 H 297 H 184 H (75-99) mg/dL Ferritin (22.0-322.0) ng/mL AST (14-35) U/L ALT (10-49) U/L Lactate Dehydrogenase (120-246) U/L Albumin/Globulin Ratio (1.60-3.17) g/dL 11/16/20 11/17/20 11/17/20 Range/Units 20:02 06:05 06:05 Neutrophils # 8.0 H (1.3-7.7) k/uL BUN 42.0 H (9.0-27.0) mg/dL BUN/Creatinine Ratio 46.67 H (12.00-20.00) Ratio Glucose 165 H (70-110) mg/dL POC Glucose (mg/dL) 146 H (75-99) mg/dL Ferritin 679.5 H (22.0-322.0) ng/mL AST 36 H (14-35) U/L ALT 75 H (10-49) U/L Lactate Dehydrogenase 345 H (120-246) U/L Albumin/Globulin Ratio 1.56 L (1.60-3.17) g/dL 11/17/20 Range/Units 07:16 Neutrophils # (1.3-7.7) k/uL BUN (9.0-27.0) mg/dL BUN/Creatinine Ratio (12.00-20.00) Ratio Glucose (70-110) mg/dL POC Glucose (mg/dL) 188 H (75-99) mg/dL Ferritin (22.0-322.0) ng/mL AST (14-35) U/L ALT (10-49) U/L Lactate Dehydrogenase (120-246) U/L Albumin/Globulin Ratio (1.60-3.17) g/dL
[2020-11-17 12:04] LABS: Glucose,Whole Blood 165 mg/dL (75-99)
[2020-11-17] MEDS: ACETAMINOPHEN TAB 325 MG TAB PO PRN (13:22)
--- NOTE | 2020-11-17 14:28 | P.PN ---
Subjective Progress Note Date: 11/17/20 Principal diagnosis: Acute hypoxic respiratory failure secondary to cope 19 pneumonia This is a very pleasant 75-year-old gentleman with a history of coronary artery disease with previous stent placement, hypertension, hyperlipidemia, diabetes mellitus type 2, peripheral vascular disease with previous intervention, prior history of tobacco use. In the end of October 2020 the patient was exposed to CoVID 19 by a daughter who works at a [employer] system in [place]. His had also tested positive. The patient was admitted here on November 03 and did quite well and discharged home on November 05. He had been outside the window for Remdesivir based on his symptoms that admission. He was still on dexamethasone to complete 10 days and vitamin supplements. He represented here to the emergency room yesterday 11/08/2020 with increasing shortness of breath cough congestion. His pulse ox reading at home was 77% according to family members. He is seen today in consultation on the regular medical floor. He is currently on BiPAP 12/5 and 60% FiO2 with O2 saturation at 89%. He was trialed on 6 L high flow nasal cannula with O2 saturation of 74%. He is awake and alert. He is dyspneic with minimal exertion. He has remained afebrile. Hemodynamically stable. CT angiogram ruled out pulmonary embolism. There is extensive pulmonary interstitial infiltrates noted. White count 10.0. Hemoglobin 15.0. Lymphocytes 1.2. D-dimer 3.19. Sodium 141. Potassium 4.6. Creatinine 0.76. Initial lactic 2.3 currently 1.5. Ferritin level DCCCXX. LDH 1523. C-reactive protein 87.0. Pro calcitonin 0.10. He is currently on vancomycin and cefepime. He's been initiated on Lovenox, dexamethasone, vitamin supplements. The patient is seen today 11/13/2020 in follow-up in the intensive care unit. He is still requiring AirVo high flow oxygen at 50 L/m and 70% FiO2. He is 0.9 normal saline at 75 ML's per hour. He remains awake and alert. Chest x-ray continues to feel fine interstitial infiltrates right greater than left. Slight improvement on the right now. White count 7.4. Hemoglobin 13.8. D-dimer down to 2.80. Sodium 134. Potassium 4.3. Creatinine 0.61. LDH 833. C-reactive protein 44.6. Was noted to have some continued sediment some blood-tinged urine. Lovenox is decreased to 40 mg subcu daily. Remains on Plavix and aspirin. Continue dexamethasone, vitamin supplements. Continued on IV diuretics 40 mg daily. The patient seen today 11/14/2020 follow-up in the intensive care unit. He is currently on AirVo high flow oxygen at 50 L/m 73% FiO2. Chest x-ray continues to show bilateral reticulonodular acute interstitial edema and/or infiltrates. No significant change. White count 7.8. Hemoglobin 13.0. D-dimer 9.03. Sodium 135. Potassium 4.2. Creatinine 0.56. AST 33, ALT 53. LDH 847. C- reactive protein 30.2. He remains on Lovenox, dexamethasone, Protonix, vitamin supplement. Remains on IV diuretics. #Is 75 ML's per hour. He is tolerating a diet. The patient is seen today 11/15/2020 follow-up in the intensive care unit. He is currently sitting up in a chair at the bedside. Awake and alert in no acute distress. Tolerating his diet. His AirVo is down to 50 L/m at 50% FiO2. Chest x-ray continues to revealed interstitial infiltrates and patchy peripheral basilar opacities. No significant change. No current IV fluids. White count 8.7. Hemoglobin 13.3. Sodium 134. Potassium 4.3. Creatinine 0.52. Ferritin 649. LDH 83. C-reactive protein 19.1. He remains on Lovenox, dexamethasone, Protonix, vitamin supplement. Remains on IV diuretics. Patient is seen today 11/17/2020 in follow-up on the regular medical floor. He is currently sitting up in a chair at the bedside. Awake and alert in no acute distress. Doing quite a bit better today. Requiring 5 L high flow nasal cannula to maintain O2 saturation in the mid 90s. He is afebrile. Hemodynamically stable. Blood cultures revealed no growth. White count 10.3. Hemoglobin 15.2. Sodium 137. Potassium 4.9. Creatinine 0.9. Ferritin 679. LDH 345. C-reactive protein 0.4. He remains on Lovenox, dexamethasone, Protonix, vitamin supplement. Remains on IV diuretics. Chest x-ray reveals patchy bilateral opacities. Unchanged compared to previous. Objective - Vital Signs Vital signs: Vital Signs Temp 97.7 F 11/17/20 12:12 Pulse 57 L 11/17/20 12:12 Resp 18 11/17/20 12:12 BP 125/77 11/17/20 12:12 Pulse Ox 96 11/17/20 12:12 Intake & Output 11/16/20 11/17/20 11/17/20 18:59 06:59 18:59 Intake Total 250 950 Output Total 1420 843 6176 Balance -1350 -194 -400 Intake: Oral 250 950 Output: Urine 1600 1350 Post Void Residual 194 Other: Voiding Method Indwelling Catheter - Exam GENERAL EXAM: Alert, pleasant 75-year-old gentleman, on 5 L high flow nasal cannula, no acute respiratory distress. HEAD: Normocephalic. EYES: Normal reaction of pupils, equal size. NOSE: Clear with pink turbinates. THROAT: No erythema or exudates. NECK: No masses, no JVD. CHEST: No chest wall deformity. LUNGS: Equal air entry with coarse crackles in the bilateral posterior bases. CVS: S1 and S2 normal with no audible murmur, regular rhythm. ABDOMEN: No hepatosplenomegaly, normal bowel sounds, no guarding or rigidity. SPINE: No scoliosis or deformity SKIN: No rashes CENTRAL NERVOUS SYSTEM: No focal deficits, tone is normal in all 4 extremities. EXTREMITIES: There is no peripheral edema. No clubbing, no cyanosis. Peripheral pulses are intact. - Labs CBC & Chem 7: 11/17/20 06:05 11/17/20 06:05 Labs: Abnormal Lab Results - Last 24 Hours (Table) 11/16/20 11/16/20 11/17/20 Range/Units 16:55 20:02 06:05 Neutrophils # (1.3-7.7) k/uL BUN 42.0 H (9.0-27.0) mg/dL BUN/Creatinine Ratio 46.67 H (12.00-20.00) Ratio Glucose 165 H (70-110) mg/dL POC Glucose (mg/dL) 184 H 146 H (75-99) mg/dL Ferritin 679.5 H (22.0-322.0) ng/mL AST 36 H (14-35) U/L ALT 75 H (10-49) U/L Lactate Dehydrogenase 345 H (120-246) U/L Albumin/Globulin Ratio 1.56 L (1.60-3.17) g/dL 11/17/20 11/17/20 11/17/20 Range/Units 06:05 07:16 11:49 Neutrophils # 8.0 H (1.3-7.7) k/uL BUN (9.0-27.0) mg/dL BUN/Creatinine Ratio (12.00-20.00) Ratio Glucose (70-110) mg/dL POC Glucose (mg/dL) 188 H 165 H (75-99) mg/dL Ferritin (22.0-322.0) ng/mL AST (14-35) U/L ALT (10-49) U/L Lactate Dehydrogenase (120-246) U/L Albumin/Globulin Ratio (1.60-3.17) g/dL Assessment and Plan Assessment: 1 Acute hypoxemic respiratory failure secondary to CoVID 19 infection, outside the window for Remdesivir, currently requiring 5 L high flow nasal cannula 2 Recent admission for COVID 19 infection, November 03 to 11/05/2020, outside the window for Remdesivir, on room air. Discharged in stable condition 3 Coronary artery disease with previous stent placement 4 Hypertension 5 Hyperlipidemia 6 Diabetes mellitus, type II 7 Peripheral vascular disease with previous intervention 8 Former smoker Plan: The patient was seen and evaluated by Dr. Orozco Chest x-ray, labs reviewed Continue the current treatment plan Titrate down the FiO2 as tolerated May require home oxygen We will continue to follow and make further recommendations based on his clinical status I, the cosigning physician, performed a history & physical examination of the patient. Lungs sounds with bibasilar coarse crackles. Maintaining good O2 saturations in the 90s on 5 L/m per nasal cannula. I discussed the assessment and plan of care with my nurse practitioner, Malathi Erazo. I attest to the above note as dictated by her.
[2020-11-17 17:10] LABS: Glucose,Whole Blood 187 mg/dL (75-99)
[2020-11-17 20:28] LABS: Glucose,Whole Blood 220 mg/dL (75-99)
[2020-11-17] MEDS: traZODone HCL 100 MG TAB PO SCH (20:41)
[2020-11-17] MEDS: HYDROcodone/APAP 5-325MG 1 EACH TAB PO PRN (20:41)
--- NOTE | 2020-11-17 22:34 | PN ---
PROGRESS NOTE DATE OF SERVICE: 11/17/2020 REASON FOR FOLLOWUP: COVID-19 pneumonia. INTERVAL HISTORY: The patient is currently afebrile. The patient is feeling better. Breathing comfortably. Denies having any chest pain, shortness of breath. Occasional cough. No abdominal pain. No diarrhea. PHYSICAL EXAMINATION: Blood pressure 143/84 with pulse of 60, temperature 97.5. He is 94% on 5 L nasal cannula. General description is an elderly male up in the chair in no distress. Respiratory system: Unlabored breathing with decreased intensity . ABDOMEN: Soft. LABS: Hemoglobin 15.1, white count 10.3, BUN of 42, creatinine 0.9. DIAGNOSTIC IMPRESSION AND PLAN: Patient with acute COVID-19 infection in this patient who has shown overall clinical improvement. He is currently on the dexamethasone, Lovenox, zinc along with pressor support, trying to wean down his oxygen or arrange for outpatient oxygen. Continue supportive care. MMODL / IJN: [id number] /
[2020-11-18] MEDS: EZETIMIBE 10 MG TAB PO SCH ×2 (00:14→20:09)
[2020-11-18] MEDS: HYDROmorphone 0.5 MG/0.5 ML SYRINGE IVP PRN (01:14)
[2020-11-18 06:38] LABS: Basophils % (A) 0 %; Eosinophils % (A) 0 %; HCT 42.8 % (39.0-53.0); HGB 14.3 gm/dL (13.0-17.5); Lymphocytes # (A) 1.5 k/uL (1.0-4.8); Lymphocytes % (A) 20 %; MCH 30.9 pg (25.0-35.0); MCHC 33.4 g/dL (31.0-37.0); MCV 92.4 fL (80.0-100.0); Mean Platelet Volume 7.5; Monocytes # (A) 0.5 k/uL (0-1.0); Monocytes % (A) 6 %; Neutrophils # (A) 5.8 k/uL (1.3-7.7); Neutrophils % (A) 73 %; Platelet Count 315 k/uL (150-450); RBC 4.63 m/uL (4.30-5.90); RDW 12.5 % (11.5-15.5); WBC 7.9 k/uL (3.8-10.6)
[2020-11-18 07:17] LABS: Glucose,Whole Blood 135 mg/dL (75-99)
[2020-11-18] MEDS: SYMBICORT 160-4.5 MCG INHALER INHALATION SCH ×2 (07:48→19:16)
[2020-11-18] MEDS: CHOLECALCIFEROL 1,000 UNIT TAB PO SCH (08:54)
[2020-11-18] MEDS: ASPIRIN 325 MG TAB PO SCH (08:54)
[2020-11-18] MEDS: ENOXAPARIN 40 MG/0.4 ML SYRINGE SQ SCH ×2 (08:55→20:09)
[2020-11-18] MEDS: ATORVASTATIN 10 MG TAB PO SCH (08:55)
[2020-11-18] MEDS: ZINC SULFATE 220 MG CAP PO SCH (08:55)
[2020-11-18] MEDS: CLOPIDOGREL 75 MG TAB PO SCH (08:55)
[2020-11-18] MEDS: ASCORBIC ACID 500 MG TAB PO SCH (08:55)
[2020-11-18] MEDS: PANTOPRAZOLE 40 MG TABLET PO SCH (08:55)
[2020-11-18] MEDS: carvediloL 6.25 MG TAB PO SCH ×2 (08:55→17:21)
[2020-11-18] MEDS: INSULIN ASPART (NovoLOG) 100 UNIT/ML VIAL SQ SCH ×4 (08:56→21:32)
[2020-11-18] MEDS: DEXAMETHASONE SOD PHOSPHATE 10 MG/ML 1 ML VIAL IV SCH ×2 (08:57→20:08)
[2020-11-18] MEDS: FUROSEMIDE 10 MG/ML 4 ML VIAL IV SCH (08:57)
[2020-11-18] MEDS: cilostazoL 100 MG TAB PO SCH ×2 (08:58→20:08)
[2020-11-18] MEDS: MULTIVITAMINS, THERA 1 EACH TAB PO SCH (08:59)
[2020-11-18] MEDS: glipiZIDE 5 MG TAB PO SCH (08:59)
[2020-11-18 11:20] LABS: Glucose,Whole Blood 218 mg/dL (75-99)
[2020-11-18] MEDS: SENNOSIDES-DOCUSATE SODIUM 1 EACH TAB PO SCH (12:44)
--- NOTE | 2020-11-18 13:31 | P.PN ---
Subjective Progress Note Date: 11/18/20 HISTORY OF PRESENT ILLNESS This is a 75-year-old male patient of Dr. Roman with past medical history of coronary artery disease status post stent, hypertension, hyper lipidemia, diabetes mellitus type 2, skin cancer, peripheral vascular disease with right femoral endarterectomy and multiple stenting in the past, remote history of tobacco use and dependence. Patient states that he and his had Zofia with their daughter who works at a [employer] in [place]. When she returned to work she had to undergo required Covid 19 testing which came back positive. Patient was recently hospitalized 11/03-11/05 for COVID-19 pneumonia. His breathing status and pulseox were stable and patient was discharged home in stable condition. Patient complains of fever, cough and sputum production. No diarrhea, abdominal pain. No choking episodes. Patient came into [facility] emergency [facility] for evaluation. He was afebrile, heart rate 83, blood pressure 135/74, pulse ox 89% on room air. Patient was placed on Bipap. Patient did not tolerate nasal cannula and dropped down to 74% on 6 L. CBC was unremarkable. D-dimer 3.19. Sodium 141, potassium 4.6, chloride 110, CO2 19, BUN 32 and creatinine 0.76. Blood sugar 180. Lactic acid 2.3 and repeat 1.5. Ferritin 820. Lactic acid 1523. C- reactive protein 87. Pro-calcitonin 0.1. CT angiogram of the chest showed no evidence of pulmonary embolism. Extensive pulmonary interstitial infiltrates. No suspicious pulmonary mass. Chest x-ray reveals increased pulmonary interstitial density. Patient admitted to the [facility] floor and consult with pulmonary medicine and infectious disease. 11/10: Patient became hypoxic while on nasal cannula at 74% on 6 L was placed on BiPAP and pulse ox increased only to 87, patient was transferred into the intensive care unit yesterday early afternoon. Pulse ox is running between 89 and 93% on AirVo FiO2 of 80%. He has been afebrile, heart rate 58, respiratory rate 27, blood pressure 135/78. W BC is 7.5, hemoglobin 12.6, lymphocytes 0.9. D-dimer 12.5, BUN 37 creatinine 0.61. LDH 961, C-reactive protein 50.3. Urinalysis showed moderate blood, RBCs 100. Cultures no growth. Repeat chest x-ray reveals bilateral interstitial infiltrates suggestive of interstitial pneumonia stable. [facility] Patient has been seen and followed by pulmonary medicine and added Lasix 40 mg IV push, Rocephin started. 11/11: Patient remains in the intensive care unit. He is currently on AirVo at FiO2 of 70% with pulse ox of 90%. Patient appears to be stable. He does continue to have shortness of breath. Breath sounds are improving. He has been afebrile, pulse ox 91-95%, heart rate 66, respiratory rate 24, blood pressure 124/75. WBC 7.1, hemoglobin 12, lymphocytes 0.9. Sodium 136, potassium 4.5, chloride 108, CO2 22, BUN 35 and creatinine 0.57. Blood sugar running between 160- 188. AST 62, ALT 67, alkaline phosphatase 100. Antibiotics discontinued by pulmonary medicine. Repeat x-ray reveals diffuse interstitial and patchy peripheral infiltrates, left greater than right, not significantly changed. 11/12: Patient remains in intensive care unit. His breathing status is stable and not worsening. He is able to eat only a little bit. Potassium and magnesium have been replaced this morning. WBC 9.4, hemoglobin 12.5. D-dimer 4.48. Creatinine 0.55. Blood sugars running between 139 and 160. Ferritin 669.3. LDH 872. C-reactive protein 16.6. Pulse ox is 91-94% on high flow nasal cannula FiO2 70, flow rate 50. Afebrile, heart rate 60, blood pressure 131/78. 11/13: Patient remains in the intensive care unit. Repeat chest x-ray reveals fine interstitial infiltrates, right greater than left. There is no improving on the right. Patient is currently on Arava at 50 MLS per minute and 70% FiO2 pulse ox seen Repeat blood work reveals WBC 7.4, hemoglobin 13.8, d-dimer 2.8. Sodium 134, potassium 4.3, creatinine 0.61. LDH 833. C-reactive protein 44.6. Patient n oted to have some small amount of bloody sediment in his Perdomo and Lovenox was decreased. Patient is aware that his has also been admitted to the hospital and is stable. 11/14: Patient remains in the intensive care unit and pulse ox is 94% on high flow nasal cannula flow rate of 50, FiO2 72. Patient appears to be comfortable at rest. Also patient appears to be in good spirits today. He notes his is going to be discharged home today. WBC 7.8, hemoglobin 13. D-dimer 9.03. BUN 29 and creatinine 0.56. Ferritin 691.9. ALT 53, LDH 847. CK 26, C- reactive protein 30.2. Repeat chest x-ray reveals bilateral reticular nodular acute interstitial edema and/or infiltrates. No significant change. 11/15: Patient remains in the intensive care unit and seen today sitting in a chair. He is on AirVO at FiO2 of 50% and 50 L/m. WBC 8.7, hemoglobin 13.3. Sodium 134, potassium 4.3, creatinine 0.52. Ferritin 649. LDH 83. C-reactive protein 19.1. Lung sounds are improving. Repeat chest x-ray reveals interstitial infiltrates and patchy peripheral basilar opacities persist without significant change. Anticipate probable transfer out of the ICU over the weekend. 11/16: Patient remains in intensive care unit found sitting up in a chair. He is currently on high flow nasal cannula. Patient has no complaints or concerns at this time. He'll be transferred to the [facility] unit. He currently has indwelling catheter in place that is draining clear yellow urine. Catheter may be removed prior to transfer. 11/17: Patient is then transferred to [facility]. He is on resting comfortably in bed with no acute distress continues to be on high flow nasal cannula. Patient has no complaints or concerns at this time. Patient remains afebrile, heart rate 58, respirations 16 nonlabored with a positive cough, blood pressure 119/73, 95% on 6 L high flow nasal cannula. 11/18: Patient states that he is hungry today. Perdomo catheter was removed patient's been able to urinate on his own. His risk requesting a stool softener for constipation. Patient is currently pulse ox 94% on 5 L. He has been afebrile, heart rate 59, blood pressure 129/75. Pulse ox dropped to 84% on 4 L with ambulation. Home oxygen will be arranged with anticipation of discharge on Wednesday. Patient's daughter has been contacted via phone and updated. CBC is unremarkable. D-dimer 2.85. Blood sugars running between 135 and 220. REVIEW OF SYSTEMS Constitutional: Reports reports chills fever. No weight change. Reports generalized weakness and reports fatigue. EENT: No headache. No blurred vision or double vision, no loss of vision. No nasal drainage or congestion. No epistaxis. No sore throat. Lungs: Reports shortness of breath improving, reports cough, reports sputum pro duction. Reports wheezing. Cardiovascular: No chest pain, no lower extremity edema. No palpitations. No lightheadedness or dizziness. No syncopal episodes. Abdominal: No abdominal pain. No nausea, vomiting. No diarrhea. No constipation. No bloody or tarry stools. Denies loss of appetite. Genitourinary: No dysuria, increased frequency, urgency. No urinary retention. Mild hematuria. Musculoskeletal: No myalgias. No muscle weakness, no gait dysfunction, no frequent falls. No back pain. No neck pain. Integumentary: No wounds, no lesions. No rash or pruritus. Neurologic: No aphasia. No facial droop. No change in mentation. No head injury. No headache. No paralysis. No paresthesia. Psychiatric: No depression. No anxiety. Endocrine: Reports abnormal blood sugars. PHYSICAL EXAMINATION Gen: This is a 75-year-old male. He is resting in chair at the bedside and appears to be comfortable at rest. HEENT: Head is atraumatic, normocephalic. Pupils equal, round. Sclerae is anicteric. NECK: Supple. No JVD. No lymphadenopathy. No thyromegaly. LUNGS: Improving Diminished bilaterally. No wheezing. No respiratory distress noted at rest. HEART: Regular rate and rhythm. No murmur. ABDOMEN: Soft. Bowel sounds are present. No masses. No tenderness. EXTREMITIES: No pedal edema. No calf tenderness. NEUROLOGICAL: Patient is awake, alert and oriented x3. Cranial nerves 2 through 12 are grossly intact. ASSESSMENT AND PLAN 1. Acute hypoxic respiratory failure secondary to Covid 19 pneumonia. Continue oxygen therapy. Continue supplementation with zinc, vitamin D, vitamin C, ceftriaxone, dexamethasone 6 mg IV twice daily, Lovenox 40 mg subcu twice daily. Consult with pulmonary medicine and infectious disease appreciated. Antibiotics discontinued. Patient is currently on nasal cannula 2. Hypertension. Continue Coreg 6.25 mg twice daily. 3. Hyperlipidemia. Continue Lipitor 10 mg daily, Zetia 10 mg at bedtime. 4. Diabetes mellitus type 2. Continue glipizide 5 mg before breakfast, NovoLog scale before meals and at bedtime. 5. Peripheral vascular disease with right femoral endarterectomy and multiple stenting in the past, stable. Continue Pletal, Plavix 75 mg daily, Lipitor, aspirin. 6. Remote history of tobacco use and dependence. 7. Generalized anxiety disorder. Continue Ativan 1 mg twice daily as needed and trazodone 100 mg at bedtime. 8. DVT prophylaxis. Lovenox. 9. GI prophylaxis. Protonix. 10. Mild hematuria. Lovenox decreased to 40 mg subcu daily. 11. Chronic hypoxic respiratory failure. Patient requires oxygen to manage COVID-19 pneumonia. Pulse ox 84% on 4 L nasal cannula with ambulation. CODE STATUS: Full code DISCHARGE PLAN Most likely return home possibly Wednesday Impression and plan of care have been directed as dictated by the signing physician. Reema Tai nurse practitioner acting as scribe for signing physician. Objective - Vital Signs Vital signs: Vital Signs Temp 97.5 F L 11/18/20 05:00 Pulse 59 L 11/18/20 05:00 Resp 20 11/18/20 05:00 BP 125/75 11/18/20 05:00 Pulse Ox 94 L 11/18/20 05:00 Intake & Output 11/17/20 11/18/20 11/18/20 18:59 06:59 18:59 Intake Total 2150 350 Output Total 1350 500 Balance 800 -150 Intake: Oral 2150 350 Output: Urine 1350 500 Other: Voiding Method Urinal # Voids 2 2 - Labs CBC & Chem 7: 11/18/20 05:38 11/17/20 06:05 Labs: Abnormal Lab Results - Last 24 Hours (Table) 11/17/20 11/17/20 11/17/20 Range/Units 06:05 11:49 16:58 D-Dimer (<0.60) mg/L FEU BUN 42.0 H (9.0-27.0) mg/dL BUN/Creatinine Ratio 46.67 H (12.00-20.00) Ratio Glucose 165 H (70-110) mg/dL POC Glucose (mg/dL) 165 H 187 H (75-99) mg/dL Ferritin 679.5 H (22.0-322.0) ng/mL AST 36 H (14-35) U/L ALT 75 H (10-49) U/L Lactate Dehydrogenase 345 H (120-246) U/L Albumin/Globulin Ratio 1.56 L (1.60-3.17) g/dL 11/17/20 11/18/20 11/18/20 Range/Units 20:17 05:38 07:16 D-Dimer 2.85 H (<0.60) mg/L FEU BUN (9.0-27.0) mg/dL BUN/Creatinine Ratio (12.00-20.00) Ratio Glucose (70-110) mg/dL POC Glucose (mg/dL) 220 H 135 H (75-99) mg/dL Ferritin (22.0-322.0) ng/mL AST (14-35) U/L ALT (10-49) U/L Lactate Dehydrogenase (120-246) U/L Albumin/Globulin Ratio (1.60-3.17) g/dL
--- NOTE | 2020-11-18 13:44 | P.PN ---
Subjective Progress Note Date: 11/18/20 This is a very pleasant 75-year-old gentleman with a history of coronary artery disease with previous stent placement, hypertension, hyperlipidemia, diabetes mellitus type 2, peripheral vascular disease with previous intervention, prior history of tobacco use. In the end of October 2020 the patient was exposed to CoVID 19 by a daughter who works at a [employer] system in [place]. His had also tested positive. The patient was admitted here on November 03 and did quite well and discharged home on November 05. He had been outside the window for Remdesivir based on his symptoms that admission. He was still on dexamethasone to complete 10 days and vitamin supplements. He represented here to the emergency room yesterday 11/08/2020 with increasing shortness of breath cough congestion. His pulse ox reading at home was 77% according to family members. He is seen today in consultation on the regular medical floor. He is currently on BiPAP 12/5 and 60% FiO2 with O2 saturation at 89%. He was trialed on 6 L high flow nasal cannula with O2 saturation of 74%. He is awake and alert. He is dyspneic with minimal exertion. He has remained afebrile. Hemodynamically stable. CT angiogram ruled out pulmonary embolism. There is extensive pulmonary interstitial infiltrates noted. White count 10.0. Hemoglobin 15.0. Lymphocytes 1.2. D-dimer 3.19. Sodium 141. Potassium 4.6. Creatinine 0.76. Initial lactic 2.3 currently 1.5. Ferritin level DCCCXX. LDH 1523. C-reactive protein 87.0. Pro calcitonin 0.10. He is currently on vancomycin and cefepime. He's been initiated on Lovenox, dexamethasone, vitamin supplements. The patient is seen today 11/13/2020 in follow-up in the intensive care unit. He is still requiring AirVo high flow oxygen at 50 L/m and 70% FiO2. He is 0.9 normal saline at 75 ML's per hour. He remains awake and alert. Chest x-ray continues to feel fine interstitial infiltrates right greater than left. Slight improvement on the right now. White count 7.4. Hemoglobin 13.8. D-dimer down to 2.80. Sodium 134. Potassium 4.3. Creatinine 0.61. LDH 833. C-reactive protein 44.6. Was noted to have some continued sediment some blood-tinged urine. Lovenox is decreased to 40 mg subcu daily. Remains on Plavix and aspirin. Continue dexamethasone, vitamin supplements. Continued on IV diuretics 40 mg daily. The patient seen today 11/14/2020 follow-up in the intensive care unit. He is currently on AirVo high flow oxygen at 50 L/m 73% FiO2. Chest x-ray continues to show bilateral reticulonodular acute interstitial edema and/or infiltrates. No significant change. White count 7.8. Hemoglobin 13.0. D-dimer 9.03. Sodium 135. Potassium 4.2. Creatinine 0.56. AST 33, ALT 53. LDH 847. C- reactive protein 30.2. He remains on Lovenox, dexamethasone, Protonix, vitamin supplement. Remains on IV diuretics. #Is 75 ML's per hour. He is tolerating a diet. The patient is seen today 11/15/2020 follow-up in the intensive care unit. He is currently sitting up in a chair at the bedside. Awake and alert in no acute distress. Tolerating his diet. His AirVo is down to 50 L/m at 50% FiO2. Chest x-ray continues to revealed interstitial infiltrates and patchy peripheral basilar opacities. No significant change. No current IV fluids. White count 8.7. Hemoglobin 13.3. Sodium 134. Potassium 4.3. Creatinine 0.52. Ferritin 649. LDH 83. C-reactive protein 19.1. He remains on Lovenox, dexamethasone, Protonix, vitamin supplement. Remains on IV diuretics. Patient is seen today 11/17/2020 in follow-up on the regular medical floor. He is currently sitting up in a chair at the bedside. Awake and alert in no acute distress. Doing quite a bit better today. Requiring 5 L high flow nasal cannula to maintain O2 saturation in the mid 90s. He is afebrile. Hemodynamically stable. Blood cultures revealed no growth. White count 10.3. Hemoglobin 15.2. Sodium 137. Potassium 4.9. Creatinine 0.9. Ferritin 679. LDH 345. C-reactive protein 0.4. He remains on Lovenox, dexamethasone, Protonix, vitamin supplement. Remains on IV diuretics. Chest x-ray reveals patchy bilateral opacities. Unchanged compared to previous. No delirium. No confusion. Altered mentation. No side effects from the steroids. Objective - Vital Signs Vital signs: Vital Signs Temp 97.9 F 11/18/20 11:00 Pulse 79 11/18/20 11:11 Resp 17 11/18/20 11:00 BP 132/79 11/18/20 11:00 Pulse Ox 84 L 11/18/20 11:11 Intake & Output 11/17/20 11/18/20 11/18/20 18:59 06:59 18:59 Intake Total 2150 350 Output Total 1350 500 Balance 800 -150 Intake: Oral 2150 350 Output: Urine 1350 500 Other: Voiding Method Urinal Urinal # Voids 2 2 - Exam GENERAL EXAM: Alert, pleasant 75-year-old gentleman, on 5 L high flow nasal cannula, no acute respiratory distress. HEAD: Normocephalic. EYES: Normal reaction of pupils, equal size. NOSE: Clear with pink turbinates. THROAT: No erythema or exudates. NECK: No masses, no JVD. CHEST: No chest wall deformity. LUNGS: Equal air entry with coarse crackles in the bilateral posterior bases. CVS: S1 and S2 normal with no audible murmur, regular rhythm. ABDOMEN: No hepatosplenomegaly, normal bowel sounds, no guarding or rigidity. SPINE: No scoliosis or deformity SKIN: No rashes CENTRAL NERVOUS SYSTEM: No focal deficits, tone is normal in all 4 extremities. EXTREMITIES: There is no peripheral edema. No clubbing, no cyanosis. Peripheral pulses are intact. - Labs CBC & Chem 7: 11/18/20 05:38 11/17/20 06:05 Labs: Abnormal Lab Results - Last 24 Hours (Table) 11/17/20 11/17/20 11/18/20 Range/Units 16:58 20:17 05:38 D-Dimer 2.85 H (<0.60) mg/L FEU POC Glucose (mg/dL) 187 H 220 H (75-99) mg/dL 11/18/20 11/18/20 Range/Units 07:16 11:18 D-Dimer (<0.60) mg/L FEU POC Glucose (mg/dL) 135 H 218 H (75-99) mg/dL Assessment and Plan Plan: 1 Acute hypoxemic respiratory failure secondary to CoVID 19 infection, outside the window for Remdesivir, currently requiring 5 L high flow nasal cannula 2 Recent admission for COVID 19 infection, November 03 to 11/05/2020, outside the window for Remdesivir, on room air. Discharged in stable condition 3 Coronary artery disease with previous stent placement 4 Hypertension 5 Hyperlipidemia 6 Diabetes mellitus, type II 7 Peripheral vascular disease with previous intervention 8 Former smoker Plan: The patient is currently on Decadron 6 mg IV every 12 hours and this will be continued for 24 hours. The patient is on Lovenox 40 mg subcu every 12 hours and this continued for another 24 hours We'll try to wean down the FiO2 down to 2 L and maintain a saturation above 90% Chest x-ray, labs reviewed Continue the current treatment plan Titrate down the FiO2 as tolerated May require home oxygen
--- NOTE | 2020-11-18 14:08 | PN ---
PROGRESS NOTE DATE OF SERVICE: 11/18/2020 REASON FOR FOLLOWUP: COVID-19 pneumonia. INTERVAL HISTORY: The patient is currently afebrile. He is breathing slightly comfortably, still requiring supplemental oxygen. Denies having any chest pain. Did have a cough. No sputum. No abdominal pain or diarrhea. PHYSICAL EXAMINATION: Blood pressure 132/79 with a pulse of 74, temperature 97.9. He is 94% on 4 L nasal cannula. General description is an elderly male lying in bed in no distress. RESPIRATORY SYSTEM: Unlabored breathing with decreased breath sounds at the bases per nursing staff. HEART: Regular rhythm. EXTREMITIES: No edema of feet. LABS: Hemoglobin 14.3, white count 7.9. DIAGNOSTIC IMPRESSION AND PLAN: Patient with acute COVID-19 pneumonia. The patient has seemed to have clinical response to current supportive treatment, still requiring supplemental oxygen can be arranged for the patient. Continue with dexamethasone, Lovenox, zinc and supportive treatment. MMODL / IJN: [id number] / MTDD
[2020-11-18 17:05] LABS: Glucose,Whole Blood 237 mg/dL (75-99)
[2020-11-18] MEDS: HYDROcodone/APAP 5-325MG 1 EACH TAB PO PRN (20:08)
[2020-11-18] MEDS: traZODone HCL 100 MG TAB PO SCH (20:08)
[2020-11-18 21:14] LABS: Glucose,Whole Blood 178 mg/dL (75-99)
[2020-11-18 22:31] VITALS: RESP 16
[2020-11-19 04:45] VITALS: BP 133/76; PULSE 66; TEMP 97.4
[2020-11-19 07:20] LABS: Glucose,Whole Blood 150 mg/dL (75-99)
--- NOTE | 2020-11-19 08:07 | P.DS ---
Providers Date of admission: 11/08/20 23:21 Expected date of discharge: 11/19/20 Attending physician: Emily Brennan Consults: 11/08/20 23:21 Consult Physician Urgent Consulting Provider: Claire Aguirre Consult Reason/Comments: Covid pneumonia Do you want consulting provider notified?: Yes 11/08/20 23:23 Consult Physician Urgent Consulting Provider: Melissa Woodward Consult Reason/Comments: Covid pneumonia Do you want consulting provider notified?: Yes Primary care physician: Arya Roman [facility] Course: HISTORY OF PRESENT ILLNESS This is a 75-year-old male patient of Dr. Roman with past medical history of coronary artery disease status post stent, hypertension, hyperlipidemia, diabetes mellitus type 2, skin cancer, peripheral vascular disease with right femoral endarterectomy and multiple stenting in the past, remote history of tobacco use and dependence. Patient states that he and his had Zofia with their daughter who works at a [employer] in [place]. When she returned to work she had to undergo required Covid 19 testing which came back positive. Patient was recently hospitalized 11/03-11/05 for COVID- 19 pneumonia. His breathing status and pulseox were stable and patient was discharged home in stable condition. Patient complains of fever, cough and sputum production. No diarrhea, abdominal pain. No choking episodes. Patient came into [facility] emergency center for evaluation. He was afebrile, heart rate 83, blood pressure 135/74, pulse ox 89% on room air. Patient was placed on Bipap. Patient did not tolerate nasal cannula and dropped down to 74% on 6 L. CBC was unremarkable. D-dimer 3.19. Sodium 141, potassium 4.6, chloride 110, CO2 19, BUN 32 and creatinine 0.76. Blood sugar 180. Lactic acid 2.3 and repeat 1.5. Ferritin 820. Lactic acid 1523. C- reactive protein 87. Pro-calcitonin 0.1. CT angiogram of the chest showed no evidence of pulmonary embolism. Extensive pulmonary interstitial infiltrates. No suspicious pulmonary mass. Chest x-ray reveals increased pulmonary interstitial density. Patient admitted to the [facility] floor and consult with pulmonary medicine and infectious disease. 11/10: Patient became hypoxic while on nasal cannula at 74% on 6 L was placed on BiPAP and pulse ox increased only to 87, patient was transferred into the intensive care unit yesterday early afternoon. Pulse ox is running between 89 and 93% on AirVo FiO2 of 80%. He has been afebrile, heart rate 58, respiratory rate 27, blood pressure 135/78. W BC is 7.5, hemoglobin 12.6, lymphocytes 0.9. D-dimer 12.5, BUN 37 creatinine 0.61. LDH 961, C-reactive protein 50.3. Urinalysis showed moderate blood, RBCs 100. Cultures no growth. Repeat chest x-ray reveals bilateral interstitial infiltrates suggestive of interstitial pneumonia stable. Patient has been seen by infectious disease and plan for possible Actemra. Patient has been seen and followed by pulmonary medicine and added Lasix 40 mg IV push, Rocephin started. 11/11: Patient remains in the intensive care unit. He is currently on AirVo at FiO2 of 70% with pulse ox of 90%. Patient appears to be stable. He does continue to have shortness of breath. Breath sounds are improving. He has been afebrile, pulse ox 91-95%, heart rate 66, respiratory rate 24, blood pressure 124/75. WBC 7.1, hemoglobin 12, lymphocytes 0.9. Sodium 136, potassium 4.5, chloride 108, CO2 22, BUN 35 and creatinine 0.57. Blood sugar running between 160- 188. AST 62, ALT 67, alkaline phosphatase 100. Antibiotics discontinued by pulmonary medicine. Repeat x-ray reveals diffuse interstitial and patchy peripheral infiltrates, left greater than right, not significantly changed. 11/12: Patient remains in intensive care unit. His breathing status is stable and not worsening. He is able to eat only a little bit. Potassium and magnesium have been replaced this morning. WBC 9.4, hemoglobin 12.5. D-dimer 4.48. Creatinine 0.55. Blood sugars running between 139 and 160. Ferritin 669.3. LDH 872. C-reactive protein 16.6. Pulse ox is 91-94% on high flow nasal cannula FiO2 70, flow rate 50. Afebrile, heart rate 60, blood pressure 131/78. 11/13: Patient remains in the intensive care unit. Repeat chest x-ray reveals fine interstitial infiltrates, right greater than left. There is no improving on the right. Patient is currently on Arava at 50 MLS per minute and 70% FiO2 pulse ox seen Repeat blood work reveals WBC 7.4, hemoglobin 13.8, d-dimer 2.8. Sodium 134, potassium 4.3, creatinine 0.61. LDH 833. C-reactive protein 44.6. Patient noted to have some small amount of bloody sediment in his Perdomo and Lovenox was decreased. Patient is aware that his has also been admitted to the hospital and is stable. 11/14: Patient remains in the intensive care unit and pulse ox is 94% on high flow nasal cannula flow rate of 50, FiO2 72. Patient appears to be comfortable at rest. Also patient appears to be in good spirits today. He notes his is going to be discharged home today. WBC 7.8, hemoglobin 13. D-dimer 9.03. BUN 29 and creatinine 0.56. Ferritin 691.9. ALT 53, LDH 847. CK 26, C- reactive protein 30.2. Repeat chest x-ray reveals bilateral reticular nodular acute interstitial edema and/or infiltrates. No significant change. 11/15: Patient remains in the intensive care unit and seen today sitting in a chair. He is on AirVO at FiO2 of 50% and 50 L/m. WBC 8.7, hemoglobin 13.3. Sodium 134, potassium 4.3, creatinine 0.52. Ferritin 649. LDH 83. C-reactive protein 19.1. Lung sounds are improving. Repeat chest x-ray reveals interstitial infiltrates and patchy peripheral basilar opacities persist without significant change. Anticipate probable transfer out of the ICU over the weekend. 11/16: Patient remains in intensive care unit found sitting up in a chair. He is currently on high flow nasal cannula. Patient has no complaints or concerns at this time. He'll be transferred to the [facility] unit. He currently has indwelling catheter in place that is draining clear yellow urine. Catheter may be removed prior to transfer. 11/17: Patient is then transferred to [facility]. He is on resting comfortably in bed with no acute distress continues to be on high flow nasal cannula. Patient has no complaints or concerns at this time. Patient remains afebrile, heart rate 58, respirations 16 nonlabored with a positive cough, blood pressure 119/73, 95% on 6 L high flow nasal cannula. 11/18: Patient states that he is hungry today. Perdomo catheter was removed patient's been able to urinate on his own. His risk requesting a stool softener for constipation. Patient is currently pulse ox 94% on 5 L. He has been afebrile, heart rate 59, blood pressure 129/75. Pulse ox dropped to 84% on 4 L with ambulation. Home oxygen will be arranged with anticipation of discharge on Wednesday. Patient's daughter has been contacted via phone and updated. CBC is unremarkable. D-dimer 2.85. Blood sugars running between 135 and 220. 11/19: Oxygen was arranged yesterday by porter sample case as patient requires oxygen to manage his COVID-19 pneumonia. We are also ordering a walker today. Patient has been afebrile, heart rate 66, pulse ox 133/76, pulse ox 92-94% on 2 L nasal cannula. Patient's breathing status is stable. He is anxious to be discharged home. Patient will be discharged home today in stable condition. ASSESSMENT AND PLAN 1. Acute hypoxic respiratory failure secondary to Covid 19 pneumonia. 2. Hypertension. 3. Hyperlipidemia. 4. Diabetes mellitus type 2. 5. Peripheral vascular disease with right femoral endarterectomy and multiple stenting in the past, stable. 6. Remote history of tobacco use and dependence. 7. Generalized anxiety disorder. 8. Mild hematuria, resolved 9. Chronic hypoxic respiratory failure. Patient requires oxygen to manage COVID-19 pneumonia. Pulse ox 84% on 4 L nasal cannula with ambulation. DISCHARGE PLAN Home with [facility] Impression and plan of care have been directed as dictated by the signing physician. Reema Tai nurse practitioner acting as scribe for signing physician. Patient Condition at Discharge: Good Plan - Discharge Summary New Discharge Prescriptions: New Potassium Chloride ER [K-Dur 10] 10 meq PO DAILY #30 tab Furosemide [Lasix] 20 mg PO DAILY #30 tab Pantoprazole [Protonix] 40 mg PO AC-BRKFST #30 tablet. Budesonide-Formot 160-4.5 Mcg [Symbicort 160-4.5 Mcg Inhaler] 2 puff INHALATION RT-BID #1 inhaler Albuterol Sulfate [Proventil Hfa] 1 puff INHALATION Q4-6H PRN #1 inhaler PRN Reason: Wheezing Continue LORazepam [Ativan] 1 mg PO BID Clopidogrel [Plavix] 75 mg PO DAILY Aspirin EC [Ecotrin] 325 mg PO DAILY Omeprazole [PriLOSEC] 20 mg PO AC-BRKFST traZODone HCL 100 mg PO HS Rosuvastatin Calcium [Crestor] 5 mg PO DAILY Ezetimibe [Zetia] 10 mg PO HS Multivitamins, Thera [Multivitamin (formulary)] 1 tab PO DAILY glipiZIDE [Glucotrol] 5 mg PO DAILY cilostazoL [Pletal] 50 mg PO BID carvediloL [Coreg] 6.25 mg PO BID Ibuprofen [Motrin] 800 mg PO Q8H PRN PRN Reason: Pain Zinc Sulfate [Orazinc] 220 mg PO DAILY cap Ascorbic Acid [Vitamin C] 1,000 mg PO DAILY tab Cholecalciferol [Vitamin D3 (25 Mcg = 1000 Iu)] 2,000 unit PO DAILY tab Dexamethasone 6 mg PO DAILY #4 tab Discontinued Azithromycin [Zithromax] 500 mg PO DAILY #5 tab Discharge Medication List Aspirin EC [Ecotrin] 325 mg PO DAILY 07/18/14 [History] Clopidogrel [Plavix] 75 mg PO DAILY 07/18/14 [History] LORazepam [Ativan] 1 mg PO BID 07/18/14 [History] Omeprazole [PriLOSEC] 20 mg PO AC-BRKFST 07/18/14 [History] traZODone HCL 100 mg PO HS 08/09/17 [History] Ezetimibe [Zetia] 10 mg PO HS 04/26/19 [History] Rosuvastatin Calcium [Crestor] 5 mg PO DAILY 04/26/19 [History] Multivitamins, Thera [Multivitamin (formulary)] 1 tab PO DAILY 05/27/20 [History] cilostazoL [Pletal] 50 mg PO BID 05/27/20 [History] glipiZIDE [Glucotrol] 5 mg PO DAILY 05/27/20 [History] Ibuprofen [Motrin] 800 mg PO Q8H PRN 11/03/20 [History] carvediloL [Coreg] 6.25 mg PO BID 11/03/20 [History] Ascorbic Acid [Vitamin C] 1,000 mg PO DAILY tab 11/05/20 [Rx] Cholecalciferol [Vitamin D3 (25 Mcg = 1000 Iu)] 2,000 unit PO DAILY tab 11/05/20 [Rx] Zinc Sulfate [Orazinc] 220 mg PO DAILY cap 11/05/20 [Rx] Albuterol Sulfate [Proventil Hfa] 1 puff INHALATION Q4-6H PRN #1 inhaler 11/19/20 [Rx] Budesonide-Formot 160-4.5 Mcg [Symbicort 160-4.5 Mcg Inhaler] 2 puff INHALATION RT-BID #1 inhaler 11/19/20 [Rx] Dexamethasone 6 mg PO DAILY #4 tab 11/19/20 [Rx] Furosemide [Lasix] 20 mg PO DAILY #30 tab 11/19/20 [Rx] Pantoprazole [Protonix] 40 mg PO AC-BRKFST #30 tablet. 11/19/20 [Rx] Potassium Chloride ER [K-Dur 10] 10 meq PO DAILY #30 tab 11/19/20 [Rx] Follow up Appointment(s)/Referral(s): [facility] [NON-STAFF] - [facility], [NON-STAFF] - As Needed Arya Roman DO [Primary Care Provider] - 1 Week ([facility] will call patient to make an appointment.) Patient Instructions/Handouts: Viral Pneumonia (DC), Using Oxygen at Home (DC), Hypoxia (GEN), Type 2 Diabetes in the Older Adult (DC) Activity/Diet/Wound Care/Special Instructions: Please Call DaughterSasha with d/c instructions and d/c time. Sasha will drive patient home. Discharge/Stand Alone Forms: Community Resources Discharge Disposition: HOME WITH HOME HEALTH SERVICES
[2020-11-19] MEDS: cilostazoL 100 MG TAB PO SCH (08:31)
[2020-11-19] MEDS: PANTOPRAZOLE 40 MG TABLET PO SCH (08:31)
[2020-11-19] MEDS: ASPIRIN 325 MG TAB PO SCH (08:31)
[2020-11-19] MEDS: MULTIVITAMINS, THERA 1 EACH TAB PO SCH (08:31)
[2020-11-19] MEDS: CLOPIDOGREL 75 MG TAB PO SCH (08:31)
[2020-11-19] MEDS: CHOLECALCIFEROL 1,000 UNIT TAB PO SCH (08:31)
[2020-11-19] MEDS: glipiZIDE 5 MG TAB PO SCH (08:31)
[2020-11-19] MEDS: ZINC SULFATE 220 MG CAP PO SCH (08:32)
[2020-11-19] MEDS: SENNOSIDES-DOCUSATE SODIUM 1 EACH TAB PO SCH ×2 (08:32→08:48)
[2020-11-19] MEDS: ATORVASTATIN 10 MG TAB PO SCH (08:33)
[2020-11-19] MEDS: ASCORBIC ACID 500 MG TAB PO SCH (08:33)
[2020-11-19] MEDS: ENOXAPARIN 40 MG/0.4 ML SYRINGE SQ SCH (08:33)
[2020-11-19] MEDS: carvediloL 6.25 MG TAB PO SCH (08:33)
[2020-11-19] MEDS: FUROSEMIDE 10 MG/ML 4 ML VIAL IV SCH (08:34)
[2020-11-19] MEDS: INSULIN ASPART (NovoLOG) 100 UNIT/ML VIAL SQ SCH (08:34)
[2020-11-19] MEDS: DEXAMETHASONE SOD PHOSPHATE 10 MG/ML 1 ML VIAL IV SCH (08:34)
[2020-11-19] MEDS: SYMBICORT 160-4.5 MCG INHALER INHALATION SCH (08:55)
--- NOTE | 2020-11-19 21:01 | P.PN ---
Progress Note - Text Progress Note Date: 11/19/20 REASON FOR FOLLOWUP: COVID-19 pneumonia. INTERVAL HISTORY: The patient is afebrile. He is breathing slightly comfortably, down to 2L supplemental oxygen. Denies having any chest pain. Did have a cough. No sputum. No abdominal pain or diarrhea. PHYSICAL EXAMINATION: Blood pressure 130/70 with a pulse of 74, temperature 97.9. He is 94% on 2 L nasal cannula. General description is an elderly male lying in bed in no distress. RESPIRATORY SYSTEM: Unlabored breathing with decreased breath sounds at the bases HEART: Regular rhythm. EXTREMITIES: No edema of feet. LABS: no new labs DIAGNOSTIC IMPRESSION AND PLAN: Patient with acute COVID-19 pneumonia. The patient has seemed to have clinical response to current supportive treatment, has completed his dexamethasone treatment no need for any antibiotics on discharge
[2020-11-20] MEDS ORDERED: CHOLECALCIFEROL 25 MCG (1000 IU) TABLET PO SCH (09:00)
== END 2020-11-19 12:19 | disposition home health service (06) | DRG 177 ==
LOC: EC 20:08 → 6NMEDSUR 23:21 → 2SICU 11-09 13:00 → 6NMEDSUR 11-16 17:21
PROVIDERS: ADMIT Family Medicine; ATTEND Family Medicine
PROC: 5A09357 Assistance with Respiratory Ventilation, Less than 24 Consecutive Hours, Continuous Positive Airway Pressure (ICD-10-PCS; principal; 2020-11-08)
PROC: 5A0935A Assistance with Respiratory Ventilation, Less than 24 Consecutive Hours, High Flow/Velocity Cannula (ICD-10-PCS; 2020-11-08)
DX: U07.1 COVID-19 (principal); J12.82 Pneumonia due to coronavirus disease 2019; J96.21 Acute and chronic respiratory failure with hypoxia; I25.2 Old myocardial infarction; K59.00 Constipation, unspecified; R31.0 Gross hematuria; E11.51 Type 2 diabetes mellitus with diabetic peripheral angiopathy without gangrene; E78.5 Hyperlipidemia, unspecified; F41.1 Generalized anxiety disorder; I10 Essential (primary) hypertension; I25.10 Atherosclerotic heart disease of native coronary artery without angina pectoris; Z79.02 Long term (current) use of antithrombotics/antiplatelets; Z79.82 Long term (current) use of aspirin; Z79.84 Long term (current) use of oral hypoglycemic drugs; Z79.899 Other long term (current) drug therapy; Z80.1 Family history of malignant neoplasm of trachea, bronchus and lung; Z80.3 Family history of malignant neoplasm of breast; Z82.5 Family history of asthma and other chronic lower respiratory diseases; Z85.828 Personal history of other malignant neoplasm of skin; Z87.891 Personal history of nicotine dependence; Z95.5 Presence of coronary angioplasty implant and graft; Z96.652 Presence of left artificial knee joint; Z98.41 Cataract extraction status, right eye; Z97.0 Presence of artificial eye; Z85.3 Personal history of malignant neoplasm of breast; M19.90 Unspecified osteoarthritis, unspecified site
CPT/HCPCS: 36415; 71045; 71275; 80048; 80053; 81001; 82550; 82553; 82728; 83605; 83615; 83735; 84145; 85025; 85379; 85610; 85730; 86140; 87040; 93005; 94640; 94660; 96374; 99285

== ENCOUNTER → 2021-05-09 | Outpatient (CLI) | payer MEDICARE, BC | END | disposition home or self-care (01) | DX: G31.9 Degenerative disease of nervous system, unspecified (principal) | CPT/HCPCS: 82607; 82565; 82746; 84520; 70470; 36415; Q9967 ==

== ENCOUNTER → 2021-06-25 | Outpatient (CLI) | payer MEDICARE, BC ==
[2021-06-25 13:30] LABS: Chol/HDL Ratio 3.17; LDL Cholesterol,Calculated 33.4 mg/dL (0.0-131.0); VLDL Calculation 57.6 mg/dL (5.00-40.00)
== END | disposition home or self-care (01) ==
LOC: LABWHC1 07:51
PROVIDERS: ATTEND Internal Medicine Interventional Cardiology
DX: E78.2 Mixed hyperlipidemia (principal)
CPT/HCPCS: 36415; 80061; 84450; 84460

== ENCOUNTER 2021-09-18 10:23 | Day surgery (SDC) | payer MEDICARE, BC ==
--- NOTE | 2021-09-17 09:15 | P.HPIHPCON ---
History of Present Illness H&P Date: 09/17/21 Chief Complaint: prostate cancer This is a 58-year-old male with history of [place] 7 (3+4) prostate cancer, he elected to proceed with external beam radiation therapy. Option of SpaceOR placement was discussed with him. Discussed with him risk which includes but not limited to bleeding, infection, rectal perforation. Discussed with him the purpose of the spaceOR placement is to reduce the rectal toxicity from radiation. Discussed that he could still develop rectal toxicity from radiation even with SpaceOR placement . He understood all the risk and agreed to proceed Prostate size 21g Consent for Procedure: I have explained the operation/procedure to the patient, including the risks, benefits, side effects, alternative therapies (including not receiving the proposed treatment or service), the likelihood of the patient achieving his/her goals, and potential recuperation problems for the procedure/sedation/analgesia, as well as any blood products, if indicated. I also explained to the patient the risks, benefits and side effects of the alternatives, as well as the risks related to not receiving the proposed procedure, care, treatment, or services. 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, "borderline diabetic", skin cancer Last Myocardial Infarction Date:: 1986 History of Any Multi-Drug Resistant Organisms: None Reported Past Surgical History: Cardiac Ablation, Heart Catheterization With Stent, Joint Replacement, Orthopedic Surgery Additional Past Surgical History / Comment(s): femoral stent, pt states he has several stents, multiple cardiac cath's., shoulder right surgery, left knee replacement, Rt knee arthroscopy, rt femoral endarterectomy, rt acataract Past Anesthesia/Blood Transfusion Reactions: No Reported Reaction Additional Past Anesthesia/Blood Transfusion Reaction / Comment(s): vertigo, Date of Last Stent Placement:: 08/17/17 Past Psychological History: Anxiety Smoking Status: Former smoker Past Alcohol Use History: Occasional Additional Past Alcohol Use History / Comment(s): quit smoking 30 yrs. ago, up to 3ppd for years Past Drug Use History: None Reported - Past Family History Father Family Medical History: Cancer Additional Family Medical History / Comment(s): lung Sister(s) Family Medical History: Cancer Additional Family Medical History / Comment(s): lung, breast Brother(s) Family Medical History: Cancer Additional Family Medical History / Comment(s): lung Medications and Allergies Home Medications Medication Instructions Recorded Confirmed Type Aspirin EC [Ecotrin] 325 mg PO DAILY 07/18/14 11/08/20 History Clopidogrel [Plavix] 75 mg PO DAILY 07/18/14 11/08/20 History LORazepam [Ativan] 1 mg PO BID 07/18/14 11/08/20 History Omeprazole [PriLOSEC] 20 mg PO AC-BRKFST 07/18/14 11/08/20 History traZODone HCL 100 mg PO HS 08/09/17 11/08/20 History Ezetimibe [Zetia] 10 mg PO HS 04/26/19 11/08/20 History Rosuvastatin Calcium [Crestor] 5 mg PO DAILY 04/26/19 11/08/20 History Multivitamins, Thera [Multivitamin 1 tab PO DAILY 05/27/20 11/08/20 History (formulary)] cilostazoL [Pletal] 50 mg PO BID 05/27/20 11/08/20 History glipiZIDE [Glucotrol] 5 mg PO DAILY 05/27/20 11/08/20 History Ibuprofen [Motrin] 800 mg PO Q8H PRN 11/03/20 11/08/20 History carvediloL [Coreg] 6.25 mg PO BID 11/03/20 11/08/20 History Ascorbic Acid [Vitamin C] 1,000 mg PO DAILY tab 11/05/20 11/08/20 Rx Cholecalciferol [Vitamin D3 (25 2,000 unit PO DAILY tab 11/05/20 11/08/20 Rx Mcg = 1000 Iu)] Zinc Sulfate [Orazinc] 220 mg PO DAILY cap 11/05/20 11/08/20 Rx Albuterol Sulfate [Proventil Hfa] 1 puff INHALATION Q4-6H PRN #1 11/19/20 Rx inhaler Budesonide-Formot 160-4.5 Mcg 2 puff INHALATION RT-BID #1 inhaler 11/19/20 Rx [Symbicort 160-4.5 Mcg Inhaler] Dexamethasone 6 mg PO DAILY #4 tab 11/19/20 Rx Furosemide [Lasix] 20 mg PO DAILY #30 tab 11/19/20 Rx Pantoprazole [Protonix] 40 mg PO EDMUNDT #30 tablet. 11/19/20 Rx Potassium Chloride ER [K-Dur 10] 10 meq PO DAILY #30 tab 11/19/20 Rx Allergies Allergy/AdvReac Type Severity Reaction Status Date / Time No Known Allergies Allergy Verified 11/08/20 21:01 Surgical - Exam - General no distress, no pain - Eyes PERRL, normal ocular movement - ENT normal nares, normal mucosa - Respiratory normal expansion, normal respiratory effort - Psychiatric oriented to time, oriented to person, oriented to place Assessment and Plan Assessment: -OR for SpaceOR placement
[2021-09-17 10:42] VITALS: BMI 24.6
[~2021-09-18 10:23] MED LIST changes: -ALPRAZolam 0.25 MG TAB PO PRN; -ASPIRIN 325 MG TAB PO STA; +LACTATED RINGERS 1,000 ML IV SCH; +LIDOCAINE 1% (10MG/ML) FOR IV START INTRADERMA PRN; -SODIUM CHLORIDE 0.9% 1,000 ML in EMPTY BAG 1 BAG IV ONE; +fentaNYL (PF) 50 MCG/ML 2 ML AMP IV PRN
[2021-09-18 10:45] VITALS: TEMP 96.9
[2021-09-18 10:45] LABS: Glucose,Whole Blood 107 mg/dL (75-99)
[2021-09-18] MEDS ORDERED: fentaNYL (PF) 50 MCG/ML 2 ML AMP ONE (11:27)
[2021-09-18] MEDS ORDERED: MIDAZOLAM 2 MG/2 ML VIAL ONE (11:27)
[2021-09-18] MEDS ORDERED: KETAMINE 10 MG/ML 20 ML VIAL ONE (11:27)
[2021-09-18] MEDS ORDERED: PROPOFOL 10 MG/ML 20 ML VIAL IV ONE (11:27)
[2021-09-18] MEDS ORDERED: LIDOCAINE 2% (PF) 20 MG/ML 10 ML AMP SQ ONE (11:43)
--- NOTE | 2021-09-18 11:55 | P.OP ---
Date of Procedure: 09/18/21 Preoperative Diagnosis: Adenocarcinoma of the prostate Postoperative Diagnosis: Same Procedure(s) Performed: SpaceOAR Implant Anesthesia: MAC Surgeon: Trevor Ramirez Estimated Blood Loss (ml): 10 IV fluids (ml): 400 Pathology: none sent Condition: stable Disposition: PACU Indications for Procedure: This is a 76-year-old male with history of [place] 7 (3+4) prostate cancer, who elected to proceed with external beam radiation therapy. Option of SpaceOAR placement was discussed with him to reduce the rectal toxicity from radiation. He understood and agreed to proceed. Operative Findings: 1 cm separation created between prostate and rectum. Description of Procedure: The patient was taken to the operating room and placed in the dorsolithotomy position, with his legs supported in Mickey stirrups. The external genitalia was prepped and draped sterilely. The Bruel and Kjaer transrectal ultrasound probe was placed intrarectally. The prostate was imaged. The probe was then placed within the stabilizing stand. A spinal needle was advanced under ultrasonic guidance to the level of the urogenital diaphragm, and lidocaine was used to infiltrate the tissues as the needle was withdrawn. Next, the SpaceOAR needle was passed through the midline of the perineum, 1-2 cm anterior to the anal opening. The needle was slowly advanced under ultrasonic guidance until the needle tip was located within the fat plane between the prostate and rectum, at the level of the mid prostate gland. The needle was confirmed to be midline on the axial imaging. A small amount of normal saline was injected for hydrodissection. Next, the SpaceOAR components were mixed and loaded into the Y connector per protocol. The Y connector was then connected to the needle, and the components were injected slowly over a course of approximately 12 seconds. A total of 10 ml was injected. Significant distance was created between the prostate and rectum, as desired. It should be noted that at no point was there any concern of rectal perforation. The needle was withdrawn, as well as the transrectal ultrasound probe, and the procedure was terminated. The patient tolerated the procedure well and was taken to the recovery room in stable condition.
[2021-09-18 12:11] VITALS: RESP 14
[2021-09-18 12:27] VITALS: BP 125/76; PULSE 60
== END 2021-09-18 13:01 | disposition home or self-care (01) ==
LOC: OR 10:23
PROVIDERS: ATTEND Urology
DX: C61 Malignant neoplasm of prostate (principal); I25.10 Atherosclerotic heart disease of native coronary artery without angina pectoris; I10 Essential (primary) hypertension; K21.9 Gastro-esophageal reflux disease without esophagitis; E78.5 Hyperlipidemia, unspecified; I25.2 Old myocardial infarction; M19.90 Unspecified osteoarthritis, unspecified site; R73.03 Prediabetes; Z97.0 Presence of artificial eye; Z85.828 Personal history of other malignant neoplasm of skin; I99.9 Unspecified disorder of circulatory system; Z95.5 Presence of coronary angioplasty implant and graft; Z96.652 Presence of left artificial knee joint; Z95.820 Peripheral vascular angioplasty status with implants and grafts; Z98.890 Other specified postprocedural states; Z98.41 Cataract extraction status, right eye; F41.9 Anxiety disorder, unspecified; Z87.891 Personal history of nicotine dependence; Z80.1 Family history of malignant neoplasm of trachea, bronchus and lung; Z80.3 Family history of malignant neoplasm of breast; Z79.84 Long term (current) use of oral hypoglycemic drugs; Z79.02 Long term (current) use of antithrombotics/antiplatelets; Z79.82 Long term (current) use of aspirin; Z79.51 Long term (current) use of inhaled steroids; Z79.899 Other long term (current) drug therapy; Z97.2 Presence of dental prosthetic device (complete) (partial)
CPT/HCPCS: 55874; C1889; J2250; J2001; J0690; J3010; J2704

== ENCOUNTER → 2022-02-20 | Day surgery (SDC) | payer MEDICARE, BC ==
[2022-02-19 13:51] VITALS: BMI 25.9
[~2022-02-20] MED LIST changes: +ALPRAZolam 0.25 MG TAB PO PRN; +ASPIRIN 325 MG TAB PO PRN; +IOPAMIDOL-250 100ML BTL INTRAARTER ONE; -LACTATED RINGERS 1,000 ML IV SCH; -LIDOCAINE 1% (10MG/ML) FOR IV START INTRADERMA PRN; +LIDOCAINE 1% INJ 10MG/ML (20 ML MDV) SQ ONE; +LIDOCAINE 1% INJ 10MG/ML (30 ML VIAL-PF) SQ ONE; +MIDAZOLAM 2 MG/2 ML VIAL IV ONE; +RX INFO: IV CONTRAST WAS GIVEN 1 EACH MISC MISCELLANE PRN; +SODIUM CHLORIDE 0.9% 1,000 ML IV SCH; +SODIUM CHLORIDE 0.9% 1,000 ML in EMPTY BAG 1 BAG IV ONE; -fentaNYL (PF) 50 MCG/ML 2 ML AMP IV PRN
[2022-02-20 06:19] LABS: Glucose,Whole Blood 141 mg/dL (75-99)
[2022-02-20 06:38] VITALS: RESP 16; TEMP 97.9
[2022-02-20 06:51] LABS: Basophils # (A) 0.1 k/uL (0-0.2); Basophils % (A) 1 %; Eosinophils # (A) 0.2 k/uL (0-0.7); Eosinophils % (A) 3 %; HCT 44.9 % (39.0-53.0); HGB 14.5 gm/dL (13.0-17.5); Hypochromasia Slight; Lymphocytes # (A) 2.3 k/uL (1.0-4.8); Lymphocytes % (A) 45 %; MCHC 32.3 g/dL (31.0-37.0); MCV 92.9 fL (80.0-100.0); Mean Platelet Volume 6.8; Monocytes # (A) 0.5 k/uL (0-1.0); Monocytes % (A) 9 %; Neutrophils # (A) 1.9 k/uL (1.3-7.7); Neutrophils % (A) 37 %; Platelet Count 357 k/uL (150-450); RBC 4.83 m/uL (4.30-5.90); RDW 12.9 % (11.5-15.5); WBC 5.1 k/uL (3.8-10.6)
[2022-02-20 07:25] LABS: Calcium 9.2 mg/dL (8.4-10.2); Potassium 4.3 mmol/L (3.5-5.1)
--- NOTE | 2022-02-20 08:06 | P.PCN ---
Date of Procedure: 02/20/22 Operative Findings: AN ABDOMINAL AORTOGRAM AND BILATERAL LOWER EXTREMITIES RUNOFF PERFORMING PHYSICIAN: Johan Machado MD PROCEDURE PERFORMED: 1. An abdominal aortogram 2. Bilateral lower extremities runoff INDICATION: Bilateral lower extremities intermittent claudication worse on the left side than the right side in this 77-year-old gentleman who was known to have severe lower extremities peripheral arterial disease. The intermittent claudication was disabling and the patient cannot walk more than 200 feet before he stopped because of the pain. Sometimes he's experiencing resting pain. COMPLICATION: Non- LEVEL OF SEDATION: Moderate was sedation length of 12 minutes APPROACH: Right common femoral artery PROCEDURE DESCRIPTION: After obtaining informed consent and explaining the procedure benefits, risks, and complications, the patient was brought to the cardiac photographic laboratory technician. The right groin was prepped and draped in sterile fashion. The right common femoral artery was cannulated using micropuncture technique, under ultrasound guidance. A micropuncture wire was advanced, and the micropuncture sheath was advanced over the wire, then the micropuncture sheath was exchanged over an 0.35 wire into a 5-New Zealander sheath dilator assembly then the wire and dilator were removed and sheath was flushed. We did an abdominal aortogram and bilateral lower extremities runoff using 5- [place] pigtail catheter using a power injection. The catheter was initially placed at the level of the renal arteries, and it was pulled into above the bifurcation of the aorta into right and left common iliac arteries. The procedure was completed and there was no complications. SELECTIVE PERIPHERAL ANGIOGRAM: The abdominal aorta: Is calcified was mild disease only. The aorta is mildly aneurysmal as well. The common iliac arteries: The right and left common iliac arteries appear to have mild disease only The external iliac arteries: Right external iliac artery is a stented and the stent is patent. The left external iliac artery appears to have mild disease only. The internal iliac arteries: Both internal iliac arteries are patent The common femoral arteries: Right and left common femoral arteries had patch angioplasty before and both appeared to be patent Superficial femoral arteries: The right SFA is a stented and the stent is patent. The left SFA is occluded on long segment Popliteal arteries: The right and left popliteal are occluded Below the knees: The arteries below the knee are poorly visualized but there are probably 3 vessels run off CONCLUSION: Patent right external iliac stent Patent right SFA. Occluded left SFA and left popliteal on long segment Probably 3 vessels run off below the knee bilaterally POSTPROCEDURE MANAGEMENT: MACHINE FINISHER of the right SFA/popliteal to be performed in the next few weeks
--- NOTE | 2022-02-20 08:49 | IR ---
EXAMINATION TYPE: IR angio abdominal w runoff DATE OF EXAM: 02/20/2022 COMPARISON: NONE HISTORY: Fluoroscopy time. Fluoroscopy was provided to the referring clinician.
[2022-02-20 11:07] VITALS: BP 136/74; PULSE 68
== END ==
LOC: CATHCVL 05:42
PROVIDERS: ATTEND Internal Medicine Interventional Cardiology
DX: I70.213 Atherosclerosis of native arteries of extremities with intermittent claudication, bilateral legs (principal); I70.0 Atherosclerosis of aorta; I25.10 Atherosclerotic heart disease of native coronary artery without angina pectoris; I10 Essential (primary) hypertension; E11.51 Type 2 diabetes mellitus with diabetic peripheral angiopathy without gangrene; E78.5 Hyperlipidemia, unspecified; C61 Malignant neoplasm of prostate; F17.210 Nicotine dependence, cigarettes, uncomplicated; Z87.19 Personal history of other diseases of the digestive system; Z20.822 Contact with and (suspected) exposure to COVID-19; Z95.820 Peripheral vascular angioplasty status with implants and grafts; Z79.899 Other long term (current) drug therapy; Z79.84 Long term (current) use of oral hypoglycemic drugs; Z79.02 Long term (current) use of antithrombotics/antiplatelets; Z82.49 Family history of ischemic heart disease and other diseases of the circulatory system
CPT/HCPCS: 36200; 75625; 75716; 76937; 80048; 85025; 87635; C1769 ×4; C1894; J2250; J2001; Q9966

== ENCOUNTER → 2022-03-02 | Outpatient (CLI) | payer MEDICARE, BC ==
[2022-03-02 15:34] LABS: African American GFR (CKD) 77.7 (60.0-200.0); BUN/Creat Ratio 24.58 Ratio (12.00-20.00); Blood Urea Nitrogen 26.3 mg/dL (9.0-27.0); Calcium 9.5 mg/dL (8.7-10.3); Carbon Dioxide 20.1 mmol/L (20.0-27.5); Chloride 105 mmol/L (96-109); Chol/HDL Ratio 3.27 Ratio; Glucose 154 mg/dL (70-110); LDL Cholesterol,Calculated 47.7 mg/dL (0.0-131.0); Non-African American GFR(CKD) 67.1 (60.0-200.0); Potassium 3.7 mmol/L (3.5-5.5); Sodium 140 mmol/L (135-145)
[2022-03-02 19:48] LABS: Urine Creatinine 61.3 mg/dL (39.0-259.0)
== END | disposition home or self-care (01) ==
LOC: LABWHC1 07:21
PROVIDERS: ATTEND Nurse Practitioner
DX: E78.5 Hyperlipidemia, unspecified (principal); E11.65 Type 2 diabetes mellitus with hyperglycemia
CPT/HCPCS: 36415; 80048; 80061; 82043; 82570; 83036

== ENCOUNTER → 2022-07-01 | Outpatient (CLI) | payer MEDICARE, BC ==
--- NOTE | 2022-07-01 12:47 | CT ---
EXAMINATION TYPE: CT lumbar spine wo con DATE OF EXAM: 07/01/2022 COMPARISON: None HISTORY: Unsteady Gait CT DLP: 935 mGycm CONTRAST: None TECHNIQUE: CT of the lumbar spine is performed on a spiral scan at 3 mm thick sections. Reconstructed images are performed in the coronal and sagittal planes. FINDINGS: T12-L1: No focal disc herniation or significant disc bulge is evident. No spinal canal stenosis or neural foraminal stenosis is present. L1-L2: No focal disc herniation or significant disc bulge is evident. No spinal canal stenosis or n eural foraminal stenosis is present L2-L3: No focal disc herniation or significant disc bulge is evident. No spinal canal stenosis or n eural foraminal stenosis is present L3-L4: Mild disc bulge is present with mild intrathecal sac impression. No AP spinal canal stenosis p resent. Facet degenerative changes are present. L4-L5: Mild disc bulge has moderate anterior thecal sac impression. AP diameter is 1.1 cm. Facet hype rtrophy is present. There is loss of posterior disc space. Neural foramen are patent. L5-S1: Facet hypertrophy has mild posterior lateral thecal sac impression. Minimal disc bulge has int rathecal sac contact. No AP spinal canal stenosis is present. Neural foramen are patent. Vertebral alignment appears normal. There is a punctate nonobstructing renal stone at the inferior po le left kidney. IMPRESSION: Disc bulge at L3-4 through L5-S1 with mild to moderate anterior thecal sac impression. This is greate st at L4-5 with some mild L4-5 canal narrowing without spinal canal stenosis. 2. Abdominal aortic aneurysm is present 1.6 cm extension from the left posterior lateral abdominal ao rta, series 3 image 34.
--- NOTE | 2022-07-01 14:37 | CT ---
EXAMINATION TYPE: CT angio head DATE OF EXAM: 07/01/2022 HISTORY: Dizziness, Unsteady gait COMPARISON: CT brain 05/09/2021 CT DLP: 2454 mGycm. Automated Exposure Control for Dose Reduction was Utilized. TECHNIQUE: CTA scan of the [place] is performed without and with IV Contrast, patient injec danelle with 100 ml mL of Isovue 370, axial images are obtained, coronal and sagittal reformatted images are reviewed. Three-D reconstructed images are created on an independent workstation and reviewed. [facility] images are reviewed. FINDINGS: Cervical of [place]: Vertebral basilar system appears normal in position. There is a large calcificati on within the distal left vertebral artery. Complete obstruction is not identified. Posterior cerebra l vasculature is unremarkable. Internal carotid arteries bifurcate normally into A1 and M1 segments. A2 segments are normal. The anterior communicating artery is patent. Left Posterior communicating art sejal is patent. Right posterior communicating artery is patent. Other: IMPRESSION: 1. No acute changes [place] of [place]. No evidence of stenosis or obstruction.
== END | disposition home or self-care (01) ==
LOC: RADCTMAIN 08:04
PROVIDERS: ATTEND Psychiatry & Neurology Neurology
DX: I71.4 Abdominal aortic aneurysm, without rupture (principal); I99.8 Other disorder of circulatory system; M51.27 Other intervertebral disc displacement, lumbosacral region; M54.42 Lumbago with sciatica, left side; J34.89 Other specified disorders of nose and nasal sinuses; R42 Dizziness and giddiness; R26.81 Unsteadiness on feet
CPT/HCPCS: 82565; 84520; 72131; 70496; 36415; Q9967

== ENCOUNTER → 2022-09-23 | Outpatient (CLI) | payer MEDICARE, BC ==
[2022-09-23 15:35] LABS: Basophils # (A) 0.03 X 10*3/uL (0.00-0.10); Basophils % (A) 0.4 %; Eosinophils # (A) 0.15 X 10*3/uL (0.04-0.35); Eosinophils % (A) 1.9 %; HCT 48.2 % (39.6-50.0); HGB 15.6 g/dL (13.0-17.0); Immature Grans, Automated 0.4 %; Lymphocytes % (A) 37.3 %; MCH 30.5 pg (27.0-32.0); MCHC 32.4 g/dL (32.0-37.0); MCV 94.1 fL (80.0-97.0); Mean Platelet Volume 9.9 fL (9.5-12.2); Monocytes # (A) 0.72 X 10*3/uL (0.20-1.00); Monocytes % (A) 9.3 %; NRBC Per 100 WBC 0 /100 WBCS (0.0-0.0); Neutrophils # (A) 3.95 X 10*3/uL (1.80-7.70); Neutrophils % (A) 50.7 %; Platelet Count 308 X 10*3/uL (140-440); RBC 5.12 X 10*6/uL (4.40-5.60); RDW 12.4 % (11.5-14.5); WBC 7.78 X 10*3/uL (4.50-10.00)
[2022-09-23 16:02] LABS: African American GFR (CKD) 72.8 (60.0-200.0); Anion Gap 12.8 mmol/L (10.00-18.00); Blood Urea Nitrogen 26.5 mg/dL (9.0-27.0); Carbon Dioxide 22.2 mmol/L (20.0-27.5); Non-African American GFR(CKD) 62.8 (60.0-200.0); Potassium 4.7 mmol/L (3.5-5.5)
== END | disposition home or self-care (01) ==
LOC: LABPAT 09:46
PROVIDERS: ATTEND Internal Medicine Interventional Cardiology
DX: Z01.812 Encounter for preprocedural laboratory examination (principal); I70.213 Atherosclerosis of native arteries of extremities with intermittent claudication, bilateral legs
CPT/HCPCS: 80051; 82565; 84520; 85025

== ENCOUNTER 2022-09-30 13:59 | Day surgery (SDC) | payer MEDICARE, BC ==
[~2022-09-30 13:59] MED LIST changes: +ALPRAZolam 0.5 MG TAB PO PRN; +HEPARIN SODIUM,PORCINE 10,000 UNIT in SODIUM CHLORIDE 0.9% 1,000 ML IRRIGATION PRN; +HEPARIN SODIUM,PORCINE 2,500 UNIT in SODIUM CHLORIDE 0.9% 250 ML IRRIGATION PRN; -IOPAMIDOL-250 100ML BTL INTRAARTER ONE; -LIDOCAINE 1% INJ 10MG/ML (20 ML MDV) SQ ONE; -LIDOCAINE 1% INJ 10MG/ML (30 ML VIAL-PF) SQ ONE; -MIDAZOLAM 2 MG/2 ML VIAL IV ONE; -RX INFO: IV CONTRAST WAS GIVEN 1 EACH MISC MISCELLANE PRN; -SODIUM CHLORIDE 0.9% 1,000 ML IV SCH; +ZOLPIDEM 5 MG TAB PO PRN
[2022-09-30] MEDS ORDERED: SODIUM CHLORIDE 0.9% 1,000 ML IV ONE (14:28)
[2022-09-30 14:48] LABS: Glucose,Whole Blood 158 mg/dL (70-110)
[2022-09-30] MEDS ORDERED: SODIUM CHLORIDE 0.9% 500 ML 500 ML with niCARdipine 6.25 MG, NITROGLYCERIN-D5W PMX 0.05... IV ONE ×4 (15:00)
[2022-09-30] MEDS ORDERED: niCARdipine 25 MG/10 ML VIAL ONE (15:10)
[2022-09-30] MEDS ORDERED: LIDOCAINE 1% INJ 10MG/ML (30 ML VIAL-PF) SQ ONE (15:16)
[2022-09-30] MEDS ORDERED: MIDAZOLAM 2 MG/2 ML VIAL IV ONE ×2 (15:16→15:35)
[2022-09-30] MEDS ORDERED: HEPARIN SODIUM 1,000 UN/ML (10ML VL) ONE (15:17)
[2022-09-30] MEDS: HEPARIN SODIUM 1,000 UN/ML (10ML VL) IV ONE ×2 (15:31→16:16)
[2022-09-30] MEDS ORDERED: NALOXONE 0.4 MG/ML 1 ML VIAL IVP PRN (16:56)
[2022-09-30] MEDS ORDERED: IOPAMIDOL-250 100ML BTL INTRAARTER ONE (17:00)
[2022-09-30] MEDS ORDERED: SODIUM CHLORIDE 0.9% 1,000 ML in EMPTY BAG 1 BAG IV SCH (17:00)
--- NOTE | 2022-09-30 17:04 | P.PCN ---
Date of Procedure: 09/30/22 Operative Findings: PERCUTANEOUS PERIPHERAL INTERVENTION Performing physician Johan Machado M.D. Procedure performed #1 Successful atherectomy of the right popliteal using the CSI device #2 Successful stenting of the right popliteal using 6.0 x 140 mm Zilver PTX drug-coated stent #3 Intravascular ultrasound of the right popliteal #4 Right lower extremities angiogram and left common femoral artery angiogram #5 Ultrasound guided access of the left common femoral artery Indication This is a 77-year-old gentleman with known lower extremity peripheral arterial disease with prior intervention was experiencing right lower activities intermittent claudication interfering with his daily activities. He underwent an arterial duplex study and that showed occluded right SFA/popliteal Approach Left common femoral artery Complications None Level of sedation Moderate with a sedation time of 92 minutes Procedure description After obtaining an informed consent the patient was brought to the cardiac cath lab radiological technologist. The left common femoral artery was cannulated using micropuncture technique under ultrasound guidance, the micropuncture wire passed easily then I predilated the artery using 5-Belizean dilator and 6-Belizean dilator and 7-Belizean dilator before I placed a 6-Belizean 70 cm sheath in the left common femoral artery. Subsequently using 5-Belizean rim catheter I did selective the right SFA. Then the sheath was advanced over the wire and dilator to the right common femoral artery. The wire was also 35 stiff Glidewire. At that point and Ticlid patient was initiated using heparin with continuous ACT monitoring. Subsequently I was able to cross the chronic total occlusion of the right popliteal using 018 wire with a backup support of 018 catheter. Then I did inject contrast through the catheter to prove that I was in the true lumen. After that I did exchange my 018 wire into 04 wire which was the atherectomy wire using the catheter. I did atherectomy of the right popliteal using the orbital atherectomy device and using 1.5 mady. I did perform that under local and medium and high speed. After that balloon angioplasty of the right popliteal was performed using 5 mm chocolates balloon. The following angiogram showed inadequate angiographic results. I decided to stent that segment. I placed 6.0 x 140 mm Zilver PTX drug-coated stent where the stent was positioned under fluoroscopy guidance and deployed under fluoroscopy guidance. Postdilatation was performed using 6 mm balloon. The final angiogram showed good angiographic results and the procedure was completed without any complications. Completion procedure was also performed. Subsequently I did exchange my long sheath into short sheath using 035 stiff Glidewire before I did selective left common femoral artery angiogram. Postprocedure management #1 dual antiplatelet therapy #2 aggressive cholesterol control #3 risk factors modification #4 follow-up with the patient
[2022-09-30] MEDS: carvediloL 6.25 MG TAB PO SCH (18:06)
[2022-09-30] MEDS ORDERED: ATROPINE SULFATE 0.1 MG/ML 10ML SYRINGE ONE (19:37)
[2022-09-30 20:37] LABS: Glucose,Whole Blood 198 mg/dL (70-110)
[2022-09-30] MEDS: cilostazoL 100 MG TAB PO SCH (20:50)
[2022-09-30] MEDS ORDERED: ATORVASTATIN 10 MG TAB PO SCH (21:00)
[2022-09-30] MEDS ORDERED: traZODone HCL 100 MG TAB PO SCH (21:00)
[2022-09-30] MEDS ORDERED: FENOFIBRATE 54 MG TAB PO SCH (21:00)
[2022-09-30] MEDS ORDERED: EZETIMIBE 10 MG TAB PO SCH (21:00)
[2022-10-01] MEDS: carvediloL 6.25 MG TAB PO SCH (06:04)
[2022-10-01 06:30] LABS: Glucose,Whole Blood 211 mg/dL (70-110)
[2022-10-01] MEDS ORDERED: PANTOPRAZOLE 40 MG TABLET PO SCH (07:30)
--- NOTE | 2022-10-01 08:45 | P.DS ---
Providers Attending physician: Johan Machado Primary care physician: [facility] Course: The patient is a pleasant 77-year-old gentleman who underwent yesterday successful STORE DIRECTOR of the right popliteal from left groin approach. The patient was seen this morning. Is doing very well from the cardiovascular standpoint of view. The left groin is soft and nontender and with no bruises. The patient is going to be discharged home. Plan - Discharge Summary Discharge Rx Participant: No New Discharge Prescriptions: Continue LORazepam [Ativan] 1 mg PO DAILY Clopidogrel [Plavix] 75 mg PO DAILY Aspirin EC [Ecotrin] 325 mg PO DAILY Omeprazole [PriLOSEC] 20 mg PO AC-BRKFST traZODone HCL 100 mg PO HS Rosuvastatin Calcium [Crestor] 5 mg PO HS Ezetimibe [Zetia] 10 mg PO HS Multivitamins, Thera [Multivitamin (formulary)] 1 tab PO DAILY cilostazoL [Pletal] 100 mg PO BID carvediloL [Coreg] 6.25 mg PO BID Jardiance(Dose Unknown) 25 mg PO DAILY Rivaroxaban [Xarelto] 2.5 mg PO BID Fenofibrate [Lofibra] 54 mg PO HS Discharge Medication List Aspirin EC [Ecotrin] 325 mg PO DAILY 07/18/14 [History] Clopidogrel [Plavix] 75 mg PO DAILY 07/18/14 [History] LORazepam [Ativan] 1 mg PO DAILY 07/18/14 [History] Omeprazole [PriLOSEC] 20 mg PO AC-BRKFST 07/18/14 [History] traZODone HCL 100 mg PO HS 08/09/17 [History] Ezetimibe [Zetia] 10 mg PO HS 04/26/19 [History] Rosuvastatin Calcium [Crestor] 5 mg PO HS 04/26/19 [History] Multivitamins, Thera [Multivitamin (formulary)] 1 tab PO DAILY 05/27/20 [History] cilostazoL [Pletal] 100 mg PO BID 05/27/20 [History] carvediloL [Coreg] 6.25 mg PO BID 11/03/20 [History] Jardiance(Dose Unknown) 25 mg PO DAILY 02/19/22 [History] Fenofibrate [Lofibra] 54 mg PO HS 03/04/22 [History] Rivaroxaban [Xarelto] 2.5 mg PO BID 09/28/22 [History] Follow up Appointment(s)/Referral(s): Johan Machado MD [STAFF PHYSICIAN] - 1 Week (APPOINTMENT MADE ON October @ 4:45PM ) Patient Instructions/Handouts: Peripheral Artery Disease (ED), Moderate Sedation (DC), Peripheral Vascular Angioplasty (DC) Activity/Diet/Wound Care/Special Instructions: *NO LIFTING, PUSHING, OR PULLING ANYTHING OVER 5 POUNDS FOR 5 DAYS *NO DRIVING FOR 3 DAYS *YOU CAN REMOVE YOUR DRESSING AND SHOWER TOMORROW BUT DO NOT SUBMERSE YOUR PUNCTURE SITE IN WATER FOR A FEW DAYS TO PREVENT INFECTION - SO NO TUB BATHS, POOLS, HOT TUBS, DISHES....ETC *ANY SIGNS OF BLEEDING (HARDNESS, SWELLING, OR EXCESSIVE BRUISING) HOLD DIRECT PRESSURE ON YOUR PUNCTURE SITE AND COME TO THE NEAREST EMERGENCY ROOM TO GET YOUR PUNCTURE SITE LOOKED AT - DO NOT DRIVE YOURSELF! EITHER CALL EMS OR HAVE SOMEONE DRIVE YOU!
[2022-10-01] MEDS ORDERED: MULTIVITAMINS, THERA 1 EACH TAB PO SCH (09:00)
[2022-10-01] MEDS ORDERED: LORazepam 1 MG TAB PO SCH (09:00)
[2022-10-01] MEDS ORDERED: CLOPIDOGREL 75 MG TAB PO SCH (09:00)
[2022-10-01] MEDS ORDERED: DAPAGLIFLOZIN PROPANEDIOL 10 MG TABLET PO SCH (09:00)
[2022-10-01] MEDS ORDERED: ASPIRIN 325 MG TAB PO SCH (09:00)
[2022-10-01 09:17] VITALS: BP 149/70; PULSE 86; RESP 16; TEMP 98.2
[2022-10-01] MEDS: cilostazoL 100 MG TAB PO SCH (09:46)
--- NOTE | 2022-10-05 08:52 | IR ---
EXAMINATION TYPE: IR stent intravas non coronary DATE OF EXAM: 09/30/2022 COMPARISON: NONE HISTORY: Fluoroscopy time. Fluoroscopy was provided to the referring clinician.
== END 2022-10-01 10:46 | disposition home or self-care (01) ==
LOC: CATHCVL 13:59 → 3SCARD 16:59 → CATHCVL 10-01 10:46
PROVIDERS: ATTEND Internal Medicine Interventional Cardiology
DX: I70.213 Atherosclerosis of native arteries of extremities with intermittent claudication, bilateral legs (principal); E78.5 Hyperlipidemia, unspecified; E11.9 Type 2 diabetes mellitus without complications; I10 Essential (primary) hypertension; F17.210 Nicotine dependence, cigarettes, uncomplicated; Z79.01 Long term (current) use of anticoagulants; Z79.82 Long term (current) use of aspirin
CPT/HCPCS: 37227; 37252; C1894 ×2; C1769 ×5; C1714; C1725 ×2; C1753; C1874; J2250; J2001; J1644; Q9966

== ENCOUNTER → 2023-11-17 | Outpatient (CLI) | payer MEDICARE, BC | END | disposition home or self-care (01) | LOC: LABWHC1 09:38 | PROVIDERS: ATTEND Radiology Radiation Oncology | DX: C61 Malignant neoplasm of prostate (principal); Z85.46 Personal history of malignant neoplasm of prostate; Z92.3 Personal history of irradiation; Z79.818 Long term (current) use of other agents affecting estrogen receptors and estrogen levels | CPT/HCPCS: 36415; 84153 ==

== ENCOUNTER → 2024-08-30 | Outpatient (CLI) | payer MEDICARE, BC ==
[2024-08-30 16:27] LABS: Chol/HDL Ratio 3.09 Ratio
[2024-08-30 16:28] LABS: ALT 11 U/L (10-49); AST 16 U/L (14-35); Albumin 4.2 g/dL (3.8-4.9); Alkaline Phosphatase 72 U/L (41-126); BUN/Creat Ratio 22.08 Ratio (12.00-20.00); Blood Urea Nitrogen 28.7 mg/dL (9.0-27.0); Calcium 9.6 mg/dL (8.7-10.3); Chloride 105 mmol/L (96-109); Globulin 2.8 g/dL (1.6-3.3); Glucose 186 mg/dL (70-110); LDL Cholesterol,Calculated 52.4 mg/dL (0.0-131.0); Potassium 4.4 mmol/L (3.5-5.5); Sodium 139 mmol/L (135-145); Total Bilirubin 0.3 mg/dL (0.3-1.2)
[2024-08-30 21:46] LABS: Microalbumin Creatinine Ratio <21 mg/g Cr (0-30); Urine Creatinine 56.9 mg/dL (39.0-259.0)
== END | disposition home or self-care (01) ==
LOC: LABWHC1 08:19
PROVIDERS: ATTEND Internal Medicine
DX: E11.65 Type 2 diabetes mellitus with hyperglycemia (principal)
CPT/HCPCS: 36415; 80053; 80061; 82043; 82570; 83036

== ENCOUNTER → 2024-11-25 | Outpatient (CLI) | payer MEDICARE ==
[2024-11-25 12:49] LABS: HCT 44.4 % (39.6-50.0); HGB 14.6 g/dL (13.0-17.0); MCH 30.6 pg (27.0-32.0); MCHC 32.9 g/dL (32.0-37.0); MCV 93.1 FL (80.0-97.0); Mean Platelet Volume 9.9 FL (9.5-12.2); NRBC Per 100 WBC 0 X 10*3/uL (0.00-0.01); Platelet Count 215 X 10*3/uL (140-440); RBC 4.77 X 10*6/uL (4.40-5.60); RDW 13.6 % (11.5-14.5); WBC 7.79 X 10*3/uL (4.50-10.00)
[2024-11-25 13:23] LABS: Blood Urea Nitrogen 29.3 mg/dL (9.0-27.0); Carbon Dioxide 20.6 mmol/L (21.6-31.8); Chloride 106 mmol/L (96-109); Potassium 4.5 mmol/L (3.5-5.5); Sodium 138 mmol/L (135-145)
== END | disposition home or self-care (01) ==
LOC: LABWHC1 08:18
PROVIDERS: ATTEND Internal Medicine Interventional Cardiology
DX: Z01.818 Encounter for other preprocedural examination (principal); I25.10 Atherosclerotic heart disease of native coronary artery without angina pectoris
CPT/HCPCS: 36415; 80051; 82565; 84520; 85027

== ENCOUNTER → 2025-01-15 | Outpatient (CLI) | payer MEDICARE, OTHER ==
[2025-01-15 15:15] LABS: Prostate Specific Antigen 0.04 ng/mL (0.000-6.500); Testosterone 87.4 ng/dL (86.98-780.10)
== END | disposition home or self-care (01) ==
LOC: LABWHC1 08:06
PROVIDERS: ATTEND Radiology Radiation Oncology
DX: C61 Malignant neoplasm of prostate (principal); R97.20 Elevated prostate specific antigen [PSA]; Z85.46 Personal history of malignant neoplasm of prostate; Z92.3 Personal history of irradiation; Z79.818 Long term (current) use of other agents affecting estrogen receptors and estrogen levels
CPT/HCPCS: 36415; 84153; 84403

== ENCOUNTER → 2025-03-02 | Outpatient (CLI) | payer MEDICARE, OTHER ==
[2025-03-02 10:32] LABS: BUN/Creat Ratio 22.64 Ratio (12.00-20.00); Blood Urea Nitrogen 24.9 mg/dL (9.0-27.0); Chol/HDL Ratio 3.19 Ratio; Glucose 172 mg/dL (70-110); LDL Cholesterol,Calculated 38.5 mg/dL (0.0-131.0)
[2025-03-02 10:33] LABS: ALT 13 U/L (10-49); AST 18 U/L (14-35); Albumin 4.4 g/dL (3.8-4.9); Albumin/Globulin Ratio 1.63 Ratio (1.60-3.17); Alkaline Phosphatase 62 U/L (41-126); Calcium 9.8 mg/dL (8.7-10.3); Carbon Dioxide 20.1 mmol/L (21.6-31.8); Chloride 109 mmol/L (96-109); Globulin 2.7 g/dL (1.6-3.3); Potassium 4.7 mmol/L (3.5-5.5); Sodium 143 mmol/L (135-145); Total Bilirubin 0.3 mg/dL (0.3-1.2); Total Protein 7.1 g/dL (6.2-8.2)
[2025-03-02 19:58] LABS: Microalbumin Creatinine Ratio <12 mg/g Cr (0-30)
== END | disposition home or self-care (01) ==
LOC: LABWHC1 08:12
PROVIDERS: ATTEND Internal Medicine
DX: E11.65 Type 2 diabetes mellitus with hyperglycemia (principal)
CPT/HCPCS: 36415; 80053; 80061; 82043; 82570; 83036

== ENCOUNTER → 2025-04-09 | Outpatient (CLI) | payer MEDICARE, OTHER ==
--- NOTE | 2025-04-09 15:16 | XR ---
EXAMINATION TYPE: XR foot complete LT DATE OF EXAM: 04/09/2025 3:08 PM INDICATION: Patient age:Male; 80 years old; Reason for study: SCRAPING ON BALL OF LEFT FOOT, R/O INFECTION. pain COMPARISON: None TECHNIQUE: The left foot was examined in the AP, oblique, and lateral projections. FINDINGS: No evidence of any acute osseous pathology. No evidence of soft tissue swelling. Joints are preserve d. No osseous erosions. Incidental note is made of symphalangism of the fifth distal interphalangeal joint. No radiopaque foreign body. Vascular sclerosis. IMPRESSION: No evidence of acute fracture. [facility], , 04/09/2025 3:13 PM
== END | disposition home or self-care (01) ==
LOC: RADXRMAIN 14:55
PROVIDERS: ATTEND Student in an Organized Health Care Education/Training Program
DX: M79.672 Pain in left foot (principal)